=== PATIENT | female | born 1985 | race Caucasian/White ===

== ENCOUNTER → 2021-03-15 10:51 | Outpatient (BNVA) | payer OTHER, SELFPAY | PROVIDERS: Family Provider Nurse Practitioner Family; PCP Nurse Practitioner Family; Visit Provider Nurse Practitioner Family | DX: Z20.822 Contact with and (suspected) exposure to COVID-19 (principal); J98.8 Other specified respiratory disorders; B37.0 Candidal stomatitis; R00.0 Tachycardia, unspecified | CPT/HCPCS: 87635 ==

== ENCOUNTER 2021-03-30 02:56 | Inpatient (IN) | payer MEDICAID, SELFPAY ==
[2021-03-30] VITALS (15 sets, daily range): BP systolic 93–111; BP diastolic 50–71; PULSE 64–93; RESP 12–20; TEMP 36.7–37.6; O2SAT 95–100; BMI 16.1
--- NOTE | 2021-03-30 03:46 | XRR_ITS ---
PROCEDURE INFORMATION: Exam: XR Chest Exam date and time: 03/30/2021 3:46 AM Age: 36 years old Clinical indication: Shortness of breath; Chest pressure; Patient HX: Chest pain with SOB. ; Additional info: Cp TECHNIQUE: Imaging protocol: XR of the chest. Views: 1 view. COMPARISON: CR Chest 1 [place] [id number] 12/08/2017 7:30 PM FINDINGS: Lungs: Interval decrease in the lung volumes and appearance of stranding densities in each lung base. Interval vague density over the right lower hilum, but no definite consolidation. No suggestion of pulmonary edema. Pleural spaces: Interval appearance of small pleural effusions. Still no pneumothorax. Heart/Mediastinum: Probable interval increase in the heart size to mild cardiomegaly despite the lower lung volumes. Bones/joints: No apparent acute bony disease. XR/XR chest 1V portable [id number] IMPRESSION: 1. Interval decrease in the lung volumes and appearance of areas of atelectasis in the lung bases. Interval vague density over the right lower hilum questionably due to atelectasis or airspace disease, also. 2. Probable interval increase in the heart size to mild cardiomegaly. Interval appearance of small pleural effusions.
--- NOTE | 2021-03-30 05:46 | ECG_ITS ---
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
--- NOTE | 2021-03-30 06:41 | W.ED.GENADLT ---
HPI - General Adult General: Chief complaint: ER Hold Stated complaint: Chest pain\SOB Time Seen by Provider: 03/30/21 06:00 History of Present Illness: HPI narrative: CC: Chest Pain HPI: This is a [36] yo patient hx of untreated hepatitis C, prior meth use presenting to the ED complaining of acute sudden onset intermittent sharp chest pain x 3 weeks that started while weed wacking. +mild dyspnea. Patent also noticed her L leg was mildly swollen over the same time. Pain is not tearing in nature and does not radiate to the back. Pain not associated with vomiting or PO intake. Denies any recent sympathomimetic drug use. Patient denies any cough. Denies palpitations, dysphagia, diaphoresis, radiation of pain to bilateral arms, jaw. Denies F/N/V/D. Patient denies any recent immobility, surgery, OCP, or prior PE. Patient denies any orthopnea. Onset: 21 days ago Duration: ongoing for the last 21 days Location: home Severity: moderate Review of Systems Narrative: Constitutional: No fever, no chills. HEENT: No vision changes, no sore throat. CV: +chest pain, no palpitations. PULM: No cough, +dyspnea. GI: No abdominal pain, no N/V/D. : No dysuria, no frequency, no hematuria. MSKEL: No arthralgias, no edema. SKIN: No new rashes, no lesions. NEURO: No headache, no focal weakness. HEME: No easy bleeding or bruising. PSYCH: No change in mood or affect. [facility] ED PFSH: Medical History (Updated 03/30/21 @ 13:32 by Eben Arnold MD) Drug use Hepatitis C Reports she is untreated Social History (Updated 03/30/21 @ 13:28 by Eben Arnold MD) Smoking and tobacco status: current every day smoker Second hand smoke exposure: No Smoking risk assessment/counseling performed?: Yes Alcohol intake: never Desire information about alcohol rehabilitation?: No Counseling given: No Desire information about substance/drug rehabilitation?: No Counseling given: No Adopted: No Caregiver/support person: No Lives independently: Yes Household members: family Housing: House Marital status: Single service: No Current occupational status: unemployed History of recent travel: No Female Reproductive History: Date of last menstrual period: 03/30/21 Physical Exam Narrative: EXAM NARRATIVE: Head: Atraumatic, normocephalic Eyes: PERRL, EOMI, conjunctiva without injection ENT: Throat without erythema, lesions or exudate, MMM NECK: Supple, trachea midline, no JVD LUNGS: LCTA CV: RRR, S1,S2, no murmurs, rubs, gallops. 2+ peripheral pulses in UEs ABDOMEN: Soft, nontender, nondistended, BS x4, no rigidity, no guarding, no rebound EXTREMITY: Normal ROM, no pitting edema, no calf tenderness to palpation, mild 1+ nonpitting edema in the L leg SKIN: No rash or erythema NEURO: Awake and alert. No focal motor deficits. PSYCH: Normal mood and affect. Course Vital Signs: Vital signs: Vital Signs Temperature 98.1 F 03/31/21 03:52 Pulse Rate 70 03/31/21 05:01 Respiratory Rate 20 H 03/31/21 03:52 Blood Pressure 110/67 03/31/21 03:52 Pulse Oximetry 96 03/31/21 03:52 MDM - General Adult MDM Narrative: Medical decision making narrative: [36]yo patient w/ hx of untreated hepatitis C, prior meth use presenting to the ED with evaluation of new onset sharp chest pain x 21 days days. HDS, pulse 2+ radially bilaterally, no signs of fluid overload, AAOx3, neuro exam intact. Workup: ECG, CXR, CBC, BMP, Troponin, Dimer Interventions: morphine for pain Findings: ECG: No overt evidence of STEMI, hyperacute T waves, localizable STD or T wave inversions. No evidence of Brugada?s sign, delta wave, epsilon wave, significantly prolonged QTc, or malignant arrhythmia. No Q waves. Other Labs unremarkable for emergent problems. CXR: Without PTX, PNA, or widened mediastinum Last Stress Test: never Last Heart Catheterization: never Dimer: significantly elevated [10:01] On reassessment, the patient is HDS, no complaints of persistent chest pain in the ED after evaluation. Hemoglobin of 6.2, K of 2.9, calcium of 6.9. QTC of 368. ECG is non-ischemic. Hemoocult negative. Patient received 1u of pRBC, 40mEq of potassium PO x 2 and 10meQ of potassium IV, and 2g of calcium gluconate. Serial tropoonin wnl. Unclear source of anemia. D-dimer is noted to be 4.5 today, CTA for multiple PE with right heart strain. S/p heparin bolus and drip. Performed shared decision making with patient to start on therapeutic anticoagulation. Patient is does have a history of anemia, and it is unclear whether this is where this anemia is coming from. CT abdomen showed splenomegaly and hepatomegaly on CT. US left leg negative for PE. NO suspicion for acute GI bleeding. Patient was started on anticoagulation. Decision: Admission for serial observation and anticoagulation Lab Data: Labs: Lab Results 03/30/21 03/30/21 03/30/21 Range/Units 06:45 06:45 06:45 WBC 7.3 (4.0-10.0) 10^3/ uL RBC 3.09 L (4.1-5.3) 10^6/u L Hgb 6.4 L* (11.5-15.3) g/dL Hct 23.2 L (37.0-47.0) % MCV 75.1 L (81-99) fl MCH 20.7 L (28.0-34.0) pg MCHC 27.6 L (30.0-36.0) g/dL RDW 17.4 H (12.1-15.1) % Plt Count 231 (130-400) 10^3/c mm MPV 11.3 H (7.4-10.4) fL Neut % (Auto) 67.0 % Lymph % (Auto) 22.5 % Assumption % (Auto) 5.2 % Eos % (Auto) 3.7 % Baso % (Auto) 0.4 % Neut # (Auto) 4.86 (1.8-7.7) 10^3/u L Lymph # (Auto) 1.6 (0.8-4.8) 10^3/u L Assumption # (Auto) 0.4 (0.2-0.9) 10^3/u L Eos # (Auto) 0.3 (0.0-0.8) 10^3/u L Baso # (Auto) 0.0 (0.0-0.1) 10^3/u L Nucleated RBC % (a uto) 0 % Nucleated RBCs # 0.0 /100WBC D-Dimer (0-0.59) ug/mIFE U Sodium 140 (136-145) mmol/L Potassium 2.9 L (3.5-5.1) mmol/L Chloride 111 H (98-107) mmol/L Carbon Dioxide 20 L (22-29) mmol/L Anion Gap 11.9 (5-19) BUN 6 (6-20) mg/dL Creatinine 0.3 L (0.5-0.9) mg/dL GFR Calculation 253.2 H (90-130) mL/min Glucose 69 (65-115) mg/dL Calculated Osmolal ity 286 (285-295) mOsm/k g Calcium 6.6 L (8.5-10.5) mg/dL Magnesium (1.7-2.3) mg/dL Iron (37-145) ug/dL TIBC mcg/dl % Saturation (20-50) % Unsat Iron Binding (112-347) ug/dL Ferritin (15-150) ng/mL Total Bilirubin 0.2 (0.15-1.2) mg/dL AST 17 (0-32) U/L ALT 10 (0-33) U/L Alkaline Phosphata se 65 (35-105) IU/L Troponin T Baselin e 6 (0-10) ng/L Troponin T 120 Min [place] (0-10) ng/L Delta Troponin T (0-10) ABS# Troponin T Hi Sens 6Hr (0-10) ng/L Troponin T Hi Sens 6Hr Delta (0-12) ng/L C-Reactive Protein (0.0-4.9) mg/L Total Protein 5.4 L (6.6-8.7) g/dL Albumin 2.2 L (3.5-5.2) g/dL Globulin 3.2 (1.3-4.6) g/dL Ser , Rukhsana i-Qnt mIU/mL Blood Type Rho(D) Type Antibody Screen Crossmatch 03/30/21 03/30/21 03/30/21 Range/Units 06:45 07:30 07:50 WBC (4.0-10.0) 10^3/ uL RBC (4.1-5.3) 10^6/u L Hgb (11.5-15.3) g/dL Hct (37.0-47.0) % MCV (81-99) fl MCH (28.0-34.0) pg MCHC (30.0-36.0) g/dL RDW (12.1-15.1) % Plt Count (130-400) 10^3/c mm MPV (7.4-10.4) fL Neut % (Auto) % Lymph % (Auto) % Assumption % (Auto) % Eos % (Auto) % Baso % (Auto) % Neut # (Auto) (1.8-7.7) 10^3/u L Lymph # (Auto) (0.8-4.8) 10^3/u L Assumption # (Auto) (0.2-0.9) 10^3/u L Eos # (Auto) (0.0-0.8) 10^3/u L Baso # (Auto) (0.0-0.1) 10^3/u L Nucleated RBC % (a uto) % Nucleated RBCs # /100WBC D-Dimer 4.19 H (0-0.59) ug/mIFE U Sodium (136-145) mmol/L Potassium (3.5-5.1) mmol/L Chloride (98-107) mmol/L Carbon Dioxide (22-29) mmol/L Anion Gap (5-19) BUN (6-20) mg/dL Creatinine (0.5-0.9) mg/dL GFR Calculation (90-130) mL/min Glucose (65-115) mg/dL Calculated Osmolal ity (285-295) mOsm/k g Calcium (8.5-10.5) mg/dL Magnesium (1.7-2.3) mg/dL Iron (37-145) ug/dL TIBC mcg/dl % Saturation (20-50) % Unsat Iron Binding (112-347) ug/dL Ferritin (15-150) ng/mL Total Bilirubin (0.15-1.2) mg/dL AST (0-32) U/L ALT (0-33) U/L Alkaline Phosphata se (35-105) IU/L Troponin T Baselin e (0-10) ng/L Troponin T 120 Min [place] 6.33 (0-10) ng/L Delta Troponin T 0.33 (0-10) ABS# Troponin T Hi Sens 6Hr (0-10) ng/L Troponin T Hi Sens 6Hr Delta (0-12) ng/L C-Reactive Protein 25.6 H (0.0-4.9) mg/L Total Protein (6.6-8.7) g/dL Albumin (3.5-5.2) g/dL Globulin (1.3-4.6) g/dL Ser , Rukhsana i-Qnt mIU/mL Blood Type Rho(D) Type Antibody Screen Crossmatch 03/30/21 03/30/21 03/30/21 Range/Units 07:50 07:50 07:50 WBC (4.0-10.0) 10^3/ uL RBC (4.1-5.3) 10^6/u L Hgb (11.5-15.3) g/dL Hct (37.0-47.0) % MCV (81-99) fl MCH (28.0-34.0) pg MCHC (30.0-36.0) g/dL RDW (12.1-15.1) % Plt Count (130-400) 10^3/c mm MPV (7.4-10.4) fL Neut % (Auto) % Lymph % (Auto) % Assumption % (Auto) % Eos % (Auto) % Baso % (Auto) % Neut # (Auto) (1.8-7.7) 10^3/u L Lymph # (Auto) (0.8-4.8) 10^3/u L Assumption # (Auto) (0.2-0.9) 10^3/u L Eos # (Auto) (0.0-0.8) 10^3/u L Baso # (Auto) (0.0-0.1) 10^3/u L Nucleated RBC % (a uto) % Nucleated RBCs # /100WBC D-Dimer (0-0.59) ug/mIFE U Sodium (136-145) mmol/L Potassium (3.5-5.1) mmol/L Chloride (98-107) mmol/L Carbon Dioxide (22-29) mmol/L Anion Gap (5-19) BUN (6-20) mg/dL Creatinine (0.5-0.9) mg/dL GFR Calculation (90-130) mL/min Glucose (65-115) mg/dL Calculated Osmolal ity (285-295) mOsm/k g Calcium (8.5-10.5) mg/dL Magnesium 1.7 (1.7-2.3) mg/dL Iron 16 L (37-145) ug/dL TIBC 245 mcg/dl % Saturation 6.5 L (20-50) % Unsat Iron Binding 229 (112-347) ug/dL Ferritin 112 (15-150) ng/mL Total Bilirubin (0.15-1.2) mg/dL AST (0-32) U/L ALT (0-33) U/L Alkaline Phosphata se (35-105) IU/L Troponin T Baselin e (0-10) ng/L Troponin T 120 Min [place] (0-10) ng/L Delta Troponin T (0-10) ABS# Troponin T Hi Sens 6Hr (0-10) ng/L Troponin T Hi Sens 6Hr Delta (0-12) ng/L C-Reactive Protein (0.0-4.9) mg/L Total Protein (6.6-8.7) g/dL Albumin (3.5-5.2) g/dL Globulin (1.3-4.6) g/dL Ser , Rukhsana i-Qnt 0.50 mIU/mL Blood Type B Positive Rho(D) Type Positive Antibody Screen Negative Crossmatch See Detail 03/30/21 Range/Units 10:17 WBC (4.0-10.0) 10^3/ uL RBC (4.1-5.3) 10^6/u L Hgb (11.5-15.3) g/dL Hct (37.0-47.0) % MCV (81-99) fl MCH (28.0-34.0) pg MCHC (30.0-36.0) g/dL RDW (12.1-15.1) % Plt Count (130-400) 10^3/c mm MPV (7.4-10.4) fL Neut % (Auto) % Lymph % (Auto) % [place] % (Auto) % Eos % (Auto) % Baso % (Auto) % Neut # (Auto) (1.8-7.7) 10^3/u L Lymph # (Auto) (0.8-4.8) 10^3/u L [place] # (Auto) (0.2-0.9) 10^3/u L Eos # (Auto) (0.0-0.8) 10^3/u L Baso # (Auto) (0.0-0.1) 10^3/u L Nucleated RBC % (a uto) % Nucleated RBCs # /100WBC D-Dimer (0-0.59) ug/mIFE U Sodium (136-145) mmol/L Potassium (3.5-5.1) mmol/L Chloride (98-107) mmol/L Carbon Dioxide (22-29) mmol/L Anion Gap (5-19) BUN (6-20) mg/dL Creatinine (0.5-0.9) mg/dL GFR Calculation (90-130) mL/min Glucose (65-115) mg/dL Calculated Osmolal ity (285-295) mOsm/k g Calcium (8.5-10.5) mg/dL Magnesium (1.7-2.3) mg/dL Iron (37-145) ug/dL TIBC mcg/dl % Saturation (20-50) % Unsat Iron Binding (112-347) ug/dL Ferritin (15-150) ng/mL Total Bilirubin (0.15-1.2) mg/dL AST (0-32) U/L ALT (0-33) U/L Alkaline Phosphata se (35-105) IU/L Troponin T Baselin e (0-10) ng/L Troponin T 120 Min [place] (0-10) ng/L Delta Troponin T (0-10) ABS# Troponin T Hi Sens 6Hr 6.00 (0-10) ng/L Troponin T Hi Sens 6Hr Delta 0 (0-12) ng/L C-Reactive Protein (0.0-4.9) mg/L Total Protein (6.6-8.7) g/dL Albumin (3.5-5.2) g/dL Globulin (1.3-4.6) g/dL Ser , Rukhsana i-Qnt mIU/mL Blood Type Rho(D) Type Antibody Screen Crossmatch Imaging Data^: Other Imaging: Radiologist's impression: [employer] [address]ROsb ReportSigned Patient: Linh Ambrose #: [id number]: 1985Acct#:[id number]/Sex: 36 / FADM Date: 03/30/21Loc: ERRoom/Bed:Attending Dr: Ordering Provider/Ordering MD: Karol Reynoso MD Date of Service: 03/30/21 Procedure(s): XR chest 1V portable [id number] Accession Number(s): [id number] Report Number: [id number] PROCEDURE INFORMATION: Exam: XR Chest Exam date and time: 03/30/2021 3:46 AM Age: 36 years old Clinical indication: Shortness of breath; Chest pressure; Patient HX: Chest pain with SOB. ; Additional info: Cp TECHNIQUE: Imaging protocol: XR of the chest. Views: 1 view. COMPARISON: CR Chest 1 [place] [id number] 12/08/2017 7:30 PM FINDINGS: Lungs: Interval decrease in the lung volumes and appearance of stranding densities in each lung base. Interval vague density over the right lower hilum, but no definite consolidation. No suggestion of pulmonary edema. Pleural spaces: Interval appearance of small pleural effusions. Still no pneumothorax. Heart/Mediastinum: Probable interval increase in the heart size to mild cardiomegaly despite the lower lung volumes. Bones/joints: No apparent acute bony disease. XR/XR chest 1V portable [id number] IMPRESSION: 1. Interval decrease in the lung volumes and appearance of areas of atelectasis in the lung bases. Interval vague density over the right lower hilum questionably due to atelectasis or airspace disease, also. 2. Probable interval increase in the heart size to mild cardiomegaly. Interval appearance of small pleural effusions. Dictated By:Kristine Orellana MDSigned By:Kristine Orellana MDSigned Date/Time:03/30/21 0637DD/ [address] [id number] ReportSigned Patient: Linh Ambrose #: [id number]: 1985Acct#:[id number]/Sex: 36 / FADM Date: 03/30/21Loc: ERRoom/Bed:Attending Dr: Ordering Provider/Ordering MD: Melba Pearl MD Date of Service: 03/30/21 Procedure(s): [place] [address] Accession Number(s): [id number] Report Number: [id number] Linh Ambrose Age: 36 Gender: F : 1985 Exam Date: 03/30/2021 08:56 Ordering Phys: Melba Pearl MD Technologist: Kajal Marcus Exam Location: [facility] [place] Indication: SWELLING LT LEG HISTORY: Swelling of lt leg PROCEDURES: Venous duplex imaging was performed in only the left lower extremity. The following venous structures were evaluated: common femoral vein, profunda vein, proximal portion of the greater saphenous vein, superficial femoral vein, and the popliteal vein. In addition, the posterior tibial and peroneal trunk were evaluated. Serial compression, augmentation maneuvers, and spectral Doppler flow evaluation were performed. FINDINGS: Normal 2-D Doppler and augmentation and compressibility throughout the lower extremity venous structures. Additional imaging through the proximal calf veins also reveals no thrombus. Limited evaluation of the greater saphenous vein is patent with no thrombus. CONCLUSIONS No DVT left lower extremity. Dr. Tracie Saleh DO (Electronically Signed) Final Date: 30 March 2021 09:[address] [id number] Scan ReportSigned Patient: Linh Ambrose RUnit #: [id number]: 1985Acct#:[id number]/Sex: 36 / FADM Date: 03/30/21Loc: ERRoom/Bed:Attending Dr: Ordering Provider/Ordering MD: Melba Pearl MD Date of Service: 03/30/21 Procedure(s): CT angio chest PE protcl [id number] Accession Number(s): [id number] Report Number: [id number] WS: [id number] CT CHEST ANGIOGRAPHY WITH REFORMATS HISTORY: rule out pe TECHNIQUE: Contiguous axial images are obtained through the chest during arterial injection of intravenous contrast. Images are reconstructed to evaluate the pulmonary arteries. MIP imaging also reviewed. All CT scans at [facility] use at least one of these dose optimization techniques: automated exposure control; mA and/or kV adjustment per patient size (includes targeted exams where dose is matched to clinical indication); or iterative reconstruction. CONTRAST: Omnipaque 350; 65 mL IV. DLP: 352.94 mGy.cm COMPARISON: Chest radiograph 03/30/2021. Very good opacification of the pulmonary arteries. Pulmonary artery size is slightly enlarged. Abrupt termination of the bilateral lower lobe segmental and subsegmental pulmonary arteries. There is significant airspace disease and emboli in the lower lobe pulmonary arteries. No pulmonary embolism or obstruction of the upper lobe pulmonary arteries. There is also mild RIGHT heart strain. RIGHT heart chambers are enlarged and there is slight clockwise rotation of the heart and flattening of the septum. Multilobar areas of dense consolidation. Most significant consolidations in the lower lobes surrounding the bronchovascular structures. No pneumothorax or pneumopericardium. Subcarinal and bilateral hilar lymphadenopathy. There are small layering LEFT pleural effusion. There is also pleural thickening and nodularity at the LEFT lung base. Diffuse hepatic enlargement and steatosis as visualized. Upper abdominal structures are poorly visualized due to the extensive hepatic enlargement. Suspect the spleen is also enlarged. Variable enhancement within the spleen from early phase enhancement. CT/CT angio chest PE protcl [id number] IMPRESSION: 1. Bilateral occlusive lower lobe pulmonary emboli. 2. Multi lobar consolidation and opacifications. Most significant in the lower lobes where there is encasement of the bronchovascular structures and dense consolidation. 3. Small LEFT pleural effusion. 4. Mediastinal and hilar adenopathy. 5. Hepatosplenomegaly. 6. RIGHT heart strain. RIGHT heart enlargement. Notified Melba Pearl MD at 03/30/2021 9:49 AM. Dictated By:Tracie Saleh DOSigned By:Tracie Saleh DOSigned Date/Time:03/30/[address] [address]NZ Scan ReportSigned Patient: Linh Ambrose #: [id number]: 1985Acct#:[id number]/Sex: 36 / FADM Date: 03/30/21Loc: ERRoom/Bed:Attending Dr: Ordering Provider/Ordering MD: Melba Pearl MD Date of Service: 03/30/21 Procedure(s): CT abdomen pelvis w con* [id number] Accession Number(s): [id number] Report Number: [id number] WS: [id number] CT ABDOMEN AND PELVIS WITH CONTRAST HISTORY: splenomegaly and hepatosplenomegaly. TECHNIQUE: Imaging performed of the abdomen and pelvis with IV contrast. Single phase imaging of the abdomen. Coronal and sagittal reformats are submitted. All CT scans at [facility] use at least one of these dose optimization techniques: automated exposure control; mA and/or kV adjustment per patient size (includes targeted exams where dose is matched to clinical indication); or iterative reconstruction. IV CONTRAST: Omnipaque 300; 5 mL IV. Oral contrast: No DLP: 747.12 mGy.cm COMPARISON: CT chest 03/30/2021. Lower thorax: Dense areas of consolidation at the lung bases. Patient has known bilateral lower lobe pulmonary emboli and opacifications. The emboli and filling defects within the lower lobe pulmonary arteries appears necrotic. Pleural thickening at the LEFT lung base and small effusion. This is not a simple effusion. Enlarged heart with mild RIGHT heart strain. No hiatal hernia. Liver/biliary system: Liver is mildly enlarged extending over length of 17 cm and extends across the midline. No ischemic changes. Portal vein is normal. Spleen is mildly enlarged at 13.1 cm in length. Gallbladder is contracted. Pancreas is poorly visualized. No renal mass or obstruction. Normal aorta. Very difficult evaluation of the GI tract and the retroperitoneum and mesenteric lymph nodes with a oral contrast and very limited fat. There is extensive fecal retention. Cannot confirm ascites. Abdominal wall: Unremarkable abdominal wall. No hernia. Pelvis: Well-distended urinary bladder from contrast injection from the prior CT angiogram. The uterus is to the RIGHT of midline. Bones: Mild LEFT curvature lumbar spine. CT/CT abdomen pelvis w con* [id number] IMPRESSION: 1. Mild hepatosplenomegaly. 2. Very limited evaluation of the GI tract, mesentery and retroperitoneum due to lack of oral contrast and limited visceral fat. 3. No ascites identified. Dictated By:Tracie Saleh DOSigned By:Tracie Saleh DOSigned Date/Time:03/30/21 1020DD/ 1015 Discharge Plan Discharge Patient Disposition: Admitted As Inpatient Admit Provider: Eben Arnold Clinical Impression: Anemia, Pulmonary embolism, Right heart enlargement, Acute hypokalemia, Hypocalcemia, Hepatosplenomegaly Condition: Stable Coding Level of Care Code ED Cold Reduction Roller for Roman Roach
[2021-03-30 07:00] LABS: Basophils % 0.4 %; Eosinophils # 0.3 10^3/uL (0.0-0.8); Eosinophils % 3.7 %; Hematocrit 23.2 % (37.0-47.0); Lymphocytes # 1.6 10^3/uL (0.8-4.8); Lymphocytes % 22.5 %; Mean Corpuscular HGB Conc 27.6 g/dL (30.0-36.0); Mean Corpuscular Hemoglobin 20.7 pg (28.0-34.0); Mean Corpuscular Volume 75.1 fl (81-99); Mean Platelet Volume 11.3 fL (7.4-10.4); Monocytes # 0.4 10^3/uL (0.2-0.9); Monocytes % 5.2 %; Neutrophils # 4.86 10^3/uL (1.8-7.7); Nucleated Red Blood Cells % 0 %; Platelet Count 231 10^3/cmm (130-400); Red Blood Count 3.09 10^6/uL (4.1-5.3); Red Cell Distribution Width 17.4 % (12.1-15.1); White Blood Count 7.3 10^3/uL (4.0-10.0)
[2021-03-30 07:12] LABS: Hemoglobin 6.4 g/dL (11.5-15.3)
[2021-03-30 07:25] LABS: Troponin(5th) Baseline 6 ng/L (0-10)
[2021-03-30 07:27] LABS: Alanine Aminotransferase 10 U/L (0-33); Albumin Level 2.2 g/dL (3.5-5.2); Alkaline Phosphatase 65 IU/L (35-105); Blood Urea Nitrogen 6 mg/dL (6-20); Calcium 6.6 mg/dL (8.5-10.5); Carbon Dioxide 20 mmol/L (22-29); Chloride 111 mmol/L (98-107); Globulin 3.2 g/dL (1.3-4.6); Glomerular Filtration Rate 253.2 mL/min (90-130); Glucose 69 mg/dL (65-115); Osmolality Calculated 286 mOsm/kg (285-295); Sodium 140 mmol/L (136-145); Total Bilirubin 0.2 mg/dL (0.15-1.2); Total Protein 5.4 g/dL (6.6-8.7)
[2021-03-30 07:38] LABS: Anion Gap 11.9 (5-19); Potassium 2.9 mmol/L (3.5-5.1)
[2021-03-30 07:39] LABS: Aspartate Amino Transferase 17 U/L (0-32)
[2021-03-30 07:58] LABS: D Dimer 4.19 ug/mIFEU (0-0.59)
[2021-03-30 08:17] LABS: Troponin 5 2HR 6.33 ng/L (0-10); Troponin 5 2HR Delta 0.33 ABS# (0-10)
--- NOTE | 2021-03-30 08:40 | CT_ITS ---
WS: [id number] CT CHEST ANGIOGRAPHY WITH REFORMATS HISTORY: rule out pe TECHNIQUE: Contiguous axial images are obtained through the chest during arterial injection of intrav enous contrast. Images are reconstructed to evaluate the pulmonary arteries. MIP imaging also reviewe d. All CT scans at [facility] use at least one of these dose optimization techniques: aut omated exposure control; mA and/or kV adjustment per patient size (includes targeted exams where dose is matched to clinical indication); or iterative reconstruction. CONTRAST: Omnipaque 350; 65 mL IV. DLP: 352.94 mGy.cm COMPARISON: Chest radiograph 03/30/2021. Very good opacification of the pulmonary arteries. Pulmonary artery size is slightly enlarged. Abrupt termination of the bilateral lower lobe segmental and subsegmental pulmonary arteries. There is sign ificant airspace disease and emboli in the lower lobe pulmonary arteries. No pulmonary embolism or ob struction of the upper lobe pulmonary arteries. There is also mild RIGHT heart strain. RIGHT heart ch ambers are enlarged and there is slight clockwise rotation of the heart and flattening of the septum. Multilobar areas of dense consolidation. Most significant consolidations in the lower lobes surroundi ng the bronchovascular structures. No pneumothorax or pneumopericardium. Subcarinal and bilateral hilar lymphadenopathy. There are small layering LEFT pleural effusion. There is also pleural thickening and nodularity at the LEFT lung base. Diffuse hepatic enlargement and steatosis as visualized. Upper abdominal structures are poorly visual ized due to the extensive hepatic enlargement. Suspect the spleen is also enlarged. Variable enhancem ent within the spleen from early phase enhancement. CT/CT angio chest PE protcl [id number] IMPRESSION: 1. Bilateral occlusive lower lobe pulmonary emboli. 2. Multi lobar consolidation and opacifications. Most significant in the lower lobes where there is encasement of the bronchovascular structures and dense co nsolidation. 3. Small LEFT pleural effusion. 4. Mediastinal and hilar adenopathy. 5. Hepatosplenomegaly. 6. RIGHT heart strain. RIGHT heart enlargement. Notified Melba Pearl MD at 03/30/2021 9:49 AM.
--- NOTE | 2021-03-30 08:40 | USCV_ITS ---
JulietaLinh Age: 36 Gender: F : 1985 Exam Date: 03/30/2021 08:56 Ordering Phys: Melba Pearl MD Technologist: Kajal Marcus [place] [facility] [place]ication: SWELLING LT LEG HISTORY: Swelling of lt leg PROCEDURES: Venous duplex imaging was performed in only the left lower extremity. The following venous structures were evaluated: common femoral vein, profunda vein, proximal portion of the greater saphenous vein, superficial femoral vein, and the popliteal vein. In addition, the posterior tibial and peroneal trunk were evaluated. Serial compression, augmentation maneuvers, and spectral Doppler flow evaluation were performed. FINDINGS: Normal 2-D Doppler and augmentation and compressibility throughout the lower extremity venous structures. Additional imaging through the proximal calf veins also reveals no thrombus. Limited evaluation of the greater saphenous vein is patent with no thrombus. CONCLUSIONS No DVT left lower extremity. Dr. Tracie Saleh DO (Electronically Signed) Final Date: 30 March 2021 09:55 S
[2021-03-30] MEDS: potassium chloride ER 20 mEq Tablet 40 MEQ PO ×3 (08:42→19:14)
[2021-03-30] MEDS: iohexol 350 mg/mL 100 mL Btl IV (09:25)
--- NOTE | 2021-03-30 09:50 | CT_ITS ---
WS: [id number] CT ABDOMEN AND PELVIS WITH CONTRAST HISTORY: splenomegaly and hepatosplenomegaly. TECHNIQUE: Imaging performed of the abdomen and pelvis with IV contrast. Single phase imaging of the abdomen. Coronal and sagittal reformats are submitted. All CT scans at [facility] use at least one of these dose optimization techniques: automated exposure control; mA and/or kV adjustment per patient size (includes targeted exams where dose is matched to clinical indication); or iterativ e reconstruction. IV CONTRAST: Omnipaque 300; 5 mL IV. Oral contrast: No DLP: 747.12 mGy.cm COMPARISON: CT chest 03/30/2021. Lower thorax: Dense areas of consolidation at the lung bases. Patient has known bilateral lower lobe pulmonary emboli and opacifications. The emboli and filling defects within the lower lobe pulmonary a rteries appears necrotic. Pleural thickening at the LEFT lung base and small effusion. This is not a simple effusion. Enlarged heart with mild RIGHT heart strain. No hiatal hernia. Liver/biliary system: Liver is mildly enlarged extending over length of 17 cm and extends across the midline. No ischemic changes. Portal vein is normal. Spleen is mildly enlarged at 13.1 cm in length. Gallbladder is contracted. Pancreas is poorly visuali zed. No renal mass or obstruction. Normal aorta. Very difficult evaluation of the GI tract and the retroperitoneum and mesenteric lymph nodes with a o ral contrast and very limited fat. There is extensive fecal retention. Cannot confirm ascites. Abdominal wall: Unremarkable abdominal wall. No hernia. Pelvis: Well-distended urinary bladder from contrast injection from the prior CT angiogram. The uteru s is to the RIGHT of midline. Bones: Mild LEFT curvature lumbar spine. CT/CT abdomen pelvis w con* [id number] IMPRESSION: 1. Mild hepatosplenomegaly. 2. Very limited evaluation of the GI tract, mesentery and retroperitoneum due to lack of oral contrast and limited visceral fat. 3. No ascites identified.
[2021-03-30 10:46] LABS: Troponin 5 6HR Delta 0 ng/L (0-12)
[2021-03-30 12:29] LABS: SARS Covid-2 Antigen Negative (Negative)
[2021-03-30] MEDS: heparin 5,000 unit/mL INJ 1 mL IV (12:42)
[2021-03-30] MEDS: heparin drip 25,000 UNIT/500 ML PREMIX 12.7 UNIT IV (12:45)
[2021-03-30 13:01] LABS: Ferritin 112 ng/mL (15-150); Iron 16 ug/dL (37-145); Magnesium 1.7 mg/dL (1.7-2.3); Percent Saturation 6.5 % (20-50); Total Iron Binding Capacity 245 mcg/dl; Unsaturated Iron Binding 229 ug/dL (112-347)
--- NOTE | 2021-03-30 13:08 | USCV_ITS ---
Linh Ambrose Age: 36 Gender: F : 1985 Exam Date: 03/30/2021 13:29 Ordering Phys: Eben Arnold MD Technologist: Bronson Robertson [place] [facility] [place]ication: HIGH LIKELY RT SIDE HEART VEG BP: 102 / 55 HR: 73 Rhythm: Sinus Technical Quality: Excellent MEASUREMENTS (Male / Female) Normal Values 2D ECHO LV Diastolic Diameter PLAX 4.4 cm 4.2 - 5.9 / 3.9 - 5.3 cm LV Systolic Diameter PLAX 2.9 cm IVS Diastolic Thickness 0.5 cm 0.6 - 1.0 / 0.6 - 0.9 cm IVS Systolic Thickness 0.8 cm LVPW Diastolic Thickness 1.1 cm 0.6 - 1.0 / 0.6 - 0.9 cm LVPW Systolic Thickness 1.7 cm LVOT Diameter 2.2 cm LV Ejection Fraction 2D Teich 63.0 % LV Ejection Fraction MOD 2C 68.6 % LV Ejection Fraction 2C AL 70.1 % LA Diameter 3.5 cm LA Width 4.0 cm LA Height 5.1 cm RA Width 3.3 cm RA Height 4.8 cm Aorta at Sinotubular Diameter 2.5 cm DOPPLER AV Peak Velocity 110.0 cm/s LVOT Peak Velocity 96.0 cm/s AV Area Cont Eq vti 2.7 cm squared AV Area Cont Eq pk 3.2 cm squared MV Area PHT 5.0 cm squared Mitral E to A Ratio 1.5 MV E' Velocity 43.5 cm/s Mitral E to MV E' Ratio 4.2 Mitral E to LV E' Lateral Ratio 3.8 Mitral E to LV E' Septal Ratio 4.8 TR Peak Velocity 273.7 cm/s TR Peak Gradient 30.0 mmHg TR Mean Velocity 197.9 cm/s TR Mean Gradient 17.8 mmHg TR Velocity Time Integral 94.0 cm PV Peak Velocity 65.0 cm/s RV Acceleration Time 0.1 s RV Ejection Time 0.3 s RV AcT/ET 0.5 FINDINGS Left Ventricle Normal left ventricular cavity size. Normal left ventricular systolic function. No regional wall motion abnormalities. Left ventricular ejection fraction is estimated at 55 %. Right Ventricle The right ventricle is normal in size and function. Right Atrium The right atrium is normal in size. Left Atrium The left atrium is normal in size. Mitral Valve Mitral valve is appear to be thickened there is also echogenic mass attached to the subvalvular apparatus of the mitral valve cannot rule out vegetation. There is no significant mitral valve regurgitation or stenosis. Aortic Valve Aortic valve sclerosis without stenosis or regurgitation. Tricuspid Valve There appeared to be thickened tricuspid valve and echogenic floppy 1.9 x 1.4 cm mass attached to tricuspid valve on the ventricle side near subvalvular apparatus highly suspicious for vegetation. Moderate tricuspid valve regurgitation. Pulmonic Valve Structurally normal pulmonic valve. Mild pulmonary valve regurgitation. Pericardium Normal pericardium without effusion. Aorta Normal ascending aorta dimension. CONCLUSIONS 1-Normal left ventricular cavity size. Normal left ventricular systolic function. No regional wall motion abnormalities. Left ventricular ejection fraction is estimated at 55 %. 2-There appeared to be thickened tricuspid valve and echogenic floppy 1.9 x 1.4 cm mass attached to tricuspid valve on the ventricle side near subvalvular apparatus highly suspicious for vegetation. Moderate tricuspid valve regurgitation. 3-Mitral valve is appear to be thickened there is also echogenic mass attached to the subvalvular apparatus of the mitral valve cannot rule out vegetation. There is no significant mitral valve regurgitation or stenosis. 4-Aortic valve sclerosis without stenosis or regurgitation. 5-There is no pericardial effusion. 6-There is no pericardial effusion. 7-Right atrial pressure is around 5 mm of mercury. 8-There are no prior echocardiogram studies to compare. Kelvin Hernandez MD (Electronically Signed) Final Date: 30 March 2021 15:06 S
--- NOTE | 2021-03-30 13:09 | USCV_ITS ---
Linh Ambrose Age: 36 Gender: F : 1985 Exam Date: 03/30/2021 13:59 Ordering Phys: Eben Arnold MD Technologist: ANDRE Exam Location: [facility] [place] Indication: PE PROCEDURES: Venous duplex imaging was performed in only the right lower extremity. The following venous structures were evaluated: common femoral vein, profunda vein, proximal portion of the greater saphenous vein, superficial femoral vein, and the popliteal vein. In addition, the posterior tibial and peroneal trunk were evaluated. Serial compression, augmentation maneuvers, and spectral Doppler flow evaluation were performed. FINDINGS: Normal 2-D Doppler and augmentation and compressibility throughout the lower extremity venous structures. Additional imaging through the proximal calf veins also reveals no thrombus. Limited evaluation of the greater saphenous vein is patent with no thrombus. CONCLUSIONS No DVT right lower extremity. Dr. Tracie Saleh DO (Electronically Signed) Final Date: 30 March 2021 15:15 S
--- NOTE | 2021-03-30 13:12 | PM.HP ---
Providers/Chief Complaint Chief Complaint: Chest pain\SOB History of Present Illness Linh Ambrose is a 36 year old female who was called by the emergency department for admission secondary to shortness of breath and abnormal labs as well as pulmonary emboli. Patient reports she has been ill for at least 1 month. She has had fatigue, increasing shortness of breath. She has no documented fevers but has been having some chills at night. She has had hemoptysis. No vomiting or diarrhea. She reports she was tested for Covid a week or so ago and this was negative. After discussing her current situation with her she reports she is an IV drug user, usually pain medication and last injected 5 to 7 days ago in her right hand. She reports she is likely to withdraw while in the hospital. In the emergency department she got a venous duplex of her left lower extremity, transfused 1 unit of blood, placed on a heparin drip I believe after Lovenox was ordered. Given the history obtained above I have stopped her anticoagulants, ordered blood cultures to be done. Secondary to her evidence of right heart strain will initiate vancomycin empirically. Echocardiogram has been ordered as well as duplex of the right lower extremity. Review of Systems General: Reports: 10 or more systems reviewed and unremarkable except in HPI and below Const: Reports: chills, fatigue and malaise; Denies: fever(s) Eyes: Denies: change in vision ENMT: Denies: throat pain Card: Denies: chest pain Resp: Reports: dyspnea, productive cough and hemoptysis GI: Denies: abdominal pain : Denies: flank pain Musc: Denies: neck pain Skin/Breast: Denies: rash Neuro: Denies: headache(s) Psych: Denies: anxiety Endo: Denies: polyuria George/Lymph: Denies: easy bruising All/Imm: Denies: urticaria Medications/Allergies Home Medications Medication Instructions Recorded Confirmed Last Taken Type albuterol sulfate 90 mcg/actuation 1 puff INHALATION QID PRN #6.7 g 03/15/21 03/30/21 03/29/21 Rx aerosol inhaler lidocaine HCl 2 % mucosal solution 1 applic MUCOUS MEMBRANE BID PRN 03/15/21 03/30/21 03/29/21 Rx 14 Days #100 ml nystatin 100,000 unit/mL oral 4 - 6 ml PO DAILY 14 Days #250 ml 0803/30/21 03/29/21 Rx suspension Allergies Allergy/AdvReac Type Severity Reaction Status Date / Time No Known Allergies Allergy Unverified 03/15/21 10:58 PFSH Acute PFSH: Medical History (Updated 03/30/21 @ 13:27 by Eben Arnold MD) Drug use Hepatitis C Reports she is untreated Social History (Updated 03/30/21 @ 13:28 by Eben Arnold MD) Smoking and tobacco status: current every day smoker Second hand smoke exposure: No Smoking risk assessment/counseling performed?: Yes Alcohol intake: never Desire information about alcohol rehabilitation?: No Counseling given: No Substance/Drug Use: current Substance/Drug use frequency: few times a week Substance/Drug use type: IV Drugs Desire information about substance/drug rehabilitation?: No Counseling given: No Adopted: No Caregiver/support person: No Lives independently: Yes Household members: family Housing: House Marital status: Single service: No Current occupational status: unemployed History of recent travel: No Female Reproductive History: Date of last menstrual period: 03/30/21 Supplemental PFSH Information: Denies any significant family history. Denies any significant surgeries. Vitals/I&O/Wt Last Vital Signs Temp 98.0 F 03/30/21 10:41 Pulse 77 03/30/21 12:40 Resp 16 03/30/21 12:40 BP 106/67 03/30/21 12:40 Pulse Ox 99 03/30/21 12:40 03/29/21 03/30/21 03/30/21 22:59 06:59 14:59 Intake Total 424.657 / 424.657 Balance 424.657 / 424.657 Weight last 48 hrs Weight 45.359 kg Physical Exam Narrative: EXAM NARRATIVE: General exam is a thin appearing female, coughing frequently HEENT atraumatic and normocephalic. Pupils equally round. Neck is supple no lymphadenopathy Cardiovascular heart sounds distant. No obvious murmur. Lungs coarse breath sounds at the bases bilaterally Abdomen is soft with positive bowel sounds. Liver edge is palpable. exam is deferred Extremities no cyanosis clubbing or edema, cap refill brisk Skin no rash Neuro no obvious focal deficits. Data : 03/30/21 06:45 03/30/21 06:45 Other data: Dimer is elevated at 4.19 Calcium low at 6.6 with albumin 2.2 test negative Rapid Covid negative, PCR pending LFTs normal Magnesium level normal Abdominal pelvis CT demonstrates mild hepatosplenomegaly Venous duplex left lower extremity negative CT chest demonstrates bilateral lower lobe occlusive pulmonary emboli, and consolidation and small left pleural effusion. Mediastinal and hilar lymphadenopathy are noted and right heart strain is noted EKG demonstrates a sinus rhythm normal axis and nonspecific ST-T wave changes A&P Assessment and plan (1) Pulmonary embolism: High suspicion for septic emboli Anticoagulation contraindicated if this is the cause Echocardiogram urgently Venous duplex right lower extremity Blood cultures Secondary to right heart strain and symptomatology will initiate vancomycin Repeat blood cultures tomorrow Check a sedimentation rate and CRP If remains stable overnight can transfer out of the ICU No evidence of heart block on EKG Status: Acute (2) Anemia: Evaluation for iron deficiency anemia Monitor for blood loss. From my understanding the emergency department as dentist stool Hemoccult that was negative She has been transfused 1 unit packed red blood cells. Will repeat hemoglobin and hematocrit Status: Acute (3) Right heart enlargement: Secondary to pulmonary emboli Status: Acute (4) Acute hypokalemia: Aggressive supplementation initiated by the emergency department Magnesium level checked and normal Status: Acute (5) Drug use: Monitor for withdrawal Ativan as needed Check HIV status Status: Acute Additional A&P Information History of hepatitis C Full code Lovenox for DVT prophylaxis. This will start tomorrow as she has received multiple anticoagulants in the emergency department including Lovenox and further monitoring of anemia needs to occur prior to instituting this. Attestations Medical Necessity Statement*: Will need greater than 2 midnight stay secondary to severe anemia, pulmonary emboli suspected to be septic pulmonary emboli and right heart strain. Critical Care Time: Critical Care Time (min): 53 Other Attestations: The high probability of a clinically significant, sudden or life threatening deterioration of the patient's [pulmonary, infectious disease, hematologic] system(s) required my full and direct attention, intervention and personal management. The critical care time is as shown. This time is in addition to time spent performing any reported procedures but includes the following: [x] Data and vital sign review and interpretation [x] Patient assessment, examination and intervention [x] Documentation [x] Medication orders and management Coding Level of Care Code Acute Hypnotherapist for [facility] Doc Diagnoses Pulmonary embolism I26.99 Anemia D64.9 Right heart enlargement I51.7 Acute hypokalemia E87.6 Drug use F19.90
[2021-03-30 13:53] LABS: Amphetamines Screen Urine Positive (Negative); Barbiturates Screen Urine Negative (Negative); Benzodiazepines Screen Urine Negative (Negative); Bilirubin Urine Neg (Negative); Blood Urine Trace (Negative); Cocaine Screen Urine Negative (Negative); Glucose Urine UA Norm (Normal); Ketones Urine Negative (Negative); Leukocyte Esterase Urine Negative (Negative); Nitrate Urine Negative (Negative); Opiate Screen Urine Positive (Negative); PCP Screen Urine Negative (Negative); Protein Urine Neg (Negative); RBC Urine 0-4 /hpf (0-2); Specific Gravity, Urine 1.005 (1.005-1.030); Squamous Epithelial Cell Urine 0-4 /hpf (0-5); THC Screen Urine Negative (Negative); Urine Appearance Clear (CLEAR); Urine Color Yellow (Yellow); Urobilinogen Urine 1 mg/dL (Negative); pH Urine 6.5 (5-7)
[2021-03-30 13:59] LABS: C Reactive Protein 25.6 mg/L (0.0-4.9)
[2021-03-30] MEDS: vancomycin 750 MG in sodium chloride 0.9% 250 ML 250 MG IV ×2 (14:49→22:33)
[2021-03-30 18:54] LABS: Hematocrit 30.2 % (37.0-47.0); Hemoglobin 9.1 g/dL (11.5-15.3)
[2021-03-30] MEDS: HYDROcodone-acetaminophen 5-325 mg Tablet 1 TAB PO (19:14)
[2021-03-30 20:02] LABS: Erythrocyte Sedimentation Rate 53 mm/hr (0-15)
[2021-03-30 20:19] LABS: HIV 1 & 2 Antibody Non-Reactive (Non-Reactiv); HIV 1 & 2 Antigen Non-Reactive (Non-Reactiv)
[2021-03-30 21:43] LABS: Hematocrit 33.3 % (37.0-47.0); Hemoglobin 9.8 g/dL (11.5-15.3)
[2021-03-31] VITALS (7 sets, daily range): BP systolic 100–110; BP diastolic 58–67; PULSE 70–86; RESP 16–20; TEMP 36.6–37.1; O2SAT 96–97
[2021-03-31 05:28] LABS: Basophils # 0.1 10^3/uL (0.0-0.1); Basophils % 0.6 %; Eosinophils # 0.5 10^3/uL (0.0-0.8); Eosinophils % 6.1 %; Hematocrit 37.8 % (37.0-47.0); Lymphocytes # 1.7 10^3/uL (0.8-4.8); Lymphocytes % 19.9 %; Mean Corpuscular HGB Conc 29.1 g/dL (30.0-36.0); Mean Platelet Volume 11.1 fL (7.4-10.4); Monocytes # 0.4 10^3/uL (0.2-0.9); Monocytes % 5.1 %; Neutrophils # 5.85 10^3/uL (1.8-7.7); Nucleated Red Blood Cells % 0 %; Platelet Count 241 10^3/cmm (130-400); Red Blood Count 5.25 10^6/uL (4.1-5.3); Red Cell Distribution Width 18.2 % (12.1-15.1); White Blood Count 8.7 10^3/uL (4.0-10.0)
[2021-03-31 05:49] LABS: Alanine Aminotransferase 16 U/L (0-33); Albumin Level 2.8 g/dL (3.5-5.2); Alkaline Phosphatase 82 IU/L (35-105); Anion Gap 11.5 (5-19); Aspartate Amino Transferase 30 U/L (0-32); Blood Urea Nitrogen 10 mg/dL (6-20); Calcium 8.6 mg/dL (8.5-10.5); Carbon Dioxide 27 mmol/L (22-29); Chloride 105 mmol/L (98-107); Glomerular Filtration Rate 113.8 mL/min (90-130); Glucose 91 mg/dL (65-115); Magnesium 1.9 mg/dL (1.7-2.3); Osmolality Calculated 287 mOsm/kg (285-295); Potassium 4.5 mmol/L (3.5-5.1); Sodium 139 mmol/L (136-145); Total Bilirubin 0.3 mg/dL (0.15-1.2); Total Protein 6.8 g/dL (6.6-8.7)
[2021-03-31 05:50] LABS: Vancomycin Trough 15.3 ug/mL (10-15)
--- NOTE | 2021-03-31 05:59 | PC.NURSE ---
Patient AAOx4, BP soft and BSS, minimal c/o pain. Repositions self in bed. OOBT restroom with standby assist. Tolerating diet and resting comfortably. Room clutter free with call light i reach. No new events and no needs at this time. Will handoff and report to oncoming nurse at shift change.
--- NOTE | 2021-03-31 07:03 | PC.NURSE ---
Patient had vanc due at 0600. Called pharmacy. Has not arrived yet.
[2021-03-31] MEDS: vancomycin 750 MG in sodium chloride 0.9% 250 ML 250 MG IV (08:46)
[2021-03-31] MEDS: LORazepam 2 mg/mL INJ 1 mL 0.5 MG IVP (11:06)
--- NOTE | 2021-03-31 14:30 | PM.PN ---
Subjective Subjective: Interval history: Linh reports she is doing okay. Still coughing. No hemoptysis today. Medications: Reviewed: Yes Vitals/I&O/Wt Last Vital Signs Temp 98.7 F 03/31/21 11:15 Pulse 84 03/31/21 11:15 Resp 16 03/31/21 11:15 BP 100/58 03/31/21 11:15 Pulse Ox 96 03/31/21 11:15 03/30/21 03/31/21 03/31/21 22:59 06:59 14:59 Intake Total 610 / 1034.657 310 / 2896.436 1408 / 1090 Balance 610 / 1034.657 310 / 2254.758 1462 / 1090 Weight last 48 hrs Weight 47.627 kg Weight 45.359 kg Weight 45.359 kg Physical Exam Narrative: EXAM NARRATIVE: General able to take a deep breath without coughing Neck is supple no lymphadenopathy Cardiovascular heart sounds distant. No obvious murmur. Lungs coarse breath sounds at the bases bilaterally Abdomen is soft with positive bowel sounds. Liver edge is palpable. Extremities no cyanosis clubbing or edema, cap refill brisk Data : 03/31/21 05:05 03/31/21 05:05 Micro: Microbiology 03/31/21 05:15 Blood Culture - Preliminary Blood SPECIMEN COLLECTED 03/31/21 05:08 Blood Culture - Preliminary Blood SPECIMEN COLLECTED 03/30/21 14:35 Blood Culture - Preliminary Blood SPECIMEN COLLECTED 03/30/21 14:30 Blood Culture - Preliminary Blood SPECIMEN COLLECTED A&P Assessment and plan (1) Pulmonary embolism: History physical exam and laboratory testings consistent with septic emboli Anticoagulation contraindicated if this is the cause Echocardiogram demonstrated tricuspid valve vegetation, 1.9 x 1.4 cm. Cannot rule out mitral vegetation as well. No DVT noted Blood culture results pending Had evidence of right heart strain on CT scan Vancomycin and cefazolin initiated Sedimentation rate and CRP elevated as expected No evidence of heart block on EKG Status: Acute (2) Anemia: Much improved following transfusion of 1 unit packed red blood cells. This occurred on March 30 Iron deficiency anemia noted. Monitor for blood loss. From my understanding the emergency department as dentist stool Hemoccult that was negative Status: Acute (3) Right heart enlargement: Secondary to pulmonary emboli Status: Acute (4) Acute hypokalemia: Aggressive supplementation initiated by the emergency department and this is normal today Magnesium level checked and normal Status: Acute (5) Drug use: Monitor for withdrawal Ativan as needed Check HIV status Status: Acute Additional A&P Information History of hepatitis C Full code Lovenox for DVT prophylaxis to be initiated. Attestations Medical Necessity Statement*: Needs continued hospitalization for IV antibiotics secondary to septic pulmonary emboli/endocarditis Coding Level of Care Code Acute Wire Loop Machine Operator for [facility] Diagnoses Pulmonary embolism I26.99 Anemia D64.9 Right heart enlargement I51.7 Acute hypokalemia E87.6 Drug use F19.90
[2021-03-31 14:54] LABS: Coronavirus Test Green County Not Detected
[2021-03-31 15:01] LABS: Vancomycin Trough 5.2 ug/mL (10-15)
--- NOTE | 2021-03-31 15:31 | PC.CHAP ---
Pastoral Care Encounter/Spiritual Assessment Type of Contact [XX] Declined psychologists visit [] Patient/Family/Request visit [] Outpatient visit [] Follow-up visit [] Physician referral [] Code/Alert [] Routine visit [] Staff referral [] Actively dying [] Patient sleeping [] Family support [] [] Out of room [] Palliative care [] [] Receiving care in room [] Pre-surgical visit [] Trauma [] Long length of stay [] ICU visit [] Other: Relational/Emotional Strength [] Patient feels connected with others/family/visitors/staff [] Distress [] Loneliness/isolation [] Abandonment Spirituality of Patient [] Person of Areli [] Attends Orthodoxy of their Areli [] Believes in Prayer [] Reads Bible or Jain materials [] There are Spiritual issues to be addressed Rental Sales Representative Interventions [] Prayer [] Active listening [] Non-anxious presence [] Spiritual/emotional support [] Crisis/trauma care [] Spiritual counseling [] Bereavement support [] Provided bereavement packet [] Provided Bible/devotional materials [] Provided toy/stuffed animal, coloring book to patient or family member [] Provided Communion [] Anointing/[place] [] Salvation [] Completed spiritual assessment [] Other: Impact on Illness or Injury [] Angry [] Fearful [] Anxious [] Often cries [] Exhaustion [] Unable to work [] Unable to attend hindu [] Unable to walk/stand [] Unable to read [] Unable to drive [] Unable to eat/drink [] Unable to sleep [] Unable to be with family [] Patient intubated [] Other: Summary Patient declined psychologists visit. Time spent with patient 1 minute
[2021-03-31] MEDS: enoxaparin 40 mg/0.4 mL Syringe SUBCUT (15:54)
[2021-03-31] MEDS: vancomycin 750 MG in sodium chloride 0.9% 250 ML 166 MG IV (15:55)
--- NOTE | 2021-03-31 18:30 | PC.RESP ---
Smoking Cessation information sent to patient.
[2021-03-31 23:34] LABS: Vancomycin Trough 10.1 ug/mL (10-15)
[2021-04-01] VITALS (10 sets, daily range): BP systolic 96–110; BP diastolic 49–67; PULSE 65–88; RESP 14–22; TEMP 36.6–37.1; O2SAT 95–98
[2021-04-01] MEDS: vancomycin 1,000 MG in sodium chloride 0.9% 250 ML 250 MG IV ×4 (00:06→23:51)
--- NOTE | 2021-04-01 07:48 | PM.PN ---
Subjective Subjective: Interval history: Linh reports she is doing okay. Less short of breath. Still having some chills at night. Medications: Reviewed: Yes Vitals/I&O/Wt Last Vital Signs Temp 98.1 F 04/01/21 04:00 Pulse 73 04/01/21 04:00 Resp 16 04/01/21 04:00 BP 103/64 04/01/21 04:00 Pulse Ox 97 04/01/21 04:00 03/31/21 04/01/21 04/01/21 22:59 06:59 14:59 Intake Total 870 / 1960 1390 / 3350 Balance 870 / 1959 1390 / 3350 Weight last 48 hrs Weight 49.804 kg Weight 47.627 kg Weight 45.359 kg Physical Exam Narrative: EXAM NARRATIVE: General able to take a deep breath without coughing Neck is supple no lymphadenopathy Cardiovascular heart sounds distant. No obvious murmur. Lungs coarse breath sounds at the bases bilaterally Abdomen is soft with positive bowel sounds. Liver edge is palpable. Extremities no cyanosis clubbing or edema, cap refill brisk Data : 03/31/21 05:05 03/31/21 05:05 Micro: Microbiology 03/31/21 05:15 Blood Culture - Preliminary Blood NEGATIVE TO DATE 03/31/21 05:08 Blood Culture - Preliminary Blood NEGATIVE TO DATE 03/31/21 22:02 Occult Blood (FIT) - Final Stool Routine Collection 03/30/21 14:30 Blood Culture - Preliminary Blood NEGATIVE TO DATE 03/30/21 14:35 Blood Culture - Preliminary Blood NEGATIVE TO DATE Other data: Laboratory from today pending A&P Assessment and plan (1) Pulmonary embolism: History physical exam and laboratory testings consistent with septic emboli Echocardiogram demonstrated tricuspid valve vegetation, 1.9 x 1.4 cm. Cannot rule out mitral vegetation as well. No DVT noted Blood culture results negative to date Had evidence of right heart strain on CT scan Vancomycin and cefazolin initiated Sedimentation rate and CRP elevated as expected No evidence of heart block on EKG Currently on room air Status: Acute (2) Anemia: Much improved following transfusion of 1 unit packed red blood cells. This occurred on March 30 Iron deficiency anemia noted. Monitor for blood loss. From my understanding the emergency department as dentist stool Hemoccult that was negative Status: Acute (3) Right heart enlargement: Secondary to pulmonary emboli Status: Acute (4) Acute hypokalemia: Supplemented. Awaiting repeat level today. Magnesium level was previously checked and normal Status: Acute (5) Drug use: Monitor for withdrawal Ativan as needed HIV negative Status: Acute Additional A&P Information History of hepatitis C. Patient reports she has not undergone any kind of treatment. Full code Lovenox for DVT prophylaxis to be initiated. Attestations Medical Necessity Statement*: Needs continued hospitalization secondary to tricuspid vegetation, septic emboli, need for IV antibiotics Coding Level of Care Code Acute Gerentological Physiotherapist for [facility] Diagnoses Pulmonary embolism I26.99 Anemia D64.9 Right heart enlargement I51.7 Acute hypokalemia E87.6 Drug use F19.90
[2021-04-01] MEDS: multivitamin therapeutic Tablet 1 TAB PO (09:49)
--- NOTE | 2021-04-01 10:05 | PM.CONSULT ---
Providers/Reason For Consult Consulting Physician/Specialty*: Dayami Alexander MD/ Infectious Disease Reason for Consult*: TV valve Endocarditis Attending Physician: Eben Arnold MD History of Present Illness History of Present Illness Linh Ambrose is a 36 year old female who presented to the hospital on March 30, 2021 with chief complaints of shortness of breath and was found to have bilateral pulmonary emboli. She endorsed a history of at least 1 month of fatigue fever and shortness of breath. She had been treated with 10 days of levofloxacin prior to admission without any significant change in symptoms. Covid PCR was negative. CT of the chest showed bilateral lower lobe occlusive pulmonary emboli and consolidation and a small left pleural effusion with mediastinal and hilar lymphadenopathy. Overall it appeared that these are septic emboli. Blood cx thus far negative to date. Echocardiogram showed thickened tricuspid valve and echogenic floppy 1.9 x 1.4 cm mass attached to the tricuspid valve on the ventricle side near the subvalvular apparatus highly suspicious for vegetation. Moderate tricuspid valve vegetation was noted. Mitral valve was also noted to be thickened with an echogenic mass attached to the subvalvular apparatus, vegetation could not be ruled out. Patient is currently on treatment with ceftriaxone and vancomycin. She has a history of IV drug use. Currently remains hemodynamically stable and afebrile. Review of Systems General: Reports: 10 or more systems reviewed and unremarkable except in HPI and below Const: Denies: fever(s), chills or body aches Eyes: Denies: change in vision, blurry vision or photophobia ENMT: Reports: hoarseness; Denies: throat pain, enlarged tonsils, odynophagia or nasal congestion Card: Denies: chest pain, palpitations, irregular heart rhythm, edema, swelling of feet/ankles, lightheadedness, pre-syncope, dyspnea on exertion or orthopnea Resp: Denies: dyspnea, productive cough, non-productive cough, wheezing, stridor, pain on inspiration, change in phlegm color, hemoptysis or chest congestion GI: Denies: abdominal pain, nausea, vomiting, hematemesis, coffee ground emesis, dysphagia, heartburn, diarrhea, constipation, GI cramping, change in stool character, hematochezia or melena : Denies: flank pain, difficulty voiding, dysuria, urinary frequency, urinary urgency, urinary hesitancy or hematuria Musc: Denies: neck pain, back pain, extremity pain, joint swelling, joint warmth or deformity Neuro: Denies: headache(s), numbness in extremities, weakness in extremities, sensory changes, difficulty walking, frequent falls, dizziness, vertigo, behavioral changes, Slurred speech present or seizure-like activity Psych: Denies: anxiety, depression, suicidal ideation or homicidal ideation Endo: Denies: polyuria, polydipsia, tired all the time, cold intolerance or hot flashes George/Lymph: Denies: easy bruising or easy bleeding Meds/Allergies Home Medications and Allergies Home Medications Medication Instructions Recorded Confirmed Last Taken Type albuterol sulfate 90 mcg/actuation 1 puff INHALATION QID PRN #6.7 g 03/15/21 03/30/21 03/29/21 Rx aerosol inhaler lidocaine HCl 2 % mucosal solution 1 applic MUCOUS MEMBRANE BID PRN 03/15/21 03/30/21 03/29/21 Rx 14 Days #100 ml nystatin 100,000 unit/mL oral 4 - 6 ml PO DAILY 14 Days #250 ml 03/15/21 03/30/21 03/29/21 Rx suspension Allergies Allergy/AdvReac Type Severity Reaction Status Date / Time No Known Allergies Allergy Unverified 03/15/21 10:58 Current Medications Current Medications Generic Name Dose Route Start Last Admin Trade Name Freq PRN Reason Stop Dose Admin Hydrocodone Bitart/Acetaminophen 1 tab 03/30/21 18:23 03/30/21 19:14 Hydrocodone-Acetaminophen 5-325 Mg Tablet PO 1 tab Q4H PRN Administration MODERATE PAIN Enoxaparin Sodium 40 mg 03/31/21 14:45 03/31/21 15:54 Enoxaparin 40 Mg/0.4 Ml Syringe SUBCUT 40 mg Q24H ABIOLA Administration Cefazolin Sodium 2,000 mg/ 60 mls @ 100 mls/hr 03/30/21 21:00 04/01/21 06:01 Sodium Chloride IV 100 mls/hr Q8H ABIOLA Administration Vancomycin HCl 1,000 mg/ 250 mls @ 250 mls/hr 03/31/21 22:00 04/01/21 06:45 Sodium Chloride IV 250 mls/hr Q8H ABIOLA Administration Lorazepam 0.5 mg 03/30/21 13:35 03/31/21 11:06 Lorazepam 2 Mg/Ml Inj 1 Ml IVP 0.5 mg Q6H PRN Administration ANXIETY Multivitamins Therapeutic 1 tab 04/01/21 09:00 04/01/21 09:49 Multivitamin Therapeutic Tablet PO 1 tab DAILY ABIOLA Administration PFSH Acute PFSH: Medical History (Updated 04/16/21 @ 04:25 by Dayami Alexander MD) Drug use Hepatitis C Reports she is untreated No pertinent past medical history Surgical History (Updated 04/16/21 @ 04:24 by Dayami Alexander MD) No significant past surgical history Social History Smoking and tobacco status: current every day smoker Second hand smoke exposure: No Smoking risk assessment/counseling performed?: Yes Alcohol intake: never Desire information about alcohol rehabilitation?: No Counseling given: No Desire information about substance/drug rehabilitation?: No Counseling given: No Adopted: No Caregiver/support person: No Lives independently: Yes Household members: family Housing: House Marital status: Single service: No Current occupational status: unemployed History of recent travel: No Female Reproductive History: Date of last menstrual period: 03/30/21 Vitals/I&O/Wt Last Vital Signs Temp 98.0 F 04/01/21 07:55 Pulse 65 04/01/21 09:26 Resp 18 04/01/21 09:26 BP 103/67 04/01/21 07:55 Pulse Ox 97 04/01/21 09:26 03/31/21 04/01/21 04/01/21 22:59 06:59 14:59 Intake Total 870 / 1960 1390 / 3350 360 / 360 Balance 870 / 1960 1390 / 3350 360 / 360 Weight last 48 hrs Weight 49.804 kg Weight 47.627 kg Weight 45.359 kg Physical Exam Narrative: EXAM NARRATIVE: GEN: Awake, alert and oriented, no acute distress CVS: S1S2 N RS: CTA B/L Abd: Soft, nt/nd , bs+ 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: no focal neuro deficits Data Micro: Micro: Microbiology 03/31/21 05:15 Blood Culture - Pr eliminary Blood NEGATIVE TO MARIAN E 03/31/21 05:08 Blood Culture - Pr eliminary Blood NEGATIVE TO MARIAN E 03/31/21 22:02 Occult Blood (FIT) - Final Stool Routine Col lection 03/30/21 14:30 Blood Culture - Pr eliminary Blood NEGATIVE TO MARIAN E 03/30/21 14:35 Blood Culture - Pr eliminary Blood NEGATIVE TO MARIAN E A&P Assessment and plan (1) Infective endocarditis: Status: Acute Qualifiers: Infective endocarditis organism: bacterial Chronicity: subacute Qualified Code(s): I33.0 - Acute and subacute infective endocarditis (2) Tricuspid valve vegetation: Status: Acute (3) Drug use: Status: Acute (4) Septic embolism: Status: Acute Additional A&P Information Overall clinical picture highly suspicious for infective endocarditis. Patient reports a history of IV drug use, vegetation on the tricuspid valve with signs of septic embolization in bilateral lungs. Blood culture remains negative thus far, however this may be related to being treated with levofloxacin as outpatient for 10 days prior to current presentation. Possible endocarditis per [place] criteria. Would recommend to treat for total 6 weeks of IV antibiotics. If cultures continue to remain negative, recommend course of empiric ceftriaxone 2 g IV daily and vancomycin dosed by levels to maintain trough of 15-20 over the next 6 weeks. Will likely need PICC line for this treatment. If blood culture eventually returned with growth of an organism, will change treatment accordingly. Patient will likely need a PICC line for the above defined treatment course with IV antibiotics. Will discuss with social sciences department chair and recommend placement to [facility] facility as patient is a high risk for IV drug use via PICC line if discharged to home to complete antibiotic course. Will follow Coding Level of Care Code Acute Senior Procurement Specialist for [facility] Diagnoses Infective endocarditis I33.0 Infective endocarditis organism: bacterial Chronicity: subacute Tricuspid valve vegetation I33.0 Drug use F19.90 Septic embolism I76
[2021-04-01 10:39] LABS: Basophils % 0.3 %; Eosinophils # 0.5 10^3/uL (0.0-0.8); Eosinophils % 5.5 %; Hematocrit 32.5 % (37.0-47.0); Hemoglobin 9.8 g/dL (11.5-15.3); Lymphocytes # 1.9 10^3/uL (0.8-4.8); Lymphocytes % 21.5 %; Mean Corpuscular HGB Conc 30.2 g/dL (30.0-36.0); Mean Corpuscular Hemoglobin 21.4 pg (28.0-34.0); Mean Platelet Volume 10.3 fL (7.4-10.4); Monocytes # 0.7 10^3/uL (0.2-0.9); Monocytes % 7.2 %; Neutrophils % 64.5 %; Nucleated Red Blood Cells % 0 %; Platelet Count 276 10^3/cmm (130-400); Red Blood Count 4.58 10^6/uL (4.1-5.3); Red Cell Distribution Width 18.6 % (12.1-15.1)
[2021-04-01 11:05] LABS: Alanine Aminotransferase 13 U/L (0-33); Albumin Level 2.6 g/dL (3.5-5.2); Alkaline Phosphatase 72 IU/L (35-105); Aspartate Amino Transferase 28 U/L (0-32); Blood Urea Nitrogen 11 mg/dL (6-20); Calcium 8.2 mg/dL (8.5-10.5); Carbon Dioxide 25 mmol/L (22-29); Chloride 104 mmol/L (98-107); Glomerular Filtration Rate 140.4 mL/min (90-130); Glucose 108 mg/dL (65-115); Osmolality Calculated 288 mOsm/kg (285-295); Sodium 139 mmol/L (136-145); Total Bilirubin 0.2 mg/dL (0.15-1.2); Total Protein 5.6 g/dL (6.6-8.7)
[2021-04-01 11:12] LABS: Anion Gap 14.7 (5-19); Potassium 4.7 mmol/L (3.5-5.1)
[2021-04-01] MEDS: LORazepam 2 mg/mL INJ 1 mL 0.5 MG IVP ×2 (11:50→22:55)
[2021-04-01] MEDS: enoxaparin 40 mg/0.4 mL Syringe SUBCUT (15:42)
[2021-04-01 21:55] LABS: Vancomycin Trough 18.2 ug/mL (10-15)
[2021-04-01] MEDS: trazodone 100 mg Tablet PO (22:49)
--- NOTE | 2021-04-01 23:02 | PC.NURSE ---
Patient stated she was anxious and having a hard time falling asleep. She requested lorazepam and her nightly trazodone. Both were given at this time. Patient is pleasant and reports more anxious feelings than pain.
[2021-04-02] VITALS (7 sets, daily range): BP systolic 101–126; BP diastolic 56–72; PULSE 58–82; RESP 14–18; TEMP 36.4–36.9; O2SAT 95–99
[2021-04-02] MEDS: vancomycin 1,000 MG in sodium chloride 0.9% 250 ML 250 MG IV ×3 (05:43→21:37)
[2021-04-02] MEDS: ondansetron 2 mg/ML SDV 2 mL 4 MG IVP ×3 (05:48→22:31)
--- NOTE | 2021-04-02 07:00 | XRR_ITS ---
PROCEDURE INFORMATION: Exam: XR Chest Exam date and time: 04/02/2021 7:00 AM Age: 36 years old Clinical indication: Shortness of breath; Additional info: Follow up effusion TECHNIQUE: Imaging protocol: XR of the chest. Views: 1 view. COMPARISON: CR (CHEST, ) 03/30/2021 5:49 AM FINDINGS: Lungs: Similar appearance of linear streaky opacities at the lung bases and suspected trace left pleural effusion. Pleural spaces: Unremarkable. No pleural effusion. No pneumothorax. Heart/Mediastinum: Unremarkable. No cardiomegaly. Bones/joints: The visualized osseous structures are intact. XR/XR chest 1V portable [id number] IMPRESSION: Similar appearance of linear streaky opacities at the lung bases and suspected trace left pleural effusion.
[2021-04-02] MEDS: multivitamin therapeutic Tablet 1 TAB PO (08:32)
--- NOTE | 2021-04-02 14:15 | P.PN_ITS ---
Subjective Subjective: Interval history: She has been having nausea, vomiting episodes, this morning appears to be better with only one episode, no nausea, vomiting at the moment. She is being visited by her mother. She has received sales agent financial report service application for swing bed placement. Is being encouraged by her mother to work on the application. Vitals/I&O/Wt Last Vital Signs Temp 98.2 F 04/02/21 12:00 Pulse 70 04/02/21 12:00 Resp 18 04/02/21 12:00 BP 103/56 04/02/21 08:00 Pulse Ox 96 04/02/21 12:00 04/01/21 04/02/21 04/02/21 22:59 06:59 14:59 Intake Total 870 / 1780 610 / 2390 250 / 250 Output Total 500 / 500 Balance 870 / 1780 110 / 1890 250 / 250 Weight last 48 hrs Weight 50.938 kg Weight 49.804 kg Physical Exam Const: COMMON NORMALS: no acute distress and patient oriented x3 HENMT: COMMON NORMALS: oropharynx normal Neck/C-Spine: COMMON NORMALS: no JVD Resp: COMMON NORMALS: normal respiratory effort and clear to auscultation bilaterally AUSCULTATION: clear to auscultation bilaterally Cardio: COMMON NORMALS: no JVD, regular rhythm, S1 normal heart sound present, S2 normal heart sound present and No murmurs present (Cardio) RHYTHM: regular rhythm HEART SOUNDS: S1 normal heart sound present and S2 normal heart sound present GI: COMMON NORMALS: Normal to inspection, nondistended, normoactive bowel sounds present, Soft to palpation and non-tender PALPATION: Yes Soft to palpation Extremity: COMMON NORMALS: no joint enlargement and no pedal edema Neuro: COMMON NORMALS: patient oriented x3 and moves all extremities Skin: COMMON NORMALS: no rashes or lesions noted GENERAL SKIN EXAM: no rashes or lesions noted Data : 04/01/21 10:15 04/01/21 10:15 Micro: Microbiology 04/01/21 23:02 MRSA Culture - Final Nose 03/30/21 14:30 Blood Culture - Preliminary Blood A&P Assessment and plan (1) Tricuspid valve vegetation: Continuing with antibiotic therapy, pending blood culture results. There are gram-positive cocci noted on Gram stain from culture 03/30. Follow-up culture results. Appreciate infectious disease consultation. Continue vancomycin, cefazolin. Continue arrangements for her to be brought to complete IV antibiotic course after discharge with case management. Discussed again with her and her mother regarding importance of completing the antibiotic course, risk of metastatic infection, severe disability, . She verbalized understanding and agreement with continued treatment, understanding of need for adherence and completion of treatment regimen. Status: Acute (2) Pulmonary embolism: So far stable on Lovenox. Oxygenation is good on room air. Discussed again with her and her mother regarding septic emboli Echocardiogram demonstrated tricuspid valve vegetation, 1.9 x 1.4 cm. Cannot rule out mitral vegetation as well. No DVT noted Gram-positive cocci blood culture 03/30. Follow-up. Had evidence of right heart strain on CT scan Vancomycin and cefazolin Sedimentation rate and CRP elevated as expected No evidence of heart block on EKG Status: Acute (3) Anemia: No lab available today. Will recheck. Much improved following transfusion of 1 unit packed red blood cells on March 30 Iron deficiency anemia noted. Monitor for blood loss. Per report in emergency department stool Hemoccult was negative Status: Acute (4) Right heart enlargement: Secondary to pulmonary emboli Status: Acute (5) Acute hypokalemia: Supplemented. Recheck metabolic panel Status: Acute (6) Drug use: Monitor for withdrawal Ativan as needed HIV negative Status: Acute Additional A&P Information History of hepatitis C. Patient reports she has not undergone any kind of treatment. Smoking addiction: Nicotine replacement Full code Lovenox for DVT prophylaxis to be initiated. Attestations Medical Necessity Statement*: Continue admission for management of infective endocarditis, with tricuspid valve vegetation, septic embolization, PE. Coding Level of Care Code Acute Special Agent Secret Service for [facility] F[facility] Diagnoses Tricuspid valve vegetation I33.0 Pulmonary embolism I26.99 Anemia D64.9 Right heart enlargement I51.7 Acute hypokalemia E87.6 Drug use F19.90
[2021-04-02] MEDS: enoxaparin 40 mg/0.4 mL Syringe SUBCUT (15:40)
[2021-04-02] MEDS: trazodone 100 mg Tablet PO (20:22)
[2021-04-03] VITALS: BP 130/80; PULSE 76; RESP 18; TEMP 36.6
[2021-04-03 04:00] VITALS: BP 115/67; PULSE 57; RESP 18; TEMP 37.2; O2SAT 98
[2021-04-03] MEDS: vancomycin 1,000 MG in sodium chloride 0.9% 250 ML 250 MG IV ×2 (05:30→16:02)
--- NOTE | 2021-04-03 05:31 | PC.NURSE ---
Patient AAOx4, resting on/off throughout night. C/o that, the sound of the dripping from the antibiotics makes me nausous. Patient did have an emesis episode after receiving zosyn. No safety concerns at this time or new safety events. Patient OOBT bathroom as needs. VSS, no needs at this time. Repositions self in bed, will report to oncoming nurse and handoff at shift change.
[2021-04-03 06:00] VITALS: BMI 18.1
[2021-04-03 06:21] LABS: Basophils % 0.3 %; Eosinophils # 0.2 10^3/uL (0.0-0.8); Eosinophils % 1.4 %; Hematocrit 34.8 % (37.0-47.0); Lymphocytes # 1.6 10^3/uL (0.8-4.8); Lymphocytes % 14.9 %; Mean Corpuscular HGB Conc 28.7 g/dL (30.0-36.0); Mean Corpuscular Hemoglobin 21.1 pg (28.0-34.0); Mean Corpuscular Volume 73.4 fl (81-99); Mean Platelet Volume 10.4 fL (7.4-10.4); Monocytes # 0.7 10^3/uL (0.2-0.9); Monocytes % 6.1 %; Neutrophils # 8.31 10^3/uL (1.8-7.7); Neutrophils % 76.8 %; Nucleated Red Blood Cells % 0 %; Platelet Count 288 10^3/cmm (130-400); Red Blood Count 4.74 10^6/uL (4.1-5.3); White Blood Count 10.8 10^3/uL (4.0-10.0)
[2021-04-03 06:41] LABS: Alanine Aminotransferase 8 U/L (0-33); Albumin Level 2.7 g/dL (3.5-5.2); Alkaline Phosphatase 71 IU/L (35-105); Anion Gap 12.9 (5-19); Aspartate Amino Transferase 19 U/L (0-32); Blood Urea Nitrogen 8 mg/dL (6-20); Calcium 8.2 mg/dL (8.5-10.5); Carbon Dioxide 23 mmol/L (22-29); Chloride 101 mmol/L (98-107); Globulin 3.8 g/dL (1.3-4.6); Glomerular Filtration Rate 140.4 mL/min (90-130); Glucose 105 mg/dL (65-115); Osmolality Calculated 275 mOsm/kg (285-295); Potassium 3.9 mmol/L (3.5-5.1); Sodium 133 mmol/L (136-145); Total Bilirubin 0.3 mg/dL (0.15-1.2); Total Protein 6.5 g/dL (6.6-8.7)
[2021-04-03 08:00] VITALS: BP 125/70; PULSE 61; RESP 16; TEMP 36.9; O2SAT 96
[2021-04-03] MEDS: nicotine 21 mg Patch 1 PATCH TRANSDERMA (09:21)
[2021-04-03] MEDS: multivitamin therapeutic Tablet 1 TAB PO (09:21)
--- NOTE | 2021-04-03 10:02 | PM.PN ---
Subjective Subjective: Interval history: Linh reports she is doing okay. She still has some nausea. Medications: Reviewed: Yes Vitals/I&O/Wt Last Vital Signs Temp 98.5 F 04/03/21 08:00 Pulse 61 04/03/21 08:00 Resp 16 04/03/21 08:00 BP 125/70 04/03/21 08:00 Pulse Ox 96 04/03/21 08:00 04/02/21 04/03/21 04/03/21 22:59 06:59 14:59 Intake Total 620 / 870 180 / 1050 610 / 610 Balance 620 / 870 180 / 1050 610 / 610 Weight last 48 hrs Weight 51.029 kg Weight 50.938 kg Physical Exam Narrative: EXAM NARRATIVE: General able no distress Neck is supple no lymphadenopathy Cardiovascular heart sounds distant. No obvious murmur. Lungs coarse breath sounds at the bases bilaterally Abdomen is soft with positive bowel sounds. Liver edge is palpable. Extremities no cyanosis clubbing or edema, cap refill brisk Data : 04/03/21 05:59 04/03/21 05:59 Micro: Microbiology 04/01/21 23:02 MRSA Culture - Final Nose A&P Assessment and plan (1) Tricuspid valve vegetation: Continuing with antibiotic therapy, pending blood culture results. There are gram-positive cocci noted on Gram stain from culture 03/30. Only 1 out of 2 bottles positive for gram positive cocci. Follow-up culture results. MRSA PCR is positive. Appreciate infectious disease consultation. Continue vancomycin, cefazolin. Continue arrangements for her to be brought to complete IV antibiotic course after discharge with case management. Discussed again with her and her mother regarding importance of completing the antibiotic course, risk of metastatic infection, severe disability, . She verbalized understanding and agreement with continued treatment, understanding of need for adherence and completion of treatment regimen. Considering placement to swing bed. Status: Acute (2) Pulmonary embolism: Consistent with septic pulmonary emboli Right heart strain demonstrated on CT Sedimentation rate and CRP elevated as expected No evidence of heart block on EKG Status: Acute (3) Anemia: Hemoglobin stable. Transfused 1 unit on March 30. Iron deficiency anemia noted. Heme-negative Status: Acute (4) Right heart enlargement: Secondary to pulmonary emboli Status: Acute (5) Acute hypokalemia: Supplemented. Status: Acute (6) Drug use: Monitor for withdrawal Ativan as needed HIV negative Status: Acute Additional A&P Information History of hepatitis C. Patient reports she has not undergone any kind of treatment. Smoking addiction: Nicotine replacement Full code Lovenox for DVT prophylaxis Attestations Medical Necessity Statement*: Needs continued hospitalization secondary to endocarditis requiring IV antibiotics. Coding Level of Care Code Acute National Sales Trainer for [facility] Fwd Diagnoses Tricuspid valve vegetation I33.0 Pulmonary embolism I26.99 Anemia D64.9 Right heart enlargement I51.7 Acute hypokalemia E87.6 Drug use F19.90
[2021-04-03 11:37] VITALS: BP 107/62; PULSE 74; RESP 17; TEMP 36.9; O2SAT 96
--- NOTE | 2021-04-03 11:50 | PC.NUTR ---
Nutrition note: Added Ensure Plus with meals per nurse request. Will follow up 04/04/21.
[2021-04-03 16:00] VITALS: BP 112/64; PULSE 69; RESP 16; TEMP 36.7; O2SAT 94
[2021-04-03] MEDS: enoxaparin 40 mg/0.4 mL Syringe SUBCUT (16:02)
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
--- NOTE | 2021-04-03 19:06 | PC.NURSE ---
patient upset and wanting to leave AMA, this nurse notified Dr. Arnold. She wanted to get fresh air this nurse offered for her to go outside accompanied by a staff member, she refused and stated she still wanted to leave AMA. She stated she was happy with her nursing care here. This nurse went in and spoke with patient about the risks of her leaving AMA and that without medical care she could be at risk of serious injury and/or . patient understood risks. AMA paper signed and placed in chart, IV discontinued and Dr. Arnold notified. Patient was told that it was very important to follow up with a physician, preferably tomorrow. She stated she had a PCP and would call them in the morning.
[2021-04-03 19:18] VITALS: BP 112/64; PULSE 69; RESP 16; TEMP 36.7; O2SAT 94
--- NOTE | 2021-04-04 07:12 | PM.EVENT ---
Event Note Event Note: Patient went against medical advice last night. Unfortunately was not able to go to the room as it occurred in the evening. I was able to discuss with the nurse, who went over the risks of going AGAINST MEDICAL ADVICE with the patient which included and/or permanent disability. I suggested she see her or any primary care provider immediately the next day regarding her condition.
== END 2021-04-03 19:18 | disposition left against medical advice (07) | DRG 175 ==
LOC: ER 10:03 → ER IP 14:53 → MEDSURG 15:23
PROVIDERS: Emergency Medicine; Internal Medicine; Admitting Provider Internal Medicine; Emergency Provider Emergency Medicine; Visit Provider Internal Medicine
DX: I26.99 Other pulmonary embolism without acute cor pulmonale (principal); I33.0 Acute and subacute infective endocarditis; F17.200 Nicotine dependence, unspecified, uncomplicated; I51.7 Cardiomegaly; E87.6 Hypokalemia; E83.51 Hypocalcemia; R16.2 Hepatomegaly with splenomegaly, not elsewhere classified; D50.9 Iron deficiency anemia, unspecified; F19.90 Other psychoactive substance use, unspecified, uncomplicated; Z86.19 Personal history of other infectious and parasitic diseases; Z20.822 Contact with and (suspected) exposure to COVID-19
CPT/HCPCS: 36415; 36430; 71045; 71275; 74177; 80053; 80202; 80306; 81001; 82274; 82728; 83540; 83550; 83735; 84484; 84702; 85014; 85018; 85025; 85378; 85651; 86140; 86850; 86900; 86920; 87040; 87426; 87635; 87641; 87806; 93005; 93306; 93971; 96365; 96366; 96367; 96372; 99285; J0610; J0690; J1644; J1650; J2060; J2405; J3370; J7050; P9016; Q9967

== ENCOUNTER 2021-12-13 19:17 | Inpatient (IN) | payer BC, SELFPAY ==
[2021-12-13] VITALS (7 sets, daily range): BP systolic 81–100; BP diastolic 44–55; PULSE 93–135; RESP 17–28; TEMP 38.6; O2SAT 91–100; BMI 16.6
--- NOTE | 2021-12-13 19:22 | CTR_ITS ---
PROCEDURE INFORMATION: Exam: CT Head Without Contrast Exam date and time: 12/13/2021 9:21 PM Age: 36 years old Clinical indication: Altered mental status/memory loss and fever; Patient HX: AMS. Lethargic with fever. Hypotensive with lactic of 4.7. TECHNIQUE: Imaging protocol: Computed tomography of the head without contrast. Radiation optimization: All CT scans at this facility use at least one of these dose optimization techniques: automated exposure control; mA and/or kV adjustment per patient size (includes targeted exams where dose is matched to clinical indication); or iterative reconstruction. COMPARISON: No relevant prior studies available. RADIATION DOSE METRICS: Total DLP (mGy-cm): 729.35 FINDINGS: Brain: No CT evidence for acute ischemia, mass or hemorrhage. Cerebral ventricles: No ventriculomegaly. Paranasal sinuses: Mild mucosal thickening in the frontal and ethmoid sinuses. Mastoid air cells: Visualized mastoid air cells are well aerated. Bones/joints: Unremarkable. No acute fracture. Soft tissues: Unremarkable. CT/CT head wo con* [id number] IMPRESSION: 1. Normal brain 2. Paranasal sinus mucosal thickening
--- NOTE | 2021-12-13 19:22 | XRR_ITS ---
PROCEDURE INFORMATION: Exam: XR Chest Exam date and time: 12/13/2021 8:20 PM Age: 36 years old Clinical indication: Fever TECHNIQUE: Imaging protocol: XR of the chest. Views: 1 view. COMPARISON: CR XR chest 1V portable [id number] 04/02/2021 10:59 AM FINDINGS: Lungs: There is bilateral lower lobe linear scarring. No acute infiltrate. Pleural spaces: Unremarkable. No pleural effusion. No pneumothorax. Heart/Mediastinum: Since last year new mediastinal postop changes including a prosthetic cardiac valve. Bones/joints: Unremarkable. XR/XR chest 1V portable [id number] IMPRESSION: No acute findings
--- NOTE | 2021-12-13 19:24 | ECG_ITS ---
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 Measurements Intervals [place] Rate: 131 P: 87 AR: 114 QRS: 84 QRSD: 86 T: -10 QT: 302 QTc: 446 Interpretive Statements SINUS TACHYCARDIA WITH SHORT AR INTERVAL ST DEVIATION AND MODERATE T-WAVE ABNORMALITY, CONSIDER LATERAL ISCHEMIA [-0.1+ mV T-WAVE IN I/aVL/V5/V6] Compared to ECG 03/30/2021 07:19:38 Possible ischemia now present Sinus rhythm no longer present T-wave abnormality still present Electronically Signed On 12-13-2021 22:32:08 CDT by Laura Barrientos M.D. [email or web address]
--- NOTE | 2021-12-13 19:30 | W.ED.WEAKNES ---
HPI - Weakness General: Chief complaint: Weakness Stated complaint: pysch Time Seen by Provider: 12/13/21 19:20 Source: patient and EMS Mode of arrival: EMS Limitations: no limitations History of Present Illness: 36-year-old female has a history of IV drug use along with history of endocarditis since had a valve replacement patient power of senior trial attorney is her father he states that she has been having increasing depression failure to thrive she states that she is has not felt like eating or drinking is lost a lot of weight. She also states she is felt ill the last 2 days has a fever today of 103 she denies any chest pain denies any cough denies any vomiting or diarrhea states she has body aches all over. Associated symptoms: Reports chills and fever(s); Denies chest pain, dysuria, easy bruising, headache(s), nausea or vomiting Review of Systems Const: Reports: fever(s), chills, body aches, change in weight, fatigue and malaise Eyes: Denies: blurry vision or eye discomfort ENMT: Denies: throat pain or dental pain Card: Denies: chest pain Resp: Denies: dyspnea GI: Denies: abdominal pain, nausea, vomiting or diarrhea : Denies: dysuria Musc: Denies: neck pain or back pain Skin/Breast: Denies: rash Neuro: Denies: headache(s) Psych: Denies: depression George/Lymph: Denies: easy bruising All/Imm: Denies: urticaria PFSH ED PFSH: Medical History Drug use Hepatitis C Reports she is untreated No pertinent past medical history Surgical History No significant past surgical history Social History Smoking and tobacco status: current every day smoker Second hand smoke exposure: No Smoking risk assessment/counseling performed?: Yes Alcohol intake: never Desire information about alcohol rehabilitation?: No Counseling given: No Desire information about substance/drug rehabilitation?: No Counseling given: No Adopted: No Caregiver/support person: No Lives independently: Yes Household members: family Housing: House Marital status: Single service: No Current occupational status: unemployed History of recent travel: No Current gender identity: Female Female Reproductive History: Date of last menstrual period: 03/30/21 Physical Exam Const: COMMON NORMALS: patient oriented x3 and healthy appearing GENERAL APPEARANCE: in distress and ill appearing HENMT: COMMON NORMALS: normocephalic and atraumatic HEAD & SCALP: normocephalic and atraumatic Eye: COMMON NORMALS: Equal, round and reactive pupils present and EOMs intact bilaterally PUPIL: Yes Equal, round and reactive pupils present Neck/C-Spine: COMMON NORMALS: full ROM and supple Chest: COMMONS NORMALS: normal inspection of the chest and normal palpation of entire chest wall Resp: COMMON NORMALS: normal respiratory effort, No retractions, No use of accessory muscles and clear to auscultation bilaterally AUSCULTATION: clear to auscultation bilaterally Cardio: COMMON NORMALS: regular rhythm and No murmurs present (Cardio) RATE: tachycardic RHYTHM: regular rhythm GI: COMMON NORMALS: Normal to inspection, nondistended, normoactive bowel sounds present, Soft to palpation, non-tender and no masses PALPATION: Yes Soft to palpation Extremity: COMMON NORMALS: normal to inspection and full ROM Neuro: COMMON NORMALS: patient oriented x3, moves all extremities and no focal motor deficits Psych: COMMON NORMALS: mental status grossly normal, Normal thought process present and cooperative THOUGHT PROCESS: Normal thought process present Skin: COMMON NORMALS: no rashes or lesions noted and no wounds GENERAL SKIN EXAM: no rashes or lesions noted Procedures Lumbar Puncture Time Out Performed: Yes Patient Position: left lateral decubitus Skin Prep: Povidone-Iodine 1% Local Anesthetic: lidocaine 1% Amount of anesthesia used (mL): 4 Spinal Needle Gauge: 22G Interspace Used: L4-L5 Fluid Initially Obtained: clear Complications: none Course Vital Signs: Vital signs: Vital Signs Temperature 101.5 F H 12/13/21 21:15 Pulse Rate 100 12/13/21 21:15 Respiratory Rate 20 H 12/13/21 21:15 Blood Pressure 84/44 12/13/21 21:15 Pulse Oximetry 95 12/13/21 21:15 MDM - Weakness Medical Decision Making Patient presents here with septic shock with fever and hypotension lactate did improve after IV fluids still has some hypotension will start on Levophed. Lumbar puncture was performed the fluid was clear will follow results also has not been eating has had a large weight loss with failure to thrive started on IV antibiotics will admit to the ICU did speak to her at length about a central line but she adamantly refused states she had 1 before and does not want another and will just run Levophed through peripheral IV she understands the risks of this. Lab Data : 12/13/21 19:57 12/13/21 19:57 Radiology Impressions Chest X-Ray 12/13/21 19:22 IMPRESSION: No acute findings Head CT 12/13/21 19:22 IMPRESSION: 1. Normal brain 2. Paranasal sinus mucosal thickening Laboratory Results WBC 9.6 10^3/uL (4.0-10.0) 12/13/21 19:57 RBC 5.25 10^6/uL (4.1-5.3) 12/13/21 19:57 Hgb 10.9 g/dL (11.5-15.3) L 12/13/21 19:57 Hct 36.6 % (37.0-47.0) L 12/13/21 19:57 MCV 69.7 fl (81-99) L 12/13/21 19:57 MCH 20.8 pg (28.0-34.0) L 12/13/21 19:57 MCHC 29.8 g/dL (30.0-36.0) L 12/13/21 19:57 RDW 22.1 % (12.1-15.1) H 12/13/21 19:57 Plt Count 66 10^3/cmm (130-400) L 12/13/21 19:57 MPV Not Reportable 12/13/21 19:57 Neut % (Auto) 91.0 % 12/13/21 19:57 Lymph % (Auto) 3.5 % 12/13/21 19:57 [place] % (Auto) 3.8 % 12/13/21 19:57 Eos % (Auto) 0.3 % 12/13/21 19:57 Baso % (Auto) 0.4 % 12/13/21 19:57 Neut # (Auto) 8.73 10^3/uL (1.8-7.7) H 12/13/21 19:57 Lymph # (Auto) 0.3 10^3/uL (0.8-4.8) L 12/13/21 19:57 [place] # (Auto) 0.4 10^3/uL (0.2-0.9) 12/13/21 19:57 Eos # (Auto) 0.0 10^3/uL (0.0-0.8) 12/13/21 19:57 Baso # (Auto) 0.0 10^3/uL (0.0-0.1) 12/13/21 19:57 Nucleated RBC % (auto) 0 % 12/13/21 19:57 Nucleated RBCs # 0.0 /100WBC 12/13/21 19:57 Specimen Type Arterial 12/13/21 19:39 Sample Site Radial, left 12/13/21 19:39 ABG pH 7.50 (7.35-7.45) H 12/13/21 19:39 ABG pCO2 33.0 mmHg (35-45) L 12/13/21 19:39 ABG pO2 50.0 mmHg (80.0-100.0) L 12/13/21 19:39 ABG HCO3 25.6 mmol/L (22-26) 12/13/21 19:39 ABG Base Excess 2.6 mmol/L (-2.0-2.0) H 12/13/21 19:39 Jimmy Test Pos 12/13/21 19:39 Hematocrit 32.1 % (37-47) L 12/13/21 19:39 O2 Delivery Device Room air 12/13/21 19:39 Complaint Analyst ID Buttr 12/13/21 19:39 Sodium 128 mmol/L (136-145) L 12/13/21 19:57 Potassium 3.8 mmol/L (3.5-5.1) 12/13/21 19:57 Chloride 89 mmol/L (98-107) L 12/13/21 19:57 Carbon Dioxide 25 mmol/L (22-29) 12/13/21 19:57 Anion Gap 17.8 (5-19) 12/13/21 19:57 BUN 37 mg/dL (6-20) H 12/13/21 19:57 Creatinine 0.9 mg/dL (0.5-0.9) 12/13/21 19:57 GFR Calculation 71.3 mL/min (90-130) L 12/13/21 19:57 Glucose 136 mg/dL (65-115) H 12/13/21 19:57 Calculated Osmolality 277 mOsm/kg (285-295) L 12/13/21 19:57 Lactic Acid 4.6 mmol/L (0.5-2.2) H* 12/13/21 19:57 Lactic Acid (Sepsis) 2.7 mmol/L (0.5-2.2) H 12/13/21 21:34 Calcium 9.4 mg/dL (8.5-10.5) 12/13/21 19:57 Phosphorus 1.5 mg/dL (2.5-4.5) L 12/13/21 19:57 Magnesium 2.1 mg/dL (1.7-2.3) 12/13/21 19:57 Total Bilirubin 0.9 mg/dL (0.15-1.2) 12/13/21 19:57 AST 19 U/L (0-32) 12/13/21 19:57 ALT 11 U/L (0-33) 12/13/21 19:57 Alkaline Phosphatase 158 IU/L (35-105) H 12/13/21 19:57 Total Protein 8.1 g/dL (6.6-8.7) 12/13/21 19:57 Albumin 3.6 g/dL (3.5-5.2) 12/13/21 19:57 Globulin 4.5 g/dL (1.3-4.6) 12/13/21 19:57 HCG, Qual Negative (Negative) 12/13/21 19:57 Urine Color Chloe (Yellow) 12/13/21 20:05 Urine Appearance Hazy (CLEAR) A 12/13/21 20:05 Urine pH 5 (5-7) 12/13/21 20:05 Ur Specific [place] 1.020 (1.005-1.030) 12/13/21 20:05 Urine Protein Trace (Negative) 12/13/21 20:05 Urine Glucose (UA) Norm (Normal) 12/13/21 20:05 Urine Ketones Negative (Negative) 12/13/21 20:05 Urine Blood 2+ (Negative) H 12/13/21 20:05 Urine Nitrate Negative (Negative) 12/13/21 20:05 Urine Bilirubin 1+ (Negative) H 12/13/21 20:05 Urine Urobilinogen 4 mg/dL (Negative) H 12/13/21 20:05 Ur Leukocyte Esterase Negative (Negative) 12/13/21 20:05 Urine RBC 0-4 /hpf (0-2) H 12/13/21 20:05 Urine WBC 0-4 /hpf (0-5) H 12/13/21 20:05 Ur Squamous Epith Cells 0-4 /hpf (0-5) H 12/13/21 20:05 Amorphous Sediment Not Reportable 12/13/21 20:05 Urine Bacteria 2+ /hpf (NONE) H 12/13/21 20:05 Fine Granular Casts 3 /lpf 12/13/21 20:05 Urine Mucus 1+ /hpf 12/13/21 20:05 Ethyl Alcohol < 10 mg/dL (0-10) 12/13/21 19:57 Influenza Type A Ag Negative (Negative) 12/13/21 19:38 Influenza Type B Ag Negative (Negative) 12/13/21 19:38 EKG Data EKG 1: I personally reviewed and interpreted this EKG as follows: EKG interpretation date: 12/13/21 EKG interpretation time: 19:41 Interpretation: sinus tach hr [address] or t wave abnormalities qrs 86 qtc 379 Discharge Plan Discharge Condition: Stable Prescriptions: No Action albuterol sulfate [ProAir HFA] 90 mcg/actuation HFA aerosol inhaler 1 puff inhalation QID PRN (Reason: shortness of breath or wheezing) Qty: 6.7 0RF Lasix 40 mg Tablet 40 mg PO DAILY 0RF fluconazole 200 mg tablet 600 mg PO DAILY 0RF docusate sodium 100 mg capsule 100 mg PO BID PRN (Reason: Constipation) 0RF aspirin 81 mg tablet,chewable 81 mg PO DAILY 0RF duloxetine 60 mg capsule,delayed release(DR/EC) 60 mg PO DAILY 0RF Suboxone 8-2 mg film 1 film sublingual TID 0RF Coding Level of Care Code ED Wealth Management Manager for Chg Fwd Exam Comprehensive
[2021-12-13] MEDS: acetaminophen 500 mg Tablet 1000 MG PO (19:37)
[2021-12-13 19:50] LABS: Arterial Blood Gas Hematocrit 32.1 % (37-47); Base Excess ABG 2.6 mmol/L (-2.0-2.0); Blood Gas Allen Test Pos; Blood Gas Sample Site Radial, left; Blood Gas Sample Type Arterial; HCO3 ABG 25.6 mmol/L (22-26); Oxygen Device ROOM AIR
[2021-12-13 20:10] LABS: Basophils % 0.4 %; Eosinophils % 0.3 %; Hematocrit 36.6 % (37.0-47.0); Hemoglobin 10.9 g/dL (11.5-15.3); Lymphocytes # 0.3 10^3/uL (0.8-4.8); Lymphocytes % 3.5 %; Mean Corpuscular HGB Conc 29.8 g/dL (30.0-36.0); Mean Corpuscular Hemoglobin 20.8 pg (28.0-34.0); Mean Corpuscular Volume 69.7 fl (81-99); Monocytes # 0.4 10^3/uL (0.2-0.9); Monocytes % 3.8 %; Neutrophils # 8.73 10^3/uL (1.8-7.7); Nucleated Red Blood Cells % 0 %; Platelet Count 66 10^3/cmm (130-400); Red Blood Count 5.25 10^6/uL (4.1-5.3); Red Cell Distribution Width 22.1 % (12.1-15.1); White Blood Count 9.6 10^3/uL (4.0-10.0)
[2021-12-13 20:18] LABS: Influenza A by IFA Negative (Negative); Influenza B by IFA Negative (Negative)
[2021-12-13] MEDS: sodium chloride 0.9% 1,000 ML 999 ML IV ×2 (20:19→21:30)
[2021-12-13 20:22] LABS: Glucose Urine UA Norm (Normal); Ketones Urine Negative (Negative); Protein Urine Trace (Negative); Urine Appearance Hazy (CLEAR); Urine Color Amber (Yellow); pH Urine 5 (5-7)
[2021-12-13 20:23] LABS: Add Urine Microscopic? YES; Bilirubin Urine 1+ (Negative); Blood Urine 2+ (Negative); Leukocyte Esterase Urine Negative (Negative); Nitrate Urine Negative (Negative); Urobilinogen Urine 4 mg/dL (Negative)
[2021-12-13 20:27] LABS: Bacteria Urine 2+ /hpf; Mucus Urine 1+ /hpf; RBC Urine 0-4 /hpf (0-2); Squamous Epithelial Cell Urine 0-4 /hpf (0-5); WBC Urine 0-4 /hpf (0-5)
[2021-12-13 20:28] LABS: Add Urine Culture? Yes; Fine Granular Casts Urine 3 /lpf
[2021-12-13 20:28] LABS: Alanine Aminotransferase 11 U/L (0-33); Albumin Level 3.6 g/dL (3.5-5.2); Alkaline Phosphatase 158 IU/L (35-105); Anion Gap 17.8 (5-19); Aspartate Amino Transferase 19 U/L (0-32); Blood Urea Nitrogen 37 mg/dL (6-20); Calcium 9.4 mg/dL (8.5-10.5); Carbon Dioxide 25 mmol/L (22-29); Chloride 89 mmol/L (98-107); Globulin 4.5 g/dL (1.3-4.6); Glomerular Filtration Rate 71.3 mL/min (90-130); Glucose 136 mg/dL (65-115); Magnesium 2.1 mg/dL (1.7-2.3); Osmolality Calculated 277 mOsm/kg (285-295); Phosphorus 1.5 mg/dL (2.5-4.5); Potassium 3.8 mmol/L (3.5-5.1); Sodium 128 mmol/L (136-145); Total Bilirubin 0.9 mg/dL (0.15-1.2); Total Protein 8.1 g/dL (6.6-8.7)
[2021-12-13 20:29] LABS: HCG, Serum Qual Negative (Negative)
[2021-12-13 20:30] LABS: Alcohol Level < 10 mg/dL (0-10)
[2021-12-13 20:32] LABS: Lactic Sepsis W/Reflex 4.6 mmol/L (0.5-2.2)
[2021-12-13 20:40] LABS: Slide Review Slide Review Perform
[2021-12-13] MEDS: piperacillin-tazobactam 3.375 GM in sodium chloride 0.9% (plus) 50 ML IV (20:57)
[2021-12-13] MEDS: vancomycin 1,000 MG in sodium chloride 0.9% 250 ML 250 MG IV (21:02)
[2021-12-13] MEDS: sodium chloride 0.9% 500 ML 999 ML IV (21:03)
[2021-12-13 21:44] LABS: Reflex Lactate Order REFLEX LACTIC ORDERD
[2021-12-13 22:05] LABS: Lactic Acid level (Lactate) 2.7 mmol/L (0.5-2.2)
[2021-12-13 22:44] LABS: CSF Mononuclear # 0.015 10^3/uL (50-90); Mononuclear WBC CSF % 8 % (50-90); Polynuclear Cells ,CSF # 0.177 10^3/uL (0-10); Polynuclear WBC CSF % 92 % (0-10); Red Blood Cell CSF 0 10^3/uL (0-0); White Blood Cell CSF 192 /uL (0-5)
[2021-12-13] MEDS: buprenorphine-naloxone 4-1 mg Film 1 EACH SUBLINGUAL (22:46)
[2021-12-13] MEDS: ondansetron 2 mg/ML SDV 2 mL 4 MG IVP (22:47)
[2021-12-13 22:56] LABS: Appearance CSF CLEAR (CLEAR); Color CSF COLORLESS (COLORLESS)
[2021-12-13 22:57] LABS: Pathology Referral Yes
--- NOTE | 2021-12-13 23:25 | PC.NURSE ---
Pt. arrived to room from ER. Pt is comfortable and pleasant. No needs identified at this time.
[2021-12-14] VITALS (37 sets, daily range): BP systolic 74–123; BP diastolic 34–85; PULSE 63–140; RESP 12–36; TEMP 36.1–39.9; O2SAT 90–100
--- NOTE | 2021-12-14 00:12 | P.HP_ITS ---
Providers/Chief Complaint Admitting Physician: Ashlee Patten DO Chief Complaint: pysch History of Present Illness patient is a 36-year-old female who present to [facility] 5 day history of weakness. She has known history of IV drug abuse, specifically methamphetamine. She denies fever, rigors, nausea, vomiting, cough, wheeze, abdominal pain, diarrhea, chest pain, dizziness, lightheadedness. She missed of photophobia and headache. Please note that I had an initial with encounter with the patient approximate 10:25 PM and she became emotionally labile when I inquired about her past drug and alcohol use. At that time she indicated that she wanted to sign out AGAINST MEDICAL ADVICE. I made the emergency department physician aware of this and I instructed him to make me aware if the patient changes her mind. At approximately 12:01 AM on December 14, 2021 while periodically check in the patient's chart to determine her disposition, I found that she was in the ICU. I called the emergency department physician regarding this and he indicated that he forgot to notify me. The emergency department physician also noted that I was now aware of the fact that the patient did not leave A by virtue of the fact that I had found that she was now in the ICU. I notified the nursing materials supervisor and called her at 11:50 PM regarding this event. The patient presents for further evaluation Review of Systems General: Reports: 10 or more systems reviewed and unremarkable except in HPI and below Medications/Allergies Home Medications Medication Instructions Recorded Confirmed Last Taken Type albuterol sulfate 90 mcg/actuation 1 puff INHALATION QID PRN #6.7 g 03/15/21 12/13/21 03/29/21 Rx aerosol inhaler (ProAir HFA) aspirin 81 mg chewable tablet 81 mg PO DAILY 12/13/21 12/13/21 12/12/21 History buprenorphine 8 mg-naloxone 2 mg 1 film SUBLINGUAL TID 12/13/21 12/13/21 12/12/21 History sublingual film (Suboxone) docusate sodium 100 mg capsule 100 mg PO BID PRN 12/13/21 12/13/21 Unknown History duloxetine 60 mg capsule,delayed 60 mg PO DAILY 12/13/21 12/13/21 12/12/21 History release fluconazole 200 mg tablet 600 mg PO DAILY 12/13/21 12/13/21 12/12/21 History furosemide 40 mg tablet (Lasix) 40 mg PO DAILY 12/13/21 12/13/21 12/12/21 History Allergies Allergy/AdvReac Type Severity Reaction Status Date / Time No Known Allergies Allergy Unverified 03/15/21 10:58 PFSH Acute PFSH: Medical History Drug use Hepatitis C Reports she is untreated No pertinent past medical history Surgical History No significant past surgical history Social History Smoking and tobacco status: current every day smoker Second hand smoke exposure: No Smoking risk assessment/counseling performed?: Yes Alcohol intake: never Desire information about alcohol rehabilitation?: No Counseling given: No Desire information about substance/drug rehabilitation?: No Counseling given: No Adopted: No Caregiver/support person: No Lives independently: Yes Household members: family Housing: House Marital status: Single service: No Current occupational status: unemployed History of recent travel: No Current gender identity: Female Female Reproductive History: Date of last menstrual period: 03/30/21 Vitals/I&O/Wt Last Vital Signs Temp 101.5 F H 12/13/21 21:15 Pulse 108 H 12/13/21 22:53 Resp 17 12/13/21 22:53 BP 87/48 12/13/21 22:53 Pulse Ox 100 12/13/21 22:53 12/13/21 12/13/21 12/14/21 14:59 22:59 06:59 Intake Total 2800 / 2800 Balance 2800 / 2800 Weight last 48 hrs Weight 45.359 kg Physical Exam Narrative: General: -Alert -No acute distress -No dyspnea -No tachypnea Head: -Atraumatic -Normocephalic Eyes: -Pupils equally round and reactive to light and accommodation -Extraocular muscles intact Neurological: -Cranial nerves II-XII intact Neck: -No jugular venous distention -No thyromegaly -No cervical lymphadenopathy Heart: -Regular rate -Regular rhythm -No murmurs -No gallops -No rubs Lungs: -No wheeze -No rhonchi -No rales ? Abdomen: -Normal bowel sounds in all four quadrants -No rebound -No guarding -No tenderness Extremities: -2/4 pulse in all four extremities -No clubbing -No cyanosis -No edema -No calf tenderness present bilaterally -Negative Reema?s sign bilaterally Musculoskeletal: -5/5 bilateral upper extremity strength -5/5 bilateral lower extremity strength -Sensorium of bilateral upper extremities are equal and intact -Sensorium of bilateral lower extremities are equal and intact ? Additional Details / Additional Findings / Exceptions / Miscellaneous: Data : 12/13/21 19:57 12/13/21 19:57 Micro: Microbiology 12/13/21 20:45 Blood Culture - Preliminary Blood SPECIMEN COLLECTED 12/13/21 20:15 Blood Culture - Preliminary Blood SPECIMEN COLLECTED 12/13/21 19:57 Blood Culture - Preliminary Blood SPECIMEN COLLECTED 12/13/21 19:40 Blood Culture - Preliminary Blood SPECIMEN COLLECTED A&P Assessment and plan (1) Septic embolism: Status: Acute Plan sepsis, likely secondary to meningitis however infectious endocarditis will need to be excluded. IV vancomycin to be dosed by pharmacy plus Rocephin 2 g IV every 12 hours plus IV Levophed as needed when necessary hypotension. Echo Karg grams pending. Blood culture ?2 drawn the emergency department pending. Neuro checks every 4 hours Depression with failure to thrive. I requested case management evaluate the patient with possible outpatient referral for behavioral health/psychiatry History of septic pulmonary ML's and Hyponatremia. We will monitor sodium level every 4 hours. 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 Patient status post bioprosthetic valve replacement?patient uncertain of as to which valve was replaced Depression Hepatitis C. I patient follow up with gastroenterology or infectious disease upon discharge if the patient is never previously been treated Number cytopenia. We will monitor platelet count intermittently with CBC Microcytic anemia, chronic with history of iron deficiency. Will monitor hemoglobin level intermittently. Check serum ferritin, iron panel, fecal occult blood Smoker. The patient becomes regarding smoking cessation Hypophosphatemia. We will monitor phosphorus level intermittently. Neutra-Phos 2 150 Mill cans by mouth twice a day Methamphetamine abuse. Urine drug screen pending History of leaving AGAINST MEDICAL ADVICE Medical noncompliance as witnessed by patient previous leaving AGAINST MEDICAL ADVICE. The patient becomes regarding medical compliance Moderate tricuspid regurgitation. Echo cardiac pending Query history of asthma DVT Proflex is. Bilateral SCD Attestations Medical Necessity Statement*: the patient's anticipate length of stay is greater than 2 midnights for treatment of meningitis Coding Level of Care Code Acute Director Occupational for g Fwd Diagnoses Septic embolism I76
[2021-12-14 01:10] LABS: Amphetamines Screen Urine Negative (Negative); Barbiturates Screen Urine Negative (Negative); Benzodiazepines Screen Urine Negative (Negative); Cocaine Screen Urine Negative (Negative); Opiate Screen Urine Positive (Negative); PCP Screen Urine Negative (Negative); THC Screen Urine Negative (Negative)
--- NOTE | 2021-12-14 01:19 | PC.PHAR ---
Vancomycinn is dosed at 1gm IVPB every 24 hours to produce a predicted trough level of 11.53 (population based pharmacokinetic analysis). A trough level has been ordered from the lab to be obtained before the fourth dose to confirm and adjust if needed.
[2021-12-14] MEDS: cefTRIAXone 2,000 MG in sodium chloride 0.9% (plus) 50 ML 100 MG IV (01:36)
[2021-12-14] MEDS: sodium chloride 0.9% 1,000 ML 125 ML IV (01:38)
--- NOTE | 2021-12-14 04:00 | PC.NURSE ---
Pt. starting to have sever shortness of breath along with rapid respirations. Pt. has visible severe tremors. Pt. is very anxious and is becoming tachycardic with HR up to 150. Called Dr. Patten with update and recieved orders for Subaxin. Will continue to monitor.
[2021-12-14] MEDS: buprenorphine-naloxone 4-1 mg Film 2 EACH SUBLINGUAL ×2 (04:33→10:46)
--- NOTE | 2021-12-14 04:45 | PC.NURSE ---
Pt. clinically looks much better and patient states she feels better however still feels very bad . Pt. heart rate is in 160's. Called Dr. Patten to give further update and suggest he come to see the patient. Will come to bedside.
--- NOTE | 2021-12-14 04:55 | PC.NURSE ---
Dr. Patten at bedside. Recieved orders.
--- NOTE | 2021-12-14 04:57 | XRR_ITS ---
PROCEDURE INFORMATION: Exam: XR Chest Exam date and time: 12/14/2021 5:06 AM Age: 36 years old Clinical indication: Fever and shortness of breath TECHNIQUE: Imaging protocol: XR of the chest. Views: 1 view. COMPARISON: CR XR chest 1V portable [id number] 12/13/2021 8:20 PM FINDINGS: Lungs: Some faint opacities are noted in the right upper and lower lung. Pleural spaces: Unremarkable. No pleural effusion. No pneumothorax. Heart/Mediastinum: Prior tricuspid valve replacement. Bones/joints: Unremarkable. XR/XR chest 1V portable [id number] IMPRESSION: Some faint opacities are noted in the right upper and lower lung, which may reflect atelectasis, scarring or infection.
--- NOTE | 2021-12-14 04:57 | XRR_ITS ---
PROCEDURE INFORMATION: Exam: XR Abdomen Exam date and time: 12/14/2021 5:03 AM Age: 36 years old Clinical indication: Fever and other: Shortness of breath TECHNIQUE: Imaging protocol: XR of the abdomen. Views: Frontal supine view of the abdomen. 1 View. COMPARISON: CT abdomen pelvis w con* [id number] 03/30/2021 9:58 AM FINDINGS: Gastrointestinal tract: Nonobstructive bowel gas pattern. Organs: Epicardial pacing wires are seen. Bones/joints: Unremarkable. XR/XR KUB [id number] IMPRESSION: Nonobstructive bowel gas pattern.
[2021-12-14] MEDS: acetaminophen 325 mg Tablet 650 MG PO (06:02)
[2021-12-14] MEDS: phosphorus 250 mg Tablet PO ×2 (08:00→17:11)
[2021-12-14 08:33] LABS: Bacillus cereus group Not Detected (NOT DETECT); Bacillus subtillis group Not Detected (NOT DETECT); Corynebacterium Not Detected (NOT DETECT); Cutibacterium acnes (P.acnes) Not Detected (NOT DETECT); Enterococcus Not Detected (NOT DETECT); Enterococcus faecalis Not Detected (NOT DETECT); Enterococcus faecium Not Detected (NOT DETECT); Lactobacillus species Not Detected (NOT DETECT); Listeria Not Detected (NOT DETECT); Listeria monocytogenes Not Detected (NOT DETECT); Micrococcus Not Detected (NOT DETECT); Pan Candida Not Detected (NOT DETECT); Pan Gram-Negative Not Detected (NOT DETECT); Staphylococcus epidermidis Not Detected (NOT DETECT); Staphylococcus lugdunensis Not Detected (NOT DETECT); Staphylococcus species Detected (NOT DETECT); Streptococcus agalactiae Not Detected (NOT DETECT); Streptococcus anginosus group Not Detected (NOT DETECT); Streptococcus pneumoniae Not Detected (NOT DETECT); Streptococcus pyogenes Not Detected (NOT DETECT); Streptococcus species Not Detected (NOT DETECT); mecA Not Detected (NOT DETECT); mecC Not Detected (NOT DETECT)
[2021-12-14 09:34] LABS: Hematocrit 28.7 % (37.0-47.0); Hemoglobin 8.6 g/dL (11.5-15.3); Mean Corpuscular Hemoglobin 20.6 pg (28.0-34.0); Mean Corpuscular Volume 68.8 fl (81-99); Red Blood Count 4.17 10^6/uL (4.1-5.3); Red Cell Distribution Width 21.6 % (12.1-15.1); White Blood Count 11.7 10^3/uL (4.0-10.0)
[2021-12-14 10:19] LABS: Absolute Neutrophil 10.5 10^3/cmm (1.4-6.5); Absolute Segmented Neutrophil 8.1 10/cmm (1.6-7.1); Band Neutrophils Absolute 2.5 10^3/cmm (0.0-1.2); Eosinophils 0 %; Lymphocytes 4 %; Lymphocytes Absolute 0.5 10^3/cmm (1.2-3.4); Platelet Count 28 10^3/cmm (130-400); Platelet Estimate Decreased (Normal); Segmented Neutrophils 69 %; Total Cells Counted 100 (0-100)
--- NOTE | 2021-12-14 10:40 | P.PN_ITS ---
Subjective Subjective: States she is feeling about the same. States she has been feeling lightheaded for a while. Discussed with her she is found to have meningitis, likely bacterial, with suspicion of possible recurrence of endocarditis given pulmonary opacities with possible septic emboli. Discussed with her she is in sepsis, septic shock. Discussed the dangers and life-threatening nature of her condition if not continue treatment as there was reports she was having some thoughts earlier about leaving AMA. She is otherwise having some pain in the right proximal forearm with infiltration of IV with Levophed. She was bending her arm earlier, but not anymore, but the IV stopped working. Related to the RN she reports some vaginal bleeding which she has not had in a while. Vitals/I&O/Wt Last Vital Signs Temp 103.8 F H 12/14/21 06:00 Pulse 140 H 12/14/21 06:00 Resp 22 H 12/14/21 06:00 BP 89/45 12/14/21 06:00 Pulse Ox 99 12/14/21 06:00 12/13/21 12/14/21 12/14/21 22:59 06:59 14:59 Intake Total 2800 / 2800 697.782 / 3497.782 244.968 / 244.968 Output Total 1300 / 1300 Balance 2800 / 2800 -602.218 / 2197.782 244.968 / 244.968 Weight last 48 hrs Weight 50.349 kg Weight 45.359 kg Physical Exam Const: COMMON NORMALS: alert GENERAL APPEARANCE: cooperative ORIENTATION/CONSCIOUSNESS: Yes awake HENMT: COMMON NORMALS: normocephalic, EAC's normal, Normal external nose present and moist oral mucous membranes HEAD & SCALP: normocephalic NOSE: Normal external nose present EXTERNAL AUDITORY CANAL: EAC's normal Neck/C-Spine: COMMON NORMALS: no meningeal signs Chest: CHEST: Yes Symmetrical chest wall rise Resp: COMMON NORMALS: clear to auscultation bilaterally AUSCULTATION: clear to auscultation bilaterally Cardio: COMMON NORMALS: regular rate, regular rhythm and No murmurs present (Cardio) RATE: regular rate RHYTHM: regular rhythm GI: COMMON NORMALS: Normal to inspection, nondistended, normoactive bowel sounds present, Soft to palpation and non-tender PALPATION: Yes Soft to palpation Extremity: COMMON NORMALS: no pedal edema OTHER: Min local swelling R forearm at IV Neuro: COMMON NORMALS: moves all extremities SENSORIUM/ORIENTATION: Yes alert MENINGEAL SIGNS: Yes no meningeal signs Psych: COMMON NORMALS: mental status grossly normal Skin: COMMON NORMALS: no wounds RASHES: no rashes Data : 12/14/21 09:07 12/14/21 09:07 Micro: Microbiology 12/13/21 19:40 Blood Culture - Preliminary Blood Staphylococcus aureus 12/13/21 20:45 Blood Culture - Preliminary Blood Staphylococcus aureus 12/13/21 20:15 Blood Culture - Preliminary Blood Staphylococcus aureus 12/13/21 19:57 Blood Culture - Preliminary Blood Staphylococcus aureus A&P Assessment and plan (1) Septic shock: Has been on pressors, up to 14 mcg/min Levophed. Assessed by NICOM, not fluid responsive. DC IV fluids. IV is infiltrated in the right antecubital fossa with possible Levophed extravasation. Removed. Hypotensive, so for now infusion switched to another functioning IV. Blood pressure to be obtained in the leg. Warm compress. Discussed with her central line placement, although pressor requirement is decreasing, currently down to 8 mcg/min. Also noted worsening thrombocytopenia platelets decreasing now down to 28,000. Discussed with her meningitis, sepsis, septic shock. High concern for bacteremia, and later cultures are coming back positive for staph aureus 4/8 bottles. Discussed with her concern for possible endocarditis, echocardiogram has been pending. Continue vancomycin as she has history of MRSA PCR positive. Requested pharmacy to dose. For now empirically continue ceftriaxone, Amphotericin. Status: Acute (2) Sepsis: As above Status: Acute (3) Septic embolism: Discussed with her concern for endocarditis, septic embolism given opacities noted on chest x-ray Continue antibiotics as above. Oxygen support as needed, currently 2 L nasal cannula. She denies IVDU Status: Acute (4) Meningitis: She is awake, alert, provides history, ROS, cooperative. Continue vancomycin. Empiric ceftriaxone. Status: Acute (5) Thrombocytopenia: Worsening thrombocytopenia, he does have history of hepatitis C, possible liver disease, however, rapid decrease likely secondary to sepsis. Will obtain DIC panel. Requested peripheral smear. Requesting platelet transfusion given she is reporting some new vaginal bleeding which she has not had for a while. Status: Acute (6) Intravenous infiltration: Right antecubital fossa IV is infiltrated with Levophed infusion, removed. Hav ing some tenderness there, but so far no other symptoms. Apply warm compress, elevate RUE on pillow. Removed blood pressure cuff to leg. Status: Acute (7) Opacity of lung on imaging study: Concern for septic embolization, recurrence of endocarditis. Status: Acute (8) History of tricuspid valve replacement with bioprosthetic valve: At [facility], reports was done on July 31. Requesting records. TTE pending, per preliminary report no obvious vegetation. Follow-up final interpretation. 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 Vancomycin as above. Will need protracted antibiotic course, which may be difficult given recurrence of endocarditis, history of IVDU. Status: Acute Plan Depression with failure to thrive. I requested case management evaluate the patient with possible outpatient referral for behavioral health/psychiatry History of septic pulmonary emboli Hyponatremia. Regular diet. Treat sepsis as above. Repeat level. 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 Patient status post bioprosthetic valve replacement?patient uncertain of as to which valve was replaced Depression Hepatitis C. follow up with gastroenterology or infectious disease upon discharge if the patient is never previously been treated Microcytic anemia, chronic with history of iron deficiency. Will monitor hemoglobin level intermittently. Check serum ferritin, iron panel, fecal occult blood Smoker. The patient becomes regarding smoking cessation Hypophosphatemia. We will monitor phosphorus level intermittently. Neutra-Phos 2 150 Mill cans by mouth twice a day Hx methamphetamine abuse History of leaving AGAINST MEDICAL ADVICE Medical noncompliance as witnessed by patient previous leaving AGAINST MEDICAL ADVICE. The patient becomes regarding medical compliance Moderate tricuspid regurgitation. Echo cardiac pending Query history of asthma Attestations Medical Necessity Statement*: Continue admission for assessment management of septic shock, sepsis, meningitis, staph aureus bacteremia, suspected septic embolic disease, possible recurrence of endocarditis with bioprosthetic tricuspid valve. Critical Care Time: The high probability of a clinically significant, sudden or life threatening deterioration of the patient's hemodynamic, infectious disease, system(s) required my full and direct attention, intervention and personal management. The critical care time is as shown. This time is in addition to time spent performing any reported procedures but includes the following: x Data and vital sign review and interpretation x Patient assessment, examination and intervention x Documentation x Medication orders and management Critical Care Time (min): 50 Coding Level of Care Code Acute Financial Sales Professional for Chg Fwd Exam Comprehensive Diagnoses Septic embolism I76 Meningitis G03.9 Sepsis A41.9 Septic shock A41.9; R65.21 Thrombocytopenia D69.6 Opacity of lung on imaging study R91.8 History of tricuspid valve replacement with bioprosthetic valve Z95.3 Bacteremia due to Staphylococcus aureus R78.81; B95.61 Intravenous infiltration T80.1XXA
[2021-12-14 10:57] LABS: Ferritin 195 ng/mL (15-150); Iron 5 ug/dL (37-145); Percent Saturation 2.7 % (20-50); Phosphorus 1.9 mg/dL (2.5-4.5); Sodium 128 mmol/L (136-145); Total Iron Binding Capacity 183 mcg/dl; Unsaturated Iron Binding 178 ug/dL (112-347)
[2021-12-14 11:04] LABS: LAB Peripheral Smear Sent for Review
[2021-12-14 11:56] LABS: Fibrinogen 322 mg/dL (174-498); Partial Thromboplastin Time 30.2 SECONDS (23.9-36.7)
[2021-12-14 12:13] LABS: D Dimer >= 20.00 ug/mIFEU (0-0.59)
[2021-12-14] MEDS: duloxetine 60 mg Capsule PO (12:58)
[2021-12-14] MEDS: pantoprazole 40 mg SDV IVP (12:58)
--- NOTE | 2021-12-14 13:22 | USCV_ITS ---
JulietaLinh Age: 36 Gender: F : 1985 Exam Date: 12/14/2021 13:56 Ordering Phys: Juan M Zhao MD Technologist: Bronsno Robertson Exam Location: [facility] [place] Indication: elevated ddimer, sepsis PROCEDURES: Venous duplex imaging was performed in bilateral upper extremities. The following venous structures were evaluated: internal jugular vein, subclavian vein, axillary vein, and brachial veins. In addition, the basilic vein, cephalic vein, radial vein, and ulnar vein. Serial compression, augmentation maneuvers, and spectral Doppler flow evaluation were performed. FINDINGS: No evidence of deep vein thrombosis or superficial thrombophlebitis in the right or left upper extremity. CONCLUSIONS No evidence for upper extremity deep venous thrombosis. Dr. Tracie Saleh DO (Electronically Signed) Final Date: 14 Dec 2021 14:58 S
--- NOTE | 2021-12-14 13:22 | USCV_ITS ---
Arnol Linh Age: 36 Gender: F : 1985 Exam Date: 12/14/2021 13:41 Ordering Phys: Juan M Zhao MD Technologist: Bronson Robertson Exam Location: [facility] [place] Indication: elevated ddimer, sepsis PROCEDURES: Venous duplex imaging was performed in bilateral lower extremities. The following venous structures were evaluated: common femoral vein, profunda vein, proximal portion of the greater saphenous vein, superficial femoral vein, and the popliteal vein. In addition, the posterior tibial and peroneal trunk were evaluated. Serial compression, augmentation maneuvers, and spectral Doppler flow evaluation were performed. FINDINGS: Normal 2-D Doppler and augmentation and compressibility throughout the lower extremity venous structures. Additional imaging through the proximal calf veins also reveals no thrombus. Limited evaluation of the greater saphenous vein is patent with no thrombus. CONCLUSIONS No DVT bilateral lower extremities. Dr. Tracie Saleh DO (Electronically Signed) Final Date: 14 Dec 2021 15:03 S
[2021-12-14 16:06] LABS: Sodium 135 mmol/L (136-145)
--- NOTE | 2021-12-14 19:26 | USCV_ITS ---
Linh Ambrose Age: 36 Gender: F : 1985 Exam Date: 12/14/2021 00:07 Ordering Phys: Karol Reynoso MD Technologist: JT Exam Location: [facility] – [place] Indication: Hx Endocarditis BP: 112 / 59 HR: 102 Rhythm: Sinus Technical Quality: Adequate MEASUREMENTS (Male / Female) Normal Values 2D ECHO LV Diastolic Diameter PLAX 4.6 cm 4.2 - 5.9 / 3.9 - 5.3 cm LV Systolic Diameter PLAX 3.0 cm IVS Diastolic Thickness 1.0 cm 0.6 - 1.0 / 0.6 - 0.9 cm IVS Systolic Thickness 1.6 cm LVPW Diastolic Thickness 1.0 cm 0.6 - 1.0 / 0.6 - 0.9 cm LVPW Systolic Thickness 1.4 cm LVOT Diameter 2.1 cm LV Ejection Fraction 2D Teich 63.7 % LV Ejection Fraction MOD 2C 65.3 % LV Ejection Fraction 2C AL 68.1 % LA Diameter 2.8 cm LA Width 4.0 cm LA Height 4.5 cm RA Width 4.8 cm RA Height 3.8 cm Aorta at Sinotubular Diameter 2.0 cm IVC Diameter 2.0 cm M-MODE Aortic Annulus Diameter 2.7 cm LA Ao Ratio MM 1.1 MV E Point Septal Separation 0.0 cm DOPPLER AV Peak Velocity 126.8 cm/s LVOT Peak Velocity 73.0 cm/s AV Area Cont Eq vti 2.9 cm squared AV Area Cont Eq pk 2.0 cm squared MV Peak Velocity 66.0 cm/s MV Area PHT 3.1 cm squared Mitral E to A Ratio 1.5 MV E' Velocity 39.0 cm/s Mitral E to MV E' Ratio 4.2 Mitral E to LV E' Lateral Ratio 3.3 Mitral E to LV E' Septal Ratio 5.8 TR Peak Velocity 115.1 cm/s TR Peak Gradient 5.3 mmHg TR Mean Velocity 77.1 cm/s TR Mean Gradient 2.7 mmHg TR Velocity Time Integral 28.3 cm Right Atrial Pressure 10.0 mmHg Pulmonary Artery Systolic Pressu 15.3 mmHg PV Peak Velocity 87.3 cm/s RV Acceleration Time 0.0 s RV Ejection Time 0.2 s RV AcT/ET 0.2 FINDINGS Left Ventricle Normal left ventricular size and systolic function, EF 75 %. No regional wall motion abnormalities. Right Ventricle The right ventricle is normal in size and function. Right Atrium The right atrium is normal in size. Left Atrium The left atrium is normal in size. Mitral Valve No gross abnormalities noted Aortic Valve Appears to be tricuspid with a normal process of vegetations Tricuspid Valve Bioprosthetic valve at the tricuspid position appears to be well-seated. Leaflets appear to be slightly thickened. The valve area is not calculated. Pulmonic Valve No gross abnormalities noted Pericardium Normal pericardium without effusion. Aorta Normal ascending aorta dimension. CONCLUSIONS Normal left ventricular size and systolic function, EF 75 %. No regional wall motion abnormalities. Bioprosthetic valve at the tricuspid position appears to be well-seated. Leaflets appear to be slightly thickened. The valve area is not calculated. No intracardiac masses or any obvious vegetations are noted. There is no pericardial effusion. Need to repeat the tricuspid Doppler study to evaluate the valve area Compared to the study from 03/30/2021, apparently the patient had tricuspid valve surgery Addendum The peak gradient across the tricuspid valve was 11 mmHg with a mean gradient of 6 mmHg. The peak velocity was 1.67 m/s. No significant stenosis in this valve, based on this finding. Consider ANGUS, if clinically indicated. Discussed with the Dr. Hillman. Dr Amanda Jean Baptiste MD [facility] (Electronically Signed) Final Date: 14 Dec 2021 17:15 S
[2021-12-14] MEDS: vancomycin 1,000 MG in sodium chloride 0.9% 250 ML 250 MG IV (21:05)
[2021-12-15] VITALS (71 sets, daily range): BP systolic 79–121; BP diastolic 37–83; PULSE 83–136; RESP 14–33; TEMP 36.3–39.3; O2SAT 85–100
[2021-12-15] MEDS: buprenorphine-naloxone 4-1 mg Film 2 EACH SUBLINGUAL (00:44)
[2021-12-15] MEDS: acetaminophen 325 mg Tablet 650 MG PO (02:17)
[2021-12-15] MEDS: pantoprazole 40 mg SDV IVP (08:09)
[2021-12-15] MEDS: phosphorus 250 mg Tablet PO ×2 (08:09→18:34)
[2021-12-15] MEDS: duloxetine 60 mg Capsule PO (08:09)
[2021-12-15 08:26] LABS: Hematocrit 31.4 % (37.0-47.0); Hemoglobin 9.3 g/dL (11.5-15.3); Mean Corpuscular HGB Conc 29.6 g/dL (30.0-36.0); Mean Corpuscular Volume 70.9 fl (81-99); Platelet Count 36 10^3/cmm (130-400); Red Blood Count 4.43 10^6/uL (4.1-5.3); White Blood Count 16.6 10^3/uL (4.0-10.0)
[2021-12-15 08:42] LABS: Alanine Aminotransferase 10 U/L (0-33); Albumin Level 2.7 g/dL (3.5-5.2); Alkaline Phosphatase 116 IU/L (35-105); Blood Urea Nitrogen 15 mg/dL (6-20); Calcium 8.5 mg/dL (8.5-10.5); Carbon Dioxide 26 mmol/L (22-29); Chloride 98 mmol/L (98-107); Globulin 3.3 g/dL (1.3-4.6); Glomerular Filtration Rate 181.6 mL/min (90-130); Glucose 124 mg/dL (65-115); Osmolality Calculated 280 mOsm/kg (285-295); Phosphorus 2.3 mg/dL (2.5-4.5); Sodium 134 mmol/L (136-145); Total Bilirubin 0.7 mg/dL (0.15-1.2)
[2021-12-15 08:51] LABS: Anion Gap 13.5 (5-19); Aspartate Amino Transferase 20 U/L (0-32); Potassium 3.5 mmol/L (3.5-5.1)
[2021-12-15 09:01] LABS: Slide Review Slide Review Perform; Total Cells Counted 100 (0-100)
[2021-12-15 09:02] LABS: Absolute Neutrophil 15.6 10^3/cmm (1.4-6.5); Absolute Segmented Neutrophil 15.3 10/cmm (1.6-7.1); Band Neutrophils Absolute 0.3 10^3/cmm (0.0-1.2); Eosinophils 0 %; Lymphocytes 3 %; Lymphocytes Absolute 0.5 10^3/cmm (1.2-3.4); Monocytes Absolute 0.2 10^3/cmm (0.1-0.6); Platelet Estimate Decreased (Normal); Segmented Neutrophils 92 %
--- NOTE | 2021-12-15 10:06 | PC.CHAP ---
Pastoral Care Encounter/Spiritual Assessment Type of Contact [] Declined commissary helper visit [] Patient/Family/Request visit [] Outpatient visit [] Follow-up visit [] Physician referral [] Code/Alert [x] Routine visit [] Staff referral [] Actively dying [x] Patient sleeping [] Family support [] [] Out of room [] Palliative care [] [] Receiving care in room [] Pre-surgical visit [] Trauma [] Long length of stay [x] ICU visit [] Other: Relational/Emotional Strength [] Patient feels connected with others/family/visitors/staff [] Distress [] Loneliness/isolation [] Abandonment Spirituality of Patient [] Person of Areli [] Attends Hoahaoism of their Areli [] Believes in Prayer [] Reads Bible or Gnosticist materials [] There are Spiritual issues to be addressed Sales Technician Home Theater Interventions [x] Prayer [] Active listening [] Non-anxious presence [] Spiritual/emotional support [] Crisis/trauma care [] Spiritual counseling [] Bereavement support [] Provided bereavement packet [] Provided Bible/devotional materials [] Provided toy/stuffed animal, coloring book to patient or family member [] Provided Communion [] Anointing/[place] [] Salvation [x] Completed spiritual assessment [] Other: Impact on Illness or Injury [] Angry [] Fearful [] Anxious [] Often cries [] Exhaustion [] Unable to work [] Unable to attend hinduism [] Unable to walk/stand [] Unable to read [] Unable to drive [] Unable to eat/drink [] Unable to sleep [] Unable to be with family [] Patient intubated [] Other: Summary Time spent with patient
[2021-12-15] MEDS: vancomycin 1,500 MG/300 ML PIGGYBACK 200 MG IV ×2 (12:34→23:55)
[2021-12-15] MEDS: buprenorphine-naloxone 4-1 mg Film 1 EACH SUBLINGUAL ×2 (14:46→20:32)
--- NOTE | 2021-12-15 16:29 | PM.PN ---
Subjective Subjective: She states she is doing all right. About the same. Requested her turned off. In terms of pain and having some pain to the right of the center of her upper back, is not sure if from staying in bed, denies numbness or weakness of her arms or elsewhere. Vitals/I&O/Wt Last Vital Signs Temp 97.4 F L 12/15/21 07:15 Pulse 88 12/15/21 14:15 Resp 20 H 12/15/21 14:15 BP 95/50 12/15/21 14:15 Pulse Ox 95 12/15/21 14:15 12/15/21 12/15/21 12/15/21 06:59 14:59 22:59 Intake Total 152.87 / 4405.113 0403.27 / 1456.27 50 / 1506.27 Output Total 350 / 350 Balance -197.13 / 1084.002 0784.27 / 1456.27 50 / 1506.27 Weight last 48 hrs Weight 50.349 kg Weight 50.349 kg Weight 45.359 kg Physical Exam Const: COMMON NORMALS: alert GENERAL APPEARANCE: cooperative ORIENTATION/CONSCIOUSNESS: Yes awake HENMT: COMMON NORMALS: normocephalic, EAC's normal, Normal external nose present and moist oral mucous membranes HEAD & SCALP: normocephalic NOSE: Normal external nose present EXTERNAL AUDITORY CANAL: EAC's normal Neck/C-Spine: COMMON NORMALS: no meningeal signs Chest: CHEST: Yes Symmetrical chest wall rise Resp: COMMON NORMALS: clear to auscultation bilaterally AUSCULTATION: clear to auscultation bilaterally Cardio: COMMON NORMALS: regular rate, regular rhythm and No murmurs present (Cardio) RATE: regular rate RHYTHM: regular rhythm GI: COMMON NORMALS: Normal to inspection, nondistended, normoactive bowel sounds present, Soft to palpation and non-tender PALPATION: Yes Soft to palpation Extremity: COMMON NORMALS: no pedal edema OTHER: No erythema of R forearm, minimal if any swelling. Neuro: COMMON NORMALS: moves all extremities SENSORIUM/ORIENTATION: Yes alert MENINGEAL SIGNS: Yes no meningeal signs Psych: COMMON NORMALS: mental status grossly normal Skin: COMMON NORMALS: no wounds RASHES: no rashes Data : 12/15/21 08:16 12/15/21 08:16 Micro: Microbiology 12/13/21 20:45 Blood Culture - Preliminary Blood Staphylococcus aureus 12/13/21 20:15 Blood Culture - Preliminary Blood Staphylococcus aureus 12/13/21 19:40 Blood Culture - Preliminary Blood Staphylococcus aureus 12/13/21 19:57 Blood Culture - Preliminary Blood Staphylococcus aureus 12/13/21 22:00 Gram Stain - Final Cerebrospinal Fluid CSF Culture - Preliminary 12/13/21 20:05 Urine Culture - Final Urine,Clean Catch A&P Assessment and plan (1) Septic shock: Weaning down on pressors, weaned off pressors yesterday, but had to be started on low rate, today down to 2 mcg/min, weaning off again. With staff aureus infection. Suspected possible endocarditis. 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 No obvious abscess. Discussed with her results of TTE. Will need ANGUS once more hemodynamically stable. For now continue vancomycin. Amphotericin B empirically. Discussed also with her ID specialist in [place] Dr. Emilie Dangelo, if no additional fungal growth after 48 hours, reasonable to de-escalate from ceftriaxone down to caspofungin IV, continue fluconazole subsequently, but continue antifungal as she did have fungal growth as well during her hospitalization in August. If mental status is improving, reasonable to hold off on MRI brain for now, consider if not improving or worsening. Thrombocytopenia with partial improvement. Not in DIC. D-dimer elevated, suspect secondary to infection, both upper and lower duplex venous studies negative for DVT. Right ventricle with normal size and function. Bicytopenia likely secondary to infection/sepsis. No mention of schistocytes. No blasts. With some back pain to the right of the center of her upper back will benefit from MRI assessment once stable to obtain study. Continue vancomycin as she has history of MRSA PCR positive. Prescription with her ID doc, continue vancomycin even if blood culture with MSSA. Partial susceptibilities done, so far no resistance detected, for now continue ceftriaxone empirically as well. Full sensitivities pending. Status: Acute (2) Sepsis: As above Status: Acute (3) Septic embolism: Discussed with her concern for endocarditis, septic embolism given opacities noted on chest x-ray Continue antibiotics as above. Oxygen support as needed, currently 2 L nasal cannula. She denies IVDU As per discussion with her ID specialist, sometimes even in absence of IVDU can see relapse of staphylococcal infection after valve replacement. Status: Acute (4) Meningitis: Continue vancomycin. Empiric ceftriaxone. Continue monitoring. Status: Acute (5) Thrombocytopenia: hrombocytopenia with partial improvement. Not in DIC. D-dimer elevated, suspect secondary to infection, both upper and lower duplex venous studies negative for DVT. Right ventricle with normal size and function. Bicytopenia likely secondary to infection/sepsis. No mention of schistocytes. No blasts. Requesting platelet transfusion given she is reporting some new vaginal bleeding which she has not had for a while. Repeat CBC Status: Acute (6) Intravenous infiltration: Does not appear to have residual abnormality. Right antecubital fossa IV is infiltrated with Levophed infusion 12/14 removed. Having some tenderness there, but so far no other symptoms. Warm compress, elevated RUE on pillow. Blood pressure cuff on leg. Status: Acute (7) Opacity of lung on imaging study: Concern for septic embolization, recurrence of endocarditis. Status: Acute (8) History of tricuspid valve replacement with bioprosthetic valve: At [facility], reports was done on July 31. Records in paper chart. Had tricuspid valve replaced with bioprosthetic valve, and PFO closure at the same time. TTE no obvious vegetation. 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 Vancomycin as above. Will need protracted antibiotic course, which may be difficult given recurrence of endocarditis, history of IVDU. Was hospitalized for the entire 6 weeks at [facility] to receive IV antibiotics via PICC line. 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 Vaginal bleeding: Episode on 12/14, with noted thrombocytopenia, but benefit from follow-up assessment with gynecology. Depression with failure to thrive. I requested case management evaluate the patient with possible outpatient referral for behavioral health/psychiatry History of septic pulmonary emboli Hyponatremia. Resolving. Regular diet. Treat sepsis as above. Repeat level. 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 Patient status post bioprosthetic valve replacement?patient uncertain of as to which valve was replaced Depression Hepatitis C. hepatitis C RNA requested by infectious disease specialist, ordered. Receiving treatment in [place]. Will need follow-up with Dr Dangelo. Please forward HCV RNA results to ID provider. Microcytic anemia, chronic with history of iron deficiency. Iron deficiency anemia. Will monitor hemoglobin level intermittently. Check fecal occult blood. Previously negative. Smoker. The patient becomes regarding smoking cessation Hypophosphatemia. We will monitor phosphorus level intermittently. Neutra-Phos 2 150 Mill cans by mouth twice a day Hx methamphetamine abuse History of leaving AGAINST MEDICAL ADVICE Medical noncompliance as witnessed by patient previous leaving AGAINST MEDICAL ADVICE. The patient becomes regarding medical compliance Query history of asthma Attestations Medical Necessity Statement*: Continue admission for management of sepsis, septic shock with disseminated staph aureus infection, meningitis in a lady with previous bioprosthetic tricuspid valve replacement, PFO closure septic embolization, history of IVDU. Critical Care Time: The high probability of a clinically significant, sudden or life threatening deterioration of the patient's hemodynamic, hematologic, infectious disease system(s) required my full and direct attention, intervention and personal management. The critical care time is as shown. This time is in addition to time spent performing any reported procedures but includes the following: x Data and vital sign review and interpretation x Patient assessment, examination and intervention x Documentation x Medication orders and management Critical Care Time (min): 60 Coding Level of Care Code Acute Data Communications Technician for g Fwd Diagnoses Septic shock A41.9; R65.21 Sepsis A41.9 Septic embolism I76 Meningitis G03.9 Thrombocytopenia D69.6 Intravenous infiltration T80.1XXA Opacity of lung on imaging study R91.8 History of tricuspid valve replacement with bioprosthetic valve Z95.3 Bacteremia due to Staphylococcus aureus R78.81; B95.61
[2021-12-15 17:01] LABS: Basophils # 0.1 10^3/uL (0.0-0.1); Basophils % 0.5 %; Eosinophils # 0.1 10^3/uL (0.0-0.8); Hematocrit 31.7 % (37.0-47.0); Hemoglobin 9.6 g/dL (11.5-15.3); Lymphocytes # 1.3 10^3/uL (0.8-4.8); Lymphocytes % 12.4 %; Mean Corpuscular HGB Conc 30.3 g/dL (30.0-36.0); Mean Corpuscular Hemoglobin 21.1 pg (28.0-34.0); Mean Corpuscular Volume 69.8 fl (81-99); Monocytes # 0.4 10^3/uL (0.2-0.9); Monocytes % 3.7 %; Neutrophils # 8.72 10^3/uL (1.8-7.7); Neutrophils % 80.7 %; Nucleated Red Blood Cells % 0 %; Positive C 1; Positive M 1; Red Blood Count 4.54 10^6/uL (4.1-5.3); Red Cell Distribution Width 22.3 % (12.1-15.1); White Blood Count 10.8 10^3/uL (4.0-10.0)
--- NOTE | 2021-12-15 17:15 | PC.NURSE ---
This nurse rounded on patient at 1715 and pt noted to be very confused, sweaty, and noted to have chest pain. This nurse called and he reported to bedside, physician placed new orders- see orders placed. Patient taken to CT with assistance of the household appliances service technician, patient tolerated well. Father noted to be at bedside when patient placed back in room, Dr. Zhao notified.
--- NOTE | 2021-12-15 17:18 | XRR_ITS ---
PROCEDURE INFORMATION: Exam: XR Chest Exam date and time: 12/15/2021 5:32 PM Age: 36 years old Clinical indication: Pain; Patient HX: AMS, chest discomfort, tachycardia; Additional info: Chest pain TECHNIQUE: Imaging protocol: XR of the chest. Views: 1 view. COMPARISON: CR XR chest 1V portable [id number] 12/14/2021 5:06 AM FINDINGS: Lungs: Minimal linear atelectasis. No significant dense confluent lobar opacities identified. Pleural spaces: No pneumothorax. No significant pleural effusion. Heart/Mediastinum: Prosthetic heart valve noted. The heart is mildly enlarged for size. Bones/joints: Median sternotomy wires noted. XR/XR chest 1V portable [id number] IMPRESSION: No acute cardiopulmonary abnormality identified.
--- NOTE | 2021-12-15 17:18 | ECG_ITS ---
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 Measurements Intervals [place] Rate: 125 P: 98 DE: 121 QRS: 92 QRSD: 93 T: 49 QT: 336 QTc: 486 Interpretive Statements SINUS TACHYCARDIA BORDERLINE RIGHT AXIS DEVIATION [QRS AXIS > 90] INCOMPLETE RIGHT BUNDLE BRANCH BLOCK [90+ ms QRS DURATION, TERMINAL R IN V1/V2, 40+ ms S IN I/aVL/V4/V5/V6] NONSPECIFIC T-WAVE ABNORMALITY Compared to ECG 12/13/2021 19:41:10 Incomplete right bundle-branch block now present Short DE interval no longer present Possible ischemia no longer present T-wave abnormality still present Electronically Signed On 12-15-2021 20:40:40 CDT by Marvin Álvarez M.D. [id number]
--- NOTE | 2021-12-15 17:33 | CTR_ITS ---
PROCEDURE INFORMATION: Exam: CT Angiography Head With Contrast, Arteriography Exam date and time: 12/15/2021 6:06 PM Age: 36 years old Clinical indication: Headache; Patient HX: AMS, DURHAM, photophobia; Additional info: AMS, anisocoria, sa bacteremia TECHNIQUE: Imaging protocol: Computed tomography angiography of the head with contrast. Exam focused on the arteries. 3D rendering (Not supervised by radiologist): MIP and/or 3D reconstructed images were created by the technologist. Radiation optimization: All CT scans at this facility use at least one of these dose optimization techniques: automated exposure control; mA and/or kV adjustment per patient size (includes targeted exams where dose is matched to clinical indication); or iterative reconstruction. Contrast material: OMNI 350; Contrast volume: 75 ml; Contrast route: INTRAVENOUS (IV); COMPARISON: 1. CT head wo con* [id number] 12/13/2021 9:[address] angio chest PE protcl [id number] 03/30/2021 9:18 AM RADIATION DOSE METRICS: Total DLP (mGy-cm): 1217.42 FINDINGS: ANTERIOR CIRCULATION: Right internal carotid artery: Unremarkable. Intracranial segment is patent with no significant stenosis. No aneurysm. Right middle cerebral artery: Unremarkable. No occlusion or significant stenosis. No aneurysm. Right anterior cerebral artery: Unremarkable. No occlusion or significant stenosis. No aneurysm. Left internal carotid artery: Unremarkable. Intracranial segment is patent with no significant stenosis. No aneurysm. Left middle cerebral artery: Unremarkable. No occlusion or significant stenosis. No aneurysm. Left anterior cerebral artery: Unremarkable. No occlusion or significant stenosis. No aneurysm. POSTERIOR CIRCULATION: Right vertebral artery: Unremarkable. No occlusion or significant stenosis. No aneurysm. Left vertebral artery: Unremarkable. No occlusion or significant stenosis. No aneurysm. Basilar artery: Unremarkable. No occlusion or significant stenosis. No aneurysm. Right posterior cerebral artery: Unremarkable. No occlusion or significant stenosis. No aneurysm. Left posterior cerebral artery: Unremarkable. No occlusion or significant stenosis. No aneurysm. Brain: No definite mass, mass effect, or midline shift. Cerebral ventricles: No ventriculomegaly. Bones/joints: Unremarkable. No acute fracture. Soft tissues: Unremarkable. PROCEDURE INFORMATION: Exam: CT Angiography Neck With Contrast Exam date and time: 12/15/2021 6:06 PM Age: 36 years old Clinical indication: Headache; Patient HX: AMS, DURHAM, photophobia; Additional info: AMS, anisocoria, sa bacteremia TECHNIQUE: Imaging protocol: Computed tomography angiography of the neck with contrast. 3D rendering (Not supervised by radiologist): MIP and/or 3D reconstructed images were created by the technologist. Radiation optimization: All CT scans at this facility use at least one of these dose optimization techniques: automated exposure control; mA and/or kV adjustment per patient size (includes targeted exams where dose is matched to clinical indication); or iterative reconstruction. Contrast material: OMNI 350; Contrast volume: 75 ml; Contrast route: INTRAVENOUS (IV); COMPARISON: 1. CT head wo con* [id number] 12/13/2021 9:[address] angio chest PE protcl [id number] 03/30/2021 9:18 AM RADIATION DOSE METRICS: Total DLP (mGy-cm): 1217.42 FINDINGS: Right common carotid artery: No stenosis. No dissection or occlusion. Right internal carotid artery: No stenosis of the extracranial segment. No dissection or occlusion. Right external carotid artery: No occlusion or stenosis of the origin. Left common carotid artery: No stenosis. No dissection or occlusion. Left internal carotid artery: No stenosis of the extracranial segment. No dissection or occlusion. Left external carotid artery: No occlusion or stenosis of the origin. Right vertebral artery: No stenosis. No dissection or occlusion. Left vertebral artery: No stenosis. No dissection or occlusion. Soft tissues: Normal. No significant soft tissue swelling. Bones/joints: No acute fracture. CT/CT angio headneck* [id number] IMPRESSION: 1. No large vessel stenosis or occlusion. 2. Unremarkable CTA head. IMPRESSION: No carotid artery stenosis or occlusion. REFERENCES: NASCET CRITERIA. The degree of internal carotid artery stenosis is based on NASCET criteria. Normal is no stenosis. Mild is less than 50% stenosis. Moderate is 50-69% stenosis. Severe is 70% to 99% stenosis. Total occlusion is no detectable patent lumen.
[2021-12-15] MEDS: iohexol 350 mg/mL 100 mL Btl IV (18:09)
[2021-12-15 18:34] LABS: Platelet Count 13 10^3/cmm (130-400)
[2021-12-15 18:47] LABS: Troponin(5th) Baseline 12 ng/L (0-10)
--- NOTE | 2021-12-15 19:18 | ECG_ITS ---
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 Measurements Intervals [place] Rate: 92 P: 99 NM: 132 QRS: 88 QRSD: 105 T: 0 QT: 362 QTc: 449 Interpretive Statements SINUS RHYTHM POSSIBLE LEFT ATRIAL ENLARGEMENT [-0.1mV P-WAVE IN V1/V2] INCOMPLETE RIGHT BUNDLE BRANCH BLOCK [90+ ms QRS DURATION, TERMINAL R IN V1/V2, 40+ ms S IN I/aVL/V4/V5/V6] NONSPECIFIC T-WAVE ABNORMALITY Compared to ECG 12/15/2021 17:47:46 Sinus tachycardia no longer present T-wave abnormality still present Electronically Signed On 12-15-2021 21:16:54 CDT by Marvin Álvarez M.D. [id number]
[2021-12-15 20:03] LABS: Lactate Dehydrogenase 280 U/L (135-214)
[2021-12-15] MEDS: lidocaine 5% Patch 1 PATCH TOPICAL (20:33)
--- NOTE | 2021-12-15 23:18 | ECG_ITS ---
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 Measurements Intervals [place] Rate: 94 P: 74 LA: 129 QRS: 84 QRSD: 95 T: 22 QT: 305 QTc: 383 Interpretive Statements SINUS RHYTHM POSSIBLE LEFT ATRIAL ENLARGEMENT [-0.1mV P-WAVE IN V1/V2] INCOMPLETE RIGHT BUNDLE BRANCH BLOCK [90+ ms QRS DURATION, TERMINAL R IN V1/V2, 40+ ms S IN I/aVL/V4/V5/V6] NONSPECIFIC T-WAVE ABNORMALITY Compared to ECG 12/15/2021 21:14:19 No significant changes Electronically Signed On 12-16-2021 12:49:47 CDT by Laura Barrientos M.D. [id number]
[2021-12-16] VITALS (85 sets, daily range): BP systolic 79–122; BP diastolic 46–74; PULSE 72–108; RESP 14–31; TEMP 36.3–36.7; O2SAT 67–100
[2021-12-16 00:33] LABS: Basophils % 0.2 %; Eosinophils % 0.3 %; Hematocrit 26.8 % (37.0-47.0); Hemoglobin 7.9 g/dL (11.5-15.3); Lymphocytes % 15.6 %; Mean Corpuscular HGB Conc 29.5 g/dL (30.0-36.0); Mean Corpuscular Hemoglobin 20.5 pg (28.0-34.0); Mean Corpuscular Volume 69.6 fl (81-99); Neutrophils # 9.45 10^3/uL (1.8-7.7); Nucleated Red Blood Cells % 0 %; Platelet Count 31 10^3/cmm (130-400); Red Blood Count 3.85 10^6/uL (4.1-5.3); White Blood Count 12.8 10^3/uL (4.0-10.0)
[2021-12-16 00:46] LABS: Troponin 5 6HR 9.43 ng/L (0-10)
[2021-12-16 00:55] LABS: Slide Review Slide Review Perform
[2021-12-16 01:20] LABS: Rapid Plasma Reagin Syphilis Nonreactive (Nonreactive)
[2021-12-16 05:35] LABS: Basophils # 0.1 10^3/uL (0.0-0.1); Basophils % 0.4 %; Eosinophils # 0.1 10^3/uL (0.0-0.8); Hematocrit 26.8 % (37.0-47.0); Hemoglobin 7.9 g/dL (11.5-15.3); Lymphocytes # 2.6 10^3/uL (0.8-4.8); Lymphocytes % 19.4 %; Mean Corpuscular HGB Conc 29.5 g/dL (30.0-36.0); Mean Corpuscular Hemoglobin 20.6 pg (28.0-34.0); Monocytes # 0.9 10^3/uL (0.2-0.9); Monocytes % 6.9 %; Neutrophils # 9.36 10^3/uL (1.8-7.7); Neutrophils % 70.9 %; Nucleated Red Blood Cells % 0 %; Platelet Count 30 10^3/cmm (130-400); Red Blood Count 3.83 10^6/uL (4.1-5.3); Red Cell Distribution Width 21.9 % (12.1-15.1); White Blood Count 13.2 10^3/uL (4.0-10.0)
[2021-12-16 05:55] LABS: Alanine Aminotransferase 9 U/L (0-33); Albumin Level 2.6 g/dL (3.5-5.2); Alkaline Phosphatase 153 IU/L (35-105); Aspartate Amino Transferase 15 U/L (0-32); Blood Urea Nitrogen 14 mg/dL (6-20); Calcium 8.4 mg/dL (8.5-10.5); Carbon Dioxide 30 mmol/L (22-29); Chloride 95 mmol/L (98-107); Globulin 3.3 g/dL (1.3-4.6); Glomerular Filtration Rate 113.8 mL/min (90-130); Glucose 88 mg/dL (65-115); Osmolality Calculated 276 mOsm/kg (285-295); Phosphorus 2.3 mg/dL (2.5-4.5); Sodium 133 mmol/L (136-145); Total Bilirubin 0.5 mg/dL (0.15-1.2); Total Protein 5.9 g/dL (6.6-8.7)
--- NOTE | 2021-12-16 06:10 | PC.NURSE ---
Pt. is currently curled up in ball in bed, crying stating her head is killing her . She is refusing any treatment from lab or myself at this time. After further questioning she is yelling and stating that she is done and wants us to leave her alone. She then states she has to have her Suboxone which is not done until 0900. CAlled Dr. Patten and recieved orders.
[2021-12-16] MEDS: buprenorphine-naloxone 4-1 mg Film 0.5 EACH SUBLINGUAL (06:25)
[2021-12-16 06:31] LABS: Slide Review Slide Review Perform
[2021-12-16] MEDS: pantoprazole 40 mg SDV IVP (08:34)
[2021-12-16] MEDS: phosphorus 250 mg Tablet PO ×2 (08:34→19:59)
[2021-12-16] MEDS: lidocaine 5% Patch 1 PATCH TOPICAL ×2 (08:34→22:57)
[2021-12-16] MEDS: duloxetine 60 mg Capsule PO (08:34)
[2021-12-16] MEDS: buprenorphine-naloxone 4-1 mg Film 1 EACH SUBLINGUAL ×3 (08:34→21:12)
[2021-12-16] MEDS: potassium chloride ER 20 mEq Tablet PO (09:16)
--- NOTE | 2021-12-16 10:09 | MRR_ITS ---
PROCEDURE INFORMATION: Exam: MR Thoracic Spine Without Contrast Exam date and time: 12/16/2021 5:46 PM Age: 36 years old Clinical indication: Weakness; Additional info: Staph bacteremia, back pain, PT not able to tollerate scanning any longer. Ok'd to chg to non-contrast TECHNIQUE: Imaging protocol: Multiplanar magnetic resonance images of the thoracic spine without contrast. COMPARISON: CT abdomen pelvis w con* [id number] 03/30/2021 9:58 AM FINDINGS: Vertebrae: Unremarkable. Normal marrow signal. Spinal cord: Apparent filling defects in the CSF posterior to the thoracic cord is artifactual. Discs/Spinal canal/Neural foramina: No significant disc disease. No significant spinal canal or neural foramina stenosis. Soft tissues: Unremarkable. Pleural spaces: Small bilateral pleural effusions, left larger than right. MR/MR thoracic spin wo con* [id number] IMPRESSION: Normal thoracic spine. There are small bilateral pleural effusions.
--- NOTE | 2021-12-16 10:09 | MRR_ITS ---
PROCEDURE INFORMATION: Exam: MR Lumbar Spine Without Contrast Exam date and time: 12/16/2021 6:10 PM Age: 36 years old Clinical indication: Weakness; Additional info: Staph bacteremia, back pain, non-contrast study as the PT not able to tollerate scanning any longer. TECHNIQUE: Imaging protocol: Multiplanar magnetic resonance images of the lumbar spine without intravenous contrast. COMPARISON: MR thoracic spine wo/w [id number] 12/16/2021 5:46 PM FINDINGS: Vertebrae: There are several benign hemangiomas in the visualized osseous structures the larger of which measures 9 mm in the L3 vertebral body. Spinal cord: Normal signal. No cord compression. L1-L2: No significant disc disease. No significant spinal canal stenosis. No neural foraminal stenosis. L2-L3: No significant disc disease. No significant spinal canal stenosis. No neural foraminal stenosis. L3-L4: No significant disc disease. No significant spinal canal stenosis. No neural foraminal stenosis. L4-L5: No significant disc disease. No significant spinal canal stenosis. No neural foraminal stenosis. L5-S1: No significant disc disease. No significant spinal canal stenosis. No neural foraminal stenosis. Soft tissues: Unremarkable. MR/MR lumbar spine wo con* [id number] IMPRESSION: Unremarkable lumbar spine. There are several benign hemangiomas in the visualized osseous structures the larger of which measures 9 mm in the L3 vertebral body.
--- NOTE | 2021-12-16 10:10 | PM.PN ---
Subjective Subjective: This morning very upset, complaining of headache, short tempered with staff. Demanded Suboxone which was administered earlier. During my visit she reports she is feeling better. Headache is letting up, she is calm, cooperative. Knows she is in the hospital, tells me the year. Light is bothering her some. Denies other complaints, although appears as if may be trying to turn her back away from the bed. Vitals/I&O/Wt Last Vital Signs Temp 97.8 F 12/16/21 06:00 Pulse 97 12/16/21 08:45 Resp 21 H 12/16/21 07:00 BP 93/55 12/16/21 08:45 Pulse Ox 96 12/16/21 08:45 12/15/21 12/16/21 12/16/21 22:59 06:59 14:59 Intake Total 170 / 1626.27 350 / 1976.27 480 / 480 Output Total 900 / 900 Balance 170 / 1626.27 -550 / 1076.27 480 / 480 Weight last 48 hrs Weight 50.349 kg Physical Exam Const: COMMON NORMALS: alert GENERAL APPEARANCE: cooperative ORIENTATION/CONSCIOUSNESS: Yes awake HENMT: COMMON NORMALS: normocephalic, EAC's normal, Normal external nose present and moist oral mucous membranes HEAD & SCALP: normocephalic NOSE: Normal external nose present EXTERNAL AUDITORY CANAL: EAC's normal Eye: OTHER: Min anisocoria, R>L Neck/C-Spine: COMMON NORMALS: no meningeal signs Chest: CHEST: Yes Symmetrical chest wall rise Resp: COMMON NORMALS: clear to auscultation bilaterally AUSCULTATION: clear to auscultation bilaterally Cardio: COMMON NORMALS: regular rate, regular rhythm and No murmurs present (Cardio) RATE: regular rate RHYTHM: regular rhythm GI: COMMON NORMALS: Normal to inspection, nondistended, normoactive bowel sounds present, Soft to palpation and non-tender PALPATION: Yes Soft to palpation Extremity: COMMON NORMALS: no pedal edema OTHER: No erythema or swelling of R forearm Neuro: COMMON NORMALS: moves all extremities SENSORIUM/ORIENTATION: Yes alert MENINGEAL SIGNS: Yes no meningeal signs Psych: COMMON NORMALS: mental status grossly normal Skin: COMMON NORMALS: no wounds RASHES: no rashes Data : 12/16/21 05:24 12/16/21 05:24 Micro: Microbiology 12/13/21 22:00 Gram Stain - Final Cerebrospinal Fluid CSF Culture - Preliminary 12/13/21 20:45 Blood Culture - Preliminary Blood Staphylococcus aureus 12/13/21 20:15 Blood Culture - Preliminary Blood Staphylococcus aureus 12/13/21 19:40 Blood Culture - Preliminary Blood Staphylococcus aureus 12/13/21 19:57 Blood Culture - Preliminary Blood Staphylococcus aureus 12/13/21 20:05 Urine Culture - Final Urine,Clean Catch A&P Assessment and plan (1) Septic shock: Blood pressure on the soft side, but has weaned off pressor. Yesterday concern for DIC, but today PLT are better. Had also an episode yesterday evening around 5 PM with confusion, decreased responsiveness, tachycardia, noted to have some mottling, difficult to obtain oxygen saturation, but once obtained 97%. With anisocoria not seen in examination on presentation or at [facility]. Assessed by CT angiogram head and neck, unremarkable. Per discussion with her father anisocoria is since with one of the pupils less reactive. Confusional episode resolved. Tachycardia improved. Saturation remained steady on 2 L nasal cannula. Chest x-ray without acute abnormality. Troponin EKG series without suggestion of ID. Not entirely clear because of the episode. Similar episode documented on 2 occasions at [facility] in August. Continue IV vancomycin, continue Rocephin for now, so far no resistant genes on preliminary sensitivities, follow-up final studies. Continue vancomycin even if MSSA bacteremia per discussion with her ID specialist. If no fungal growth, switch from Amphotericin to caspofungin. Subsequently continue fluconazole. Continue antifungal as she did have fungal growth as well during her hospitalization in August. Needs MRI thoracic and lumbar spine, was complaining of pain yesterday. Requested. Needs ANGUS once hemodynamically more stable. Discussed also with her ID specialist in [place] Dr. Emilie Dangelo If mental status is improving, reasonable to hold off on MRI brain for now, consider if not improving or worsening. Thrombocytopenia with improvement. Possible DIC. Fibrinogen degradation products,D-dimer elevated Continue treatment of infection. Both upper and lower duplex venous studies negative for DVT. Right ventricle with normal size and function. Bicytopenia likely secondary to infection/sepsis. No mention of schistocytes. No blasts. Status: Acute (2) Sepsis: As above Status: Acute (3) Septic embolism: Discussed with her concern for endocarditis, septic embolism given opacities noted on chest x-ray Continue antibiotics as above. Oxygen support as needed, currently 2 L nasal cannula. She denies IVDU As per discussion with her ID specialist, sometimes even in absence of IVDU can see relapse of staphylococcal infection after valve replacement. Status: Acute (4) Meningitis: Continue vancomycin. Empiric ceftriaxone. Continue monitoring. Status: Acute (5) Thrombocytopenia: Thrombocytopenia with partial improvement. Not in DIC. D-dimer elevated, suspect secondary to infection, both upper and lower duplex venous studies negative for DVT. Right ventricle with normal size and function. Bicytopenia likely secondary to infection/sepsis. No mention of schistocytes. No blasts. Requesting platelet transfusion given she is reporting some new vaginal bleeding which she has not had for a while. Repeat CBC Status: Acute (6) Intravenous infiltration: Does not appear to have residual abnormality. Right antecubital fossa IV is infiltrated with Levophed infusion 12/14 removed. Having some tenderness there, but so far no other symptoms. Warm compress, elevated RUE on pillow. Blood pressure cuff on leg. Status: Acute (7) Opacity of lung on imaging study: Concern for septic embolization, recurrence of endocarditis. Status: Acute (8) History of tricuspid valve replacement with bioprosthetic valve: At [facility], reports was done on July 31. Records in paper chart. Had tricuspid valve replaced with bioprosthetic valve, and PFO closure at the same time. TTE no obvious vegetation. 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 Vancomycin as above. Will need protracted antibiotic course, which may be difficult given recurrence of endocarditis, history of IVDU. Was hospitalized for the entire 6 weeks at [facility] to receive IV antibiotics via PICC line. Status: Acute (10) Episodic confusion: 12/15 had an episode in the evening around 5 PM with confusion, decreased responsiveness, sinus tachycardia, noted to have some mottling, difficult to obtain oxygen saturation, but once obtained 97%. With anisocoria not seen in examination on presentation or at [facility]. Assessed by CT angiogram head and neck, unremarkable. RPR negative. Per discussion with her father anisocoria is since with one of the pupils less reactive. Not always apparent depending on ambient light. Confusional episode resolved. Tachycardia improved. Saturation remained steady on 2 L nasal cannula. Chest x-ray without acute abnormality. Troponin EKG series without suggestion of ID. Not entirely clear because of the episode. Similar episode documented on 2 occasions at [facility] in August without identified cause. If recurrence or persistence, consider MRI brain. Status: Acute (11) Anisocoria: Assessed by CT angiogram head and neck, unremarkable. RPR negative. Per discussion with her father anisocoria is since with one of the pupils less reactive. Not always apparent depending on ambient light. Status: Acute Plan PA aneurysm: noted during hospitalization in Aug at [facility], had hemoptysis requiring temporary intubation. Vaginal bleeding: Spotting only. Also reports irregular menses. Discussed with her she to follow-up with gynecology after discharge. Smoking: Nicotine replacement Depression with failure to thrive. I requested case management evaluate the patient with possible outpatient referral for behavioral health/psychiatry History of septic pulmonary emboli Hyponatremia. Resolving. Regular diet. Treat sepsis as above. Repeat level. 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 Patient status post bioprosthetic valve replacement?patient uncertain of as to which valve was replaced Depression Hepatitis C. hepatitis C RNA requested by infectious disease specialist, ordered. Receiving treatment in [place]. Will need follow-up with Dr Dangelo. Please forward HCV RNA results to ID provider. Microcytic anemia, chronic with history of iron deficiency. Iron deficiency anemia. Will monitor hemoglobin level intermittently. Check fecal occult blood. Previously negative. Hypophosphatemia. We will monitor phosphorus level intermittently. Neutra-Phos 2 150 Mill cans by mouth twice a day Hx methamphetamine abuse History of leaving AGAINST MEDICAL ADVICE Medical noncompliance as witnessed by patient previous leaving AGAINST MEDICAL ADVICE. The patient becomes regarding medical compliance Query history of asthma Attestations Medical Necessity Statement*: Continue admission for assessment management of sepsis, meningitis, possible DIC, staph for his bacteremia, and lady with history of bioprosthetic tricuspid valve. Coding Level of Care Code Acute Qi Specialist for Chg Fwd Diagnoses Septic shock A41.9; R65.21 Sepsis A41.9 Septic embolism I76 Meningitis G03.9 Thrombocytopenia D69.6 Intravenous infiltration T80.1XXA Opacity of lung on imaging study R91.8 History of tricuspid valve replacement with bioprosthetic valve Z95.3 Bacteremia due to Staphylococcus aureus R78.81; B95.61 Episodic confusion R41.0 Anisocoria H57.02
[2021-12-16] MEDS: vancomycin 1,500 MG/300 ML PIGGYBACK 200 MG IV ×2 (11:58→22:58)
[2021-12-16] MEDS: nicotine 21 mg Patch 1 PATCH TRANSDERMA (11:58)
[2021-12-16] MEDS: cefTRIAXone 2,000 MG in sodium chloride 0.9% (plus) 50 ML 100 MG IV (14:43)
[2021-12-16 15:40] LABS: Basophils # 0.1 10^3/uL (0.0-0.1); Basophils % 0.4 %; Eosinophils # 0.2 10^3/uL (0.0-0.8); Eosinophils % 1.2 %; Hematocrit 26.2 % (37.0-47.0); Hemoglobin 7.9 g/dL (11.5-15.3); Lymphocytes # 2.5 10^3/uL (0.8-4.8); Lymphocytes % 19.8 %; Mean Corpuscular HGB Conc 30.2 g/dL (30.0-36.0); Mean Corpuscular Hemoglobin 21.1 pg (28.0-34.0); Mean Corpuscular Volume 69.9 fl (81-99); Monocytes # 0.8 10^3/uL (0.2-0.9); Monocytes % 6.2 %; Neutrophils # 8.85 10^3/uL (1.8-7.7); Neutrophils % 70.6 %; Nucleated Red Blood Cells % 0.2 %; Platelet Count 31 10^3/cmm (130-400); Red Blood Count 3.75 10^6/uL (4.1-5.3); Red Cell Distribution Width 22.1 % (12.1-15.1); White Blood Count 12.5 10^3/uL (4.0-10.0)
[2021-12-16 16:28] LABS: INR 1.11 (0.8-1.2)
[2021-12-16 16:29] LABS: Partial Thromboplastin Time 20.2 SECONDS (23.9-36.7)
[2021-12-16 16:30] LABS: Fibrinogen 180 mg/dL (174-498)
[2021-12-16 16:40] LABS: D Dimer 10.91 ug/mIFEU (0-0.59)
--- NOTE | 2021-12-16 17:39 | PC.NURSE ---
Patient taken to MRI at this time.
--- NOTE | 2021-12-16 18:55 | PC.NURSE ---
Patient unable to complete MRI with contrast due to chest hurting and noise, physician notified. Patient back to ICU 3 from MRI and connected back to telemetry, see vitals.
[2021-12-16] MEDS: sodium chloride 0.9% (100 ml) 100 ML 50 ML (21:12)
[2021-12-16 22:42] LABS: HEP C RNA Viral Load Quant 1.48 Log IU/mL (NOT DETECTED); HEP C RNA Viral Load Quant 30 IU/mL (NOT DETECTED)
[2021-12-16 23:13] LABS: Vancomycin Trough 23.2 ug/mL (10-15)
--- NOTE | 2021-12-16 23:37 | PC.PHAR ---
Vancomycin trough is 23.2. Dosage is reduced from 1500mg IVPB every 12 hours to 1000mg IVPB every 12 hours with another trough to be obtained before the fourth 1000mg dose.
[2021-12-17] VITALS (39 sets, daily range): BP systolic 80–108; BP diastolic 46–89; PULSE 76–97; RESP 17–48; TEMP 36.7–38.1; O2SAT 88–100
--- NOTE | 2021-12-17 01:07 | PC.NURSE ---
Patient hollered out to nurse (did not use call light despite it being next to her). Upon entering room found patient to be balled up in bed. Patient stated she was freezing cold and to turn off the fan in room, which was done. 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 Explained that her temperature needed to be taken to make sure she did not have a fever. Her temperature was 98.1. Turned up the heat in the room. Explained that I needed to take down her blankets to look at her skin due to her having just received platelets tonight as well as getting an antibiotic currently. She absolutely refused to let me touch her and when I attempted to adjust her blankets to assess skin on arm she started screaming at the top of her lungs stating not to touch her. Attempted to explain why her skin and assessment needed to be done, but she stated she did not care. Ordered nurse not to touch her. From what was visible of her face she did not seem to have any rash or pallor. Her BP was within her baseline. Heart rate was in the 90's, Respirations 18-22. Other than being cold she stated she felt okay.
[2021-12-17] MEDS: cefTRIAXone 2,000 MG in sodium chloride 0.9% (plus) 50 ML 100 MG IV ×2 (02:17→14:00)
[2021-12-17 06:11] LABS: Basophils % 0.3 %; Eosinophils # 0.1 10^3/uL (0.0-0.8); Eosinophils % 0.7 %; Hematocrit 24.6 % (37.0-47.0); Hemoglobin 7.3 g/dL (11.5-15.3); Lymphocytes # 1.5 10^3/uL (0.8-4.8); Lymphocytes % 10.4 %; Mean Corpuscular HGB Conc 29.7 g/dL (30.0-36.0); Mean Corpuscular Hemoglobin 20.4 pg (28.0-34.0); Mean Corpuscular Volume 68.9 fl (81-99); Monocytes # 0.9 10^3/uL (0.2-0.9); Neutrophils # 11.49 10^3/uL (1.8-7.7); Neutrophils % 81.4 %; Nucleated Red Blood Cells % 0.1 %; Platelet Count 77 10^3/cmm (130-400); Red Blood Count 3.57 10^6/uL (4.1-5.3); White Blood Count 14.1 10^3/uL (4.0-10.0)
[2021-12-17 06:25] LABS: INR 1.09 (0.8-1.2)
[2021-12-17 06:26] LABS: Fibrinogen 274 mg/dL (174-498); Partial Thromboplastin Time 27.7 SECONDS (23.9-36.7)
[2021-12-17 06:33] LABS: Alanine Aminotransferase 9 U/L (0-33); Albumin Level 2.7 g/dL (3.5-5.2); Alkaline Phosphatase 201 IU/L (35-105); Aspartate Amino Transferase 12 U/L (0-32); Blood Urea Nitrogen 14 mg/dL (6-20); Calcium 8.2 mg/dL (8.5-10.5); Carbon Dioxide 27 mmol/L (22-29); Chloride 96 mmol/L (98-107); Globulin 2.8 g/dL (1.3-4.6); Glomerular Filtration Rate 113.8 mL/min (90-130); Glucose 139 mg/dL (65-115); Osmolality Calculated 281 mOsm/kg (285-295); Phosphorus 3.6 mg/dL (2.5-4.5); Sodium 134 mmol/L (136-145); Total Bilirubin 0.7 mg/dL (0.15-1.2); Total Protein 5.5 g/dL (6.6-8.7)
[2021-12-17 06:36] LABS: D Dimer 6.54 ug/mIFEU (0-0.59)
[2021-12-17 07:43] LABS: Slide Review Slide Review Perform
[2021-12-17] MEDS: lidocaine 5% Patch 1 PATCH TOPICAL (08:04)
[2021-12-17] MEDS: pantoprazole 40 mg SDV IVP (08:04)
[2021-12-17] MEDS: nicotine 21 mg Patch 1 PATCH TRANSDERMA (08:04)
[2021-12-17] MEDS: buprenorphine-naloxone 4-1 mg Film 1 EACH SUBLINGUAL ×3 (08:04→21:37)
[2021-12-17] MEDS: duloxetine 60 mg Capsule PO (08:04)
[2021-12-17] MEDS: phosphorus 250 mg Tablet PO ×2 (08:04→17:44)
[2021-12-17] MEDS: potassium chloride ER 20 mEq Tablet 40 MEQ PO (08:27)
--- NOTE | 2021-12-17 15:59 | PM.PN ---
Subjective Subjective: Today she is feeling slightly better. White is still bothering her. Denies nausea or vomiting. Did eat some breakfast. Vitals/I&O/Wt Last Vital Signs Temp 98.6 F 12/17/21 14:00 Pulse 90 12/17/21 15:30 Resp 25 H 12/17/21 15:30 BP 98/61 12/17/21 15:30 Pulse Ox 95 12/17/21 15:30 12/17/21 12/17/21 12/17/21 06:59 14:59 22:59 Intake Total 1690 / 3166.25 890 / 890 Output Total 500 / 1000 Balance 1190 / 2166.25 890 / 890 Weight last 48 hrs Weight 54.93 kg Physical Exam Const: COMMON NORMALS: alert GENERAL APPEARANCE: cooperative ORIENTATION/CONSCIOUSNESS: Yes awake HENMT: COMMON NORMALS: normocephalic, EAC's normal, Normal external nose present and moist oral mucous membranes HEAD & SCALP: normocephalic NOSE: Normal external nose present EXTERNAL AUDITORY CANAL: EAC's normal Eye: OTHER: Min anisocoria, R>L Neck/C-Spine: COMMON NORMALS: no meningeal signs Chest: CHEST: Yes Symmetrical chest wall rise Resp: COMMON NORMALS: clear to auscultation bilaterally AUSCULTATION: clear to auscultation bilaterally Cardio: COMMON NORMALS: regular rate, regular rhythm and No murmurs present (Cardio) RATE: regular rate RHYTHM: regular rhythm GI: COMMON NORMALS: Normal to inspection, nondistended, normoactive bowel sounds present, Soft to palpation and non-tender PALPATION: Yes Soft to palpation Extremity: COMMON NORMALS: no pedal edema OTHER: No erythema or swelling of R forearm Neuro: COMMON NORMALS: moves all extremities SENSORIUM/ORIENTATION: Yes alert MENINGEAL SIGNS: Yes no meningeal signs Psych: COMMON NORMALS: mental status grossly normal Skin: COMMON NORMALS: no wounds RASHES: no rashes Data : 12/17/21 05:45 12/17/21 05:45 Micro: Microbiology 12/16/21 15:24 Blood Culture - Preliminary Blood NEGATIVE TO DATE 12/16/21 15:15 Blood Culture - Preliminary Blood NEGATIVE TO DATE 12/13/21 20:45 Blood Culture - Final Blood Staphylococcus aureus 12/13/21 20:15 Blood Culture - Final Blood Staphylococcus aureus 12/13/21 19:40 Blood Culture - Final Blood Staphylococcus aureus 12/13/21 19:57 Blood Culture - Final Blood Staphylococcus aureus 12/13/21 22:00 Gram Stain - Final Cerebrospinal Fluid CSF Culture - Final A&P Assessment and plan (1) Septic shock: Resolved. Weaned off pressor. Blood pressure soft, but maintaining in good range. DIC improving. Fibrillation products, D-dimer decreasing. Received platelets, with very good response to transfusion and likely also additional spontaneous increase since platelet level up to 77,000. Discussed with her and her father, discussed risk of VTE, discussed consideration of pharmacologic DVT prophylaxis in addition to SCDs given her platelets have rebounded. However, discussed also possibility of elevated risk of bleeding with septic embolic disease. She and father are agreeable with travel prophylactic heparin. Reassess platelets in condition with low threshold to discontinue in case of concerning trends. Symptomatically feels minutely better. Intermittently lethargic. Overnight with some tremors reported she felt like she may have been withdrawing. He is on home dose Suboxone, not escalating further due to somnolence. In case somnolence does not improve, consider MRI brain. MRI thoracic and lumbar spine obtained only noncontrast since declined to complete the entire study. Noncontrast studies with normal thoracic spine, unremarkable lumbar spine. Several benign hemangiomas in the visualized osseous structures. If blood pressures and mental status improved further, please commence arrangements for ANGUS. Continue IV vancomycin, continue Rocephin for now, so far no resistant genes on preliminary sensitivities, follow-up final studies. Continue vancomycin even if MSSA bacteremia per discussion with her ID specialist. Since no fungal growth, switched from Amphotericin to caspofungin. Subsequently continue fluconazole. Continue antifungal as she did have fungal growth as well during her hospitalization in August. Discussed also with her ID specialist in [place] Dr. Emilie Dangelo Bicytopenia likely secondary to infection/sepsis. No mention of schistocytes. No blasts. Had also an episode on 12/15 evening around 5 PM with confusion, decreased responsiveness, tachycardia, noted to have some mottling, difficult to obtain oxygen saturation, but once obtained 97%. With anisocoria not seen in examination on presentation or at [facility]. Assessed by CT angiogram head and neck, unremarkable. Per discussion with her father anisocoria is since with one of the pupils less reactive. Confusional episode resolved. Tachycardia improved. Saturation remained steady on 2 L nasal cannula. Chest x-ray without acute abnormality. Troponin EKG series without suggestion of [place]. Not entirely clear because of the episode. Similar episode documented on 2 occasions at [facility] in August. Status: Acute (2) Sepsis: As above Status: Acute (3) Septic embolism: Discussed with her concern for endocarditis, septic embolism given opacities noted on chest x-ray Continue antibiotics as above. Oxygen support as needed, currently 2 L nasal cannula. She denies IVDU As per discussion with her ID specialist, sometimes even in absence of IVDU can see relapse of staphylococcal infection after valve replacement. Aspirin has been on hold due to low platelets, concern for septic embolic disease. Status: Acute (4) Meningitis: Continue vancomycin. Empiric ceftriaxone. Continue monitoring. Status: Acute (5) Thrombocytopenia: Thrombocytopenia with partial improvement. Not in DIC. D-dimer elevated, suspect secondary to infection, both upper and lower duplex venous studies negative for DVT. Right ventricle with normal size and function. Bicytopenia likely secondary to infection/sepsis. No mention of schistocytes. No blasts. Requesting platelet transfusion given she is reporting some new vaginal bleeding which she has not had for a while. Repeat CBC Status: Acute (6) Intravenous infiltration: Does not appear to have residual abnormality. Right antecubital fossa IV is infiltrated with Levophed infusion 12/14 removed. Having some tenderness there, but so far no other symptoms. Warm compress, elevated RUE on pillow. Blood pressure cuff on leg. Status: Acute (7) Opacity of lung on imaging study: Concern for septic embolization, recurrence of endocarditis. Status: Acute (8) History of tricuspid valve replacement with bioprosthetic valve: At [facility], reports was done on July 31. Records in paper chart. Had tricuspid valve replaced with bioprosthetic valve, and PFO closure at the same time. TTE no obvious vegetation. Will need ANGUS Aspirin was held, continue to hold for now given possible septic embolization, LICENSED MORTICIAN infection Status: Acute (9) Bacteremia due to Staphylococcus aureus: Concern for recurrence of endocarditis. Vancomycin as above. Will need protracted antibiotic course, which may be difficult given recurrence of endocarditis, history of IVDU. Was hospitalized for the entire 6 weeks at [facility] to receive IV antibiotics via PICC line. Status: Acute (10) Episodic confusion: 12/15 had an episode in the evening around 5 PM with confusion, decreased responsiveness, sinus tachycardia, noted to have some mottling, difficult to obtain oxygen saturation, but once obtained 97%. With anisocoria not seen in examination on presentation or at [facility]. Assessed by CT angiogram head and neck, unremarkable. RPR negative. Per discussion with her father anisocoria is since with one of the pupils less reactive. Not always apparent depending on ambient light. Confusional episode resolved. Tachycardia improved. Saturation remained steady on 2 L nasal cannula. Chest x-ray without acute abnormality. Troponin EKG series without suggestion of [place]. Not entirely clear because of the episode. Similar episode documented on 2 occasions at [facility] in August without identified cause. If recurrence or persistence, consider MRI brain. She is also on Suboxone. Continued dose 1 from 3 times daily. She has been having intermittent lethargy, so we have not increase the dose seen. It does appear that on outpatient side she has been receiving 8 mg doses. Consider increasing if lethargy improves. For now continue 4 mg, adding, however, 4 mg films 3 times daily as needed for pain or showing symptoms of withdrawal. Discussed with father. Status: Acute (11) Anisocoria: Assessed by CT angiogram head and neck, unremarkable. RPR negative. Per discussion with her father anisocoria is since with one of the pupils less reactive. Not always apparent depending on ambient light. Status: Acute (12) Acute hypokalemia: Replaced. Follow-up and check magnesium level. Status: Acute Plan PA aneurysm: noted during hospitalization in Aug at [facility], had hemoptysis requiring temporary intubation. Vaginal bleeding: Spotting only. Also reports irregular menses. Discussed with her she to follow-up with gynecology after discharge. Smoking: Nicotine replacement Depression with failure to thrive. I requested case management evaluate the patient with possible outpatient referral for behavioral health/psychiatry History of septic pulmonary emboli Hyponatremia. Resolving. Regular diet. Treat sepsis as above. Repeat level. 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 Patient status post bioprosthetic valve replacement?patient uncertain of as to which valve was replaced Depression Hepatitis C. hepatitis C RNA requested by infectious disease specialist, ordered. Receiving treatment in [place]. Will need follow-up with Dr Dangelo. Please forward HCV RNA results to ID provider. Microcytic anemia, chronic with history of iron deficiency. Iron deficiency anemia. Will monitor hemoglobin level intermittently. Check fecal occult blood. Previously negative. Hypophosphatemia. We will monitor phosphorus level intermittently. Neutra-Phos 2 150 Mill cans by mouth twice a day Hx methamphetamine abuse History of leaving AGAINST MEDICAL ADVICE Medical noncompliance as witnessed by patient previous leaving AGAINST MEDICAL ADVICE. The patient becomes regarding medical compliance Query history of asthma She is also on Suboxone. Continued dose 1 from 3 times daily. She has been having intermittent lethargy, so we have not increase the dose seen. It does appear that on outpatient side she has been receiving 8 mg doses. Consider increasing if lethargy improves. For now continue 4 mg, adding, however, 4 mg films 3 times daily as needed for pain or showing symptoms of withdrawal. Discussed with father. Attestations Medical Necessity Statement*: Continue admission for assessment and management of sepsis with staphylococcal bacteremia, meningitis, DIC. Critical Care Time: The high probability of a clinically significant, sudden or life threatening deterioration of the patient's hematologic, infectious disease system(s) required my full and direct attention, intervention and personal management. The critical care time is as shown. This time is in addition to time spent performing any reported procedures but includes the following: x Data and vital sign review and interpretation x Patient assessment, examination and intervention x Documentation x Medication orders and management Critical Care Time (min): 45 Coding Level of Care Code Acute Vulnerability Researcher for g Fwd Diagnoses Septic shock A41.9; R65.21 Sepsis A41.9 Septic embolism I76 Meningitis G03.9 Thrombocytopenia D69.6 Intravenous infiltration T80.1XXA Opacity of lung on imaging study R91.8 History of tricuspid valve replacement with bioprosthetic valve Z95.3 Bacteremia due to Staphylococcus aureus R78.81; B95.61 Episodic confusion R41.0 Anisocoria H57.02 Acute hypokalemia E87.6
[2021-12-17] MEDS: heparin 5,000 unit/mL INJ 1 mL 5000 UNIT SUBCUT (17:44)
[2021-12-18] VITALS (8 sets, daily range): BP systolic 91–112; BP diastolic 52–73; PULSE 73–99; RESP 12–18; TEMP 36.7–37.5; O2SAT 90–95
[2021-12-18] MEDS: cefTRIAXone 2,000 MG in sodium chloride 0.9% (plus) 50 ML 100 MG IV ×2 (03:39→15:59)
[2021-12-18] MEDS: lanolin oint 7 gm 1 APPLIC TOPICAL (03:40)
[2021-12-18] MEDS: buprenorphine-naloxone 4-1 mg Film 1 EACH SUBLINGUAL ×4 (03:40→20:57)
[2021-12-18 08:33] LABS: Basophils % 0.2 %; Eosinophils # 0.1 10^3/uL (0.0-0.8); Eosinophils % 1.2 %; Hematocrit 26.8 % (37.0-47.0); Lymphocytes # 1.6 10^3/uL (0.8-4.8); Lymphocytes % 15.2 %; Mean Corpuscular HGB Conc 29.9 g/dL (30.0-36.0); Mean Corpuscular Hemoglobin 20.7 pg (28.0-34.0); Mean Corpuscular Volume 69.4 fl (81-99); Monocytes # 0.7 10^3/uL (0.2-0.9); Monocytes % 6.7 %; Nucleated Red Blood Cells % 0.2 %; Platelet Count 82 10^3/cmm (130-400); Red Blood Count 3.86 10^6/uL (4.1-5.3); Red Cell Distribution Width 22.5 % (12.1-15.1); White Blood Count 10.4 10^3/uL (4.0-10.0)
[2021-12-18 08:51] LABS: INR 1.19 (0.8-1.2)
[2021-12-18 08:53] LABS: Alanine Aminotransferase 9 U/L (0-33); Albumin Level 2.6 g/dL (3.5-5.2); Alkaline Phosphatase 254 IU/L (35-105); Anion Gap 12.7 (5-19); Aspartate Amino Transferase 11 U/L (0-32); Blood Urea Nitrogen 13 mg/dL (6-20); Calcium 8.1 mg/dL (8.5-10.5); Carbon Dioxide 29 mmol/L (22-29); Chloride 96 mmol/L (98-107); Globulin 4.1 g/dL (1.3-4.6); Glomerular Filtration Rate 113.8 mL/min (90-130); Glucose 114 mg/dL (65-115); Osmolality Calculated 279 mOsm/kg (285-295); Partial Thromboplastin Time 31.7 SECONDS (23.9-36.7); Potassium 3.7 mmol/L (3.5-5.1); Sodium 134 mmol/L (136-145); Total Bilirubin 0.5 mg/dL (0.15-1.2); Total Protein 6.7 g/dL (6.6-8.7)
[2021-12-18 08:54] LABS: Fibrinogen 291 mg/dL (174-498)
[2021-12-18 09:03] LABS: Magnesium 2.2 mg/dL (1.7-2.3)
[2021-12-18 09:06] LABS: D Dimer 3.69 ug/mIFEU (0-0.59)
[2021-12-18] MEDS: duloxetine 60 mg Capsule PO (09:07)
[2021-12-18] MEDS: phosphorus 250 mg Tablet PO ×2 (09:07→17:33)
[2021-12-18] MEDS: pantoprazole 40 mg SDV IVP (09:07)
[2021-12-18] MEDS: lidocaine 5% Patch 1 PATCH TOPICAL ×2 (09:07→20:58)
[2021-12-18] MEDS: nicotine 21 mg Patch 1 PATCH TRANSDERMA (09:07)
[2021-12-18] MEDS: vancomycin 1,000 MG in sodium chloride 0.9% 250 ML 250 MG IV ×2 (11:18→23:24)
--- NOTE | 2021-12-18 11:40 | MR_ITS ---
WS: [id number] MRI BRAIN WITHOUT CONTRAST HISTORY: ams COMPARISON: CT head 12/13/2021 TECHNIQUE: Diffusion imaging, multiplanar T1, T2 and FLAIR imaging obtained. No evidence for acute infarct or hemorrhage. Odell-white matter differentiation is normal. No remote or acute infarcts are volume loss. Ventricles and extra-axial spaces are normal. No inferior displacement of cerebellar tonsils. The sella turcica and pituitary gland are unremarkabl e. Dural venous sinuses and venetie of Rahman demonstrate no abnormality on this unenhanced studies. Paranasal sinuses: Clear. Mastoid air cells: Normal. Calvarium and scalp: Intact. MR/MR head wo con* [id number] IMPRESSION: 1. Unremarkable noncontrast MRI brain. 2. No acute infarct or hemorrhage.
--- NOTE | 2021-12-18 14:02 | PM.PN ---
Subjective Subjective: Patient was seen this morning, she complains of severe chills, she has not eaten breakfast this morning, reports poor appetite, no nausea, no vomiting, no headache, blurry vision, does follow commands, but is quite drowsy this morning, on 2 L, blood pressures are soft, T-max 100.5 Vitals/I&O/Wt Last Vital Signs Temp 99.5 F 12/18/21 11:38 Pulse 99 12/18/21 11:38 Resp 12 12/18/21 11:38 BP 95/56 12/18/21 11:38 Pulse Ox 93 12/18/21 11:38 12/17/21 12/18/21 12/18/21 22:59 06:59 14:59 Intake Total 250 / 1140 50 / 1190 1083.98 / 1083.98 Output Total 500 / 500 400 / 900 Balance -250 / 640 -350 / 290 1083.98 / 1083.98 Weight last 48 hrs Weight 53.099 kg Weight 54.93 kg Physical Exam Const: COMMON NORMALS: no acute distress and patient oriented x3 Resp: COMMON NORMALS: normal respiratory effort, No retractions, No use of accessory muscles and clear to auscultation bilaterally AUSCULTATION: clear to auscultation bilaterally Cardio: COMMON NORMALS: regular rate, regular rhythm, S1 normal heart sound present and S2 normal heart sound present RATE: regular rate RHYTHM: regular rhythm HEART SOUNDS: S1 normal heart sound present and S2 normal heart sound present GI: COMMON NORMALS: Normal to inspection, nondistended, normoactive bowel sounds present, Soft to palpation, non-tender and No hepatosplenomegaly present PALPATION: Yes Soft to palpation and Yes No hepatosplenomegaly present Extremity: COMMON NORMALS: no pedal edema Neuro: COMMON NORMALS: patient oriented x3 Psych: COMMON NORMALS: mental status grossly normal Data : 12/18/21 08:14 12/18/21 08:14 Micro: Microbiology 12/16/21 15:24 Blood Culture - Preliminary Blood NEGATIVE TO DATE 12/16/21 15:15 Blood Culture - Preliminary Blood NEGATIVE TO DATE 12/13/21 20:45 Blood Culture - Final Blood Staphylococcus aureus 12/13/21 20:15 Blood Culture - Final Blood Staphylococcus aureus 12/13/21 19:40 Blood Culture - Final Blood Staphylococcus aureus 12/13/21 19:57 Blood Culture - Final Blood Staphylococcus aureus 12/13/21 22:00 Gram Stain - Final Cerebrospinal Fluid CSF Culture - Final A&P Assessment and plan (1) Septic shock: Resolved. Weaned off pressor. Blood pressure soft, but maintaining in good range. DIC improving. Fibrillation products, D-dimer decreasing. Received platelets, with very good response to transfusion and likely also additional spontaneous increase since platelet level up to 77,000. Discussed with her and her father, discussed risk of VTE, discussed consideration of pharmacologic DVT prophylaxis in addition to SCDs given her platelets have rebounded. However, discussed also possibility of elevated risk of bleeding with septic embolic disease. She and father are agreeable with travel prophylactic heparin. Reassess platelets in condition with low threshold to discontinue in case of concerning trends. Symptomatically feels minutely better. Intermittently lethargic. Overnight with some tremors reported she felt like she may have been withdrawing. He is on home dose Suboxone, not escalating further due to somnolence. In case somnolence does not improve, consider MRI brain. MRI thoracic and lumbar spine obtained only noncontrast since declined to complete the entire study. Noncontrast studies with normal thoracic spine, unremarkable lumbar spine. Several benign hemangiomas in the visualized osseous structures. If blood pressures and mental status improved further, please commence arrangements for ANGUS. Continue IV vancomycin, continue Rocephin for now, so far no resistant genes on preliminary sensitivities, follow-up final studies. Continue vancomycin even if MSSA bacteremia per discussion with her ID specialist. Since no fungal growth, switched from Amphotericin to caspofungin. Subsequently continue fluconazole. Continue antifungal as she did have fungal growth as well during her hospitalization in August. Discussed also with her ID specialist in [place] Dr. Emilie Dangelo Bicytopenia likely secondary to infection/sepsis. No mention of schistocytes. No blasts. Had also an episode on 12/15 evening around 5 PM with confusion, decreased responsiveness, tachycardia, noted to have some mottling, difficult to obtain oxygen saturation, but once obtained 97%. With anisocoria not seen in examination on presentation or at [facility]. Assessed by CT angiogram head and neck, unremarkable. Per discussion with her father anisocoria is since with one of the pupils less reactive. Confusional episode resolved. Tachycardia improved. Saturation remained steady on 2 L nasal cannula. Chest x-ray without acute abnormality. Troponin EKG series without suggestion of TX. Not entirely clear because of the episode. Similar episode documented on 2 occasions at [facility] in August. Status: Acute (2) Sepsis: As above Status: Acute (3) Septic embolism: Discussed with her concern for endocarditis, septic embolism given opacities noted on chest x-ray Continue antibiotics as above. Oxygen support as needed, currently 2 L nasal cannula. She denies IVDU As per discussion with her ID specialist, sometimes even in absence of IVDU can see relapse of staphylococcal infection after valve replacement. Aspirin has been on hold due to low platelets, concern for septic embolic disease. Status: Acute (4) Meningitis: Continue vancomycin. Empiric ceftriaxone. Continue monitoring. Status: Acute (5) Thrombocytopenia: Thrombocytopenia with partial improvement. Not in DIC. D-dimer elevated, suspect secondary to infection, both upper and lower duplex venous studies negative for DVT. Right ventricle with normal size and function. Bicytopenia likely secondary to infection/sepsis. No mention of schistocytes. No blasts. Requesting platelet transfusion given she is reporting some new vaginal bleeding which she has not had for a while. Repeat CBC Status: Acute (6) Intravenous infiltration: Does not appear to have residual abnormality. Right antecubital fossa IV is infiltrated with Levophed infusion 12/14 removed. Having some tenderness there, but so far no other symptoms. Warm compress, elevated RUE on pillow. Blood pressure cuff on leg. Status: Acute (7) Opacity of lung on imaging study: Concern for septic embolization, recurrence of endocarditis. Status: Acute (8) History of tricuspid valve replacement with bioprosthetic valve: At [facility], reports was done on July 31. Records in paper chart. Had tricuspid valve replaced with bioprosthetic valve, and PFO closure at the same time. TTE no obvious vegetation. 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 Vancomycin as above. Will need protracted antibiotic course, which may be difficult given recurrence of endocarditis, history of IVDU. Was hospitalized for the entire 6 weeks at [facility] to receive IV antibiotics via PICC line. Status: Acute (10) Episodic confusion: 12/15 had an episode in the evening around 5 PM with confusion, decreased responsiveness, sinus tachycardia, noted to have some mottling, difficult to obtain oxygen saturation, but once obtained 97%. With anisocoria not seen in examination on presentation or at [facility]. Assessed by CT angiogram head and neck, unremarkable. RPR negative. Per discussion with her father anisocoria is since with one of the pupils less reactive. Not always apparent depending on ambient light. Confusional episode resolved. Tachycardia improved. Saturation remained steady on 2 L nasal cannula. Chest x-ray without acute abnormality. Troponin EKG series without suggestion of TX. Not entirely clear because of the episode. Similar episode documented on 2 occasions at [facility] in August without identified cause. If recurrence or persistence, consider MRI brain. She is also on Suboxone. Continued dose 1 from 3 times daily. She has been having intermittent lethargy, so we have not increase the dose seen. It does appear that on outpatient side she has been receiving 8 mg doses. Consider increasing if lethargy improves. For now continue 4 mg, adding, however, 4 mg films 3 times daily as needed for pain or showing symptoms of withdrawal. Discussed with father. Status: Acute (11) Anisocoria: Assessed by CT angiogram head and neck, unremarkable. RPR negative. Per discussion with her father anisocoria is since with one of the pupils less reactive. Not always apparent depending on ambient light. Status: Acute (12) Acute hypokalemia: Replaced. Follow-up and check magnesium level. 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 Vaginal bleeding: Spotting only. Also reports irregular menses. Discussed with her she to follow-up with gynecology after discharge. Smoking: Nicotine replacement Depression with failure to thrive. I requested case management evaluate the patient with possible outpatient referral for behavioral health/psychiatry History of septic pulmonary emboli Hyponatremia. Resolving. Regular diet. Treat sepsis as above. Repeat level. 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 Patient status post bioprosthetic valve replacement?patient uncertain of as to which valve was replaced Depression Hepatitis C. hepatitis C RNA requested by infectious disease specialist, ordered. Receiving treatment in [place]. Will need follow-up with Dr Dangelo. Please forward HCV RNA results to ID provider. Microcytic anemia, chronic with history of iron deficiency. Iron deficiency anemia. Will monitor hemoglobin level intermittently. Check fecal occult blood. Previously negative. Hypophosphatemia. We will monitor phosphorus level intermittently. Neutra-Phos 2 150 Mill cans by mouth twice a day Hx methamphetamine abuse History of leaving AGAINST MEDICAL ADVICE Medical noncompliance as witnessed by patient previous leaving AGAINST MEDICAL ADVICE. The patient becomes regarding medical compliance Query history of asthma She is also on Suboxone. Continued dose 1 from 3 times daily. She has been having intermittent lethargy, so we have not increase the dose seen. It does appear that on outpatient side she has been receiving 8 mg doses. Consider increasing if lethargy improves. For now continue 4 mg, adding, however, 4 mg films 3 times daily as needed for pain or showing symptoms of withdrawal. Discussed with father. -Plan for today -Consult cardiology for consideration of transesophageal echocardiogram in the next 24 to 48 hours -We will order MRI of the brain to evaluate for septic emboli -Consult PT OT, nutrition, speech therapy -Continue broad-spectrum antibiotic therapy, antifungal therapy -Monitor platelet count, hemoglobin -Start gentle IV hydration -She will likely require inpatient IV antibiotic treatment given history of drug abuse Attestations Medical Necessity Statement*: Patient requires hospitalization for staph auris bacteremia, IV drug abuse, concerns for endocarditis, meningitis, septic emboli, episodic confusion Coding Level of Care Code Acute Parcel Post Officer for [facility] Diagnoses Septic shock A41.9; R65.21 Sepsis A41.9 Septic embolism I76 Meningitis G03.9 Thrombocytopenia D69.6 Intravenous infiltration T80.1XXA Opacity of lung on imaging study R91.8 History of tricuspid valve replacement with bioprosthetic valve Z95.3 Bacteremia due to Staphylococcus aureus R78.81; B95.61 Episodic confusion R41.0 Anisocoria H57.02 Acute hypokalemia E87.6
[2021-12-18 14:33] LABS: Erythrocyte Sedimentation Rate 4 mm/hr (0-15)
[2021-12-18 14:52] LABS: Procalcitonin 6.19 ng/mL (0-0.5)
[2021-12-18 15:07] LABS: C Reactive Protein 118.9 mg/L (0.0-4.9)
[2021-12-18] MEDS: sodium chloride 0.9% 1,000 ML 50 ML IV (15:54)
--- NOTE | 2021-12-18 15:58 | PM.CONSULT ---
Providers/Reason For Consult Consulting Physician/Specialty*: Dr. Barrientos, Cardiology Reason for Consult*: Staph aureus bacteremia, r/o endocarditis Attending Physician: Thee Taylor MD History of Present Illness History of Present Illness Linh Ambrose is a 36 year old female with history, tobacco abuse, untreated hepatitis C was hospitalized at [facility] on 16 July 2021 to 06 September 2021 and was treated for tricuspid valve endocarditis. She has history of noncompliance and leaving AMA. 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 Echocardiogram showed LVEF 45% global hypokinesis large mobile echodensity attached to the tricuspid valve consistent with vegetation associated with moderately severe TR, moderate pulmonary hypertension small pericardial effusion. Blood cultures grew MRSA, nona albicans strep viridans and Ewingella americana. CT chest on 01/14/2021 showed bilateral pulmonary opacities mycotic pulmonary artery aneurysm (no sx option per CTS and high risk for IR embolization). She was taken to the OR on 26 July 2021 for tricuspid valve replacement with #31 Magna valve and PFO closure by Dr. Min. She received 6 wks of IV abx. CT scan 09/04/21 showed decreased size of aneurysm and no osteomyelitis of sternum. She was d/c on ASA, fluconazole for 1 year and suboxone. She was admitted with 5 days of weakness, fever and poor appetite. Spinal tap was done and and she is being treated with vancomycin, ceftriaxone and capsofungin. Bld cx 11/06 grew stap aureus. She denies any IVDU. She feels better today and appetite has returned. ASA was held d/t thrombocytopenia. I have been asked to evaluate her for ANGUS. Review of Systems General: Reports: 10 or more systems reviewed and unremarkable except in HPI and below Medications/Allergies Home Medications Medication Instructions Recorded Confirmed Last Taken Type albuterol sulfate 90 mcg/actuation 1 puff INHALATION QID PRN #6.7 g 03/15/21 12/13/21 03/29/21 Rx aerosol inhaler (ProAir HFA) aspirin 81 mg chewable tablet 81 mg PO DAILY 12/13/21 12/13/21 12/12/21 History buprenorphine 8 mg-naloxone 2 mg 1 film SUBLINGUAL TID 12/13/21 12/13/21 12/12/21 History sublingual film (Suboxone) docusate sodium 100 mg capsule 100 mg PO BID PRN 12/13/21 12/13/21 Unknown History duloxetine 60 mg capsule,delayed 60 mg PO DAILY 12/13/21 12/13/21 12/12/21 History release fluconazole 200 mg tablet 600 mg PO DAILY 12/13/21 12/13/21 12/12/21 History furosemide 40 mg tablet (Lasix) 40 mg PO DAILY 12/13/21 12/13/21 12/12/21 History Allergies Allergy/AdvReac Type Severity Reaction Status Date / Time No Known Allergies Allergy Unverified 03/15/21 10:58 Current Medications Generic Name Dose Route Start Last Admin Trade Name Freq PRN Reason Stop Dose Admin Acetaminophen 650 mg 12/14/21 00:34 12/15/21 02:17 Acetaminophen 325 Mg Tablet PO 650 mg Q6H PRN Administration MILD PAIN Buprenorphine/Naloxone 1 each 12/15/21 15:00 12/18/21 09:07 Buprenorphine-Naloxone 4-1 Mg Film SUBLINGUAL 1 each TID ABIOLA Administration Buprenorphine/Naloxone 1 each 12/17/21 16:33 12/18/21 03:40 Buprenorphine-Naloxone 4-1 Mg Film SUBLINGUAL 1 each TID PRN Administration Breakthrough Pain or withdrawa Duloxetine HCl 60 mg 12/14/21 11:20 12/18/21 09:07 Duloxetine 60 Mg Capsule PO 60 mg DAILY ABIOLA Administration Heparin Sodium (Porcine) 5,000 unit 12/17/21 16:45 12/18/21 09:20 Heparin 5,000 Unit/Ml Inj 1 Ml SUBCUT Not Given Q8H ABIOLA Caspofungin 50 mg/ Sodium 250 mls @ 250 mls/hr 12/17/21 16:00 12/17/21 17:18 Chloride IV Infused Q24H ABIOLA Infusion Ceftriaxone Sodium 2,000 mg/ 50 mls @ 100 mls/hr 12/16/21 15:00 12/18/21 04:31 Sodium Chloride IV Infused Q12H ABIOLA Infusion Protocol Vancomycin HCl 1,000 mg/ 250 mls @ 250 mls/hr 12/18/21 11:00 12/18/21 13:16 Sodium Chloride IV Infused Q12H ABIOLA Infusion Lanolin 1 applic 12/18/21 03:23 12/18/21 03:40 Lanolin Oint 7 Gm TOPICAL 1 applic PRN PRN Administration DRYNESS Lidocaine 1 patch 12/15/21 21:00 12/18/21 09:07 Lidocaine 5% Patch TOPICAL 1 patch ABIOLA Administration Nicotine 1 patch 12/16/21 10:00 12/18/21 09:07 Nicotine 21 Mg Patch TRANSDERMA 1 patch DAILY ABIOLA Administration Pantoprazole Sodium 40 mg 12/14/21 11:25 12/18/21 09:07 Pantoprazole 40 Mg Sdv IVP 40 mg DAILY ABIOLA Administration Potassium Phosphate 250 mg 12/14/21 09:00 12/18/21 09:07 Phosphorus 250 Mg Tablet PO 250 mg BID ABIOLA Administration PFSH Acute PFSH: Medical History (Updated 12/19/21 @ 08:17 by Laura Barrientos MD) Anisocoria Drug use Hepatitis C Reports she is untreated Surgical History (Updated 12/19/21 @ 08:17 by Laura Barrientos MD) History of tricuspid valve replacement with bioprosthetic valve Social History Smoking and tobacco status: current every day smoker Second hand smoke exposure: No Smoking risk assessment/counseling performed?: Yes Alcohol intake: never Desire information about alcohol rehabilitation?: No Counseling given: No Desire information about substance/drug rehabilitation?: No Counseling given: No Adopted: No Caregiver/support person: No Lives independently: Yes Household members: family Housing: House Marital status: Single service: No Current occupational status: unemployed History of recent travel: No Current gender identity: Female Female Reproductive History: Date of last menstrual period: 03/30/21 Vitals/I&O/Wt Last Vital Signs Temp 99.5 F 12/18/21 11:38 Pulse 99 12/18/21 11:38 Resp 12 12/18/21 11:38 BP 95/56 12/18/21 11:38 Pulse Ox 93 12/18/21 11:38 12/18/21 12/18/21 12/18/21 06:59 14:59 22:59 Intake Total 50 / 1190 1083.98 / 1083.98 Output Total 400 / 900 Balance -350 / 290 1083.98 / 1083.98 Weight last 48 hrs Weight 117 lb 1 oz Weight 121 lb 1.6 oz Physical Exam Narrative: GENERAL:Frail woman sitting in bed in no acute distress HEENT: Extraocular movement intact. No pallor or icterus. NECK: central trachea, No JVD, No carotid bruit. CARDIOVASCULAR SYSTEM: S1-S2 regular. Grade 3/6 LLSB systolic murmur no rubs or gallops. Midline well healed sternotomy scar+ RESPIRATORY SYSTEM: Chest clear to auscultation. No wheezes rhonchi or rubs heard. No use of accessory muscles. ABDOMEN: Soft, nontender and nondistended. Normal bowel sounds present. EXTREMITIES: No cyanosis or clubbing. No edema. No signs of chronic venous insufficiency. SITE SUPERVISING TECHNICAL OPERATOR: Patient is alert oriented ?3. No focal neurological deficits. SKIN: Normal turgor and temperature. PSYCH: Normal insight and judgment. Data : 12/19/21 05:00 12/19/21 05:00 Micro: Microbiology 12/16/21 15:24 Blood Culture - Preliminary Blood NEGATIVE TO DATE 12/16/21 15:15 Blood Culture - Preliminary Blood NEGATIVE TO DATE 12/13/21 20:45 Blood Culture - Final Blood Staphylococcus aureus 12/13/21 20:15 Blood Culture - Final Blood Staphylococcus aureus 12/13/21 19:40 Blood Culture - Final Blood Staphylococcus aureus 12/13/21 19:57 Blood Culture - Final Blood Staphylococcus aureus Other data: Echo (12/14/21) CONCLUSIONS ?Normal left ventricular size and systolic function, EF 75 %. No ?regional wall motion abnormalities. ?Bioprosthetic valve at the tricuspid position appears to be ?well-seated.? Leaflets appear to be slightly thickened.? The ?valve area is not calculated. ?No intracardiac masses or any obvious vegetations are noted. ?There is no pericardial effusion. ?Need to repeat the tricuspid Doppler study to evaluate the valve ?area ?Compared to the study from 03/30/2021, apparently the patient had ?tricuspid valve surgery ?Addendum ?The peak gradient across the tricuspid valve was 11 mmHg with a ?mean gradient of 6 mmHg.? The peak velocity was 1.67 m/s.? No ?significant stenosis in this valve, based on this finding. ?Consider ANGUS, if clinically indicated.? Discussed with the Dr. Santos. A&P Assessment and plan (1) Bacteremia due to Staphylococcus aureus: Patient reluctant for ANGUS but agreeable Risks and benefits were discussed with the patients. Plan is to proceed for the procedure at the earliest. -I will get her scheduled for ANGUS Status: Acute (2) History of tricuspid valve replacement with bioprosthetic valve: Status: Acute (3) Infective endocarditis: Status: Acute Qualifiers: Infective endocarditis organism: bacterial Chronicity: subacute Qualified Code(s): I33.0 - Acute and subacute infective endocarditis (4) Drug use: Status: Acute Plan Anemia Thrombocytopenia Septic shock: resolved Meningitis H/o mycotic PA aneurysm Thank you for allowing me to participate in patient's care. Please feel free to call with questions or concerns. Coding Level of Care Code Acute Health Insurance Specialist for [facility] Diagnoses Bacteremia due to Staphylococcus aureus R78.81; B95.61 History of tricuspid valve replacement with bioprosthetic valve Z95.3 Infective endocarditis I33.0 Infective endocarditis organism: bacterial Chronicity: subacute Drug use F19.90
[2021-12-18 17:31] LABS: HIV 1 & 2 Antibody Non-Reactive (Non-Reactiv); HIV 1 & 2 Antigen Non-Reactive (Non-Reactiv)
[2021-12-19] VITALS (8 sets, daily range): BP systolic 92–115; BP diastolic 61–73; PULSE 72–91; RESP 16–18; TEMP 36.6–36.7; O2SAT 90–98
[2021-12-19] MEDS: cefTRIAXone 2,000 MG in sodium chloride 0.9% (plus) 50 ML 100 MG IV ×2 (03:43→14:57)
[2021-12-19 05:26] LABS: Basophils % 0.3 %; Eosinophils # 0.1 10^3/uL (0.0-0.8); Eosinophils % 0.8 %; Hematocrit 24.1 % (37.0-47.0); Hemoglobin 7.2 g/dL (11.5-15.3); Lymphocytes # 1.4 10^3/uL (0.8-4.8); Lymphocytes % 12.1 %; Mean Corpuscular HGB Conc 29.9 g/dL (30.0-36.0); Mean Corpuscular Hemoglobin 20.7 pg (28.0-34.0); Mean Corpuscular Volume 69.3 fl (81-99); Monocytes # 0.7 10^3/uL (0.2-0.9); Monocytes % 6.3 %; Neutrophils # 8.88 10^3/uL (1.8-7.7); Neutrophils % 79.2 %; Nucleated Red Blood Cells % 0 %; Platelet Count 84 10^3/cmm (130-400); Red Blood Count 3.48 10^6/uL (4.1-5.3); Red Cell Distribution Width 22.3 % (12.1-15.1); White Blood Count 11.2 10^3/uL (4.0-10.0)
[2021-12-19 05:48] LABS: Lactate (Lactic Acid level) 1.1 mmol/L (0.5-2.2)
[2021-12-19 05:51] LABS: Alanine Aminotransferase 6 U/L (0-33); Albumin Level 2.4 g/dL (3.5-5.2); Alkaline Phosphatase 247 IU/L (35-105); Anion Gap 11.3 (5-19); Aspartate Amino Transferase 11 U/L (0-32); Blood Urea Nitrogen 12 mg/dL (6-20); C Reactive Protein 90.3 mg/L (0.0-4.9); Calcium 8.1 mg/dL (8.5-10.5); Carbon Dioxide 28 mmol/L (22-29); Chloride 97 mmol/L (98-107); Creatine Phosphokinase 8 U/L (26-192); Globulin 4.1 g/dL (1.3-4.6); Glomerular Filtration Rate 113.8 mL/min (90-130); Glucose 109 mg/dL (65-115); Magnesium 2.1 mg/dL (1.7-2.3); Osmolality Calculated 276 mOsm/kg (285-295); Phosphorus 4.6 mg/dL (2.5-4.5); Potassium 3.3 mmol/L (3.5-5.1); Sodium 133 mmol/L (136-145); Total Bilirubin 0.5 mg/dL (0.15-1.2); Total Protein 6.5 g/dL (6.6-8.7)
[2021-12-19 05:56] LABS: Procalcitonin 3.49 ng/mL (0-0.5)
[2021-12-19 05:58] LABS: INR 1.25 (0.8-1.2)
[2021-12-19 05:59] LABS: Fibrinogen 257 mg/dL (174-498); Partial Thromboplastin Time 32.9 SECONDS (23.9-36.7)
[2021-12-19 06:09] LABS: D Dimer 5.49 ug/mIFEU (0-0.59)
[2021-12-19] MEDS: pantoprazole 40 mg SDV IVP (08:46)
[2021-12-19] MEDS: duloxetine 60 mg Capsule PO (08:46)
[2021-12-19] MEDS: buprenorphine-naloxone 4-1 mg Film 1 EACH SUBLINGUAL ×3 (08:47→22:29)
[2021-12-19] MEDS: lidocaine 5% Patch 1 PATCH TOPICAL ×2 (08:47→22:29)
[2021-12-19] MEDS: phosphorus 250 mg Tablet PO ×2 (08:47→17:52)
[2021-12-19] MEDS: nicotine 21 mg Patch 1 PATCH TRANSDERMA (08:47)
[2021-12-19] MEDS: vancomycin 1,000 MG in sodium chloride 0.9% 250 ML 250 MG IV ×2 (11:09→23:17)
[2021-12-19] MEDS: sodium chloride 0.9% 1,000 ML 50 ML IV (11:12)
--- NOTE | 2021-12-19 13:43 | PM.PN ---
Subjective Subjective: Patient was seen this morning, she is much more alert and awake, she sitting up in the bed, speech therapy is at bedside, denies any choking episodes, no coughing episodes, denies any pain, she tells that she feels a lot better today, no significant pain complaints, no fevers, no cough, no shortness of breath, no chest pain, no nausea, no vomiting, no diarrhea, she follows all commands I discussed patient's meningitis, concerns for endocarditis and bacteremia with staph aureus. She will need 6 weeks of IV antibiotics, which will be done here in the hospital, due to concerns for her drug use. I was upfront and honest with patient, that she will likely have to stay here for 6 weeks for IV antibiotics. She declines placement at a long-term care facility for IV antibiotics. Given her history of recurrent bacteremia, history of MRSA, the preferred agent would be vancomycin which would require twice daily dosing, which be difficult to do in the outpatient environment. I also discussed our plans for transesophageal echocardiogram given her staff aureus bacteremia, history of drug abuse, it would be prudent for us to evaluate for valvular vegetations, as she has a history of tricuspid valve endocarditis requiring surgical intervention. After discussing the transesophageal echocardiogram, patient declines for now, she tells me that she is feeling better and she does not want to have any further testing. Discussed my concerns for further vegetations, risk of bacteremia, risk of embolization, risk of missed diagnosis vegetations, risk of missing early intervention, risk of not considering surgical intervention, morbidity and mortality associated with valvular vegetations. She voiced any, all questions answered however declined for now Vitals/I&O/Wt Last Vital Signs Temp 98.0 F 12/19/21 11:21 Pulse 81 12/19/21 11:21 Resp 18 12/19/21 11:21 BP 92/63 12/19/21 11:21 Pulse Ox 98 12/19/21 11:21 12/18/21 12/19/21 12/19/21 22:59 06:59 14:59 Intake Total 540 / 1623.98 780 / 2403.98 1215 / 1215 Balance 540 / 1623.98 780 / 2403.98 1215 / 1215 Weight last 48 hrs Weight 53.099 kg Physical Exam Const: COMMON NORMALS: no acute distress and patient oriented x3 Resp: COMMON NORMALS: normal respiratory effort, No retractions, No use of accessory muscles and clear to auscultation bilaterally AUSCULTATION: clear to auscultation bilaterally Cardio: COMMON NORMALS: regular rate, regular rhythm, S1 normal heart sound present and S2 normal heart sound present RATE: regular rate RHYTHM: regular rhythm HEART SOUNDS: S1 normal heart sound present and S2 normal heart sound present GI: COMMON NORMALS: Normal to inspection, nondistended, normoactive bowel sounds present, Soft to palpation and non-tender PALPATION: Yes Soft to palpation Extremity: COMMON NORMALS: no pedal edema Neuro: COMMON NORMALS: patient oriented x3 Psych: COMMON NORMALS: mental status grossly normal Data : 12/19/21 05:00 12/19/21 05:00 A&P Assessment and plan (1) Septic shock: Secondary to meningitis infective endocarditis, staph auris bacteremia Resolved. Weaned off pressor. Blood pressure soft, but maintaining in good range. DIC improving. Fibrillation products, D-dimer decreasing. Received platelets, with very good response to transfusion and likely also additional spontaneous increase since platelet level up to 77,000. Discussed with her and her father, discussed risk of VTE, discussed consideration of pharmacologic DVT prophylaxis in addition to SCDs given her platelets have rebounded. However, discussed also possibility of elevated risk of bleeding with septic embolic disease. She and father are agreeable with travel prophylactic heparin. Reassess platelets in condition with low threshold to discontinue in case of concerning trends. Symptomatically feels minutely better. Intermittently lethargic. Overnight with some tremors reported she felt like she may have been withdrawing. He is on home dose Suboxone, not escalating further due to somnolence. In case somnolence does not improve, consider MRI brain. MRI thoracic and lumbar spine obtained only noncontrast since declined to complete the entire study. Noncontrast studies with normal thoracic spine, unremarkable lumbar spine. Several benign hemangiomas in the visualized osseous structures. If blood pressures and mental status improved further, please commence arrangements for ANGUS. Continue IV vancomycin, continue Rocephin for now, so far no resistant genes on preliminary sensitivities, follow-up final studies. Continue vancomycin even if MSSA bacteremia per discussion with her ID specialist. Since no fungal growth, switched from Amphotericin to caspofungin. Subsequently continue fluconazole. Continue antifungal as she did have fungal growth as well during her hospitalization in August. Discussed also with her ID specialist in [place] Dr. Emilie Dangelo Bicytopenia likely secondary to infection/sepsis. No mention of schistocytes. No blasts. Had also an episode on 12/15 evening around 5 PM with confusion, decreased responsiveness, tachycardia, noted to have some mottling, difficult to obtain oxygen saturation, but once obtained 97%. With anisocoria not seen in examination on presentation or at [facility]. Assessed by CT angiogram head and neck, unremarkable. Per discussion with her father anisocoria is since with one of the pupils less reactive. Confusional episode resolved. Tachycardia improved. Saturation remained steady on 2 L nasal cannula. Chest x-ray without acute abnormality. Troponin EKG series without suggestion of KS. Not entirely clear because of the episode. Similar episode documented on 2 occasions at [facility] in August. Status: Acute (2) Sepsis: As above Status: Acute (3) Septic embolism: Discussed with her concern for endocarditis, septic embolism given opacities noted on chest x-ray Continue antibiotics as above. Oxygen support as needed, currently 2 L nasal cannula. She denies IVDU As per discussion with her ID specialist, sometimes even in absence of IVDU can see relapse of staphylococcal infection after valve replacement. Aspirin has been on hold due to low platelets, concern for septic embolic disease. Status: Acute (4) Meningitis: Continue vancomycin. Empiric ceftriaxone. Continue monitoring. Status: Acute (5) Thrombocytopenia: Thrombocytopenia with partial improvement. Not in DIC. D-dimer elevated, suspect secondary to infection, both upper and lower duplex venous studies negative for DVT. Right ventricle with normal size and function. Bicytopenia likely secondary to infection/sepsis. No mention of schistocytes. No blasts. Requesting platelet transfusion given she is reporting some new vaginal bleeding which she has not had for a while. Repeat CBC Status: Acute (6) Intravenous infiltration: Does not appear to have residual abnormality. Right antecubital fossa IV is infiltrated with Levophed infusion 12/14 removed. Having some tenderness there, but so far no other symptoms. Warm compress, elevated RUE on pillow. Blood pressure cuff on leg. Status: Acute (7) Opacity of lung on imaging study: Concern for septic embolization, recurrence of endocarditis. Status: Acute (8) History of tricuspid valve replacement with bioprosthetic valve: At [facility], reports was done on July 31. Records in paper chart. Had tricuspid valve replaced with bioprosthetic valve, and PFO closure at the same time. TTE no obvious vegetation. Will need ANGUS Aspirin was held, continue to hold for now given possible septic embolization, [employer] infection Status: Acute (9) Bacteremia due to Staphylococcus aureus: Concern for recurrence of endocarditis. Vancomycin as above. Will need protracted antibiotic course, which may be difficult given recurrence of endocarditis, history of IVDU. Was hospitalized for the entire 6 weeks at [facility] to receive IV antibiotics via PICC line. Status: Acute (10) Episodic confusion: 12/15 had an episode in the evening around 5 PM with confusion, decreased responsiveness, sinus tachycardia, noted to have some mottling, difficult to obtain oxygen saturation, but once obtained 97%. With anisocoria not seen in examination on presentation or at [facility]. Assessed by CT angiogram head and neck, unremarkable. RPR negative. Per discussion with her father anisocoria is since with one of the pupils less reactive. Not always apparent depending on ambient light. Confusional episode resolved. Tachycardia improved. Saturation remained steady on 2 L nasal cannula. Chest x-ray without acute abnormality. Troponin EKG series without suggestion of KS. Not entirely clear because of the episode. Similar episode documented on 2 occasions at [facility] in August without identified cause. If recurrence or persistence, consider MRI brain. She is also on Suboxone. Continued dose 1 from 3 times daily. She has been having intermittent lethargy, so we have not increase the dose seen. It does appear that on outpatient side she has been receiving 8 mg doses. Consider increasing if lethargy improves. For now continue 4 mg, adding, however, 4 mg films 3 times daily as needed for pain or showing symptoms of withdrawal. Discussed with father. Status: Acute (11) Anisocoria: Assessed by CT angiogram head and neck, unremarkable. RPR negative. Per discussion with her father anisocoria is since with one of the pupils less reactive. Not always apparent depending on ambient light. Status: Acute (12) Acute hypokalemia: Replaced. Follow-up and check magnesium level. Status: Acute Plan PA aneurysm: noted during hospitalization in Aug at [facility], had hemoptysis requiring temporary intubation. Vaginal bleeding: Spotting only. Also reports irregular menses. Discussed with her she to follow-up with gynecology after discharge. Smoking: Nicotine replacement Depression with failure to thrive. I requested case management evaluate the patient with possible outpatient referral for behavioral health/psychiatry History of septic pulmonary emboli Hyponatremia. Resolving. Regular diet. Treat sepsis as above. Repeat level. 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 Patient status post bioprosthetic valve replacement?patient uncertain of as to which valve was replaced Depression Hepatitis C. hepatitis C RNA requested by infectious disease specialist, ordered. Receiving treatment in [place]. Will need follow-up with Dr Dangelo. Please forward HCV RNA results to ID provider. Microcytic anemia, chronic with history of iron deficiency. Iron deficiency anemia. Will monitor hemoglobin level intermittently. Check fecal occult blood. Previously negative. Hypophosphatemia. We will monitor phosphorus level intermittently. Neutra-Phos 2 150 Mill cans by mouth twice a day Hx methamphetamine abuse History of leaving AGAINST MEDICAL ADVICE Medical noncompliance as witnessed by patient previous leaving AGAINST MEDICAL ADVICE. The patient becomes regarding medical compliance Query history of asthma She is also on Suboxone. Continued dose 1 from 3 times daily. She has been having intermittent lethargy, so we have not increase the dose seen. It does appear that on outpatient side she has been receiving 8 mg doses. Consider increasing if lethargy improves. For now continue 4 mg, adding, however, 4 mg films 3 times daily as needed for pain or showing symptoms of withdrawal. Discussed with father. -Plan for today -Consult cardiology for consideration of transesophageal echocardiogram in the next 24 to 48 hours -We will order MRI of the brain to evaluate for septic emboli -Consult PT OT, nutrition, speech therapy -Continue broad-spectrum antibiotic therapy, antifungal therapy -Monitor platelet count, hemoglobin -Start gentle IV hydration -She will likely require inpatient IV antibiotic treatment given history of drug abuse Attestations Medical Necessity Statement*: Patient requires hospitalization for meningitis, bacteremia, endocarditis, recurrent IV antibiotics Coding Level of Care Code 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
[2021-12-20] MEDS: cefTRIAXone 2,000 MG in sodium chloride 0.9% (plus) 50 ML 100 MG IV ×2 (02:16→15:03)
[2021-12-20 04:00] VITALS: BP 92/51; PULSE 87; RESP 16; TEMP 36.4; O2SAT 91
[2021-12-20 06:00] VITALS: PULSE 71
[2021-12-20 06:15] LABS: Basophils % 0.2 %; Eosinophils # 0.1 10^3/uL (0.0-0.8); Eosinophils % 0.8 %; Hemoglobin 7.4 g/dL (11.5-15.3); Lymphocytes # 1.5 10^3/uL (0.8-4.8); Lymphocytes % 11.3 %; Mean Corpuscular HGB Conc 29.6 g/dL (30.0-36.0); Mean Corpuscular Hemoglobin 20.9 pg (28.0-34.0); Mean Corpuscular Volume 70.6 fl (81-99); Monocytes # 0.8 10^3/uL (0.2-0.9); Monocytes % 6.3 %; Neutrophils # 10.71 10^3/uL (1.8-7.7); Neutrophils % 80.4 %; Nucleated Red Blood Cells % 0 %; Platelet Count 109 10^3/cmm (130-400); Red Blood Count 3.54 10^6/uL (4.1-5.3); Red Cell Distribution Width 22.5 % (12.1-15.1); White Blood Count 13.3 10^3/uL (4.0-10.0)
[2021-12-20 06:44] LABS: Alanine Aminotransferase < 5 U/L (0-33); Albumin Level 2.5 g/dL (3.5-5.2); Alkaline Phosphatase 233 IU/L (35-105); Anion Gap 11.9 (5-19); Aspartate Amino Transferase 8 U/L (0-32); Blood Urea Nitrogen 9 mg/dL (6-20); C Reactive Protein 98.6 mg/L (0.0-4.9); Calcium 8.2 mg/dL (8.5-10.5); Carbon Dioxide 28 mmol/L (22-29); Chloride 97 mmol/L (98-107); Globulin 4.3 g/dL (1.3-4.6); Glomerular Filtration Rate 113.8 mL/min (90-130); Glucose 132 mg/dL (65-115); Osmolality Calculated 277 mOsm/kg (285-295); Phosphorus 4.4 mg/dL (2.5-4.5); Potassium 3.9 mmol/L (3.5-5.1); Sodium 133 mmol/L (136-145); Total Bilirubin 0.6 mg/dL (0.15-1.2); Total Protein 6.8 g/dL (6.6-8.7)
[2021-12-20 06:46] LABS: Lactate (Lactic Acid level) 1.3 mmol/L (0.5-2.2)
[2021-12-20 06:47] LABS: Creatine Phosphokinase 11 U/L (26-192)
[2021-12-20 06:48] LABS: Slide Review Slide Review Perform
[2021-12-20 06:49] LABS: Procalcitonin 1.84 ng/mL (0-0.5)
[2021-12-20 06:50] LABS: INR 1.31 (0.8-1.2); Partial Thromboplastin Time 33.4 SECONDS (23.9-36.7)
[2021-12-20 06:51] LABS: Fibrinogen 250 mg/dL (174-498)
[2021-12-20] MEDS: buprenorphine-naloxone 4-1 mg Film 1 EACH SUBLINGUAL (08:48)
[2021-12-20] MEDS: phosphorus 250 mg Tablet PO (08:48)
[2021-12-20] MEDS: pantoprazole 40 mg SDV IVP (08:48)
[2021-12-20] MEDS: duloxetine 60 mg Capsule PO (08:49)
[2021-12-20] MEDS: heparin 5,000 unit/mL INJ 1 mL 5000 UNIT SUBCUT ×2 (08:49→16:33)
--- NOTE | 2021-12-20 11:23 | P.PN_ITS ---
Subjective Subjective: Patient was seen this morning, she is doing well she tells me, no fevers, chills, nausea, vomiting, her appetite is also improving, denies any lightheadedness, dizziness I discussed her long-term plan, she is going to need at least 6 weeks of IV antibiotics, this can be done at a long-term care facility however she declined going to a long-term care facility she rather stay here in the hospital, I was also upfront and honest with her I would not discharge her with a PICC line given her history of IV drug use she tells me that she is okay with staying here in the hospital for 6 weeks of IV antibiotics Vitals/I&O/Wt Last Vital Signs Temp 97.6 F 12/20/21 04:00 Pulse 71 12/20/21 06:00 Resp 16 12/20/21 04:00 BP 92/51 12/20/21 04:00 Pulse Ox 91 12/20/21 04:00 12/19/21 12/20/21 12/20/21 22:59 06:59 14:59 Intake Total 50 / 2515 660 / 3175 Balance 50 / 2115 660 / 2775 Physical Exam Const: COMMON NORMALS: no acute distress and patient oriented x3 Resp: COMMON NORMALS: normal respiratory effort, No retractions, No use of accessory muscles and clear to auscultation bilaterally AUSCULTATION: clear to auscultation bilaterally Cardio: COMMON NORMALS: regular rate, regular rhythm, S1 normal heart sound present and S2 normal heart sound present RATE: regular rate RHYTHM: regular rhythm HEART SOUNDS: S1 normal heart sound present and S2 normal heart sound present GI: COMMON NORMALS: Normal to inspection, nondistended, normoactive bowel sounds present, Soft to palpation and non-tender PALPATION: Yes Soft to palpation Extremity: COMMON NORMALS: no pedal edema Neuro: COMMON NORMALS: patient oriented x3 Psych: COMMON NORMALS: mental status grossly normal Data : 12/20/21 06:00 12/20/21 06:00 A&P Assessment and plan (1) Septic shock: Secondary to meningitis infective endocarditis, staph auris bacteremia Resolved. Weaned off pressor. Blood pressure soft, but maintaining in good range. DIC improving. Fibrillation products, D-dimer decreasing. Received platelets, with very good response to transfusion and likely also additional spontaneous increase since platelet level up to 77,000. Discussed with her and her father, discussed risk of VTE, discussed consideration of pharmacologic DVT prophylaxis in addition to SCDs given her platelets have rebounded. However, discussed also possibility of elevated risk of bleeding with septic embolic disease. She and father are agreeable with travel prophylactic heparin. Reassess platelets in condition with low threshold to discontinue in case of concerning trends. Symptomatically feels minutely better. Intermittently lethargic. Overnight with some tremors reported she felt like she may have been withdrawing. He is on home dose Suboxone, not escalating further due to somnolence. In case somnolence does not improve, consider MRI brain. MRI thoracic and lumbar spine obtained only noncontrast since declined to complete the entire study. Noncontrast studies with normal thoracic spine, unremarkable lumbar spine. Several benign hemangiomas in the visualized osseous structures. If blood pressures and mental status improved further, please commence arrangements for ANGUS. Continue IV vancomycin, continue Rocephin for now, so far no resistant genes on preliminary sensitivities, follow-up final studies. Continue vancomycin even if MSSA bacteremia per discussion with her ID specialist. Since no fungal growth, switched from Amphotericin to caspofungin. Subsequently continue fluconazole. Continue antifungal as she did have fungal growth as well during her hospitalization in August. Discussed also with her ID specialist in [place] Dr. Emilie Dangelo Bicytopenia likely secondary to infection/sepsis. No mention of schistocytes. No blasts. Had also an episode on 12/15 evening around 5 PM with confusion, decreased responsiveness, tachycardia, noted to have some mottling, difficult to obtain oxygen saturation, but once obtained 97%. With anisocoria not seen in examination on presentation or at [facility]. Assessed by CT angiogram head and neck, unremarkable. Per discussion with her father anisocoria is since with one of the pupils less reactive. Confusional episode resolved. Tachycardia improved. Saturation remained steady on 2 L nasal cannula. Chest x-ray without acute abnormality. Troponin EKG series without suggestion of ID. Not entirely clear because of the episode. Similar episode documented on 2 occasions at [facility] in August. Status: Acute (2) Sepsis: As above Status: Acute (3) Septic embolism: Discussed with her concern for endocarditis, septic embolism given opacities not ed on chest x-ray Continue antibiotics as above. Oxygen support as needed, currently 2 L nasal cannula. She denies IVDU As per discussion with her ID specialist, sometimes even in absence of IVDU can see relapse of staphylococcal infection after valve replacement. Aspirin has been on hold due to low platelets, concern for septic embolic disease. Status: Acute (4) Meningitis: Continue vancomycin. Empiric ceftriaxone. Continue monitoring. Status: Acute (5) Thrombocytopenia: Thrombocytopenia with partial improvement. Not in DIC. D-dimer elevated, suspect secondary to infection, both upper and lower duplex venous studies negative for DVT. Right ventricle with normal size and function. Bicytopenia likely secondary to infection/sepsis. No mention of schistocytes. No blasts. Requesting platelet transfusion given she is reporting some new vaginal bleeding which she has not had for a while. Repeat CBC Status: Acute (6) Intravenous infiltration: Does not appear to have residual abnormality. Right antecubital fossa IV is infiltrated with Levophed infusion 12/14 removed. Having some tenderness there, but so far no other symptoms. Warm compress, elevated RUE on pillow. Status: Acute (7) Opacity of lung on imaging study: Concern for septic embolization, recurrence of endocarditis. Status: Acute (8) History of tricuspid valve replacement with bioprosthetic valve: At [facility], reports was done on July 31. Records in paper chart. Had tricuspid valve replaced with bioprosthetic valve, and PFO closure at the same time. TTE no obvious vegetation. Will need ANGUS, declines Aspirin was held, continue to hold for now given possible septic embolization, [employer] RECEIVED infection Status: Acute (9) Bacteremia due to Staphylococcus aureus: Concern for recurrence of endocarditis. Vancomycin as above. Will need protracted antibiotic course, which may be difficult given recurrence of endocarditis, history of IVDU. Was hospitalized for the entire 6 weeks at [facility] to receive IV antibiotics via PICC line. Status: Acute (10) Episodic confusion: 12/15 had an episode in the evening around 5 PM with confusion, decreased responsiveness, sinus tachycardia, noted to have some mottling, difficult to obtain oxygen saturation, but once obtained 97%. With anisocoria not seen in examination on presentation or at [facility]. Assessed by CT angiogram head and neck, unremarkable. RPR negative. Per discussion with her father anisocoria is since with one of the pupils less reactive. Not always apparent depending on ambient light. Confusional episode resolved. Tachycardia improved. Saturation remained steady on 2 L nasal cannula. Chest x-ray without acute abnormality. Troponin EKG series without suggestion of ID. Not entirely clear because of the episode. Similar episode documented on 2 occasions at [facility] in August without identified cause. If recurrence or persistence, consider MRI brain. She is also on Suboxone. Continued dose 1 from 3 times daily. She has been having intermittent lethargy, so we have not increase the dose seen. It does appear that on outpatient side she has been receiving 8 mg doses. Consider increasing if lethargy improves. For now continue 4 mg, adding, however, 4 mg films 3 times daily as needed for pain or showing symptoms of withdrawal. Discussed with father. Status: Acute (11) Anisocoria: Assessed by CT angiogram head and neck, unremarkable. RPR negative. Per discussion with her father anisocoria is since with one of the pupils less reactive. Not always apparent depending on ambient light. Status: Acute (12) Acute hypokalemia: Replaced. Follow-up and check magnesium level. Status: Acute Plan Septic shock secondary to secondary to meningitis, infective endocarditis, staph aureus bacteremia - Had tricuspid valve replaced with bioprosthetic valve, and PFO closure at the same -Received 6 weeks of IV antibiotics at [facility] -Concerns for recurrence of bacteremia especially given her valve replacement, c oncerns for recurrent IV drug use although patient declines -That she will require at least a 6-week course of IV vancomycin -Patient declined transesophageal echocardiogram, discussed risks and benefits, she voices any, all questions answered declined -Concern for meningitis, due to altered mental status, CSF clear, colorless, 192 WBCs,, 92% PMN -CSF shows no growth after 3 days, no organisms,, no white blood cells -Thoracic and lumbar MRI within normal limits -MRI of the brain no acute findings -Thus the question is is that does she truly have meningitis does not seem like bacterial meningitis, more viral, no viral studies was ordered, HIV was negative, RPR was negative -Concern for septic emboli on chest x-ray, off oxygen therapy, no significant respiratory complaints -Repeat blood cultures negative -MRSA nares positive -CRP 90.6, Pro-Danis 1.84, WBC 13.3 -Remains afebrile -Continue vancomycin and Rocephin for at least 7 days -As per discussion with infectious disease at [facility], continue vancomycin for at least 6 weeks even if MSSA positive -Needs vancomycin for a total of 6 weeks Anemia, hemoglobin 7.4 monitor Platelet count 109 improving, monitor HCV positive, HCVRNA 30 will need to follow-up with infectious disease as outpatient PA aneurysm: noted during hospitalization in Aug at [facility], had hemoptysis requiring temporary intubation. Vaginal bleeding: Spotting only. Also reports irregular menses. Discussed with her she to follow-up with gynecology after discharge. Smoking: Nicotine replacement Depression with failure to thrive. I requested case management evaluate the patient with possible outpatient referral for behavioral health/psychiatry History of septic pulmonary emboli Hyponatremia. Resolving. Regular diet. Treat sepsis as above. Repeat level. 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 Patient status post bioprosthetic valve replacement?patient uncertain of as to which valve was replaced Depression Hepatitis C. hepatitis C RNA requested by infectious disease specialist, ordered. Receiving treatment in [place]. Will need follow-up with Dr Dangelo. Please forward HCV RNA results to ID provider. Microcytic anemia, chronic with history of iron deficiency. Iron deficiency anemia. Will monitor hemoglobin level intermittently. Check fecal occult blood. Previously negative. Hypophosphatemia. We will monitor phosphorus level intermittently. Neutra-Phos 2 150 Mill cans by mouth twice a day Hx methamphetamine abuse History of leaving AGAINST MEDICAL ADVICE Medical noncompliance as witnessed by patient previous leaving AGAINST MEDICAL ADVICE. The patient becomes regarding medical compliance Query history of asthma She is also on Suboxone. Continued dose 1 from 3 times daily. She has been having intermittent lethargy, so we have not increase the dose seen. It does appear that on outpatient side she has been receiving 8 mg doses. Consider increasing if lethargy improves. For now continue 4 mg, adding, however, 4 mg films 3 times daily as needed for pain or showing symptoms of withdrawal. Discussed with father. -Plan for today -Consult cardiology for consideration of transesophageal echocardiogram in the next 24 to 48 hours -We will order MRI of the brain to evaluate for septic emboli -Consult PT OT, nutrition, speech therapy -Continue broad-spectrum antibiotic therapy, antifungal therapy -Monitor platelet count, hemoglobin -Start gentle IV hydration -She will likely require inpatient IV antibiotic treatment given history of drug abuse Attestations Medical Necessity Statement*: Patient requires hospitalization for staph auris bacteremia, concerning for endocarditis, with meningitis, septic emboli requiring 6 weeks of IV antibiotics Coding Level of Care Code Acute [employer] for g Fwd Diagnoses Septic shock A41.9; R65.21 Sepsis A41.9 Septic embolism I76 Meningitis G03.9 Thrombocytopenia D69.6 Intravenous infiltration T80.1XXA Opacity of lung on imaging study R91.8 History of tricuspid valve replacement with bioprosthetic valve Z95.3 Bacteremia due to Staphylococcus aureus R78.81; B95.61 Episodic confusion R41.0 Anisocoria H57.02 Acute hypokalemia E87.6
[2021-12-20] MEDS: vancomycin 1,000 MG in sodium chloride 0.9% 250 ML 250 MG IV ×2 (13:03→23:34)
[2021-12-20 20:00] VITALS: BP 90/42; PULSE 72; RESP 18; TEMP 37.3; O2SAT 91
[2021-12-21] VITALS (11 sets, daily range): BP systolic 93–110; BP diastolic 46–66; PULSE 70–91; RESP 14–21; TEMP 36.5–37.4; O2SAT 88–95; BMI 20.7
[2021-12-21] MEDS: heparin 5,000 unit/mL INJ 1 mL 5000 UNIT SUBCUT (01:55)
[2021-12-21] MEDS: cefTRIAXone 2,000 MG in sodium chloride 0.9% (plus) 50 ML 100 MG IV (02:00)
[2021-12-21 05:16] LABS: Basophils % 0.1 %; Eosinophils # 0.1 10^3/uL (0.0-0.8); Eosinophils % 0.6 %; Hematocrit 22.6 % (37.0-47.0); Hemoglobin 6.8 g/dL (11.5-15.3); Lymphocytes # 1.2 10^3/uL (0.8-4.8); Lymphocytes % 8.4 %; Mean Corpuscular HGB Conc 30.1 g/dL (30.0-36.0); Mean Corpuscular Hemoglobin 21.1 pg (28.0-34.0); Mean Platelet Volume 11.4 fL (7.4-10.4); Monocytes # 0.8 10^3/uL (0.2-0.9); Monocytes % 5.5 %; Neutrophils # 12.04 10^3/uL (1.8-7.7); Neutrophils % 84.6 %; Nucleated Red Blood Cells % 0 %; Platelet Count 101 10^3/cmm (130-400); Red Blood Count 3.23 10^6/uL (4.1-5.3); Red Cell Distribution Width 22.1 % (12.1-15.1); White Blood Count 14.3 10^3/uL (4.0-10.0)
[2021-12-21 05:37] LABS: INR 1.28 (0.8-1.2)
[2021-12-21 05:38] LABS: Partial Thromboplastin Time 35.5 SECONDS (23.9-36.7)
[2021-12-21 05:42] LABS: C Reactive Protein 90.4 mg/L (0.0-4.9); Creatine Phosphokinase 11 U/L (26-192); Magnesium 1.9 mg/dL (1.7-2.3); Phosphorus 3.6 mg/dL (2.5-4.5)
[2021-12-21 05:43] LABS: Alanine Aminotransferase < 5 U/L (0-33); Albumin Level 2.5 g/dL (3.5-5.2); Alkaline Phosphatase 222 IU/L (35-105); Anion Gap 13.4 (5-19); Aspartate Amino Transferase 9 U/L (0-32); Blood Urea Nitrogen 7 mg/dL (6-20); Calcium 7.9 mg/dL (8.5-10.5); Carbon Dioxide 27 mmol/L (22-29); Chloride 96 mmol/L (98-107); Fibrinogen 279 mg/dL (174-498); Globulin 3.7 g/dL (1.3-4.6); Glomerular Filtration Rate 140.4 mL/min (90-130); Glucose 92 mg/dL (65-115); Osmolality Calculated 274 mOsm/kg (285-295); Potassium 3.4 mmol/L (3.5-5.1); Sodium 133 mmol/L (136-145); Total Bilirubin 0.5 mg/dL (0.15-1.2); Total Protein 6.2 g/dL (6.6-8.7)
[2021-12-21 05:47] LABS: D Dimer 7.52 ug/mIFEU (0-0.59)
[2021-12-21 05:49] LABS: Procalcitonin 1.27 ng/mL (0-0.5)
--- NOTE | 2021-12-21 07:39 | PC.NURSE ---
I reported the low 02 to the nurse. 84% deep breathing and cough 88%
[2021-12-21 08:23] LABS: Ferritin 115 ng/mL (15-150); Iron 17 ug/dL (37-145); Percent Saturation 9.2 % (20-50); Total Iron Binding Capacity 184 mcg/dl; Unsaturated Iron Binding 167 ug/dL (112-347)
[2021-12-21 08:38] LABS: Vitamin B12 1037 pg/mL (232-1245)
[2021-12-21 08:42] LABS: Folate Level 12.7 ng/mL (4.8-37.3)
[2021-12-21] MEDS: duloxetine 60 mg Capsule PO (08:57)
[2021-12-21] MEDS: fluconazole 100 mg Tablet 200 MG PO (08:57)
[2021-12-21] MEDS: lidocaine 5% Patch 1 PATCH TOPICAL (08:57)
[2021-12-21] MEDS: nicotine 21 mg Patch 1 PATCH TRANSDERMA (08:57)
[2021-12-21] MEDS: vancomycin 1,000 MG in sodium chloride 0.9% 250 ML 250 MG IV (10:09)
--- NOTE | 2021-12-21 11:02 | PM.PN ---
Subjective Subjective: Patient was seen this morning, denies any bloody or black stools, no lightheadedness, no dizziness, her appetite is improving Vitals/I&O/Wt Last Vital Signs Temp 98.3 F 12/21/21 07:39 Pulse 80 12/21/21 07:39 Resp 18 12/21/21 07:39 BP 93/51 12/21/21 07:39 Pulse Ox 88 L 12/21/21 07:39 12/20/21 12/21/21 12/21/21 22:59 06:59 14:59 Intake Total 540 / 1500 620 / 2120 Output Total 300 / 300 Balance 540 / 1500 320 / 1820 Weight last 48 hrs Weight 56.699 kg Weight 56.699 kg Physical Exam Const: COMMON NORMALS: no acute distress and patient oriented x3 Resp: COMMON NORMALS: normal respiratory effort, No retractions, No use of accessory muscles and clear to auscultation bilaterally AUSCULTATION: clear to auscultation bilaterally Cardio: COMMON NORMALS: regular rate, regular rhythm, S1 normal heart sound present and S2 normal heart sound present RATE: regular rate RHYTHM: regular rhythm HEART SOUNDS: S1 normal heart sound present and S2 normal heart sound present GI: COMMON NORMALS: Normal to inspection, nondistended, normoactive bowel sounds present, Soft to palpation and non-tender PALPATION: Yes Soft to palpation Extremity: COMMON NORMALS: no pedal edema Neuro: COMMON NORMALS: patient oriented x3 Psych: COMMON NORMALS: mental status grossly normal Data : 12/21/21 04:49 12/21/21 04:49 A&P Assessment and plan (1) Septic shock: Secondary to meningitis infective endocarditis, staph auris bacteremia Resolved. Weaned off pressor. Blood pressure soft, but maintaining in good range. DIC improving. Fibrillation products, D-dimer decreasing. Received platelets, with very good response to transfusion and likely also additional spontaneous increase since platelet level up to 77,000. Discussed with her and her father, discussed risk of VTE, discussed consideration of pharmacologic DVT prophylaxis in addition to SCDs given her platelets have rebounded. However, discussed also possibility of elevated risk of bleeding with septic embolic disease. She and father are agreeable with travel prophylactic heparin. Reassess platelets in condition with low threshold to discontinue in case of concerning trends. Symptomatically feels minutely better. Intermittently lethargic. Overnight with some tremors reported she felt like she may have been withdrawing. He is on home dose Suboxone, not escalating further due to somnolence. In case somnolence does not improve, consider MRI brain. MRI thoracic and lumbar spine obtained only noncontrast since declined to complete the entire study. Noncontrast studies with normal thoracic spine, unremarkable lumbar spine. Several benign hemangiomas in the visualized osseous structures. If blood pressures and mental status improved further, please commence arrangements for ANGUS. Continue IV vancomycin, continue Rocephin for now, so far no resistant genes on preliminary sensitivities, follow-up final studies. Continue vancomycin even if MSSA bacteremia per discussion with her ID specialist. Since no fungal growth, switched from Amphotericin to caspofungin. Subsequently continue fluconazole. Continue antifungal as she did have fungal growth as well during her hospitalization in August. Discussed also with her ID specialist in [place] Dr. Emilie Dangelo Bicytopenia likely secondary to infection/sepsis. No mention of schistocytes. No blasts. Had also an episode on 12/15 evening around 5 PM with confusion, decreased responsiveness, tachycardia, noted to have some mottling, difficult to obtain oxygen saturation, but once obtained 97%. With anisocoria not seen in examination on presentation or at [facility]. Assessed by CT angiogram head and neck, unremarkable. Per discussion with her father anisocoria is since with one of the pupils less reactive. Confusional episode resolved. Tachycardia improved. Saturation remained steady on 2 L nasal cannula. Chest x-ray without acute abnormality. Troponin EKG series without suggestion of VT. Not entirely clear because of the episode. Similar episode documented on 2 occasions at [facility] in August. Status: Acute (2) Sepsis: As above Status: Acute (3) Septic embolism: Discussed with her concern for endocarditis, septic embolism given opacities noted on chest x-ray Continue antibiotics as above. Oxygen support as needed, currently 2 L nasal cannula. She denies IVDU As per discussion with her ID specialist, sometimes even in absence of IVDU can see relapse of staphylococcal infection after valve replacement. Aspirin has been on hold due to low platelets, concern for septic embolic disease. Status: Acute (4) Meningitis: Continue vancomycin. Empiric ceftriaxone. Continue monitoring. Status: Acute (5) Thrombocytopenia: Thrombocytopenia with partial improvement. Not in DIC. D-dimer elevated, suspect secondary to infection, both upper and lower duplex venous studies negative for DVT. Right ventricle with normal size and function. Bicytopenia likely secondary to infection/sepsis. No mention of schistocytes. No blasts. Requesting platelet transfusion given she is reporting some new vaginal bleeding which she has not had for a while. Repeat CBC Status: Acute (6) Intravenous infiltration: Does not appear to have residual abnormality. Right antecubital fossa IV is infiltrated with Levophed infusion 12/14 removed. Having some tenderness there, but so far no other symptoms. Warm compress, elevated RUE on pillow. Status: Acute (7) Opacity of lung on imaging study: Concern for septic embolization, recurrence of endocarditis. Status: Acute (8) History of tricuspid valve replacement with bioprosthetic valve: At [facility], reports was done on July 31. Records in paper chart. Had tricuspid valve replaced with bioprosthetic valve, and PFO closure at the same time. TTE no obvious vegetation. Will need ANGUS, declines Aspirin was held, continue to hold for now given possible septic embolization, [employer] infection Status: Acute (9) Bacteremia due to Staphylococcus aureus: Concern for recurrence of endocarditis. Vancomycin as above. Will need protracted antibiotic course, which may be difficult given recurrence of endocarditis, history of IVDU. Was hospitalized for the entire 6 weeks at [facility] to receive IV antibiotics via PICC line. Status: Acute (10) Episodic confusion: 12/15 had an episode in the evening around 5 PM with confusion, decreased responsiveness, sinus tachycardia, noted to have some mottling, difficult to obtain oxygen saturation, but once obtained 97%. With anisocoria not seen in examination on presentation or at [facility]. Assessed by CT angiogram head and neck, unremarkable. RPR negative. Per discussion with her father anisocoria is since with one of the pupils less reactive. Not always apparent depending on ambient light. Confusional episode resolved. Tachycardia improved. Saturation remained steady on 2 L nasal cannula. Chest x-ray without acute abnormality. Troponin EKG series without suggestion of VT. Not entirely clear because of the episode. Similar episode documented on 2 occasions at [facility] in August without identified cause. If recurrence or persistence, consider MRI brain. She is also on Suboxone. Continued dose 1 from 3 times daily. She has been having intermittent lethargy, so we have not increase the dose seen. It does appear that on outpatient side she has been receiving 8 mg doses. Consider increasing if lethargy improves. For now continue 4 mg, adding, however, 4 mg films 3 times daily as needed for pain or showing symptoms of withdrawal. Discussed with father. Status: Acute (11) Anisocoria: Assessed by CT angiogram head and neck, unremarkable. RPR negative. Per discussion with her father anisocoria is since with one of the pupils less reactive. Not always apparent depending on ambient light. Status: Acute (12) Acute hypokalemia: Replaced. Follow-up and check magnesium level. Status: Acute Plan Septic shock secondary to secondary to meningitis, infective endocarditis, staph aureus bacteremia - Had tricuspid valve replaced with bioprosthetic valve, and PFO closure at the same -Received 6 weeks of IV antibiotics at [facility] -Concerns for recurrence of bacteremia especially given her valve replacement, concerns for recurrent IV drug use although patient declines -That she will require at least a 6-week course of IV vancomycin -Patient declined transesophageal echocardiogram, discussed risks and benefits, she voices any, all questions answered declined -Concern for meningitis, due to altered mental status, CSF clear, colorless, 192 WBCs,, 92% PMN -CSF shows no growth after 3 days, no organisms,, no white blood cells, seems more viral in nature however no viral studies were ordered -Thoracic and lumbar MRI within normal limits -MRI of the brain no acute findings -Thus the question is is that does she truly have meningitis does not seem like bacterial meningitis, more viral, no viral studies was ordered, HIV was negative, RPR was negative -Concern for septic emboli on chest x-ray, off oxygen therapy, no significant respiratory complaints -Repeat blood cultures negative -MRSA nares positive -CRP 90.4, Pro-Danis 1.27, white blood cell count 14.3, D-dimer 7.52 -Remains afebrile -Continue vancomycin, stop Rocephin -As per discussion with infectious disease at [facility], continue vancomycin for at least 6 weeks even if MSSA positive -Needs vancomycin for a total of 6 weeks Anemia, hemoglobin 6.8, transfuse 1 unit PRBC, iron levels are on the lower end, Hemoccult stool Thrombocytopenia improving, monitor HCV positive, HCVRNA 30 will need to follow-up with infectious disease as outpatient PA aneurysm: noted during hospitalization in Aug at [facility], had hemoptysis requiring temporary intubation. Vaginal bleeding: Spotting only. Also reports irregular menses. Discussed with her she to follow-up with gynecology after discharge. Smoking: Nicotine replacement Depression with failure to thrive. I requested case management evaluate the patient with possible outpatient referral for behavioral health/psychiatry History of septic pulmonary emboli Hyponatremia. Resolving. Regular diet. Treat sepsis as above. Repeat level. 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 Patient status post bioprosthetic valve replacement?patient uncertain of as to which valve was replaced Depression Hepatitis C. hepatitis C RNA requested by infectious disease specialist, ordered. Receiving treatment in [place]. Will need follow-up with Dr Dangelo. Please forward HCV RNA results to ID provider. Microcytic anemia, chronic with history of iron deficiency. Iron deficiency anemia. Will monitor hemoglobin level intermittently. Check fecal occult blood. Previously negative. Hypophosphatemia. We will monitor phosphorus level intermittently. Neutra-Phos 2 150 Mill cans by mouth twice a day Hx methamphetamine abuse History of leaving AGAINST MEDICAL ADVICE Medical noncompliance as witnessed by patient previous leaving AGAINST MEDICAL ADVICE. The patient becomes regarding medical compliance Query history of asthma She is also on Suboxone. Continued dose 1 from 3 times daily. She has been having intermittent lethargy, so we have not increase the dose seen. It does appear that on outpatient side she has been receiving 8 mg doses. Consider increasing if lethargy improves. For now continue 4 mg, adding, however, 4 mg films 3 times daily as needed for pain or showing symptoms of withdrawal. Discussed with father. -Plan for today -Stop Rocephin, continue vancomycin -We will take off isolation precautions -Transfuse 1 unit PRBC -Monitor for bloody black stools Attestations Medical Necessity Statement*: Patient requires hospitalization for staph auris bacteremia, infective endocarditis Coding Level of Care Code Acute Rcp for [facility] Diagnoses Septic shock A41.9; R65.21 Sepsis A41.9 Septic embolism I76 Meningitis G03.9 Thrombocytopenia D69.6 Intravenous infiltration T80.1XXA Opacity of lung on imaging study R91.8 History of tricuspid valve replacement with bioprosthetic valve Z95.3 Bacteremia due to Staphylococcus aureus R78.81; B95.61 Episodic confusion R41.0 Anisocoria H57.02 Acute hypokalemia E87.6
[2021-12-21] MEDS: sodium chloride 0.9% (100 ml) 100 ML 50 ML (14:51)
[2021-12-22] VITALS (8 sets, daily range): BP systolic 80–104; BP diastolic 50–67; PULSE 73–84; RESP 16–20; TEMP 36.4–36.9; O2SAT 92–98
[2021-12-22] MEDS: heparin 5,000 unit/mL INJ 1 mL 5000 UNIT SUBCUT ×4 (00:48→23:55)
[2021-12-22 02:38] LABS: Vancomycin Trough 13.1 ug/mL (10-15)
[2021-12-22] MEDS: vancomycin 1,000 MG in sodium chloride 0.9% 250 ML 250 MG IV ×3 (02:46→22:47)
[2021-12-22 02:49] LABS: Basophils % 0.1 %; Eosinophils # 0.1 10^3/uL (0.0-0.8); Eosinophils % 0.7 %; Hematocrit 27.2 % (37.0-47.0); Hemoglobin 8.4 g/dL (11.5-15.3); Lymphocytes # 1.4 10^3/uL (0.8-4.8); Lymphocytes % 9.5 %; Mean Corpuscular HGB Conc 30.9 g/dL (30.0-36.0); Mean Corpuscular Hemoglobin 22.3 pg (28.0-34.0); Mean Corpuscular Volume 72.1 fl (81-99); Monocytes # 0.7 10^3/uL (0.2-0.9); Monocytes % 4.9 %; Neutrophils # 12.27 10^3/uL (1.8-7.7); Neutrophils % 84.2 %; Nucleated Red Blood Cells % 0 %; Platelet Count 113 10^3/cmm (130-400); Red Blood Count 3.77 10^6/uL (4.1-5.3); Red Cell Distribution Width 22.7 % (12.1-15.1); White Blood Count 14.6 10^3/uL (4.0-10.0)
[2021-12-22 02:58] LABS: Mean Platelet Volume 10.8 fL (7.4-10.4)
[2021-12-22 03:01] LABS: Alanine Aminotransferase < 5 U/L (0-33); Albumin Level 2.5 g/dL (3.5-5.2); Alkaline Phosphatase 202 IU/L (35-105); Anion Gap 13.2 (5-19); Aspartate Amino Transferase 8 U/L (0-32); Blood Urea Nitrogen 7 mg/dL (6-20); Calcium 7.4 mg/dL (8.5-10.5); Carbon Dioxide 27 mmol/L (22-29); Chloride 96 mmol/L (98-107); Globulin 3.5 g/dL (1.3-4.6); Glomerular Filtration Rate 140.4 mL/min (90-130); Glucose 108 mg/dL (65-115); Osmolality Calculated 275 mOsm/kg (285-295); Potassium 3.2 mmol/L (3.5-5.1); Sodium 133 mmol/L (136-145); Total Bilirubin 0.6 mg/dL (0.15-1.2)
[2021-12-22] MEDS: lidocaine 5% Patch 1 PATCH TOPICAL ×2 (08:22→20:15)
[2021-12-22] MEDS: nicotine 21 mg Patch 1 PATCH TRANSDERMA (08:24)
[2021-12-22] MEDS: fluconazole 100 mg Tablet 200 MG PO (08:25)
[2021-12-22] MEDS: duloxetine 60 mg Capsule PO (08:25)
[2021-12-22] MEDS: potassium chloride ER 20 mEq Tablet 40 MEQ PO (08:25)
--- NOTE | 2021-12-22 09:18 | CTR_ITS ---
PROCEDURE INFORMATION: Exam: CTA Chest With Contrast Exam date and time: 12/22/2021 10:57 AM Age: 36 years old Clinical indication: Other: Hypoxia; Prior surgery; Surgery type: Heart valve; Additional info: Hypoxia, spetic emboli? TECHNIQUE: Imaging protocol: Computed tomographic angiography of the chest with contrast. 3D rendering (Not supervised by radiologist): MIP and/or 3D reconstructed images were created by the technologist. Total images: 2112 Radiation optimization: All CT scans at this facility use at least one of these dose optimization techniques: automated exposure control; mA and/or kV adjustment per patient size (includes targeted exams where dose is matched to clinical indication); or iterative reconstruction. Contrast material: VISIPAQUE 320; Contrast volume: 64 ml; Contrast route: INTRAVENOUS (IV); COMPARISON: CT angio chest PE protcl [id number] 03/30/2021 9:18 AM RADIATION DOSE METRICS: Total DLP (mGy-cm): 544.94 FINDINGS: Tubes, catheters and devices: Prosthetic tricuspid heart valve noted. Pulmonary arteries: Pulmonary vascular congestion. Bilateral occlusive lower lobe pulmonary emboli similar in appearance to the prior exam from 03/30/2021. Additional pulmonary emboli felt to be present in left upper lobe segmental arteries. Aorta: Unremarkable. No aortic aneurysm. No aortic dissection. Lungs: Nonspecific bilateral opacities, atelectasis, edema and/or pneumonia. Pulmonary interstitial edema. Pleural spaces: Small bilateral pleural effusions are present. 13 mm spiculated pleural based mass lateral right upper lobeImpression. PET CT or tissue sampling could be considered to further define. (Rell et al., Fleischner Society, 2017) Heart: Cardiomegaly. The RV/LV ratio is abnormally elevated suggestive of right heart strain, measuring 1.2. Reflux of injected contrast material into hepatic veins suggests decreased cardiac output. Lymph nodes: Enlarged mediastinal nodes with the largest at the AP window having a short axis diameter of 2.1 cm. Liver: Hepatomegaly partially visualized. Intraperitoneal space: Intra-abdominal ascites is present. Bones/joints: Unremarkable. No acute fracture. Soft tissues: See Pleural spaces finding. Other findings: Examination is motion limited. CT/CT angio chest PE protcl [id number] IMPRESSION: 1. Cardiomegaly with pulmonary vascular congestion. 2. Small bilateral pleural effusions are present. 3. Nonspecific bilateral opacities, atelectasis, edema and/or pneumonia. 4. Pulmonary interstitial edema. 5. Bilateral occlusive lower lobe pulmonary emboli similar in appearance to the prior exam from 03/30/2021. Additional pulmonary emboli felt to be present in left upper lobe segmental arteries. 6. The RV/LV ratio is abnormally elevated suggestive of right heart strain, measuring 1.2. Reflux of injected contrast material into hepatic veins suggests decreased cardiac output. 7. Enlarged mediastinal nodes with the largest at the AP window having a short axis diameter of 2.1 cm. 8. Intra-abdominal ascites is present. 9. Hepatomegaly partially visualized.
--- NOTE | 2021-12-22 09:20 | USCV_ITS ---
Linh Ambrose Age: 36 Gender: F : 1985 Exam Date: 12/22/2021 10:27 Ordering Phys: Thee Taylor MD Technologist: Chica Gatica Exam Location: [facility] Indication: DVT? HISTORY: Lower extremity swelling. PROCEDURES: Venous duplex imaging was performed in bilateral lower extremities. The following venous structures were evaluated: common femoral vein, profunda vein, proximal portion of the greater saphenous vein, superficial femoral vein, and the popliteal vein. In addition, the posterior tibial and peroneal trunk were evaluated. FINDINGS: Normal 2-D Doppler and augmentation and compressibility throughout the lower extremity venous structures. Additional imaging through the proximal calf veins also reveals no thrombus. Limited evaluation of the greater saphenous vein is patent with no thrombus. CONCLUSIONS No DVT bilateral lower extremities. Dr. Tracie Saleh DO (Electronically Signed) Final Date: 22 Dec 2021 14:36 S
[2021-12-22] MEDS: iodixanol 320 mg/mL 100mL Btl IV (11:02)
--- NOTE | 2021-12-22 12:20 | PM.PN ---
Subjective Subjective: Patient tells me that she is not feeling well this morning, she is not sure why, she tells that typically after blood draw she does not feel well, she did get blood yesterday and felt better afterwards, no guarding back chills, no shortness of breath, no fevers, she is on 2 L, no calf pain, no calf swelling, no hemoptysis Vitals/I&O/Wt Last Vital Signs Temp 98 F 12/22/21 12:00 Pulse 84 12/22/21 12:00 Resp 18 12/22/21 12:00 BP 104/67 12/22/21 12:00 Pulse Ox 95 12/22/21 12:00 12/21/21 12/22/21 12/22/21 22:59 06:59 14:59 Intake Total 1370 / 1860 1500 / 3360 240 / 240 Output Total 600 / 600 1200 / 1800 Balance 770 / 1260 300 / 1560 240 / 240 Weight last 48 hrs Weight 58.332 kg Weight 56.699 kg Weight 56.699 kg Physical Exam Const: COMMON NORMALS: no acute distress and patient oriented x3 Resp: COMMON NORMALS: normal respiratory effort, No retractions, No use of accessory muscles and clear to auscultation bilaterally AUSCULTATION: clear to auscultation bilaterally Cardio: COMMON NORMALS: regular rate, regular rhythm, S1 normal heart sound present and S2 normal heart sound present RATE: regular rate RHYTHM: regular rhythm HEART SOUNDS: S1 normal heart sound present and S2 normal heart sound present GI: COMMON NORMALS: Normal to inspection, nondistended, normoactive bowel sounds present, Soft to palpation, non-tender and No hepatosplenomegaly present PALPATION: Yes Soft to palpation and Yes No hepatosplenomegaly present Extremity: COMMON NORMALS: no pedal edema Neuro: COMMON NORMALS: patient oriented x3 Psych: COMMON NORMALS: mental status grossly normal Data : 12/22/21 02:03 12/22/21 02:03 Micro: Microbiology 12/16/21 15:24 Blood Culture - Final Blood NO GROWTH AFTER 5 DAYS 12/16/21 15:15 Blood Culture - Final Blood NO GROWTH AFTER 5 DAYS A&P Assessment and plan (1) Septic shock: Secondary to meningitis infective endocarditis, staph auris bacteremia Resolved. Weaned off pressor. Blood pressure soft, but maintaining in good range. DIC improving. Fibrillation products, D-dimer decreasing. Received platelets, with very good response to transfusion and likely also additional spontaneous increase since platelet level up to 77,000. Discussed with her and her father, discussed risk of VTE, discussed consideration of pharmacologic DVT prophylaxis in addition to SCDs given her platelets have rebounded. However, discussed also possibility of elevated risk of bleeding with septic embolic disease. She and father are agreeable with travel prophylactic heparin. Reassess platelets in condition with low threshold to discontinue in case of concerning trends. Symptomatically feels minutely better. Intermittently lethargic. Overnight with some tremors reported she felt like she may have been withdrawing. He is on home dose Suboxone, not escalating further due to somnolence. In case somnolence does not improve, consider MRI brain. MRI thoracic and lumbar spine obtained only noncontrast since declined to complete the entire study. Noncontrast studies with normal thoracic spine, unremarkable lumbar spine. Several benign hemangiomas in the visualized osseous structures. If blood pressures and mental status improved further, please commence arrangements for ANGUS. Continue IV vancomycin, continue Rocephin for now, so far no resistant genes on preliminary sensitivities, follow-up final studies. Continue vancomycin even if MSSA bacteremia per discussion with her ID specialist. Since no fungal growth, switched from Amphotericin to caspofungin. Subsequently continue fluconazole. Continue antifungal as she did have fungal growth as well during her hospitalization in August. Discussed also with her ID specialist in [place] Dr. Emilie Dangelo Bicytopenia likely secondary to infection/sepsis. No mention of schistocytes. No blasts. Had also an episode on 12/15 evening around 5 PM with confusion, decreased responsiveness, tachycardia, noted to have some mottling, difficult to obtain oxygen saturation, but once obtained 97%. With anisocoria not seen in examination on presentation or at [facility]. Assessed by CT angiogram head and neck, unremarkable. Per discussion with her father anisocoria is since with one of the pupils less reactive. Confusional episode resolved. Tachycardia improved. Saturation remained steady on 2 L nasal cannula. Chest x-ray without acute abnormality. Troponin EKG series without suggestion of VT. Not entirely clear because of the episode. Similar episode documented on [address] [facility] in August. Status: Acute (2) Sepsis: As above Status: Acute (3) Septic embolism: Discussed with her concern for endocarditis, septic embolism given opacities noted on chest x-ray Continue antibiotics as above. Oxygen support as needed, currently 2 L nasal cannula. She denies IVDU As per discussion with her ID specialist, sometimes even in absence of IVDU can see relapse of staphylococcal infection after valve replacement. Aspirin has been on hold due to low platelets, concern for septic embolic disease. Status: Acute (4) Meningitis: Continue vancomycin. Empiric ceftriaxone. Continue monitoring. Status: Acute (5) Thrombocytopenia: Thrombocytopenia with partial improvement. Not in DIC. D-dimer elevated, suspect secondary to infection, both upper and lower duplex venous studies negative for DVT. Right ventricle with normal size and function. Bicytopenia likely secondary to infection/sepsis. No mention of schistocytes. No blasts. Requesting platelet transfusion given she is reporting some new vaginal bleeding which she has not had for a while. Repeat CBC Status: Acute (6) Intravenous infiltration: Does not appear to have residual abnormality. Right antecubital fossa IV is infiltrated with Levophed infusion 12/14 removed. Having some tenderness there, but so far no other symptoms. Warm compress, elevated RUE on pillow. Status: Acute (7) Opacity of lung on imaging study: Concern for septic embolization, recurrence of endocarditis. Status: Acute (8) History of tricuspid valve replacement with bioprosthetic valve: At [facility], reports was done on July 31. Records in paper chart. Had tricuspid valve replaced with bioprosthetic valve, and PFO closure at the same time. TTE no obvious vegetation. Will need ANGUS, declines Aspirin was held, continue to hold for now given possible septic embolization, CLOTHES PRESSER infection Status: Acute (9) Bacteremia due to Staphylococcus aureus: Concern for recurrence of endocarditis. Vancomycin as above. Will need protracted antibiotic course, which may be difficult given recurrence of endocarditis, history of IVDU. Was hospitalized for the entire [address] [facility] to receive IV antibiotics via PICC line. Status: Acute (10) Episodic confusion: 12/15 had an episode in the evening around 5 PM with confusion, decreased responsiveness, sinus tachycardia, noted to have some mottling, difficult to obtain oxygen saturation, but once obtained 97%. With anisocoria not seen in examination on presentation or at [facility]. Assessed by CT angiogram head and neck, unremarkable. RPR negative. Per discussion with her father anisocoria is since with one of the pupils less reactive. Not always apparent depending on ambient light. Confusional episode resolved. Tachycardia improved. Saturation remained steady on 2 L nasal cannula. Chest x-ray without acute abnormality. Troponin EKG series without suggestion of VT. Not entirely clear because of the episode. Similar episode documented on [address] [facility] in August without identified cause. If recurrence or persistence, consider MRI brain. She is also on Suboxone. Continued dose 1 from 3 times daily. She has been having intermittent lethargy, so we have not increase the dose seen. It does appear that on outpatient side she has been receiving 8 mg doses. Consider increasing if lethargy improves. For now continue 4 mg, adding, however, 4 mg films 3 times daily as needed for pain or showing symptoms of withdrawal. Discussed with father. Status: Acute (11) Anisocoria: Assessed by CT angiogram head and neck, unremarkable. RPR negative. Per discussion with her father anisocoria is since with one of the pupils less reactive. Not always apparent depending on ambient light. Status: Acute (12) Acute hypokalemia: Replaced. Follow-up and check magnesium level. Status: Acute Plan Septic shock secondary to secondary to meningitis, infective endocarditis, staph aureus bacteremia - Had tricuspid valve replaced with bioprosthetic valve, and PFO closure at the same -Received 6 weeks of IV antibiotics at [facility] -Concerns for recurrence of bacteremia especially given her valve replacement, concerns for recurrent IV drug use although patient declines -That she will require at least a 6-week course of IV vancomycin -Patient declined transesophageal echocardiogram, discussed risks and benefits, she voices any, all questions answered declined -Concern for meningitis, due to altered mental status, CSF clear, colorless, 192 WBCs,, 92% PMN -CSF shows no growth after 3 days, no organisms,, no white blood cells, seems more viral in nature however no viral studies were ordered -Thoracic and lumbar MRI within normal limits -MRI of the brain no acute findings -Thus the question is is that does she truly have meningitis does not seem like bacterial meningitis, more viral, no viral studies was ordered, HIV was negative, RPR was negative -Concern for septic emboli on chest x-ray, off oxygen therapy, no significant respiratory complaints -Repeat blood cultures negative -MRSA nares positive -Remains afebrile -Continue vancomycin -As per discussion with infectious disease at [facility], continue vancomycin for at least 6 weeks even if MSSA positive -Needs vancomycin for a total of 6 weeks Feeling unwell, monitor vitals closely, does require 2 L, no chest pain, no shortness of breath, will do CT angiogram as she has a history of pulm emboli, not sure why she is not on any anticoagulation, presumably because of thrombocytopenia and anemia, venous ultrasound recently here negative for DVT, nonetheless we will repeat venous ultrasound History of bilateral occlusive pulmonary emboli, with right heart strain Anemia, hemoglobin 8.4, status post 1 unit PRBC, iron levels are on the lower end, Hemoccult stool Thrombocytopenia improving, monitor HCV positive, HCVRNA 30 will need to follow-up with infectious disease as outpatient PA aneurysm: noted during hospitalization in Aug at [facility], had hemoptysis requiring temporary intubation. Vaginal bleeding: Spotting only. Also reports irregular menses. Discussed with her she to follow-up with gynecology after discharge. Smoking: Nicotine replacement Depression with failure to thrive. I requested case management evaluate the patient with possible outpatient referral for behavioral health/psychiatry History of septic pulmonary emboli Hyponatremia. Resolving. Regular diet. Treat sepsis as above. Repeat level. 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 Patient status post bioprosthetic valve replacement?patient uncertain of as to which valve was replaced Depression Hepatitis C. hepatitis C RNA requested by infectious disease specialist, ordered. Receiving treatment in [place]. Will need follow-up with Dr Dangelo. Please forward HCV RNA results to ID provider. Microcytic anemia, chronic with history of iron deficiency. Iron deficiency anemia. Will monitor hemoglobin level intermittently. Check fecal occult blood. Previously negative. Hypophosphatemia. We will monitor phosphorus level intermittently. Neutra-Phos 2 150 Mill cans by mouth twice a day Hx methamphetamine abuse History of leaving AGAINST MEDICAL ADVICE Medical noncompliance as witnessed by patient previous leaving AGAINST MEDICAL ADVICE. The patient becomes regarding medical compliance Query history of asthma She is also on Suboxone. Continued dose 1 from 3 times daily. She has been having intermittent lethargy, so we have not increase the dose seen. It does appear that on outpatient side she has been receiving 8 mg doses. Consider increasing if lethargy improves. For now continue 4 mg, adding, however, 4 mg films 3 times daily as needed for pain or showing symptoms of withdrawal. Discussed with father. -Plan for today -Continue vancomycin -CT angio venous ultrasound -Monitor for fevers -Monitor for bloody black stools Attestations Medical Necessity Statement*: Patient requires hospitalization for staph auris bacteremia, concerns for endocarditis Coding Level of Care Code Acute Flame [facility]er for [facility] Fwd Diagnoses Septic shock A41.9; R65.21 Sepsis A41.9 Septic embolism I76 Meningitis G03.9 Thrombocytopenia D69.6 Intravenous infiltration T80.1XXA Opacity of lung on imaging study R91.8 History of tricuspid valve replacement with bioprosthetic valve Z95.3 Bacteremia due to Staphylococcus aureus R78.81; B95.61 Episodic confusion R41.0 Anisocoria H57.02 Acute hypokalemia E87.6
[2021-12-22] MEDS: FUROsemide 10 mg/mL SDV 2mL 20 MG IVP (17:04)
--- NOTE | 2021-12-22 18:51 | PC.NURSE ---
Report to Michelle SEQUEIRA
[2021-12-22] MEDS: sodium chloride 0.9% 500 ML 999 ML IV (20:02)
[2021-12-23] VITALS (9 sets, daily range): BP systolic 95–106; BP diastolic 44–62; PULSE 68–89; RESP 17–20; TEMP 36.5–36.9; O2SAT 92–98
[2021-12-23 04:12] LABS: Basophils % 0.2 %; Eosinophils # 0.1 10^3/uL (0.0-0.8); Eosinophils % 0.7 %; Hematocrit 30.7 % (37.0-47.0); Hemoglobin 8.8 g/dL (11.5-15.3); Lymphocytes # 1.6 10^3/uL (0.8-4.8); Lymphocytes % 11.7 %; Mean Corpuscular HGB Conc 28.7 g/dL (30.0-36.0); Mean Corpuscular Hemoglobin 22.1 pg (28.0-34.0); Mean Corpuscular Volume 77.1 fl (81-99); Monocytes # 0.5 10^3/uL (0.2-0.9); Neutrophils # 11.16 10^3/uL (1.8-7.7); Nucleated Red Blood Cells % 0 %; Platelet Count 109 10^3/cmm (130-400); Red Blood Count 3.98 10^6/uL (4.1-5.3); Red Cell Distribution Width 23.5 % (12.1-15.1); White Blood Count 13.5 10^3/uL (4.0-10.0)
--- NOTE | 2021-12-23 04:57 | PC.NURSE ---
Patient refuses to have morning labs drawn at this time, states she wants to wait until after breakfast. Dr. Patten notified.
--- NOTE | 2021-12-23 05:11 | NUR.SHIFT ---
Patient rested in bed throughout shift. Up to bedside commode without distress. Did refuse morning labs this morning, stating she will allow them to be drawn after breakfast. Did not have any complaint of pain this shift. Iv in right upper arm used to infuse iv antibiotics. BP hypotensive at beginning of shift, 500ml ns bolus given per orders from Dr. Patten with improvement in BP post infusion. Patient did refuse telemetry this shift also. She is deflective to speaking about her condition, or tests that may benefit her.
[2021-12-23] MEDS: fluconazole 100 mg Tablet 600 MG PO (08:55)
[2021-12-23] MEDS: duloxetine 60 mg Capsule PO (08:56)
[2021-12-23] MEDS: lidocaine 5% Patch 1 PATCH TOPICAL ×2 (08:56→20:56)
[2021-12-23] MEDS: heparin 5,000 unit/mL INJ 1 mL 5000 UNIT SUBCUT ×2 (08:56→15:13)
[2021-12-23] MEDS: nicotine 21 mg Patch 1 PATCH TRANSDERMA (08:56)
[2021-12-23] MEDS: aspirin 81 mg EC Tablet PO (08:56)
[2021-12-23] MEDS: potassium chloride ER 20 mEq Tablet 40 MEQ PO (11:40)
[2021-12-23] MEDS: FUROsemide 10 mg/mL SDV 2mL 20 MG IVP (11:40)
[2021-12-23] MEDS: vancomycin 1,000 MG in sodium chloride 0.9% 250 ML 250 MG IV ×2 (11:40→23:20)
--- NOTE | 2021-12-23 11:51 | P.PN_ITS ---
Subjective Subjective: Patient was seen this morning, she is getting her second blood draw of the day, she gets very nauseous during blood draws, and she does not feel well, will hold off on the CMP for today I discussed patient's CT angiogram findings, it is difficult for us to discern if the CT findings or evidence of septic emboli versus actually emboli related to hypercoagulability, her venous ultrasound was negative for DVT and I discussed the radiographic findings with the radiologist and the overall clot burden has decreased, I also spoke to infectious disease at [place], in their regards if it is indeed septic emboli, anticoagulation is not indicated, however if there are hypercoagulability associated pulmonary emboli then that would be a different story and anticoagulation could be considered but it is a difficult study situation. I discussed as she remains anemic and thrombocytopenic, and she clinically continues to improve I would elect that these are likely septic emboli from her recurrent drug use. And her bacteremia. However I cannot tell her 100% that these are not hypercoagulability and induced blood clots. Her venous ultrasound was negative DVT. And as she remains anemic and throm bocytopenic and evidence of iron deficiency anemia anticoagulating her would carry risks. I do think that her persistent oxygen requirements of 2 L is likely fluid overload seen on the CT angiogram. Nonetheless after discussing the risks and benefits of anticoagulation, she voiced understanding, all questions answered, came to a shared decision making for now we will not anticoagulate her. Continue to monitor her D-dimer monitor oxygen requirements, and reevaluate at as time goes on. Continue to be ambulatory has been encouraged., Heparin for DVT prophylaxis Vitals/I&O/Wt Last Vital Signs Temp 98.0 F 12/23/21 08:00 Pulse 76 12/23/21 08:00 Resp 20 H 12/23/21 08:00 BP 99/44 12/23/21 08:00 Pulse Ox 96 12/23/21 07:18 12/22/21 12/23/21 12/23/21 22:59 06:59 14:59 Intake Total 1340 / 2070 1470 / 3540 240 / 240 Output Total 800 / 800 850 / 1650 Balance 540 / 1270 620 / 1890 240 / 240 Weight last 48 hrs Weight 57.062 kg Weight 58.332 kg Physical Exam Const: COMMON NORMALS: no acute distress and patient oriented x3 Resp: COMMON NORMALS: normal respiratory effort, No retractions, No use of accessory muscles and clear to auscultation bilaterally AUSCULTATION: clear to auscultation bilaterally Cardio: COMMON NORMALS: regular rate, regular rhythm, S1 normal heart sound present and S2 normal heart sound present RATE: regular rate RHYTHM: regular rhythm HEART SOUNDS: S1 normal heart sound present and S2 normal heart sound present GI: COMMON NORMALS: Normal to inspection, nondistended, normoactive bowel sounds present, Soft to palpation and No hepatosplenomegaly present PALPATIO N: Yes Soft to palpation and Yes No hepatosplenomegaly present Extremity: COMMON NORMALS: no pedal edema Neuro: COMMON NORMALS: patient oriented x3 Psych: COMMON NORMALS: mental status grossly normal Data : 12/23/21 03:55 12/22/21 02:03 A&P Assessment and plan (1) Septic shock: Secondary to meningitis infective endocarditis, staph auris bacteremia Resolved. Weaned off pressor. Blood pressure soft, but maintaining in good range. DIC improving. Fibrillation products, D-dimer decreasing. Received platelets, with very good response to transfusion and likely also additional spontaneous increase since platelet level up to 77,000. Discussed with her and her father, discussed risk of VTE, discussed consideration of pharmacologic DVT prophylaxis in addition to SCDs given her platelets have rebounded. However, discussed also possibility of elevated risk of bleeding with septic embolic disease. She and father are agreeable with travel prophylactic heparin. Reassess platelets in condition with low threshold to discontinue in case of concerning trends. Symptomatically feels minutely better. Intermittently lethargic. Overnight with some tremors reported she felt like she may have been withdrawing. He is on home dose Suboxone, not escalating further due to somnolence. In case somnolence does not improve, consider MRI brain. MRI thoracic and lumbar spine obtained only noncontrast since declined to complete the entire study. Noncontrast studies with normal thoracic spine, unremarkable lumbar spine. Several benign hemangiomas in the visualized osseous structures. If blood pressures and mental status improved further, please commence a rrangements for ANGUS. Continue IV vancomycin, continue Rocephin for now, so far no resistant genes on preliminary sensitivities, follow-up final studies. Continue vancomycin even if MSSA bacteremia per discussion with her ID specialist. Since no fungal growth, switched from Amphotericin to caspofungin. Subsequently continue fluconazole. Continue antifungal as she did have fungal growth as well during her hospitalization in August. Discussed also with her ID specialist in [place] Dr. Emilie Dangelo Bicytopenia likely secondary to infection/sepsis. No mention of schistocytes. No blasts. Had also an episode on 12/15 evening around 5 PM with confusion, decreased responsiveness, tachycardia, noted to have some mottling, difficult to obtain oxygen saturation, but once obtained 97%. With anisocoria not seen in examination on presentation or at [facility]. Assessed by CT angiogram head and neck, unremarkable. Per discussion with her father anisocoria is since with one of the pupils less reactive. Confusional episode resolved. Tachycardia improved. Saturation remained steady on 2 L nasal cannula. Chest x-ray without acute abnormality. Troponin EKG series without suggestion of IN. Not entirely clear because of the episode. Similar episode documented on 2 occasions at [facility] in August. Status: Acute (2) Sepsis: As above Status: Acute (3) Septic embolism: Discussed with her concern for endocarditis, septic embolism given opacities noted on chest x-ray Continue antibiotics as above. Oxygen support as needed, currently 2 L nasal cannula. She denies IVDU As per discussion with her ID specialist, sometimes even in absence of IVDU can see relapse of staphylococcal infection after valve replacement. Aspirin has been on hold due to low platelets, concern for septic embolic disease. Status: Acute (4) Meningitis: Continue vancomycin. Empiric ceftriaxone. Continue monitoring. Status: Acute (5) Thrombocytopenia: Thrombocytopenia with partial improvement. Not in DIC. D-dimer elevated, suspect secondary to infection, both upper and lower duplex venous studies negative for DVT. Right ventricle with normal size and function. Bicytopenia likely secondary to infection/sepsis. No mention of schistocytes. No blasts. Requesting platelet transfusion given she is reporting some new vaginal bleeding which she has not had for a while. Repeat CBC Status: Acute (6) Intravenous infiltration: Does not appear to have residual abnormality. Right antecubital fossa IV is infiltrated with Levophed infusion 12/14 removed. Having some tenderness there, but so far no other symptoms. Warm compress, elevated RUE on pillow. Status: Acute (7) Opacity of lung on imaging study: Concern for septic embolization, recurrence of endocarditis. Status: Acute (8) History of tricuspid valve replacement with bioprosthetic valve: At [facility], reports was done on July 31. Records in paper chart. Had tricuspid valve replaced with bioprosthetic valve, and PFO closure at the same time. TTE no obvious vegetation. Will need ANGUS, declines Aspirin was held, continue to hold for now given possible septic embolization, DIGITAL [employer] EXECUTIVE infection Status: Acute (9) Bacteremia due to Staphylococcus aureus: Concern for recurrence of endocarditis. Vancomycin as above. Will need protracted antibiotic course, which may be difficult given recurrence of endocarditis, history of IVDU. Was hospitalized for the entire 6 weeks at [facility] to receive IV antibiotics via PICC line. Status: Acute (10) Episodic confusion: 12/15 had an episode in the evening around 5 PM with confusion, decreased responsiveness, sinus tachycardia, noted to have some mottling, difficult to obtain oxygen saturation, but once obtained 97%. With anisocoria not seen in examination on presentation or at [facility]. Assessed by CT angiogram head and neck, unremarkable. RPR negative. Per discussion with her father anisocoria is since with one of the pupils less reactive. Not always apparent depending on ambient light. Confusional episode resolved. Tachycardia improved. Saturation remained steady on 2 L nasal cannula. Chest x-ray without acute abnormality. Troponin EKG series without suggestion of IN. Not entirely clear because of the episode. Similar episode documented on 2 occasions at [facility] in August without identified cause. If recurrence or persistence, consider MRI brain. She is also on Suboxone. Continued dose 1 from 3 times daily. She has been having intermittent lethargy, so we have not increase the dose seen. It does appear that on outpatient side she has been receiving 8 mg doses. Consider increasing if lethargy improves. For now continue 4 mg, adding, however, 4 mg f ilms 3 times daily as needed for pain or showing symptoms of withdrawal. Discussed with father. Status: Acute (11) Anisocoria: Assessed by CT angiogram head and neck, unremarkable. RPR negative. Per discussion with her father anisocoria is since with one of the pupils less reactive. Not always apparent depending on ambient light. Status: Acute (12) Acute hypokalemia: Replaced. Follow-up and check magnesium level. Status: Acute Plan Septic shock secondary to secondary to meningitis, infective endocarditis, staph aureus bacteremia - Had tricuspid valve replaced with bioprosthetic valve, and PFO closure at the same -Received 6 weeks of IV antibiotics at [facility] -Concerns for recurrence of bacteremia especially given her valve replacement, concerns for recurrent IV drug use although patient declines -That she will require at least a 6-week course of IV vancomycin -Patient declined transesophageal echocardiogram, discussed risks and benefits, she voices any, all questions answered declined -Concern for meningitis, due to altered mental status, CSF clear, colorless, 192 WBCs,, 92% PMN -CSF shows no growth after 3 days, no organisms,, no white blood cells, seems more viral in nature however no viral studies were ordered -Thoracic and lumbar MRI within normal limits -MRI of the brain no acute findings -Thus the question is is that does she truly have meningitis does not seem like bacterial meningitis, more viral, no viral studies was ordered, HIV was negative, RPR was negative -Concern for septic emboli on chest x-ray, off oxygen therapy, no significant respiratory complaints -Repeat blood cultures negative -MRSA nares positive -Remains afebrile -Continue vancomycin -As per discussion with infectious disease at [facility], continue vancomycin for at least 6 weeks even if MSSA positive -Needs vancomycin for a total of 6 weeks Septic pulmonary emboli I discussed patient's CT angiogram findings, it is difficult for us to discern if the CT findings or evidence of septic emboli versus actually emboli related to hypercoagulability, her venous ultrasound was negative for DVT and I discussed the radiographic findings with the radiologist and the overall clot burden has decreased, I also spoke to infectious disease at [place], in their regards if it is indeed septic emboli, anticoagulation is not indicated, however if there are hypercoagulability associated pulmonary emboli then that would be a different story and anticoagulation could be considered but it is a difficult study situation. I discussed as she remains anemic and thrombocytopenic, and she clinically continues to improve I would elect that these are likely septic emboli from her recurrent drug use. And her bacteremia. However I cannot tell her 100% that these are not hypercoagulability and induced blood clots. Her venous ultrasound was negative DVT. And as she remains anemic and thrombocytopenic and evidence of iron deficiency anemia anticoagulating her would carry risks. I do think that her persistent oxygen requirements of 2 L is likely fluid overload seen on the CT angiogram. Nonetheless after discussing the risks and benefits of anticoagulation, she voiced understanding, all questions answered, came to a shared decision making for now we will not anticoagulate her. Continue to monitor her D-dimer monitor oxygen requirements, and reevaluate at as time goes on. 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 She had 2 teeth removed on 07/24/2021.? She also had tricuspid valve replacement with PFO closure by Dr. 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 CT showed decrease as a PA aneurysms.? She also had a PET scan during that hospitalization which showed some residual uptake in the right pulmonary septic emboli suggesting ongoing infection inflammation which was expected.? She completed 6 weeks of IV antibiotics.? This morning she was not feeling well, she is requiring 2 L, she is intermittently requiring [address] scan showed 1. Cardiomegaly with pulmonary vascular congestion. 2. Small bilateral pleural effusions are present. 3. Nonspecific bilateral opacities, atelectasis, edema and/or pneumonia. 4. Pulmonary interstitial edema. 5. Bilateral occlusive lower lobe pulmonary emboli similar in appearance to the prior exam from 03/30/2021. Additional pulmonary emboli felt to be present in left upper lobe segmental arteries. 6. The RV/LV ratio is abnormally elevated suggestive of right heart strain, measuring 1.2. Reflux of injected contrast material into hepatic veins suggests decreased cardiac output. 7. Enlarged mediastinal nodes with the largest at the AP window having a short axis diameter of 2.1 cm. 8. Intra-abdominal ascites is present. 9. Hepatomegaly partially visualized. -Likely findings for septic pulmonary emboli, as she has had staph auris bacteremia -The question is is that she does have elevated D-dimer, venous ultrasound have been negative for DVT, she we treat these for pulmonary emboli from hypercoagulability with anticoagulation or septic emboli from tricuspid valve -Complicating things is that she has been anemic, evidence of microcytic anemia, no vaginal bleeding, concerning for may be slow GI bleed, Hemoccult stool pending, but also could have component of sepsis she also had severe thrombocytopenia with evidence of DIC, from sepsis -There was no good indication for IVC filter placement as venous ultrasounds were negative for DVT and above findings were concerning for more septic emboli -I spoke to [facility] about clarifying patient's CT scan findings, overall her clot burden has decreased, there is no cavitating lesions, there is evidence of emboli in the left upper lobe, bilateral lobes, however the overall clot burden has decreased, new is bilateral pleural effusions, -Patient D-dimer is greater than 7, she benjie afebrile, inflammatory markers are decreasing -The ultimate question is is that of the septic emboli or these emboli related to hypercoagulability -Given her history, her history of IV drug use, bacteremia, I am favoring that these are septic emboli, and given that the clot burden has decreased, this is likely responding to antibiotic treatment -Thus I will hold off on anticoagulation, due to risk of hemorrhagic conversion, and continue antibiotic treatment -I have ordered a venous ultrasound, cardiac echo did not show any significant right heart strain, I will continue to monitor D-dimer and inflammatory markers daily Evidence of fluid overload, 1 dose of Lasix today History of bilateral occlusive pulmonary emboli, with right heart strain Anemia, hemoglobin 8.8, status post 1 unit PRBC, iron levels are on the lower end, Hemoccult stool Thrombocytopenia improving, monitor HCV positive, HCVRNA 30 will need to follow-up with infectious disease as outpatient PA aneurysm: noted during hospitalization in Aug at [facility], had hemoptysis requiring temporary intubation. Vaginal bleeding: Spotting only. Also reports irregular menses. Discussed with her she to follow-up with gynecology after discharge. Smoking: Nicotine replacement Depression with failure to thrive. I requested case management evaluate the patient with possible outpatient referral for behavioral health/psychiatry History of septic pulmonary emboli Hyponatremia. Resolving. Regular diet. Treat sepsis as above. Repeat level. 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 Patient status post bioprosthetic valve replacement?patient uncertain of as to which valve was replaced Depression Hepatitis C. hepatitis C RNA requested by infectious disease specialist, ordered. Receiving treatment in [place]. Will need follow-up with Dr Dangelo. Please forward HCV RNA results to ID provider. Microcytic anemia, chronic with history of iron deficiency. Iron deficiency anemia. Will monitor hemoglobin level intermittently. Check fecal occult blood. Previously negative. Hypophosphatemia. We will monitor phosphorus level intermittently. Neutra-Phos 2 150 Mill cans by mouth twice a day Hx methamphetamine abuse History of leaving AGAINST MEDICAL ADVICE Medical noncompliance as witnessed by patient previous leaving AGAINST MEDICAL ADVICE. The patient becomes regarding medical compliance Query history of asthma She is also on Suboxone. Continued dose 1 from 3 times daily. She has been having intermittent lethargy, so we have not increase the dose seen. It does appear that on outpatient side she has been receiving 8 mg doses. Consider increasing if lethargy improves. For now continue 4 mg, adding, however, 4 mg films 3 times daily as needed for pain or showing symptoms of withdrawal. Discussed with father. -Plan for today -Continue vancomycin -CT angio venous ultrasound -Monitor for fevers -Monitor for bloody black stools Attestations Medical Necessity Statement*: Patient requires hospitalization for endocarditi s, staph auris bacteremia, requiring 6 weeks of IV antibiotics Coding Level of Care Code Acute Sidewalk Inspector for g Fwd Diagnoses Septic shock A41.9; R65.21 Sepsis A41.9 Septic embolism I76 Meningitis G03.9 Thrombocytopenia D69.6 Intravenous infiltration T80.1XXA Opacity of lung on imaging study R91.8 History of tricuspid valve replacement with bioprosthetic valve Z95.3 Bacteremia due to Staphylococcus aureus R78.81; B95.61 Episodic confusion R41.0 Anisocoria H57.02 Acute hypokalemia E87.6
--- NOTE | 2021-12-23 13:07 | PC.NURSE ---
Patient called [facility] [employer] into room at this time. She was found to have pulled her IV out, as well as urinated in the floor because she couldn't make it to the bedside commode .
[2021-12-24] VITALS (11 sets, daily range): BP systolic 96–123; BP diastolic 57–75; PULSE 69–97; RESP 17–117; TEMP 36.6–38.5; O2SAT 90–99
[2021-12-24] MEDS: heparin 5,000 unit/mL INJ 1 mL 5000 UNIT SUBCUT ×2 (01:24→08:58)
[2021-12-24] MEDS: acetaminophen 325 mg Tablet 650 MG PO ×2 (04:01→20:39)
[2021-12-24 05:23] LABS: Basophils % 0.2 %; Eosinophils # 0.1 10^3/uL (0.0-0.8); Eosinophils % 0.3 %; Hematocrit 25.9 % (37.0-47.0); Hemoglobin 7.8 g/dL (11.5-15.3); Lymphocytes # 0.7 10^3/uL (0.8-4.8); Lymphocytes % 3.2 %; Mean Corpuscular HGB Conc 30.1 g/dL (30.0-36.0); Mean Corpuscular Hemoglobin 22.3 pg (28.0-34.0); Monocytes # 1.2 10^3/uL (0.2-0.9); Neutrophils % 90.7 %; Nucleated Red Blood Cells % 0 %; Platelet Count 103 10^3/cmm (130-400)
[2021-12-24 05:45] LABS: Alanine Aminotransferase < 5 U/L (0-33); Albumin Level 2.6 g/dL (3.5-5.2); Alkaline Phosphatase 278 IU/L (35-105); Anion Gap 11.9 (5-19); Aspartate Amino Transferase 13 U/L (0-32); Blood Urea Nitrogen 9 mg/dL (6-20); Calcium 8.2 mg/dL (8.5-10.5); Carbon Dioxide 28 mmol/L (22-29); Chloride 98 mmol/L (98-107); Globulin 4.1 g/dL (1.3-4.6); Glomerular Filtration Rate 113.8 mL/min (90-130); Glucose 137 mg/dL (65-115); Osmolality Calculated 279 mOsm/kg (285-295); Potassium 3.9 mmol/L (3.5-5.1); Sodium 134 mmol/L (136-145); Total Bilirubin 0.8 mg/dL (0.15-1.2); Total Protein 6.7 g/dL (6.6-8.7)
[2021-12-24 05:46] LABS: C Reactive Protein 106.1 mg/L (0.0-4.9)
[2021-12-24 05:51] LABS: NT Pro B Type Natriuretic Pept 6017 pg/mL (0-125); Procalcitonin 2.52 ng/mL (0-0.5)
[2021-12-24 05:52] LABS: D Dimer >= 20.00 ug/mIFEU (0-0.59)
--- NOTE | 2021-12-24 07:57 | USCV_ITS ---
Linh Ambrose Age: 36 Gender: F : 1985 Exam Date: 12/24/2021 09:24 Ordering Phys: Thee Taylor MD Technologist: Cornelius Burroughs Exam Location: [facility] [place] Indication: tricuspid valve prostesis vegitation BP: 132 / 73 HR: 64 Rhythm: Sinus Technical Quality: Good MEASUREMENTS (Male / Female) Normal Values 2D ECHO LV Diastolic Diameter PLAX 5.0 cm 4.2 - 5.9 / 3.9 - 5.3 cm LV Systolic Diameter PLAX 3.6 cm IVS Diastolic Thickness 1.3 cm 0.6 - 1.0 / 0.6 - 0.9 cm IVS Systolic Thickness 1.6 cm LVPW Diastolic Thickness 1.1 cm 0.6 - 1.0 / 0.6 - 0.9 cm LVPW Systolic Thickness 1.6 cm LV Ejection Fraction 2D Teich 53.7 % DOPPLER MV Peak Velocity 297.0 cm/s TR Peak Velocity 407.0 cm/s TR Peak Gradient 66.3 mmHg FINDINGS Left Ventricle Right Ventricle Right Atrium Left Atrium Mitral Valve Aortic Valve Tricuspid Valve Pulmonic Valve Pericardium Aorta IVC CONCLUSIONS This is a limited echocardiogram performed to assess tricuspid valve. LV systolic function is normal. There is a bioprosthetic tricuspid valve. Leaflets are significantly thickened. Possibility of vegetation cannot be ruled out. Recommend performing transesophageal echocardiogram to better assess tricuspid valve. Mean gradient across tricuspid valve is 15 mmHg Marvin Álvarez MD (Electronically Signed) Final Date: 24 Dec 2021 19:13 S
[2021-12-24] MEDS: nicotine 21 mg Patch 1 PATCH TRANSDERMA (08:57)
[2021-12-24] MEDS: lidocaine 5% Patch 1 PATCH TOPICAL (08:57)
[2021-12-24] MEDS: fluconazole 100 mg Tablet 600 MG PO (08:58)
[2021-12-24] MEDS: duloxetine 60 mg Capsule PO (08:58)
[2021-12-24] MEDS: aspirin 81 mg EC Tablet PO (08:58)
[2021-12-24] MEDS: FUROsemide 10 mg/mL SDV 4mL 40 MG IVP (09:01)
[2021-12-24 09:38] LABS: Magnesium 1.5 mg/dL (1.7-2.3)
[2021-12-24] MEDS: vancomycin 1,000 MG in sodium chloride 0.9% 250 ML 250 MG IV ×2 (11:22→22:14)
[2021-12-24] MEDS: polyethylene glycol 3350 Pkt 17 gm PO (11:29)
--- NOTE | 2021-12-24 12:52 | PM.PN ---
Subjective Subjective: Patient was seen this morning, she had low-grade fevers overnight, is feeling unwell this morning, no nausea, no vomiting, no chest pain, no palpitations, does report shortness of breath I discussed patient's findings this morning, her inflammatory markers including her CRP and Pro-Danis are increasing, her white blood cell count is increasing, and she continues to have low-grade fevers, I discussed my concerns for persistent bacteremia, concerning for tricuspid valve vegetation and with CT scan findings, for persistent septic emboli as her D-dimer continues to elevate greater than 20, discussed proceeding with transesophageal echocardiogram, she refused in the past, discussed risk and benefits of transesophageal echocardiogram, she reports any, all questions answered agreed to proceed, will proceed with transesophageal echocardiogram tomorrow morning Vitals/I&O/Wt Last Vital Signs Temp 97.8 F 12/24/21 11:17 Pulse 72 12/24/21 11:17 Resp 17 12/24/21 11:17 BP 96/57 12/24/21 11:17 Pulse Ox 90 12/24/21 11:17 12/23/21 12/24/21 12/24/21 22:59 06:59 14:59 Intake Total 960 / 1810 490 / 2300 730 / 730 Output Total 2000 / 1999 600 / 2600 2800 / 2800 Balance -1040 / -190 -110 / -300 -2070 / -2070 Weight last 48 hrs Weight 62.46 kg Weight 57.062 kg Physical Exam Const: COMMON NORMALS: no acute distress and patient oriented x3 Resp: AUSCULTATION: wheezes Cardio: COMMON NORMALS: regular rate, regular rhythm, S1 normal heart sound present and S2 normal heart sound present RATE: regular rate RHYTHM: regular rhythm HEART SOUNDS: S1 normal heart sound present and S2 normal heart sound present GI: COMMON NORMALS: Normal to inspection, nondistended, normoactive bowel sounds present, Soft to palpation and non-tender PALPATION: Yes Soft to palpation Extremity: COMMON NORMALS: no clubbing, cyanosis or edema and no pedal edema Neuro: COMMON NORMALS: patient oriented x3 Psych: COMMON NORMALS: mental status grossly normal Data : 12/24/21 05:05 12/24/21 05:05 Micro: Microbiology 12/24/21 05:05 Blood Culture - Preliminary Blood SPECIMEN COLLECTED 12/24/21 05:05 Blood Culture - Preliminary Blood SPECIMEN COLLECTED A&P Assessment and plan (1) Septic shock: Secondary to meningitis infective endocarditis, staph auris bacteremia Resolved. Weaned off pressor. Blood pressure soft, but maintaining in good range. DIC improving. Fibrillation products, D-dimer decreasing. Received platelets, with very good response to transfusion and likely also additional spontaneous increase since platelet level up to 77,000. Discussed with her and her father, discussed risk of VTE, discussed consideration of pharmacologic DVT prophylaxis in addition to SCDs given her platelets have rebounded. However, discussed also possibility of elevated risk of bleeding with septic embolic disease. She and father are agreeable with travel prophylactic heparin. Reassess platelets in condition with low threshold to discontinue in case of concerning trends. Symptomatically feels minutely better. Intermittently lethargic. Overnight with some tremors reported she felt like she may have been withdrawing. He is on home dose Suboxone, not escalating further due to somnolence. In case somnolence does not improve, consider MRI brain. MRI thoracic and lumbar spine obtained only noncontrast since declined to complete the entire study. Noncontrast studies with normal thoracic spine, unremarkable lumbar spine. Several benign hemangiomas in the visualized osseous structures. If blood pressures and mental status improved further, please commence arrangements for ANGUS. Continue IV vancomycin, continue Rocephin for now, so far no resistant genes on preliminary sensitivities, follow-up final studies. Continue vancomycin even if MSSA bacteremia per discussion with her ID specialist. Since no fungal growth, switched from Amphotericin to caspofungin. Subsequently continue fluconazole. Continue antifungal as she did have fungal growth as well during her hospitalization in August. Discussed also with her ID specialist in [place] Dr. Emilie Dangelo Bicytopenia likely secondary to infection/sepsis. No mention of schistocytes. No blasts. Had also an episode on 12/15 evening around 5 PM with confusion, decreased responsiveness, tachycardia, noted to have some mottling, difficult to obtain oxygen saturation, but once obtained 97%. With anisocoria not seen in examination on presentation or at [facility]. Assessed by CT angiogram head and neck, unremarkable. Per discussion with her father anisocoria is since with one of the pupils less reactive. Confusional episode resolved. Tachycardia improved. Saturation remained steady on 2 L nasal cannula. Chest x-ray without acute abnormality. Troponin EKG series without suggestion of LA. Not entirely clear because of the episode. Similar episode documented on 2 occasions at [facility] in August. Status: Acute (2) Sepsis: As above Status: Acute (3) Septic embolism: Discussed with her concern for endocarditis, septic embolism given opacities noted on chest x-ray Continue antibiotics as above. Oxygen support as needed, currently 2 L nasal cannula. She denies IVDU As per discussion with her ID specialist, sometimes even in absence of IVDU can see relapse of staphylococcal infection after valve replacement. Aspirin has been on hold due to low platelets, concern for septic embolic disease. Status: Acute (4) Meningitis: Continue vancomycin. Empiric ceftriaxone. Continue monitoring. Status: Acute (5) Thrombocytopenia: Thrombocytopenia with partial improvement. Not in DIC. D-dimer elevated, suspect secondary to infection, both upper and lower duplex venous studies negative for DVT. Right ventricle with normal size and function. Bicytopenia likely secondary to infection/sepsis. No mention of schistocytes. No blasts. Requesting platelet transfusion given she is reporting some new vaginal bleeding which she has not had for a while. Repeat CBC Status: Acute (6) Intravenous infiltration: Does not appear to have residual abnormality. Right antecubital fossa IV is infiltrated with Levophed infusion 12/14 removed. Having some tenderness there, but so far no other symptoms. Warm compress, elevated RUE on pillow. Status: Acute (7) Opacity of lung on imaging study: Concern for septic embolization, recurrence of endocarditis. Status: Acute (8) History of tricuspid valve replacement with bioprosthetic valve: At [facility], reports was done on July 31. Records in paper chart. Had tricuspid valve replaced with bioprosthetic valve, and PFO closure at the same time. TTE no obvious vegetation. Will need ANGUS, declines Aspirin was held, continue to hold for now given possible septic embolization, PHYSICIAN ASSISTANT CERTIFIED infection Status: Acute (9) Bacteremia due to Staphylococcus aureus: Concern for recurrence of endocarditis. Vancomycin as above. Will need protracted antibiotic course, which may be difficult given recurrence of endocarditis, history of IVDU. Was hospitalized for the entire 6 weeks at [facility] to receive IV antibiotics via PICC line. Status: Acute (10) Episodic confusion: 12/15 had an episode in the evening around 5 PM with confusion, decreased responsiveness, sinus tachycardia, noted to have some mottling, difficult to obtain oxygen saturation, but once obtained 97%. With anisocoria not seen in examination on presentation or at [facility]. Assessed by CT angiogram head and neck, unremarkable. RPR negative. Per discussion with her father anisocoria is since with one of the pupils less reactive. Not always apparent depending on ambient light. Confusional episode resolved. Tachycardia improved. Saturation remained steady on 2 L nasal cannula. Chest x-ray without acute abnormality. Troponin EKG series without suggestion of LA. Not entirely clear because of the episode. Similar episode documented on 2 occasions at [facility] in August without identified cause. If recurrence or persistence, consider MRI brain. She is also on Suboxone. Continued dose 1 from 3 times daily. She has been having intermittent lethargy, so we have not increase the dose seen. It does appear that on outpatient side she has been receiving 8 mg doses. Consider increasing if lethargy improves. For now continue 4 mg, adding, however, 4 mg films 3 times daily as needed for pain or showing symptoms of withdrawal. Discussed with father. Status: Acute (11) Anisocoria: Assessed by CT angiogram head and neck, unremarkable. RPR negative. Per discussion with her father anisocoria is since with one of the pupils less reactive. Not always apparent depending on ambient light. Status: Acute (12) Acute hypokalemia: Replaced. Follow-up and check magnesium level. Status: Acute Plan Septic shock secondary to secondary to meningitis, infective endocarditis, staph aureus bacteremia - Had tricuspid valve replaced with bioprosthetic valve, and PFO closure at the same -Received 6 weeks of IV antibiotics at [facility] -Concerns for recurrence of bacteremia especially given her valve replacement, concerns for recurrent IV drug use although patient declines -That she will require at least a 6-week course of IV vancomycin -Patient declined transesophageal echocardiogram, discussed risks and benefits, she voices any, all questions answered declined -Concern for meningitis, due to altered mental status, CSF clear, colorless, 192 WBCs,, 92% PMN -CSF shows no growth after 3 days, no organisms,, no white blood cells, seems more viral in nature however no viral studies were ordered -Thoracic and lumbar MRI within normal limits -MRI of the brain no acute findings -Thus the question is is that does she truly have meningitis does not seem like bacterial meningitis, more viral, no viral studies was ordered, HIV was negative, RPR was negative -Concern for septic emboli on chest x-ray, off oxygen therapy, no significant respiratory complaints -Repeat blood cultures negative -MRSA nares positive -Remains afebrile -Continue vancomycin -As per discussion with infectious disease at [facility], continue vancomycin for at least 6 weeks even if MSSA positive -Needs vancomycin for a total of 6 weeks -Given her elevated white count, 23,000, elevated Pro-Danis, CRP, persistent fevers, CT angiogram findings, concerning for tricuspid valve vegetation and septic emboli, will pursue transesophageal echocardiogram tomorrow Septic pulmonary emboli I discussed patient's CT angiogram findings, it is difficult for us to discern if the CT findings or evidence of septic emboli versus actually emboli related to hypercoagulability, her venous ultrasound was negative for DVT and I discussed the radiographic findings with the radiologist and the overall clot burden has decreased, I also spoke to infectious disease at [place], in their regards if it is indeed septic emboli, anticoagulation is not indicated, however if there are hypercoagulability associated pulmonary emboli then that would be a different story and anticoagulation could be considered but it is a difficult situation. If we can proceed with transesophageal echocardiogram, that would help in her decision making however patient refuses. I discussed as she remains anemic and thrombocytopenic, and she clinically continues to improve I would elect that these are likely septic emboli from her recurrent drug use. And her bacteremia. However I cannot tell her 100% that these are not hypercoagulability and induced blood clots. Her venous ultrasound was negative DVT. And as she remains anemic and thrombocytopenic and evidence of iron deficiency anemia anticoagulating her would carry risks. I do think that her persistent oxygen requirements of 2 L is likely fluid overload seen on the CT angiogram. Nonetheless after discussing the risks and benefits of anticoagulation, she voiced understanding, all questions answered, came to a shared decision making for now we will not anticoagulate her. Continue to monitor her D-dimer monitor oxygen requirements, and reevaluate at as time goes on. 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 She had 2 teeth removed on 07/24/2021.? She also had tricuspid valve replacement with PFO closure by Dr. 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 CT showed decrease as a PA aneurysms.? She also had a PET scan during that hospitalization which showed some residual uptake in the right pulmonary septic emboli suggesting ongoing infection inflammation which was expected.? She completed 6 weeks of IV antibiotics.? This morning she was not feeling well, she is requiring 2 L, she is intermittently requiring [address] scan showed 1. Cardiomegaly with pulmonary vascular congestion. 2. Small bilateral pleural effusions are present. 3. Nonspecific bilateral opacities, atelectasis, edema and/or pneumonia. 4. Pulmonary interstitial edema. 5. Bilateral occlusive lower lobe pulmonary emboli similar in appearance to the prior exam from 03/30/2021. Additional pulmonary emboli felt to be present in left upper lobe segmental arteries. 6. The RV/LV ratio is abnormally elevated suggestive of right heart strain, measuring 1.2. Reflux of injected contrast material into hepatic veins suggests decreased cardiac output. 7. Enlarged mediastinal nodes with the largest at the AP window having a short axis diameter of 2.1 cm. 8. Intra-abdominal ascites is present. 9. Hepatomegaly partially visualized. -Likely findings for septic pulmonary emboli, as she has had staph auris bacteremia -The question is is that she does have elevated D-dimer, venous ultrasound have been negative for DVT, she we treat these for pulmonary emboli from hypercoagulability with anticoagulation or septic emboli from tricuspid valve -Complicating things is that she has been anemic, evidence of microcytic anemia, no vaginal bleeding, concerning for may be slow GI bleed, Hemoccult stool pending, but also could have component of sepsis she also had severe thrombocytopenia with evidence of DIC, from sepsis -There was no good indication for IVC filter placement as venous ultrasounds were negative for DVT and above findings were concerning for more septic emboli -I spoke to [facility] about clarifying patient's CT scan findings, overall her clot burden has decreased, there is no cavitating lesions, there is evidence of emboli in the left upper lobe, bilateral lobes, however the overall clot burden has decreased, new is bilateral pleural effusions, -Patient D-dimer is greater than 7, she benjie afebrile, inflammatory markers are decreasing -The ultimate question is is that of the septic emboli or these emboli related to hypercoagulability -Given her history, her history of IV drug use, bacteremia, I am favoring that these are septic emboli, and given that the clot burden has decreased, this is likely responding to antibiotic treatment -Thus I will hold off on anticoagulation, due to risk of hemorrhagic conversion, and continue antibiotic treatment -I have ordered a venous ultrasound, cardiac echo did not show any significant right heart strain, I will continue to monitor D-dimer and inflammatory markers daily Evidence of fluid overload, 1 dose of Lasix today History of bilateral occlusive pulmonary emboli, with right heart strain Anemia, hemoglobin 8.8, status post 1 unit PRBC, iron levels are on the lower end, Hemoccult stool Thrombocytopenia improving, monitor HCV positive, HCVRNA 30 will need to follow-up with infectious disease as outpatient PA aneurysm: noted during hospitalization in Aug at [facility], had hemoptysis requiring temporary intubation. Vaginal bleeding: Spotting only. Also reports irregular menses. Discussed with her she to follow-up with gynecology after discharge. Smoking: Nicotine replacement Depression with failure to thrive. I requested case management evaluate the patient with possible outpatient referral for behavioral health/psychiatry History of septic pulmonary emboli Hyponatremia. Resolving. Regular diet. Treat sepsis as above. Repeat level. 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 Patient status post bioprosthetic valve replacement?patient uncertain of as to which valve was replaced Depression Hepatitis C. hepatitis C RNA requested by infectious disease specialist, ordered. Receiving treatment in [place]. Will need follow-up with Dr Dangelo. Please forward HCV RNA results to ID provider. Microcytic anemia, chronic with history of iron deficiency. Iron deficiency anemia. Will monitor hemoglobin level intermittently. Check fecal occult blood. Previously negative. Hypophosphatemia. We will monitor phosphorus level intermittently. Neutra-Phos 2 150 Mill cans by mouth twice a day Hx methamphetamine abuse History of leaving AGAINST MEDICAL ADVICE Medical noncompliance as witnessed by patient previous leaving AGAINST MEDICAL ADVICE. The patient becomes regarding medical compliance Query history of asthma She is also on Suboxone. Continued dose 1 F ILM 3 times daily -Plan for today -Continue vancomycin -N.p.o. midnight, plan for transesophageal echocardiogram tomorrow -Monitor for fevers -Monitor for bloody black stools Attestations Medical Necessity Statement*: Patient requires hospitalization for staph auris bacteremia, endocarditis, now with recurrent fevers, inflammatory marker elevation, will proceed with transesophageal echocardiogram Coding Level of Care Code Acute General Hardware Salesperson for g Fwd Diagnoses Septic shock A41.9; R65.21 Sepsis A41.9 Septic embolism I76 Meningitis G03.9 Thrombocytopenia D69.6 Intravenous infiltration T80.1XXA Opacity of lung on imaging study R91.8 History of tricuspid valve replacement with bioprosthetic valve Z95.3 Bacteremia due to Staphylococcus aureus R78.81; B95.61 Episodic confusion R41.0 Anisocoria H57.02 Acute hypokalemia E87.6
[2021-12-24] MEDS: buprenorphine-naloxone 4-1 mg Film 2 EACH SUBLINGUAL ×2 (15:41→20:39)
[2021-12-24] MEDS: FUROsemide 10 mg/mL SDV 4mL 20 MG IVP (17:26)
[2021-12-24 17:47] LABS: Add Urine Microscopic? NO; Charge for UA Resulting for Rev
[2021-12-24 17:58] LABS: Bilirubin Urine Neg (Negative); Blood Urine Neg (Negative); Glucose Urine UA Norm (Normal); Ketones Urine Negative (Negative); Leukocyte Esterase Urine Negative (Negative); Nitrate Urine Negative (Negative); Protein Urine Neg (Negative); Sulfosalicylic Acid Urine Negative (Negative); Urine Appearance Clear (CLEAR); Urine Color Straw (Yellow); Urobilinogen Urine Norm (Negative); pH Urine 8 (5-7)
[2021-12-24 21:12] LABS: Influenza A by IFA Negative (Negative); Influenza B by IFA Negative (Negative)
[2021-12-24 22:06] LABS: Adenovirus Not Detected (NOT DETECT); Chlamydia Pneumoniae Not Detected (NOT DETECT); Coronavirus 229E,HKU1,NL63,OC4 Not Detected (NOT DETECT); Human Metapneumovirus Not Detected (NOT DETECT); Human Rhinovirus/Enterovirus Not Detected (NOT DETECT); Influenza A Not Detected (NOT DETECT); Influenza A H1 Not Detected (NOT DETECT); Influenza A H1-2009 Not Detected (NOT DETECT); Influenza A H3 Not Detected (NOT DETECT); Influenza B Not Detected (NOT DETECT); Mycoplasma Pneumoniae Not Detected (NOT DETECT); Parainfluenza Virus Type 1 Not Detected (NOT DETECT); Parainfluenza Virus Type 2 Not Detected (NOT DETECT); Parainfluenza Virus Type 3 Not Detected (NOT DETECT); Parainfluenza Virus Type 4 Not Detected (NOT DETECT); Respiratory Syncytial Virus A Not Detected (NOT DETECT); Respiratory Syncytial Virus B Not Detected (NOT DETECT); SARS-COV-2 Not Detected (NOT DETECT)
[2021-12-25] VITALS (9 sets, daily range): BP systolic 78–119; BP diastolic 44–72; PULSE 65–115; RESP 16–18; TEMP 36.2–39.3; O2SAT 93–99
[2021-12-25] MEDS: heparin 5,000 unit/mL INJ 1 mL 5000 UNIT SUBCUT ×3 (00:36→16:23)
[2021-12-25 06:12] LABS: Basophils % 0.3 %; Eosinophils # 0.1 10^3/uL (0.0-0.8); Eosinophils % 0.9 %; Hematocrit 24.1 % (37.0-47.0); Hemoglobin 7.2 g/dL (11.5-15.3); Lymphocytes # 1.2 10^3/uL (0.8-4.8); Mean Corpuscular HGB Conc 29.9 g/dL (30.0-36.0); Mean Corpuscular Hemoglobin 22.2 pg (28.0-34.0); Mean Corpuscular Volume 74.2 fl (81-99); Mean Platelet Volume 10.8 fL (7.4-10.4); Monocytes # 0.6 10^3/uL (0.2-0.9); Neutrophils # 10.25 10^3/uL (1.8-7.7); Neutrophils % 83.3 %; Nucleated Red Blood Cells % 0 %; Platelet Count 111 10^3/cmm (130-400); Red Blood Count 3.25 10^6/uL (4.1-5.3); Red Cell Distribution Width 22.9 % (12.1-15.1); White Blood Count 12.3 10^3/uL (4.0-10.0)
[2021-12-25 06:25] LABS: INR 1.28 (0.8-1.2)
[2021-12-25 06:26] LABS: Fibrinogen 244 mg/dL (174-498); Partial Thromboplastin Time 37.1 SECONDS (23.9-36.7)
[2021-12-25 06:33] LABS: Lactate (Lactic Acid level) 0.9 mmol/L (0.5-2.2)
[2021-12-25 06:43] LABS: D Dimer >= 20.00 ug/mIFEU (0-0.59)
[2021-12-25 06:44] LABS: NT Pro B Type Natriuretic Pept 4689 pg/mL (0-125); Procalcitonin 2.61 ng/mL (0-0.5)
[2021-12-25 06:55] LABS: Alanine Aminotransferase < 5 U/L (0-33); Anion Gap 9.8 (5-19); Aspartate Amino Transferase 10 U/L (0-32); C Reactive Protein 99.4 mg/L (0.0-4.9); Carbon Dioxide 31 mmol/L (22-29); Chloride 97 mmol/L (98-107); Creatinine Clr Calc Pharmacy 120.1355; Glomerular Filtration Rate 113.8 mL/min (90-130); Potassium 3.8 mmol/L (3.5-5.1); Sodium 134 mmol/L (136-145); Total Bilirubin 0.6 mg/dL (0.15-1.2)
--- NOTE | 2021-12-25 07:00 | XR_ITS ---
WS: [id number] Exam: XR chest 1V portable [id number] Date/Time of Exam: 12/25/2021 5:41 AM Reason For Exam: sob Comparison 12/15/2021. Bibasal plaque atelectasis is noted. Bibasal small pleural effusions have developed. The lungs are fu lly expanded. Heart size is top limits normal. Signs of cardiac valve replacement and median sternoto my. Mediastinal contour appears normal. Bony structures are intact. XR/XR chest 1V portable [id number] IMPRESSION: 1. Bibasal plaque atelectasis has developed since prior study. Small bibasal pl eural effusions are new since previous exam.
[2021-12-25 07:10] LABS: Alkaline Phosphatase 244 IU/L (35-105); Blood Urea Nitrogen 9 mg/dL (6-20); Calcium 8.2 mg/dL (8.5-10.5); Glucose 99 mg/dL (65-115); Magnesium 1.8 mg/dL (1.7-2.3); Osmolality Calculated 277 mOsm/kg (285-295); Phosphorus 4.9 mg/dL (2.5-4.5)
[2021-12-25 07:11] LABS: Globulin 4.2 g/dL (1.3-4.6); Total Protein 6.7 g/dL (6.6-8.7)
[2021-12-25 07:12] LABS: Albumin Level 2.5 g/dL (3.5-5.2)
[2021-12-25] MEDS: duloxetine 60 mg Capsule PO (08:57)
[2021-12-25] MEDS: fluconazole 100 mg Tablet 600 MG PO (08:57)
[2021-12-25] MEDS: aspirin 81 mg EC Tablet PO (08:57)
[2021-12-25] MEDS: lidocaine 5% Patch 1 PATCH TOPICAL ×2 (08:58→21:06)
[2021-12-25] MEDS: polyethylene glycol 3350 Pkt 17 gm PO (08:58)
[2021-12-25] MEDS: nicotine 21 mg Patch 1 PATCH TRANSDERMA (08:58)
[2021-12-25] MEDS: buprenorphine-naloxone 4-1 mg Film 2 EACH SUBLINGUAL ×2 (08:59→21:05)
[2021-12-25] MEDS: sodium chloride 0.9% 250 ML IV (09:23)
[2021-12-25] MEDS: vancomycin 1,000 MG in sodium chloride 0.9% 250 ML 250 MG IV (10:33)
--- NOTE | 2021-12-25 15:08 | P.PN_ITS ---
Subjective Subjective: This morning she states her numbers were off, she did not feel comfortable going forward with EEG. has not been having the best appetite but trying to eat. Tries to get out of bed, sitting in a chair. has not had a bowel movement in a while, possibly through hospitalization. Does get dyspneic with exertion. Not coughing. Blood pressure soft this morning. Required bolus. Had a fever. Present consideration of transfer to [facility], reported continue hospitalization if possible as opposed to seeking transfer. Vitals/I&O/Wt Last Vital Signs Temp 98.3 F 12/25/21 12:00 Pulse 85 12/25/21 12:41 Resp 16 12/25/21 12:00 BP 96/45 12/25/21 12:00 Pulse Ox 97 12/25/21 12:41 12/25/21 12/25/21 12/25/21 06:59 14:59 22:59 Intake Total 250 / 1460 500 / 500 Output Total 1900 / 5400 Balance -1650 / -3940 500 / 500 Weight last 48 hrs Weight 59.874 kg Weight 62.46 kg Physical Exam Const: COMMON NORMALS: alert GENERAL APPEARANCE: cooperative ORIENTATION/CONSCIOUSNESS: Yes awake HENMT: COMMON NORMALS: normocephalic, EAC's normal, Normal external nose present and moist oral mucous membranes HEAD & SCALP: normocephalic NOSE: Normal external nose present EXTERNAL AUDITORY CANAL: EAC's normal Eye: OTHER: Min anisocoria, R>L Neck/C-Spine: COMMON NORMALS: no meningeal signs Chest: CHEST: Yes Symmetrical chest wall rise Resp: COMMON NORMALS: clear to auscultation bilaterally AUSCULTATION: clear to auscultation bilaterally Cardio: COMMON NORMALS: regular rate, regular rhythm and No murmurs present (Cardio) RATE: regular rate RHYTHM: regular rhythm GI: COMMON NORMALS: Normal to inspection, nondistended, normoactive bowel sounds present, Soft to palpation and non-tender PALPATION: Yes Soft to palpation Extremity: COMMON NORMALS: no pedal edema OTHER: No erythema or swelling of R forearm Neuro: COMMON NORMALS: moves all extremities SENSORIUM/ORIENTATION: Yes alert MENINGEAL SIGNS: Yes no meningeal signs Psych: COMMON NORMALS: mental status grossly normal Skin: COMMON NORMALS: no wounds RASHES: no rashes Data : 12/25/21 05:57 12/25/21 05:57 Micro: Microbiology 12/24/21 05:05 Blood Culture - Preliminary Blood NEGATIVE TO DATE 12/24/21 05:05 Blood Culture - Preliminary Blood NEGATIVE TO DATE A&P Assessment and plan (1) Septic shock: BP low this morning, down to 78/44, yesterday received Lasix. Given small bolus 250 mL NS with rebound up to 96/45. Monitor blood pressures Discussed with her again possibility of DIC/dysregulation of coagulation with elevation of fibrinogen products, elevated D-dimer. Abnormal INR. She is again febrile. Discussed with her adding back ceftriaxone for synergistic effect, and appears to have done well with that previously, with staph sensitive, although discussed he states to continue vancomycin given history of MRSA and as per recommendation of her ID specialist. Septic shock. Previously resolved. Secondary to meningitis infective endocarditis, staph auris bacteremia Off pressor. MRI thoracic and lumbar spine obtained only noncontrast since declined to complete the entire study. Noncontrast studies with normal thoracic spine, unremarkable lumbar spine. Several benign hemangiomas in the visualized osseous structures. If blood pressures and mental status improved further, please commence arrangements for [facility]. Continue IV vancomycin, continue Rocephin for now, so far no resistant genes on preliminary sensitivities, follow-up final studies. Continue vancomycin even if MSSA bacteremia per discussion with her ID specialist. Since no fungal growth, switched from Amphotericin to caspofungin. Subsequently continue fluconazole. Continue antifungal as she did have fungal growth as well during her hospitalization in August. Discussed also with her ID specialist in [place] Dr. Emilie Dangelo Bicytopenia likely secondary to infection/sepsis. No mention of schistocytes. No blasts. Had also an episode on 12/15 evening around 5 PM with confusion, decreased responsiveness, tachycardia, noted to have some mottling, difficult to obtain oxygen saturation, but once obtained 97%. With anisocoria not seen in examination on presentation or at [facility]. Assessed by CT angiogram head and neck, unremarkable. Per discussion with her father anisocoria is since with one of the pupils less reactive. Confusional episode resolved. Tachycardia improved. Saturation remained steady on 2 L nasal cannula. Chest x-ray without acute abnormality. Troponin EKG series without suggestion of [place]. Not entirely clear cause of the episode. Similar episode documented on 2 occasions at [facility] in August. Status: Acute (2) Septic embolism: Pending assessment by [facility]. Today deferred as she did not feel comfortable. Discussed with her concern for endocarditis, septic embolism given opacities noted on chest x-ray Continue antibiotics as above. Oxygen support as needed, currently 2 L nasal cannula. She denies IVDU As per discussion with her ID specialist, sometimes even in absence of IVDU can see relapse of staphylococcal infection after valve replacement. Aspirin has been on hold due to low platelets, concern for septic embolic disease. Status: Acute (3) Sepsis: As above Status: Acute (4) Meningitis: Continue vancomycin. ceftriaxone. Continue monitoring. Status: Acute (5) Thrombocytopenia: Thrombocytopenia with improvement. Not in DIC. D-dimer elevated, suspect secondary to infection, both upper and lower duplex venous studies negative for DVT. Right ventricle with normal size and function. Bicytopenia likely secondary to infection/sepsis. No mention of schistocytes. No blasts. Requesting platelet transfusion given she is reporting some new vaginal bleeding which she has not had for a while. Repeat CBC Status: Acute (6) Opacity of lung on imaging study: Concern for septic embolization, recurrence of endocarditis. Status: Acute (7) History of tricuspid valve replacement with bioprosthetic valve: At [facility], reports was done on July 31. Records in paper chart. Had tricuspid valve replaced with bioprosthetic valve, and PFO closure at the same time. TTE no obvious vegetation. Will need ANGUS, declines Aspirin was held, continue to hold for now given possible septic embolization, [employer] infection Status: Acute (8) Bacteremia due to Staphylococcus aureus: Concern for recurrence of endocarditis. Vancomycin as above. Will need protracted antibiotic course, which may be difficult given recurrence of endocarditis, history of IVDU. Was hospitalized for the entire 6 weeks at [facility] to receive IV antibiotics via PICC line. Status: Acute (9) Episodic confusion: 12/15 had an episode in the evening around 5 PM with confusion, decreased responsiveness, sinus tachycardia, noted to have some mottling, difficult to obtain oxygen saturation, but once obtained 97%. With anisocoria not seen in examination on presentation or at [facility]. Assessed by CT angiogram head and neck, unremarkable. RPR negative. Per discussion with her father anisocoria is since with one of the pupils less reactive. Not always apparent depending on ambient light. Confusional episode resolved. Tachycardia improved. Saturation remained steady on 2 L nasal cannula. Chest x-ray without acute abnormality. Troponin EKG series without suggestion of [place]. Not entirely clear because of the episode. Similar episode documented on 2 occasions at [facility] in August without identified cause. Noncontributory MRI brain. She is also on Suboxone. Continued dose 1 from 3 times daily. She has been having intermittent lethargy, so we have not increase the dose seen. It does appear that on outpatient side she has been receiving 8 mg doses. Consider increasing if lethargy improves. For now continue 4 mg, adding, however, 4 mg films 3 times daily as needed for pain or showing symptoms of withdrawal. Discussed with father. Status: Acute (10) Anisocoria: Assessed by CT angiogram head and neck, unremarkable. RPR negative. Per di scussion with her father anisocoria is since with one of the pupils less reactive. Not always apparent depending on ambient light. Status: Acute (11) Acute hypokalemia: Replaced. Follow-up and check magnesium level. Status: Acute (12) Intravenous infiltration: Resolved. Does not appear to have residual abnormality. Right antecubital fossa IV is infiltrated with Levophed infusion / removed. Having some tenderness there, but so far no other symptoms. Warm compress, elevated RUE on pillow. Status: Acute Plan History of bilateral occlusive pulmonary emboli Anemia, follow-up hemoglobin, may need additional transfusion. No outward bleeding. Status post 1 unit PRBC, iron levels are on the lower end, Hemoccult stool Thrombocytopenia improving, monitor Obstipation: Suppository, bowel regimen. HCV positive, HCVRNA 30 will need to follow-up with infectious disease as outpatient PA aneurysm: noted during hospitalization in Aug at [facility], had hemoptysis requiring temporary intubation. Vaginal bleeding: Spotting only. Also reports irregular menses. Discussed with her she to follow-up with gynecology after discharge. Smoking: Nicotine replacement Depression with failure to thrive. I requested case management evaluate the patient with possible outpatient referral for behavioral health/psychiatry History of septic pulmonary emboli Hyponatremia. Resolving. Regular diet. Treat sepsis as above. Repeat level. 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 Patient status post bioprosthetic valve replacement?patient uncertain of as to which valve was replaced Depression Hepatitis C. hepatitis C RNA requested by infectious disease specialist, ordered. Receiving treatment in [place]. Will need follow-up with Dr Dangelo. Please forward HCV RNA results to ID provider. Microcytic anemia, chronic with history of iron deficiency. Iron deficiency anemia. Will monitor hemoglobin level intermittently. Check fecal occult blood. Previously negative. Hypophosphatemia. We will monitor phosphorus level intermittently. Neutra-Phos 2 150 Mill cans by mouth twice a day Hx methamphetamine abuse History of leaving AGAINST MEDICAL ADVICE Medical noncompliance as witnessed by patient previous leaving AGAINST MEDICAL ADVICE. The patient becomes regarding medical compliance Query history of asthma She is also on Suboxone. Continued dose 1 F ILM 3 times daily Attestations Medical Necessity Statement*: Continue assessment management of sepsis with staphylococcal bacteremia, hypotension, possible hypovolemia, pending additional assessment by [facility] with history of tricuspid valve replacement, possible endocarditis, with coagulopathy, requiring continued intravenous antibiotic therapy with history of IVDU. Coding Level of Care Code Acute Mail Handler for [facility] Fwd Diagnoses Septic shock A41.9; R65.21 Sepsis A41.9 Septic embolism I76 Meningitis G03.9 Thrombocytopenia D69.6 Intravenous infiltration T80.1XXA Opacity of lung on imaging study R91.8 History of tricuspid valve replacement with bioprosthetic valve Z95.3 Bacteremia due to Staphylococcus aureus R78.81; B95.61 Episodic confusion R41.0 Anisocoria H57.02 Acute hypokalemia E87.6
[2021-12-25] MEDS: cefTRIAXone 2,000 MG in sodium chloride 0.9% (plus) 50 ML 100 MG IV (16:23)
[2021-12-25 23:10] LABS: Vancomycin Trough 18.9 ug/mL (10-15)
--- NOTE | 2021-12-25 23:25 | PC.NURSE ---
Vancomycin trough elevated at 18.9. Dr. Patten notified and order received to hold 2300 dose on 12/25/21 and resume with 1100 dose on 12/26/21.
[2021-12-26] VITALS (10 sets, daily range): BP systolic 99–133; BP diastolic 61–87; PULSE 70–102; RESP 14–20; TEMP 36.1–38; O2SAT 83–100
[2021-12-26] MEDS: heparin 5,000 unit/mL INJ 1 mL 5000 UNIT SUBCUT (00:22)
[2021-12-26] MEDS: cefTRIAXone 2,000 MG in sodium chloride 0.9% (plus) 50 ML 100 MG IV ×2 (03:06→15:27)
[2021-12-26 06:07] LABS: Basophils % 0.3 %; Eosinophils % 0.3 %; Hematocrit 23.1 % (37.0-47.0); Hemoglobin 6.7 g/dL (11.5-15.3); Lymphocytes # 1.2 10^3/uL (0.8-4.8); Lymphocytes % 8.9 %; Mean Corpuscular Hemoglobin 21.7 pg (28.0-34.0); Mean Corpuscular Volume 74.8 fl (81-99); Mean Platelet Volume 10.7 fL (7.4-10.4); Monocytes # 0.8 10^3/uL (0.2-0.9); Monocytes % 6.1 %; Neutrophils % 83.9 %; Nucleated Red Blood Cells % 0 %; Platelet Count 82 10^3/cmm (130-400); Red Blood Count 3.09 10^6/uL (4.1-5.3); White Blood Count 12.9 10^3/uL (4.0-10.0)
[2021-12-26 06:21] LABS: INR 1.51 (0.8-1.2)
[2021-12-26 06:22] LABS: Fibrinogen 170 mg/dL (174-498); Partial Thromboplastin Time 39.7 SECONDS (23.9-36.7)
[2021-12-26 06:27] LABS: Lactate (Lactic Acid level) 1.2 mmol/L (0.5-2.2)
[2021-12-26 06:29] LABS: Alanine Aminotransferase < 5 U/L (0-33); Albumin Level 2.7 g/dL (3.5-5.2); Alkaline Phosphatase 269 IU/L (35-105); Anion Gap 14.5 (5-19); Aspartate Amino Transferase 14 U/L (0-32); Blood Urea Nitrogen 11 mg/dL (6-20); Calcium 8.5 mg/dL (8.5-10.5); Carbon Dioxide 28 mmol/L (22-29); Chloride 96 mmol/L (98-107); Globulin 3.7 g/dL (1.3-4.6); Glomerular Filtration Rate 95.2 mL/min (90-130); Glucose 109 mg/dL (65-115); Magnesium 1.6 mg/dL (1.7-2.3); Osmolality Calculated 278 mOsm/kg (285-295); Phosphorus 4.7 mg/dL (2.5-4.5); Potassium 4.5 mmol/L (3.5-5.1); Sodium 134 mmol/L (136-145); Total Bilirubin 0.6 mg/dL (0.15-1.2); Total Protein 6.4 g/dL (6.6-8.7)
[2021-12-26 06:38] LABS: D Dimer >= 20.00 ug/mIFEU (0-0.59)
[2021-12-26 07:22] LABS: Slide Review Slide Review Perform
[2021-12-26 09:13] LABS: Lactate Dehydrogenase 287 U/L (135-214)
[2021-12-26] MEDS: duloxetine 60 mg Capsule PO (09:14)
[2021-12-26] MEDS: fluconazole 100 mg Tablet 600 MG PO (09:15)
[2021-12-26] MEDS: magnesium sulfate premix 2 GM/50 ML PIGGYBACK IV (09:15)
[2021-12-26] MEDS: aspirin 81 mg EC Tablet PO (09:15)
[2021-12-26] MEDS: enoxaparin 40 mg/0.4 mL Syringe SUBCUT (09:15)
[2021-12-26] MEDS: polyethylene glycol 3350 Pkt 17 gm PO (09:15)
[2021-12-26] MEDS: buprenorphine-naloxone 4-1 mg Film 2 EACH SUBLINGUAL ×3 (09:16→20:06)
[2021-12-26] MEDS: lidocaine 5% Patch 1 PATCH TOPICAL ×2 (09:19→22:05)
[2021-12-26] MEDS: nicotine 21 mg Patch 1 PATCH TRANSDERMA (09:19)
--- NOTE | 2021-12-26 09:55 | XR_ITS ---
WS: [id number] Exam: XR chest 1V portable [id number] Date/Time of Exam: 12/26/2021 11:04 AM Reason For Exam: PICC Line PLacement- WILL CALL WHEN READY Comparison made with earlier exam performed on the same day at 6:00 AM. A right-sided PICC line has been placed and appears to end in the lower one third of the SVC in good position. Again noted are areas of plaque atelectasis in the bilateral lower lung zones and bibasal p leural effusions. No significant change. Mild cardiac enlargement and signs of cardiac valve replacem ent and median sternotomy. No pneumothorax. Bony structures are intact. XR/XR chest 1V portable [id number] IMPRESSION: 1. Right-sided PICC line in satisfactory position ending in the lower one third of the SVC. No other significant change since previous exam on the same day.
[2021-12-26] MEDS: vancomycin 1,000 MG in sodium chloride 0.9% 250 ML 250 MG IV ×2 (11:48→23:00)
--- NOTE | 2021-12-26 16:03 | P.PN_ITS ---
Subjective Subjective: Feeling tired today. Feels like she is lacking air. Discussed with her decreasing hemoglobin down to 6.7, discussed blood transfusion. She is agreeable. Discussed with her persistently abnormal coagulation studies. We are rechecking LDH, haptoglobin. Discussed change in prophylactic anticoagulation to Lovenox, consideration of stepping up Lovenox to 40 mg twice daily if tolerating 40 mg daily. Caution and concern with full dose anticoagulation given concern for possible septic embolization, high risk of bleeding. She is agreeable. Undergoing PICC line placement. Vitals/I&O/Wt Last Vital Signs Temp 98.2 F 12/26/21 15:57 Pulse 81 12/26/21 15:57 Resp 18 12/26/21 15:57 BP 118/80 12/26/21 15:57 Pulse Ox 100 12/26/21 15:57 12/26/21 12/26/21 12/26/21 06:59 14:59 22:59 Intake Total 50 / 1080 300 / 300 50 / 350 Output Total 550 / 550 Balance -500 / 530 300 / 300 50 / 350 Weight last 48 hrs Weight 56.699 kg Weight 59.874 kg Physical Exam Const: COMMON NORMALS: alert GENERAL APPEARANCE: cooperative ORIENTATION/CONSCIOUSNESS: Yes awake HENMT: COMMON NORMALS: normocephalic, EAC's normal, Normal external nose present and moist oral mucous membranes HEAD & SCALP: normocephalic NOSE: Normal external nose present EXTERNAL AUDITORY CANAL: EAC's normal Eye: OTHER: Min anisocoria, R>L Neck/C-Spine: COMMON NORMALS: no meningeal signs Chest: CHEST: Yes Symmetrical chest wall rise Resp: COMMON NORMALS: clear to auscultation bilaterally AUSCULTATION: clear to auscultation bilaterally Cardio: COMMON NORMALS: regular rate, regular rhythm and No murmurs present (Cardio) RATE: regular rate RHYTHM: regular rhythm GI: COMMON NORMALS: Normal to inspection, nondistended, normoactive bowel sounds present, Soft to palpation and non-tender PALPATION: Yes Soft to palpation Extremity: COMMON NORMALS: no pedal edema OTHER: No erythema or swelling of R forearm Neuro: COMMON NORMALS: moves all extremities SENSORIUM/ORIENTATION: Yes alert MENINGEAL SIGNS: Yes no meningeal signs Psych: COMMON NORMALS: mental status grossly normal Skin: COMMON NORMALS: no wounds RASHES: no rashes Data : 12/26/21 05:51 12/26/21 05:51 Micro: Microbiology 12/25/21 15:13 Occult Blood (FIT) - Final Stool Routine Collection A&P Assessment and plan (1) Coagulopathy: Again elevated D-dimer, fibrinogen today lower at 170. Repeat haptoglobin, LDH, but not suggestive of hemolysis, although discussed with her could be persistent low-grade DIC. Ultimately possibility of thrombosis, or possibly due to infection. Negative venous duplex upper and lower extremities. Some embolization noted on CTA and possibly septic embolization. Consideration of ANGUS to assess for intracardiac thrombus, but she had declined to proceed with study yesterday. If agreeable and study can be arranged, perhaps could have it tomorrow or day after. Briefly discussed with hematology. Discussed with her, she is agreeable to change to Lovenox for DVT prophylaxis, with consideration of stepping up dosing short of full anticoagulation with concern for increased risk of bleeding. Status: Acute (2) Septic embolism: Continue vancomycin, restarted also ceftriaxone. Continue antifungal. Continue oxygen supplementation. PICC line placed due to difficulties with access frequent loss of IV and need for blood draws. 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 Continue empiric antimicrobial coverage for possible endocarditis. Concern for endocarditis, septic embolism given opacities noted on chest x-ray She denies IVDU As per discussion with her ID specialist, sometimes even in absence of IVDU can see relapse of staphylococcal infection after valve replacement. Aspirin has been on hold due to low platelets, concern for septic embolic disease. Status: Acute (3) Septic shock: Shock resolved. BP better. Needed a small bolus on 12/25. Monitor blood pressures Discussed with her again possibility of DIC/dysregulation of coagulation with elevation of fibrinogen products, elevated D-dimer. Abnormal INR. Although LDH and haptoglobin are okay. She is again febrile. Discussed with her adding back ceftriaxone for synergistic effect, and appears to have done well with that previously, with staph sensitive, although discussed he states to continue vancomycin given history of MRSA and as per recommendation of her ID specialist. Septic shock. Previously resolved. Secondary to meningitis infective endocarditis, staph auris bacteremia Off pressor. MRI thoracic and lumbar spine obtained only noncontrast since declined to complete the entire study. Noncontrast studies with normal thoracic spine, unremarkable lumbar spine. Several benign hemangiomas in the visualized osseous structures. If blood pressures and mental status improved further, please commence arrangements for ANGUS. Continue IV vancomycin, continue Rocephin for now, so far no resistant genes on preliminary sensitivities, follow-up final studies. Continue vancomycin even if MSSA bacteremia per discussion with her ID specialist. Since no fungal growth, switched from Amphotericin to caspofungin. Subsequently continue fluconazole. Continue antifungal as she did have fungal growth as well during her hospitalization in August. Discussed also with her ID specialist in [place] Dr. Emilie Dangelo Bicytopenia likely secondary to infection/sepsis. No mention of schistocytes. No blasts. Had also an episode on 12/15 evening around 5 PM with confusion, decreased responsiveness, tachycardia, noted to have some mottling, difficult to obtain oxygen saturation, but once obtained 97%. With anisocoria not seen in examination on presentation or at [facility]. Assessed by CT angiogram head and neck, unremarkable. Per discussion with her father anisocoria is since with one of the pupils less reactive. Confusional episode resolved. Tachycardia improved. Saturation remained steady on 2 L nasal cannula. Chest x-ray without acute abnormality. Troponin EKG series without suggestion of [place]. Not entirely clear cause of the episode. Similar episode documented on 2 occasions at [facility] in August. Status: Acute (4) Sepsis: As above Status: Acute (5) Meningitis: Continue vancomycin. ceftriaxone. Continue monitoring. Status: Acute (6) Thrombocytopenia: Thrombocytopenia with improvement. Cannot exclude possible low-grade DIC. LDH and haptoglobin suggest against. Additional decrease of RBC today down to 6.7. For the first time fibrinogen today decreased down to 170. Treatment of underlying infection. Bicytopenia likely secondary to infection/sepsis. No mention of schistocytes. No blasts. Requesting platelet transfusion given she is reporting some new vaginal bleeding which she has not had for a while. Repeat CBC Status: Acute (7) Opacity of lung on imaging study: Concern for septic embolization, recurrence of endocarditis. Status: Acute (8) History of tricuspid valve replacement with bioprosthetic valve: At [facility], reports was done on July 31. Records in paper chart. Had tricuspid valve replaced with bioprosthetic valve, and PFO closure at the same time. TTE no obvious vegetation. Aspirin was held, continue to hold for now given possible septic embolization, DIETITIAN CONSULTANT infection Status: Acute (9) Bacteremia due to Staphylococcus aureus: Concern for recurrence of endocarditis. Antimicrobials as above. Will need protracted antibiotic course, which may be difficult given recurrence of endocarditis, history of IVDU. Was hospitalized for the entire 6 weeks at [facility] to receive IV antibiotics via PICC line. Status: Acute (10) Episodic confusion: 12/15 had an episode in the evening around 5 PM with confusion, decreased responsiveness, sinus tachycardia, noted to have some mottling, difficult to obtain oxygen saturation, but once obtained 97%. With anisocoria not seen in examination on presentation or at [facility]. Assessed by CT angiogram head and neck, unremarkable. RPR negative. Per discussion with her father anisocoria is since with one of the pupils less reactive. Not always apparent depending on ambient light. Confusional episode resolved. Tachycardia improved. Saturation remained steady on 2 L nasal cannula. Chest x-ray without acute abnormality. Troponin EKG series without suggestion of [place]. Not entirely clear because of the episode. Similar episode documented on 2 occasions at [facility] in August without identified cause. Noncontributory MRI brain. She is also on Suboxone. Continued dose 1 from 3 times daily. She has been having intermittent lethargy, so we have not increase the dose seen. It does appear that on outpatient side she has been receiving 8 mg doses. Consider increasing if lethargy improves. For now continue 4 mg, adding, however, 4 mg films 3 times daily as needed for pain or showing symptoms of withdrawal. Discussed with father. Status: Acute (11) Anisocoria: Assessed by CT angiogram head and neck, unremarkable. RPR negative. Per discussion with her father anisocoria is since with one of the pupils less reactive. Not always apparent depending on ambient light. Status: Acute (12) Acute hypokalemia: Replaced. Follow-up and check magnesium level. Status: Acute (13) Intravenous infiltration: Resolved. Status: Acute Plan Hypomagnesemia: Replace History of bilateral septic pulmonary emboli Anemia, follow-up hemoglobin, may need additional transfusion. No outward bleeding. Status post 1 unit PRBC, iron levels are on the lower end, Hemoccult stool Thrombocytopenia improving, monitor Obstipation: Suppository, bowel regimen. PA aneurysm: noted during hospitalization in Aug at [facility], had hemoptysis requiring temporary intubation. Vaginal bleeding: Spotting only. Also reports irregular menses. Discussed with her she to follow-up with gynecology after discharge. Smoking: Nicotine replacement Depression with failure to thrive. I requested case management evaluate the patient with possible outpatient referral for behavioral health/psychiatry History of septic pulmonary emboli Hyponatremia. Resolving. Regular diet. Treat sepsis as above. History of infected endocarditis with tricuspid valve vegetation as well as questionable mitral valve vegetation. Patient status post bioprosthetic valve replacement?patient uncertain of as to which valve was replaced Depression Hepatitis C. hepatitis C RNA requested by infectious disease specialist, ordered. Receiving treatment in [place]. Will need follow-up with Dr Dangelo. HCVRNA 30 Microcytic anemia, chronic with history of iron deficiency. Iron deficiency anemia. Will monitor hemoglobin level intermittently. Negative repeat fecal occult blood. Hypophosphatemia. We will monitor phosphorus level intermittently. Received Neutra-Phos 2 150 Mill cans by mouth twice a day Hx methamphetamine abuse History of leaving AGAINST MEDICAL ADVICE Medical noncompliance as witnessed by patient previous leaving AGAINST MEDICAL ADVICE. The patient becomes regarding medical compliance Query history of asthma She is also on Suboxone. Continued dose 1 F ILM 3 times daily Attestations Medical Necessity Statement*: Continue admission for assessment management of suspected endocarditis with bioprosthetic tricuspid valve, septic embolization, hypoxia, staphylococcal bacteremia, coagulopathy, worsened anemia. Coding Level of Care Code Acute Software Configuration Manager for [facility] Fwd Diagnoses Septic shock A41.9; R65.21 Septic embolism I76 Sepsis A41.9 Meningitis G03.9 Thrombocytopenia D69.6 Opacity of lung on imaging study R91.8 History of tricuspid valve replacement with bioprosthetic valve Z95.3 Bacteremia due to Staphylococcus aureus R78.81; B95.61 Episodic confusion R41.0 Anisocoria H57.02 Acute hypokalemia E87.6 Intravenous infiltration T80.1XXA Coagulopathy D68.9
[2021-12-26] MEDS: sodium chloride 0.9% (100 ml) 100 ML 50 ML (17:55)
[2021-12-27] VITALS (9 sets, daily range): BP systolic 101–135; BP diastolic 63–86; PULSE 65–105; RESP 14–20; TEMP 36.3–38.4; O2SAT 90–100
[2021-12-27] MEDS: cefTRIAXone 2,000 MG in sodium chloride 0.9% (plus) 50 ML 100 MG IV ×2 (04:16→16:25)
[2021-12-27 05:42] LABS: Basophils % 0.4 %; Eosinophils % 0.4 %; Hematocrit 25.2 % (37.0-47.0); Hemoglobin 7.7 g/dL (11.5-15.3); Lymphocytes # 1.2 10^3/uL (0.8-4.8); Lymphocytes % 12.1 %; Mean Corpuscular HGB Conc 30.6 g/dL (30.0-36.0); Mean Corpuscular Hemoglobin 23.2 pg (28.0-34.0); Mean Corpuscular Volume 75.9 fl (81-99); Mean Platelet Volume 11.1 fL (7.4-10.4); Monocytes # 0.7 10^3/uL (0.2-0.9); Monocytes % 7.1 %; Neutrophils # 7.66 10^3/uL (1.8-7.7); Neutrophils % 79.6 %; Nucleated Red Blood Cells % 0 %; Platelet Count 95 10^3/cmm (130-400); Red Blood Count 3.32 10^6/uL (4.1-5.3); White Blood Count 9.6 10^3/uL (4.0-10.0)
[2021-12-27 06:00] LABS: Lactate (Lactic Acid level) 0.8 mmol/L (0.5-2.2)
[2021-12-27 06:01] LABS: Alanine Aminotransferase < 5 U/L (0-33); Albumin Level 2.7 g/dL (3.5-5.2); Alkaline Phosphatase 262 IU/L (35-105); Anion Gap 12.2 (5-19); Aspartate Amino Transferase 12 U/L (0-32); Blood Urea Nitrogen 10 mg/dL (6-20); Calcium 8.3 mg/dL (8.5-10.5); Carbon Dioxide 28 mmol/L (22-29); Chloride 96 mmol/L (98-107); Globulin 4.2 g/dL (1.3-4.6); Glomerular Filtration Rate 113.8 mL/min (90-130); Glucose 105 mg/dL (65-115); Magnesium 2.1 mg/dL (1.7-2.3); Osmolality Calculated 273 mOsm/kg (285-295); Phosphorus 4.4 mg/dL (2.5-4.5); Potassium 4.2 mmol/L (3.5-5.1); Sodium 132 mmol/L (136-145); Total Bilirubin 0.6 mg/dL (0.15-1.2); Total Protein 6.9 g/dL (6.6-8.7)
[2021-12-27 06:11] LABS: Add RBC Morph Yes; RBC Morph Comp No; Slide Review Slide Review Perform
[2021-12-27 06:12] LABS: Anisocytosis 1+; Hypochromasia 2+; Polychromasia Trace
[2021-12-27 06:13] LABS: Ovalocytes Trace; Poikilocytosis 1+; Schistocytes Trace
[2021-12-27 06:22] LABS: INR 1.32 (0.8-1.2)
[2021-12-27 06:23] LABS: Fibrinogen 223 mg/dL (174-498); Partial Thromboplastin Time 36.6 SECONDS (23.9-36.7)
[2021-12-27 06:33] LABS: D Dimer 18.39 ug/mIFEU (0-0.59)
[2021-12-27] MEDS: fluconazole 100 mg Tablet 600 MG PO (08:37)
[2021-12-27] MEDS: buprenorphine-naloxone 4-1 mg Film 2 EACH SUBLINGUAL ×3 (08:38→21:45)
[2021-12-27] MEDS: nicotine 21 mg Patch 1 PATCH TRANSDERMA (08:38)
[2021-12-27] MEDS: duloxetine 60 mg Capsule PO (08:38)
[2021-12-27] MEDS: aspirin 81 mg EC Tablet PO (08:38)
[2021-12-27] MEDS: enoxaparin 40 mg/0.4 mL Syringe SUBCUT (08:39)
[2021-12-27] MEDS: polyethylene glycol 3350 Pkt 17 gm PO (08:39)
[2021-12-27] MEDS: lidocaine 5% Patch 1 PATCH TOPICAL ×2 (08:39→21:46)
[2021-12-27] MEDS: vancomycin 1,000 MG in sodium chloride 0.9% 250 ML 250 MG IV (11:40)
--- NOTE | 2021-12-27 11:54 | PM.PN ---
Subjective Subjective: She is feeling better today. Denies chest pain or pressure. She is breathing a bit easier. She had declined the suppository, reports that she had had a bowel movement yesterday, regular size, soft. Reports that she feels like getting up today. Then reports that she feels like getting out from the building . Discussed with her need for continued antimicrobial treatment for 6 weeks given staphylococcal bacteremia in the presence of bioprosthetic valve, high suspicion of endocarditis, septic embolization, she verbalized understanding and agreement. Vitals/I&O/Wt Last Vital Signs Temp 97.9 F 12/27/21 08:00 Pulse 88 12/27/21 08:59 Resp 16 12/27/21 08:00 BP 116/79 12/27/21 08:00 Pulse Ox 93 12/27/21 08:59 12/26/21 12/27/21 12/27/21 22:59 06:59 14:59 Intake Total 460 / 760 420 / 1180 Balance 460 / 760 420 / 1180 Weight last 48 hrs Weight 56.6 kg Weight 56.699 kg Physical Exam Const: COMMON NORMALS: alert GENERAL APPEARANCE: cooperative ORIENTATION/CONSCIOUSNESS: Yes awake HENMT: COMMON NORMALS: normocephalic, EAC's normal, Normal external nose present and moist oral mucous membranes HEAD & SCALP: normocephalic NOSE: Normal external nose present EXTERNAL AUDITORY CANAL: EAC's normal Eye: OTHER: Min anisocoria, R>L Neck/C-Spine: COMMON NORMALS: no meningeal signs Chest: CHEST: Yes Symmetrical chest wall rise Resp: COMMON NORMALS: clear to auscultation bilaterally AUSCULTATION: clear to auscultation bilaterally Cardio: COMMON NORMALS: regular rate, regular rhythm and No murmurs present (Cardio) RATE: regular rate RHYTHM: regular rhythm GI: COMMON NORMALS: Normal to inspection, nondistended, normoactive bowel sounds present, Soft to palpation and non-tender PALPATION: Yes Soft to palpation Extremity: COMMON NORMALS: no pedal edema Neuro: COMMON NORMALS: moves all extremities SENSORIUM/ORIENTATION: Yes alert MENINGEAL SIGNS: Yes no meningeal signs Psych: COMMON NORMALS: mental status grossly normal Skin: COMMON NORMALS: no wounds RASHES: no rashes Data : 12/27/21 05:15 12/27/21 05:15 A&P Assessment and plan (1) Coagulopathy: D-dimer today with mild improvement. Yesterday transition to prophylactic Lovenox. Discussed with her again. In case tolerating we may try to go up to 40 mg twice daily. Responded well to RBC transfusion. Repeat haptoglobin, LDH, but not suggestive of hemolysis, although discussed with her could be persistent low-grade DIC. Ultimately possibility of thrombosis, or possibly due to infection. Negative venous duplex upper and lower extremities. Some embolization noted on CTA and possibly septic embolization. Tentative plan for tomorrow for ANGUS to assess for intracardiac thrombus, but she had declined to proceed with study yesterday. If agreeable and study can be arranged, perhaps could have it tomorrow or day after. Briefly discussed with hematology. Discussed with her, she is agreeable to change to Lovenox for DVT prophylaxis, with consideration of stepping up dosing short of full anticoagulation with concern for increased risk of bleeding. Status: Acute (2) Septic embolism: Continue vancomycin, restarted also ceftriaxone. Continue antifungal. Continue oxygen supplementation. PICC line placed due to difficulties with access frequent loss of IV and need for blood draws. 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 Continue empiric antimicrobial coverage for possible endocarditis. Concern for endocarditis, septic embolism given opacities noted on chest x-ray She denies IVDU As per discussion with her ID specialist, sometimes even in absence of IVDU can see relapse of staphylococcal infection after valve replacement. Aspirin has been on hold due to low platelets, concern for septic embolic disease. Status: Acute (3) Septic shock: Shock resolved. BP better. Needed a small bolus on 12/25. Monitor blood pressures Discussed with her again possibility of DIC/dysregulation of coagulation with elevation of fibrinogen products, elevated D-dimer. Abnormal INR. Although LDH and haptoglobin are okay. She is again febrile. Discussed with her adding back ceftriaxone for synergistic effect, and appears to have done well with that previously, with staph sensitive, although discussed he states to continue vancomycin given history of MRSA and as per recommendation of her ID specialist. Septic shock. Previously resolved. Secondary to meningitis infective endocarditis, staph auris bacteremia Off pressor. MRI thoracic and lumbar spine obtained only noncontrast since declined to complete the entire study. Noncontrast studies with normal thoracic spine, unremarkable lumbar spine. Several benign hemangiomas in the visualized osseous structures. If blood pressures and mental status improved further, please commence arrangements for ANGUS. Continue IV vancomycin, continue Rocephin for now, so far no resistant genes on preliminary sensitivities, follow-up final studies. Continue vancomycin even if MSSA bacteremia per discussion with her ID specialist. Since no fungal growth, switched from Amphotericin to caspofungin. Subsequently continue fluconazole. Continue antifungal as she did have fungal growth as well during her hospitalization in August. Discussed also with her ID specialist in [place] Dr. Emilie Dangelo Bicytopenia likely secondary to infection/sepsis. No mention of schistocytes. No blasts. Had also an episode on 12/15 evening around 5 PM with confusion, decreased responsiveness, tachycardia, noted to have some mottling, difficult to obtain oxygen saturation, but once obtained 97%. With anisocoria not seen in examination on presentation or at [facility]. Assessed by CT angiogram head and neck, unremarkable. Per discussion with her father anisocoria is since with one of the pupils less reactive. Confusional episode resolved. Tachycardia improved. Saturation remained steady on 2 L nasal cannula. Chest x-ray without acute abnormality. Troponin EKG series without suggestion of [place]. Not entirely clear cause of the episode. Similar episode documented on 2 occasions at [facility] in August. Status: Acute (4) Sepsis: As above Status: Acute (5) Meningitis: Continue vancomycin. ceftriaxone. Continue monitoring. Status: Acute (6) Thrombocytopenia: Thrombocytopenia with improvement. Cannot exclude possible low-grade DIC. LDH and haptoglobin suggest against. Additional decrease of RBC today down to 6.7. For the first time fibrinogen today decreased down to 170. Treatment of underlying infection. Bicytopenia likely secondary to infection/sepsis. No mention of schistocytes. No blasts. Requesting platelet transfusion given she is reporting some new vaginal bleeding which she has not had for a while. Repeat CBC Status: Acute (7) Opacity of lung on imaging study: Concern for septic embolization, recurrence of endocarditis. Status: Acute (8) History of tricuspid valve replacement with bioprosthetic valve: At [facility], reports was done on July 31. Records in paper chart. Had tricuspid valve replaced with bioprosthetic valve, and PFO closure at the same time. TTE no obvious vegetation. 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 Antimicrobials as above. Will need protracted antibiotic course, which may be difficult given recurrence of endocarditis, history of IVDU. Was hospitalized for the entire 6 weeks at [facility] to receive IV antibiotics via PICC line. Status: Acute (10) Episodic confusion: 12/15 had an episode in the evening around 5 PM with confusion, decreased responsiveness, sinus tachycardia, noted to have some mottling, difficult to obtain oxygen saturation, but once obtained 97%. With anisocoria not seen in examination on presentation or at [facility]. Assessed by CT angiogram head and neck, unremarkable. RPR negative. Per discussion with her father anisocoria is since with one of the pupils less reactive. Not always apparent depending on ambient light. Confusional episode resolved. Tachycardia improved. Saturation remained steady on 2 L nasal cannula. Chest x-ray without acute abnormality. Troponin EKG series without suggestion of [place]. Not entirely clear because of the episode. Similar episode documented on 2 occasions at [facility] in August without identified cause. Noncontributory MRI brain. She is also on Suboxone. Continued dose 1 from 3 times daily. She has been having intermittent lethargy, so we have not increase the dose seen. It does appear that on outpatient side she has been receiving 8 mg doses. Consider increasing if lethargy improves. For now continue 4 mg, adding, however, 4 mg films 3 times daily as needed for pain or showing symptoms of withdrawal. Discussed with father. Status: Acute (11) Anisocoria: Assessed by CT angiogram head and neck, unremarkable. RPR negative. Per discussion with her father anisocoria is since with one of the pupils less reactive. Not always apparent depending on ambient light. Status: Acute (12) Acute hypokalemia: Replaced. Follow-up and check magnesium level. Status: Acute (13) Intravenous infiltration: Resolved. Status: Acute Plan Hypomagnesemia: Replace History of bilateral septic pulmonary emboli Anemia, follow-up hemoglobin, may need additional transfusion. No outward bleeding. Status post 1 unit PRBC, iron levels are on the lower end, Hemoccult stool Thrombocytopenia improving, monitor Obstipation: Declined suppository, Reports has had a bowel movement last night. PA aneurysm: noted during hospitalization in Aug at [facility], had hemoptysis requiring temporary intubation. Vaginal bleeding: Spotting only. Also reports irregular menses. Discussed with her she to follow-up with gynecology after discharge. Smoking: Nicotine replacement Depression with failure to thrive. I requested case management evaluate the patient with possible outpatient referral for behavioral health/psychiatry History of septic pulmonary emboli Hyponatremia. Resolving. Regular diet. Treat sepsis as above. History of infected endocarditis with tricuspid valve vegetation as well as questionable mitral valve vegetation. Patient status post bioprosthetic valve replacement?patient uncertain of as to which valve was replaced Depression Hepatitis C. hepatitis C RNA requested by infectious disease specialist, ordered. Receiving treatment in [place]. Will need follow-up with Dr Dangelo. HCVRNA 30 Microcytic anemia, chronic with history of iron deficiency. Iron deficiency anemia. Will monitor hemoglobin level intermittently. Negative repeat fecal occult blood. Hypophosphatemia. We will monitor phosphorus level intermittently. Received Neutra-Phos 2 150 Mill cans by mouth twice a day Hx methamphetamine abuse History of leaving AGAINST MEDICAL ADVICE Medical noncompliance as witnessed by patient previous leaving AGAINST MEDICAL ADVICE. The patient becomes regarding medical compliance Query history of asthma She is also on Suboxone. Continued dose 1 F ILM 3 times daily Attestations Medical Necessity Statement*: Continue admission for assessment management endocarditis, coagulopathy, with staphylococcal bacteremia in the presence of bioprosthetic cuspid valve. Coding Level of Care Code Acute Borematic Machine Operator for [facility] Diagnoses Coagulopathy D68.9 Septic embolism I76 Septic shock A41.9; R65.21 Sepsis A41.9 Meningitis G03.9 Thrombocytopenia D69.6 Opacity of lung on imaging study R91.8 History of tricuspid valve replacement with bioprosthetic valve Z95.3 Bacteremia due to Staphylococcus aureus R78.81; B95.61 Episodic confusion R41.0 Anisocoria H57.02 Acute hypokalemia E87.6 Intravenous infiltration T80.1XXA
[2021-12-27] MEDS: acetaminophen 325 mg Tablet 650 MG PO (13:54)
[2021-12-28] VITALS (22 sets, daily range): BP systolic 92–138; BP diastolic 46–95; PULSE 0–94; RESP 16–20; TEMP 36.3–37.1; O2SAT 90–100
[2021-12-28] MEDS: vancomycin 1,000 MG in sodium chloride 0.9% 250 ML 250 MG IV ×2 (00:06→16:33)
[2021-12-28] MEDS: cefTRIAXone 2,000 MG in sodium chloride 0.9% (plus) 50 ML 100 MG IV ×2 (04:17→16:21)
[2021-12-28 05:00] LABS: Basophils % 0.4 %; Eosinophils # 0.1 10^3/uL (0.0-0.8); Eosinophils % 0.9 %; Hematocrit 27.4 % (37.0-47.0); Hemoglobin 8.1 g/dL (11.5-15.3); Lymphocytes # 1.3 10^3/uL (0.8-4.8); Lymphocytes % 17.1 %; Mean Corpuscular HGB Conc 29.6 g/dL (30.0-36.0); Mean Corpuscular Hemoglobin 22.4 pg (28.0-34.0); Mean Corpuscular Volume 75.9 fl (81-99); Mean Platelet Volume 10.4 fL (7.4-10.4); Monocytes # 0.7 10^3/uL (0.2-0.9); Monocytes % 8.7 %; Neutrophils # 5.47 10^3/uL (1.8-7.7); Neutrophils % 72.5 %; Nucleated Red Blood Cells % 0 %; Platelet Count 86 10^3/cmm (130-400); Red Blood Count 3.61 10^6/uL (4.1-5.3); Red Cell Distribution Width 22.3 % (12.1-15.1); White Blood Count 7.6 10^3/uL (4.0-10.0)
[2021-12-28 05:09] LABS: INR 1.41 (0.8-1.2)
[2021-12-28 05:10] LABS: Partial Thromboplastin Time 34.7 SECONDS (23.9-36.7)
[2021-12-28 05:11] LABS: Fibrinogen 204 mg/dL (174-498)
[2021-12-28 05:20] LABS: Alanine Aminotransferase < 5 U/L (0-33); Albumin Level 2.7 g/dL (3.5-5.2); Alkaline Phosphatase 273 IU/L (35-105); Anion Gap 8.1 (5-19); Aspartate Amino Transferase 15 U/L (0-32); Blood Urea Nitrogen 11 mg/dL (6-20); Calcium 8.5 mg/dL (8.5-10.5); Carbon Dioxide 31 mmol/L (22-29); Chloride 100 mmol/L (98-107); D Dimer 9.57 ug/mIFEU (0-0.59); Globulin 4.1 g/dL (1.3-4.6); Glomerular Filtration Rate 113.8 mL/min (90-130); Glucose 104 mg/dL (65-115); Osmolality Calculated 280 mOsm/kg (285-295); Potassium 4.1 mmol/L (3.5-5.1); Sodium 135 mmol/L (136-145); Total Bilirubin 0.6 mg/dL (0.15-1.2); Total Protein 6.8 g/dL (6.6-8.7)
[2021-12-28] MEDS: nicotine 21 mg Patch 1 PATCH TRANSDERMA (09:34)
[2021-12-28] MEDS: buprenorphine-naloxone 4-1 mg Film 2 EACH SUBLINGUAL ×2 (09:34→16:20)
[2021-12-28] MEDS: lidocaine 5% Patch 1 PATCH TOPICAL (09:35)
[2021-12-28] MEDS: enoxaparin 40 mg/0.4 mL Syringe SUBCUT (09:35)
[2021-12-28] MEDS: sodium chloride 0.9% 1,000 ML 30 ML IV (11:29)
--- NOTE | 2021-12-28 11:43 | PM.PN ---
Subjective Subjective: She underwent ANGUS today. Medications: Reviewed: Yes Vitals/I&O/Wt Last Vital Signs Temp 97.7 F 12/28/21 11:20 Pulse 73 12/28/21 11:20 Resp 18 12/28/21 11:20 BP 128/85 12/28/21 11:20 Pulse Ox 98 12/28/21 11:20 12/27/21 12/28/21 12/28/21 22:59 06:59 14:59 Intake Total 650 / 900 480 / 1380 Output Total 1999 / 1999 800 / 2800 Balance -1350 / -1100 -320 / -1420 Weight last 48 hrs Weight 130 lb Weight 124 lb 12.506 oz Physical Exam Narrative: GENERAL:Frail sick looking woman sitting in bed in no acute distress HEENT: Extraocular movement intact. + pallor, no icterus. NECK: No JVD, No carotid bruit. CARDIOVASCULAR SYSTEM: S1-S2 regular. Grade 3/6 LLSB systolic murmur no rubs or gallops. Midline well healed sternotomy scar+ RESPIRATORY SYSTEM: Chest clear to auscultation except at bases No wheezes rhonchi or rubs heard. ABDOMEN: Soft, nontender and nondistended. Normal bowel sounds present. EXTREMITIES: No cyanosis or edema. SOUND RANGING CREWMEMBER: Patient is alert oriented ?3. SKIN: Normal turgor and temperature. Data : 12/28/21 04:24 12/28/21 04:24 A&P Assessment and plan (1) Sepsis: 8/8 bottles; 4 sets +MSSA; h/o MRSA - She underwent ANGUS today. -Markedly thickened (10 mm) anterior and posterior leaflets with vegetations attached to both leaflets. Cannot r/o abscess. -trace TR, TR MG 10 mm Hg. -These findings discussed with patient and her father as well as Dr. Peralta Status: Acute (2) Infective endocarditis: On abx per primary team Status: Acute Qualifiers: Chronicity: subacute Infective endocarditis organism: bacterial Qualified Code(s): I33.0 - Acute and subacute infective endocarditis (3) History of tricuspid valve replacement with bioprosthetic valve: Status: Acute (4) Drug use: Status: Acute Plan Anemia Thrombocytopenia Septic shock: resolved ?Meningitis H/o mycotic PA aneurysm H/o non compliance Thank you for allowing me to participate in patient's care. Please feel free to call with questions or concerns. Attestations Medical Necessity Statement*: As per primary team Coding Level of Care Code Acute Child Care Assistant for Roman Fwd Diagnoses History of tricuspid valve replacement with bioprosthetic valve Z95.3 Infective endocarditis I33.0 Chronicity: subacute Infective endocarditis organism: bacterial Drug use F19.90 Sepsis A41.9
--- NOTE | 2021-12-28 11:48 | PC.NURSE ---
Patient went off unit for a procedure at 1117
--- NOTE | 2021-12-28 12:00 | P.ANESASSM_ITS ---
Pre-Anesthetic Assessment Height/Weight: Height 1.65 m Weight 58.967 kg Temp Pulse Resp BP Pulse Ox 97.7 F 73 18 128/85 98 12/28/21 11:20 12/28/21 11:20 12/28/21 11:20 12/28/21 11:20 12/28/21 11:20 Operation Date: 12/19/21 12:00 Proposed Procedures p ANGUS(Not Applicable) - Laura Barrientos MD Operation Date: 12/28/21 12:00 Proposed Procedures p ANGUS(Not Applicable) - Laura Barrientos MD Familial anesthetic complications: denies Last intake: Meal 2300 Liquids 2300 Social Tobacco and No alcohol 1/2 pack(s) per day Airway Submandibular: within normal limits Cervical ROM: within normal limits Mallampati: Class II Dentition: full Pulmonary None reported CV/HEM Deep Vein Thrombosis (PE) Tricuspid valve replaced 07/2021 Thrombocytopenia Right heart enlargement preserved EF 2020 Echo None reported Hepatic Hepatosplenomegaly GI None reported Metabolic None reported Musc/skel None reported Neuropsych Anxiety and Depression substance abuse history reports last illicit drug use summer Anesthetic Plan ASA status: 3 Anesthesia: MAC Medications/Allergies Home Medications Medication Instructions Recorded Confirmed Last Taken Type albuterol sulfate 90 mcg/actuation 1 puff INHALATION QID PRN #6.7 g 03/15/21 12/13/21 03/29/21 Rx aerosol inhaler (ProAir HFA) aspirin 81 mg chewable tablet 81 mg PO DAILY 12/13/21 12/13/21 12/12/21 History buprenorphine 8 mg-naloxone 2 mg 1 film SUBLINGUAL TID 12/13/21 12/13/21 12/12/21 History sublingual film (Suboxone) docusate sodium 100 mg capsule 100 mg PO BID PRN 12/13/21 12/13/21 Unknown History duloxetine 60 mg capsule,delayed 60 mg PO DAILY 12/13/21 12/13/21 12/12/21 History release fluconazole 200 mg tablet 600 mg PO DAILY 12/13/21 12/13/21 12/12/21 History furosemide 40 mg tablet (Lasix) 40 mg PO DAILY 12/13/21 12/13/21 12/12/21 History Allergies Allergy/AdvReac Type Severity Reaction Status Date / Time No Known Allergies Allergy Unverified 03/15/21 10:58 Current Medications Generic Name Dose Route Start Last Admin Trade Name Afshan PRN Reason Stop Dose Admin Acetaminophen 650 mg 12/14/21 00:34 12/27/21 13:54 Acetaminophen 325 Mg Tablet PO 650 mg Q6H PRN Administration MILD PAIN Aspirin 81 mg 12/23/21 09:00 12/27/21 08:38 Aspirin 81 Mg Ec Tablet PO 81 mg DAILY ABIOLA Administration Bisacodyl 10 mg 12/25/21 15:10 12/27/21 08:40 Bisacodyl 10 Mg Supp AZ Not Given DAILY ABIOLA Buprenorphine/Naloxone 2 each 12/24/21 15:00 12/28/21 09:34 Buprenorphine-Naloxone 4-1 Mg Film SUBLINGUAL 2 each TID ABIOLA Administration Duloxetine HCl 60 mg 12/14/21 11:20 12/27/21 08:38 Duloxetine 60 Mg Capsule PO 60 mg DAILY ABIOLA Administration Enoxaparin Sodium 40 mg 12/26/21 08:45 12/28/21 09:35 Enoxaparin 40 Mg/0.4 Ml Syringe SUBCUT 40 mg Q24H ABIOLA Administration Fluconazole 600 mg 12/23/21 09:00 12/27/21 08:37 Fluconazole 100 Mg Tablet PO 600 mg DAILY ABIOLA Administration Vancomycin HCl 1,000 mg/ 250 mls @ 250 mls/hr 12/18/21 11:00 12/28/21 00:06 Sodium Chloride IV 250 mls/hr Q12H ABIOLA Administration Ceftriaxone Sodium 2,000 mg/ 50 mls @ 100 mls/hr 12/25/21 15:30 12/28/21 04:17 Sodium Chloride IV 100 mls/hr Q12H ABIOLA Administration Protocol Sodium Chloride 1,000 mls @ 30 mls/hr 12/28/21 11:30 12/28/21 11:29 Sodium Chloride 0.9% IV 12/29/21 11:29 30 mls/hr .Q24H ABIOLA Administration Lanolin 1 applic 12/18/21 03:23 12/18/21 03:40 Lanolin Oint 7 Gm TOPICAL 1 applic PRN PRN Administration DRYNESS Lidocaine 1 patch 12/15/21 21:00 12/28/21 09:35 Lidocaine 5% Patch TOPICAL 1 patch [id number] ABIOLA Administration Nicotine 1 patch 12/16/21 10:00 12/28/21 09:34 Nicotine 21 Mg Patch TRANSDERMA 1 patch DAILY ABIOLA Administration Polyethylene Glycol 17 gm 12/24/21 11:00 12/27/21 08:39 Polyethylene Glycol 3350 Pkt 17 Gm PO 17 gm DAILY ABIOLA Administration [facility] Anesthesia Medical History (Updated 12/26/21 @ 16:04 by Juan M Zhao MD) Anisocoria Drug use Hepatitis C Reports she is untreated Surgical History (Updated 12/19/21 @ 08:17 by Laura Barrientos MD) History of tricuspid valve replacement with bioprosthetic valve Social History Smoking and tobacco status: current every day smoker Second hand smoke exposure: No Smoking risk assessment/counseling performed?: Yes Alcohol intake: never Desire information about alcohol rehabilitation?: No Counseling given: No Desire information about substance/drug rehabilitation?: No Counseling given: No Adopted: No Caregiver/support person: No Lives independently: Yes Household members: family Housing: House Marital status: Single service: No Current occupational status: unemployed History of recent travel: No Current gender identity: Female Female Reproductive History Date of last menstrual period: 03/30/21 Data Anesthesia : 12/28/21 04:24 12/28/21 04:24 Short CBC 12/27/21 12/28/21 Range/Units 05:15 04:24 WBC 9.6 7.6 (4.0-10.0) 10^3/uL Hgb 7.7 L 8.1 L (11.5-15.3) g/dL Hct 25.2 L 27.4 L (37.0-47.0) % MCV 75.9 L 75.9 L (81-99) fl Plt Count 95 L 86 L (130-400) 10^3/cmm Neut % (Auto) 79.6 72.5 % Neut # (Auto) 7.66 5.47 (1.8-7.7) 10^3/uL BMP 12/27/21 12/28/21 05:15 04:24 Sodium 132 L 135 L Potassium 4.2 4.1 Chloride 96 L 100 Carbon Dioxide 28 31 H BUN 10 11 Creatinine 0.6 0.6 Glucose 105 104 Calcium 8.3 L 8.5 Liver Function 12/27/21 12/28/21 Range/Units 05:15 04:24 Total Bilirubin 0.6 0.6 (0.15-1.2) mg/dL AST 12 15 (0-32) U/L ALT < 5 < 5 (0-33) U/L Alkaline Phosphatase 262 H 273 H (35-105) IU/L Albumin 2.7 L 2.7 L (3.5-5.2) g/dL Blood Bank 12/26/21 08:51 Blood Type B Positive Rho(D) Type Positive Antibody Screen Positive Coags 12/27/21 12/28/21 05:45 04:24 PT 16.70 H 17.60 H INR 1.32 H 1.41 H APTT 36.6 34.7 Fibrinogen 223 204 Fibrin Degrad Products Pos, >=40 H Pos, >=40 H D-Dimer 18.39 H 9.57 H Cardiac Studies: Echocardiogram 12/14/21 Echocardiogram Limited Views 12/24/21
--- NOTE | 2021-12-28 12:00 | USCV_ITS ---
Linh Ambrose Age: 36 Gender: F : 1985 Exam Date: 12/28/2021 12:23 Ordering Phys: Juan M Zhao MD Technologist: Chica Gatica [place]am [place] [facility] [place]: S/p Tricuspid valve replacement, Staph aureus sepsis, evaluate for endocarditis BP: 130 / 95 HR: 87 Rhythm: Sinus Technical Quality: Adequate MEASUREMENTS (Male / Female) Normal Values DOPPLER TR Peak Velocity 235.8 cm/s TR Peak Gradient 22.2 mmHg TR Mean Velocity 105.0 cm/s TR Mean Gradient 6.3 mmHg TR Velocity Time Integral 52.2 cm Medications The posterior pharynx was sprayed with Cetacaine spray. Patient given IV sedation by anesthesia service, for details please refer to the anesthesia report. Complications Intubation easy. Attempts x1. No blood on probe post procedure. Patient tolerated the procedure well. Proc. Components The patient was brought to the ANGUS examination room in a fasting state after obtaining an informed consent. The ANGUS probe was passed into the posterior pharynx , mid-esophagus, distal esophagus, and gastric fundus. FINDINGS Left Ventricle Normal left ventricular size, systolic function and wall thickness, with no regional wall motion abnormalities. Left ventricular ejection fraction is estimated at 65 %. Abnormal (paradoxical) septal motion consistent with postoperative status. Right Ventricle Mildly dilated right ventricle with moderately decreased right ventricular systolic function. Right ventricular systolic pressure 29 mmHg. Right Atrium Normal right atrial size. Left Atrium Normal left atrial size. LA Appendage Normal left atrial appendage. Normal flow velocities in the left atrial appendage. No thrombus visualized in the left atrial appendage. IA Septum s/p PFO repair. Trivial residual tiny PFO. Mitral Valve Structurally normal mitral valve. No mitral valve stenosis. Trace mitral valve regurgitation. Aortic Valve Structurally normal trileaflet aortic valve. No aortic valve stenosis. No aortic valve regurgitation. Tricuspid Valve Bioprosthetic tricuspid valve in place. Markedly thickened anterior and posterior leaflets measuring 10 mm with some echolucency. Globular 9x 9 mm echodense mobile mass attached to posterior leaflet and 6 mm filamentous mobile mass attached to anterior leaflet/subvalvular structure. Mean gradient of 12 mm Hg. Cannot rule out abscess.Trace tricuspid valve regurgitation. No cecelia-valvular regurgitation. Pulmonic Valve Structurally normal pulmonic valve. No pulmonary valve stenosis. Trace pulmonary valve regurgitation. Pericardium No pericardial effusion. Aorta Normal size aortic root and proximal ascending aorta. No aortic dilation, aneurysm or dissection. CONCLUSIONS 1. Normal left ventricular size, systolic function and wall thickness, with no regional wall motion abnormalities. Left ventricular ejection fraction is estimated at 65 %. 2. Mildly dilated right ventricle with moderately decreased right ventricular systolic function. 3. Bioprosthetic tricuspid valve in place. Markedly thickened anterior and posterior leaflets measuring 10 mm with some echolucency. Globular 9x 9 mm echodense mobile mass attached to posterior leaflet and 6 mm filamentous mobile mass attached to anterior leaflet/subvalvular structure. Mean gradient of 12 mm Hg. Cannot rule out abscess. 4. These findings are suggestive of bioprosthetic tricuspid valve endocarditis. Laura Barrientos MD (Electronically Signed) Final Date: 02 Jan 2022 09:09 S
--- NOTE | 2021-12-28 12:25 | P.PN_ITS ---
Subjective Subjective: She reports overall breathing slightly better, but she is finding that she needs to keep the nasal cannula on, cannot take it off otherwise becomes dyspneic. Comfortable with nasal cannula on. He is n.p.o. for ANGUS. Asks about ice chips, discussed with RN, needs to be n.p.o., will see if he can get some swabs to moisten her mouth. Vitals/I&O/Wt Last Vital Signs Temp 97.7 F 12/28/21 11:20 Pulse 73 12/28/21 11:20 Resp 18 12/28/21 11:20 BP 128/85 12/28/21 11:20 Pulse Ox 98 12/28/21 11:20 12/27/21 12/28/21 12/28/21 22:59 06:59 14:59 Intake Total 650 / 900 480 / 1380 Output Total 2000 / 1999 800 / 2800 Balance -1350 / -1100 -320 / -1420 Weight last 48 hrs Weight 58.967 kg Weight 56.6 kg Physical Exam Const: COMMON NORMALS: alert GENERAL APPEARANCE: cooperative ORIENTATION/CONSCIOUSNESS: Yes awake HENMT: COMMON NORMALS: normocephalic, EAC's normal, Normal external nose present and moist oral mucous membranes HEAD & SCALP: normocephalic NOSE: Normal external nose present EXTERNAL AUDITORY CANAL: EAC's normal Eye: OTHER: Min anisocoria, R>L Neck/C-Spine: COMMON NORMALS: no meningeal signs Chest: CHEST: Yes Symmetrical chest wall rise Resp: COMMON NORMALS: clear to auscultation bilaterally AUSCULTATION: clear to auscultation bilaterally Cardio: COMMON NORMALS: regular rate, regular rhythm and No murmurs present (Cardio) RATE: regular rate RHYTHM: regular rhythm GI: COMMON NORMALS: Normal to inspection, nondistended, normoactive bowel ahsan nds present, Soft to palpation and non-tender PALPATION: Yes Soft to palp ation Extremity: COMMON NORMALS: no pedal edema OTHER: No erythema or swelling of R forearm PICC Neuro: COMMON NORMALS: moves all extremities SENSORIUM/ORIENTATION: Yes alert MENINGEAL SIGNS: Yes no meningeal signs Psych: COMMON NORMALS: mental status grossly normal Skin: COMMON NORMALS: no wounds RASHES: no rashes Data : 12/28/21 04:24 12/28/21 04:24 A&P Assessment and plan (1) Coagulopathy: D-dimer with further improvement. Still positive fibrin degradation products. Continues to do well, advance to 40 mg twice daily Lovenox cautiously. Avoid full anticoagulation with concern for increased risk of bleeding. Responded well to RBC transfusion. So far hemoglobin staying around 8 Repeat haptoglobin, LDH not suggestive of hemolysis, although discussed with her could be persistent low-grade DIC. Ultimately possibility of thrombosis, or possibly due to infection. Negative venous duplex upper and lower extremities. Some embolization noted on CTA and possibly septic embolization. Tentative plan for tomorrow for ANGUS to assess for intracardiac thrombus. Status: Acute (2) Septic embolism: Continue vancomycin, restarted also ceftriaxone. Continue antifungal. Continue oxygen supplementation. PICC line placed 12/26 due to difficulties with access frequent loss of IV and need for blood draws. She is considering LTAC for continuation and completion of course. 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 Continue empiric antimicrobial coverage for possible endocarditis. Concern for endocarditis, septic embolism given opacities noted on chest x-ray She denies IVDU As per discussion with her ID specialist, sometimes even in absence of IVDU can see relapse of staphylococcal infection after valve replacement. Aspirin has been on hold due to low platelets, concern for septic embolic disease. Status: Acute (3) Septic shock: Shock resolved. BP better. Needed a small bolus on 12/25. Monitor blood pressures Discussed with her again possibility of DIC/dysregulation of coagulation with elevation of fibrinogen products, elevated D-dimer. Abnormal INR. Although LDH and haptoglobin are okay. She is again febrile. Continue resumed ceftriaxone for synergistic effect, and appears to have done well with that previously, with staph sensitive, although discussed he states to continue vancomycin given history of MRSA and as per recommendation of her ID specialist. Repeat blood cultures negative from 12/16 and 12/24. Septic resolved. Secondary to meningitis infective endocarditis, staph auris bacteremia Off pressor. MRI thoracic and lumbar spine obtained only noncontrast since declined to complete the entire study. Noncontrast studies with normal thoracic spine, unremarkable lumbar spine. Several benign hemangiomas in the visualized osseous structures. Her ID specialist in [place] is Dr. Emilie Dangelo Bicytopenia likely secondary to infection/sepsis. No mention of schistocytes. No blasts. Status: Acute (4) Sepsis: As above Status: Acute (5) Meningitis: Continue vancomycin. ceftriaxone. Continue monitoring. Status: Acute (6) Thrombocytopenia: Thrombocytopenia with improvement. Cannot exclude possible low-grade DIC. LDH and haptoglobin suggest against. Fibrinogen improved. Responded to RBC transfusion. Appears to be doing better with resumption of c eftriaxone. Treatment of underlying infection. Bicytopenia likely secondary to infection/sepsis. No mention of schistocytes. No blasts. Requesting platelet transfusion given she is reporting some new vaginal bleeding which she has not had for a while. Repeat CBC Status: Acute (7) Opacity of lung on imaging study: Concern for septic embolization, recurrence of endocarditis. Status: Acute (8) History of tricuspid valve replacement with bioprosthetic valve: At [facility], reports was done on July 31. Records in paper chart. Had tricuspid valve replaced with bioprosthetic valve, and PFO closure at the same time. TTE no obvious vegetation. 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 Antimicrobials as above. Will need protracted antibiotic course, which may be difficult given bioprosthetic valve in place, recurrence of endocarditis, history of IVDU. Was hospitalized for the entire 6 weeks at [facility] to receive IV antibiotics via PICC line. Status: Acute (10) Episodic confusion: 12/15 had an episode in the evening around 5 PM with confusion, decreased r esponsiveness, sinus tachycardia, noted to have some mottling, difficult to obtain oxygen saturation, but once obtained 97%. With anisocoria not seen in examination on presentation or at [facility]. Assessed by CT angiogram head and neck, unremarkable. RPR negative. Per discussion with her father anisocoria is since with one of the pupils less reactive. Not always apparent depending on ambient light. Confusional episode resolved. Tachycardia improved. Saturation remained steady on 2 L nasal cannula. Chest x-ray without acute abnormality. Troponin EKG series without suggestion of [place]. Not entirely clear because of the episode. Similar episode documented on 2 occasions at [facility] in August without identified cause. Noncontributory MRI brain. She is also on Suboxone. Continued dose 1 from 3 times daily. She has been having intermittent lethargy, so we have not increase the dose seen. It does appear that on outpatient side she has been receiving 8 mg doses. Consider increasing if lethargy improves. For now continue 4 mg, adding, however, 4 mg films 3 times daily as needed for pain or showing symptoms of withdrawal. Discussed with father. Status: Acute (11) Anisocoria: Assessed by CT angiogram head and neck, unremarkable. RPR negative. Per discussion with her father anisocoria is since with one of the pupils less reactive. Not always apparent depending on ambient light. Status: Acute (12) Acute hypokalemia: Replaced. Status: Acute (13) Intravenous infiltration: Resolved. Status: Acute Plan Hypomagnesemia: Replaced History of bilateral septic pulmonary emboli Anemia, follow-up hemoglobin, may need additional transfusion. No outward bleeding. Status post 1 unit PRBC, iron levels are on the lower end, Hemoccult stool Thrombocytopenia improving, monitor Obstipation: Reports has had a bowel movement 12/26 night. Cont bowel regimen. PA aneurysm: noted during hospitalization in Aug at [facility], had hemoptysis requiring temporary intubation. Vaginal bleeding: Spotting only. Also reports irregular menses. Discussed with her she to follow-up with gynecology after discharge. Smoking: Nicotine replacement Depression with failure to thrive. I requested case management evaluate the patient with possible outpatient referral for behavioral health/psychiatry History of septic pulmonary emboli Hyponatremia. Improved. Regular diet. Treat sepsis as above. History of infected endocarditis with tricuspid valve vegetation as well as questionable mitral valve vegetation. Patient status post bioprosthetic valve replacement?patient uncertain of as to which valve was replaced Depression Hepatitis C. hepatitis C RNA requested by infectious disease specialist, ordered. Receiving treatment in [place]. Will need follow-up with Dr Dangelo. HCVRNA 30 Microcytic anemia, chronic with history of iron deficiency. Iron deficiency anemia. Will monitor hemoglobin level intermittently. Negative repeat fecal occult blood. Hypophosphatemia. We will monitor phosphorus level intermittently. Received Neutra-Phos 2 150 Mill cans by mouth twice a day Hx methamphetamine abuse History of leaving AGAINST MEDICAL ADVICE Medical noncompliance as witnessed by patient previous leaving AGAINST MEDICAL ADVICE. The patient becomes regarding medical compliance Query history of asthma She is also on Suboxone. Continued dose 1 F ILM 3 times daily Attestations Medical Necessity Statement*: Continue admission for assessment and management of coagulopathy, possible intracardiac thrombus, endocarditis, staphylococcal bacteremia in the setting of bioprosthetic tricuspid valve, required continued IV antimicrobial therapy. 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
--- NOTE | 2021-12-28 13:32 | PC.NURSE ---
[address] adams of bp. 1317 dr adams at bedside
--- NOTE | 2021-12-28 13:34 | PC.NURSE ---
1320 iv fluids open. hob lowered. dr adams remains at bedside 1325 o2 mask placed at 8L 1330 father at bedside. patient responsive to verbal, follows commands, denies pain
--- NOTE | 2021-12-28 13:46 | PC.NURSE ---
more awake, oriented x3, follows commands, dad at bedside.
--- NOTE | 2021-12-28 13:52 | PC.NURSE ---
attempt to call report, nurse calderon unavailable at the moment.
--- NOTE | 2021-12-28 13:54 | PC.NURSE ---
1354 patient remains alert to voice, taking ice chips, oriented x3, respirations even and non labored.
--- NOTE | 2021-12-28 14:46 | PC.NURSE ---
Prior to transfer of pt to floor, BP was 80/61, followed by 94/73. Informed Dr. Wellington. Dr. Wellington stated she felt comfortable with pt being transferred back to floor and advised me to inform pt's floor nurse as well as hospitalist. Upon transfer to floor advised HUA Hart of BP's while pt was in GI Lab and of Dr. Wellington's instructions. Hailey voiced understanding, vitals upon transfer to floor are charted, BP within normal limits, see vitals documented. Informed Dr. Willett of all vitals and pt's mental status. Dr. Willett voiced understanding and appreciation.
[2021-12-28] MEDS: fluconazole 100 mg Tablet 600 MG PO (16:21)
--- NOTE | 2021-12-28 19:45 | PC.NURSE ---
Patient returned from procedure at 1430. Report of patients bp was pretty low. Blood pressure here in room is good as well as other vitals. Patient took some meds okay but has been pretty sleepy. Patient sounds good, no swelling, tummy still firm and states she feels fine.
[2021-12-28 21:55] LABS: Vancomycin Trough 32.4 ug/mL (10-15)
[2021-12-29] VITALS (8 sets, daily range): BP systolic 118–147; BP diastolic 66–93; PULSE 0–114; RESP 16–23; TEMP 36.7–37.8; O2SAT 90–98
[2021-12-29] MEDS: LORazepam 2 mg/mL INJ 1 mL 0.5 MG IVP (01:12)
[2021-12-29 02:02] LABS: Basophils # 0.1 10^3/uL (0.0-0.1); Basophils % 0.5 %; Eosinophils % 0.2 %; Hemoglobin 8.6 g/dL (11.5-15.3); Lymphocytes # 1.2 10^3/uL (0.8-4.8); Lymphocytes % 11.3 %; Mean Corpuscular HGB Conc 30.7 g/dL (30.0-36.0); Mean Corpuscular Hemoglobin 22.6 pg (28.0-34.0); Mean Corpuscular Volume 73.7 fl (81-99); Mean Platelet Volume 11.1 fL (7.4-10.4); Monocytes # 0.9 10^3/uL (0.2-0.9); Monocytes % 8.2 %; Neutrophils # 8.46 10^3/uL (1.8-7.7); Neutrophils % 79.3 %; Nucleated Red Blood Cells % 0.2 %; Platelet Count 116 10^3/cmm (130-400); Red Cell Distribution Width 22.9 % (12.1-15.1); White Blood Count 10.7 10^3/uL (4.0-10.0)
[2021-12-29 02:21] LABS: INR 1.29 (0.8-1.2)
[2021-12-29 02:25] LABS: Alanine Aminotransferase 6 U/L (0-33); Albumin Level 2.7 g/dL (3.5-5.2); Alkaline Phosphatase 277 IU/L (35-105); Aspartate Amino Transferase 16 U/L (0-32); Blood Urea Nitrogen 13 mg/dL (6-20); Calcium 8.3 mg/dL (8.5-10.5); Carbon Dioxide 25 mmol/L (22-29); Chloride 97 mmol/L (98-107); Creatinine Clr Calc Pharmacy 79.5906; Globulin 4.1 g/dL (1.3-4.6); Glomerular Filtration Rate 71.3 mL/min (90-130); Glucose 117 mg/dL (65-115); Magnesium 1.8 mg/dL (1.7-2.3); Osmolality Calculated 275 mOsm/kg (285-295); Phosphorus 4.8 mg/dL (2.5-4.5); Sodium 132 mmol/L (136-145); Total Bilirubin 0.7 mg/dL (0.15-1.2); Total Protein 6.8 g/dL (6.6-8.7)
[2021-12-29 02:28] LABS: Fibrinogen 241 mg/dL (174-498)
[2021-12-29] MEDS: cefTRIAXone 2,000 MG in sodium chloride 0.9% (plus) 50 ML 100 MG IV ×2 (02:31→18:24)
[2021-12-29 02:32] LABS: D Dimer 11.74 ug/mIFEU (0-0.59)
--- NOTE | 2021-12-29 03:00 | PC.PHAR ---
Vancomycin trough on 12/28/21 at 2100 is 32.4. Hold vancomycin and repeat trough on 12/29/21 at 2100.
[2021-12-29] MEDS: duloxetine 60 mg Capsule PO (09:05)
[2021-12-29] MEDS: fluconazole 100 mg Tablet 600 MG PO (09:05)
[2021-12-29] MEDS: enoxaparin 40 mg/0.4 mL Syringe SUBCUT ×2 (09:06→20:58)
[2021-12-29] MEDS: lidocaine 5% Patch 1 PATCH TOPICAL (09:07)
[2021-12-29] MEDS: buprenorphine-naloxone 4-1 mg Film 2 EACH SUBLINGUAL ×3 (09:07→20:58)
[2021-12-29] MEDS: nicotine 21 mg Patch 1 PATCH TRANSDERMA (09:10)
--- NOTE | 2021-12-29 11:00 | PC.NURSE ---
Received call from [facility] to gather information for patient transfer. Patient will transfer to the care of Dr. Min, Transfer Center ph # is [phone] option 2.
--- NOTE | 2021-12-29 16:01 | PM.TDS ---
Transfer Summary Providers Date of Admission: 12/13/21 22:09 Date of Discharge/Transfer: 12/29/21 Attending Provider at Admission: Ashlee Patten, Attending Provider at Transfer: Juan M Zhao Transfer Plans: Anticipated date of transfer: 12/29/21. Diagnoses at Discharge Other Information Additional DC diagnoses/information: Tricuspid vegetation, possible pleural abscess Endocarditis and presence of nonnative valve Coagulopathy Septic embolization Septic shock resolved Sepsis Staph aureus bacteremia Meningitis: Diagnosed initially on presentation, likely due to endocarditis with disseminated infection, CSF culture without growth Bilateral pulmonary emboli, suspected septic embolization Episodic confusion Anisocoria: Assessed by CT angiogram head and neck, unremarkable.? RPR negative. Per discussion with her father anisocoria is since with one of the pupils less reactive. Not always apparent depending on ambient light. Acute hypokalemia: Replaced.? Follow-up and check magnesium level. ? Intravenous infiltration: Resolved.? Hypomagnesemia: Replaced Anemia, follow-up hemoglobin negative so far. Negative Hemoccult. No outward bleeding. 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 No hemoptysis. Vaginal bleeding: Spotting only.? Also reports irregular menses.? Discussed with her she to follow-up with gynecology after discharge. Smoking: Nicotine replacement Depression with failure to thrive.? Consider outpatient referral for behavioral health/psychiatry Hyponatremia.? Mild. Resolving.? Regular diet. Treat sepsis as above. History of infected endocarditis with tricuspid valve vegetation as well as questionable mitral valve vegetation.? Patient status post bioprosthetic valve replacement and PFO closure in July Hepatitis C. hepatitis C RNA PCR obtained, 1.48 IU/mL, 30 IU log 10 Hypophosphatemia.? We will monitor phosphorus level intermittently.? Received replacement. Remote Hx methamphetamine abuse Query history of asthma, not in exacerbation She is also on Suboxone.? Continued home dose 1 film 3 times daily Reason for Visit Reason for Visit pysch Hospital Course Hospital Course Pleasant 36-year-old lady with history of endocarditis with MRSA bacteremia and fungal bacteremia, associated septic embolization, pulmonary artery aneurysm, requiring tricuspid valve replacement which was done in July at [facility] along with PFO closure. At the time also with sternal osteomyelitis. With prior history of IVDU, denies any drug use ever since discharge from [facility], also with history of HCV undergoing treatment with Dr. Dangelo at [facility]. During hospitalization at [facility] also had several unexplained, self-limited episodes decreased responsiveness. She was admitted after coming to hospital through ER complaint of 5 days of weakness, on presentation with septic shock sepsis, acute encephalopathy, meningeal signs, pulmonary embolic disease, with suspected recurrence of endocarditis, on presentation with fraction with findings of meningitis on lumbar puncture as well, although without growth on CSF cultures, without obvious abscess on noncontrast CT the head consistent (normal brain, paranasal sinus mucosal thickening). Blood cultures growing Staph aureus resistant to ampicillin, erythromycin, penicillin, intermediate sensitivity to tetracycline. Blood cultures positive from 12/13 and again repeat cultures on 12/13. Subsequent repeat cultures on 12/16, 12/24 without growth. Has been treated initially with ceftriaxone + vancomycin and amphotericin B. Per discussion with her ID specialist risk of infection recurrence even possibly without IV drug use recurrence, recommendation to continue MRSA coverage given past history of MRSA infection. Antifungal subsequently de-escalated to caspofungin, and then back to p.o. fluconazole without fungal growth on blood cultures. On 12/14 TTE with normal EF, 75%, no R WMA, bioprosthetic valve atrial catheterization with thickened leaflets. No pericardial effusion. On 12/15 had an episode of worsened confusion/decreased responsiveness, tachycardia, at that time also difficult to obtain saturation, had mottling. At that time found to have DIC. At the same time noted to have anisocoria not being in documentation previously, CTA head and neck obtained, as well as a number of other studies, but the father then clarified that anisocoria is since , not always apparent. CTA was unremarkable. Symptoms improving the same evening. MRI thoracic and lumbar spine requested due to pain, worsening condition, she declined to complete the entire study, but with some scheduling did finish the noncontrast images which were unremarkable. MRI brain 12/18 unremarkable, but noncontrast study. No acute infarct or hemorrhage. Hospitalization has been complicated by thrombocytopenia initially, platelets down as low as 13,000 on 12/15, subsequently with gradual improvement, stabilizing around 80-100,000. Received platelet transfusion initially due to also some vaginal spotting for which will need gynecology follow-up once out of acute illness. Initially recurrence of anemia, hemoglobin down as low as 6.8, required 2 units RBC transfusion. Coagulopathy with D-dimer elevation, positive fibrin elevation products, fibrinogen remained over 200 except on 12/26 when transiently dipped to 170. D-dimer severely elevated, initially with improvement, subsequently again with worsening on 12/26. At that time was de-escalated off of ceftriaxone, only on vancomycin. Ceftriaxone was restarted, subsequently with improvement in fibrinogen, D-dimer. Possible low-grade DIC, although haptoglobin, LDH not suggestive. Peripheral smear from beginning of hospitalization with leukocytosis with left shift, thrombocytopenia, microcytic hypochromic anemia, no schistocytes. Duplex of lower and upper extremities negative for DVT. CTA chest on 12/22 with cardiomegaly, pulmonary vascular congestion, small bilateral pleural effusions, nonspecific bilateral opacities, atelectasis, edema and/or pneumonia. Pulmonary interstitial edema. Bilateral occlusive lower lobe pulmonary emboli similar in appearance to 2020, additional pulmonary emboli felt to be present in the left upper lobe segmental arteries. RV/LV ratio abnormal elevated suggestive of right heart strain measuring 1.2. Reflux of injected contrast material into hepatic veins suggest decreased cardiac output. Enlarged mediastinal nodes with largest at the AP window having a short axis dimension of 2.1 cm. Intra-abdominal ascites present. Hepatomegaly partly visualized. With improvement in platelets, coagulopathy, persistently elevated D-dimer, fibrin degradation products, possible DIC, pulmonary embolization thought to be septic, but could not exclude low-grade PE, was started on low-dose prophylactic heparin initially, transition to 40 mg every 24 hours Lovenox which she so far has tolerated, with advancement cautiously to 40 mg every 12 hours Lovenox, avoiding full dose anticoagulation due to concern of elevated risk of bleeding, anemia. She had weaned off pressors gradually. Continue with soft blood pressures. Blood pressures transiently worse after dose of Lasix. More recently maintaining better blood pressures, 1-teens to 130s systolic. Mental status had improved, although on and off getting intermittently confused. Continued on Suboxone initially lower dose, 1 from 4 mg 3 times daily, once blood pressures and mental status improved, resumed usual dose of 8 mg. She continues to spike intermittent fevers. Continues to require nasal cannula oxygen 3 L with intermittent dyspnea. COVID-19 PCR panel was negative on 12/24. PICC line had to be obtained on 12/26 due to recurrent loss of IV access, difficult access, need for intravenous antibiotic therapy as well as repeat lab work. TTE on 12/24 with normal LV systolic function, bioprosthetic tricuspid valve, leaflets significantly thickened, possibility of vegetation cannot be ruled out. ANGUS performed on 12/28, as discussed with performing chemical processing supervisor with noted large tricuspid valve vegetation (full report still pending, but reported possibly as large as 2 cm), and difficult to visualize possible perivalvular abscess, although not well seen. As per recommendation transfer sought to higher-level facility for additional assessment, including her cardiothoracic surgeon at [facility], infectious disease, given lack of further improvement, recurrent fevers, coagulopathy and persistently elevated inflammatory markers. She is currently accepted for additional assessment and further care at [facility] as discussed with Dr. Min. He does make note of his previous discussion with her that in case of recurrence of endocarditis due to IVDU, surgery would not be performed again which is relayed to her father, as she is again more confused, who is agreeable to still proceed. We had discussed with Dr. Min as well, UDS positive for opioid on presentation, although takes Suboxone, but she firmly denied any relapse, and none was witnessed to the best of father's knowledge. With regards to hepatitis C quantitative RNA PCR obtained, 1.48 IU/mL, 30 IU log 10. Once urgent matters addressed, please refer for follow-up with gynecology for vaginal bleeding/spotting. Physical Exam Const: COMMON NORMALS: alert GENERAL APPEARANCE: cooperative ORIENTATION/CONSCIOUSNESS: Yes awake and Yes confused HENMT: COMMON NORMALS: normocephalic, EAC's normal, Normal external nose present and moist oral mucous membranes HEAD & SCALP: normocephalic NOSE: Normal external nose present EXTERNAL AUDITORY CANAL: EAC's normal Eye: OTHER: Min anisocoria, R>L Neck/C-Spine: COMMON NORMALS: no meningeal signs Chest: CHEST: Yes Symmetrical chest wall rise Resp: COMMON NORMALS: clear to auscultation bilaterally AUSCULTATION: clear to auscultation bilaterally Cardio: COMMON NORMALS: regular rate, regular rhythm and No murmurs present (Cardio) RATE: regular rate RHYTHM: regular rhythm GI: COMMON NORMALS: Normal to inspection, nondistended, normoactive bowel sounds present, Soft to palpation and non-tender PALPATION: Yes Soft to palpation Extremity: COMMON NORMALS: no pedal edema OTHER: No erythema or swelling of R forearm PICC Neuro: COMMON NORMALS: moves all extremities SENSORIUM/ORIENTATION: Yes alert MENINGEAL SIGNS: Yes no meningeal signs Skin: COMMON NORMALS: no wounds RASHES: no rashes TS Data Studies Completed and Pending Pending at discharge Category Date Time Status ABO/Rh Type Routine Lab 12/14/21 11:20 Results Complete Blood Count w/Auto AM LABS Lab 12/30/21 04:00 Ordered Complete Blood Count w/Auto AM LABS Lab 12/31/21 04:00 Ordered Complete Blood Count w/Auto AM LABS Lab 01/01/22 04:00 Ordered Complete Crossmatch Routine Lab 12/14/21 11:20 Results Comprehensive Metabolic Panel AM LABS Lab 12/30/21 04:00 Ordered Comprehensive Metabolic Panel AM LABS Lab 12/31/21 04:00 Ordered Comprehensive Metabolic Panel AM LABS Lab 01/01/22 04:00 Ordered DIC Profile AM LABS Lab 12/30/21 04:00 Ordered Fecal Occult Blood [Immunochemical Fecal OCB] Routine Lab 12/14/21 00:34 Uncollected Miscellaneous Test Stat Lab 12/14/21 09:07 Received Occult Blood Stool [Immunochemical Fecal OCB] Stat Lab 12/22/21 13:25 Uncollected Platelets Leuko-Reduced Routine Lab 12/14/21 11:20 Results Sputum Culture and Gram Stain Stat Lab 12/24/21 07:57 Uncollected Vancomycin Trough Timed Lab 12/29/21 21:00 Ordered US echo ANGUS [CV. echo transesophageal [id number]] Routine Ultrasound 12/28/21 12:00 Taken Labs from last 24 hours 12/29/21 12/29/21 12/29/21 01:33 01:33 01:33 WBC 10.7 H RBC 3.80 L Hgb 8.6 L Hct 28.0 L MCV 73.7 L MCH 22.6 L MCHC 30.7 RDW 22.9 H Plt Count 116 L D MPV 11.1 H Neut % (Auto) 79.3 Lymph % (Auto) 11.3 Lanier % (Auto) 8.2 Eos % (Auto) 0.2 Baso % (Auto) 0.5 Neut # (Auto) 8.46 H Lymph # (Auto) 1.2 Lan[place] # (Auto) 0.9 Eos # (Auto) 0.0 Baso # (Auto) 0.1 Nucleated RBC % (auto) 0.2 Nucleated RBCs # 0.0 PT 16.40 H INR 1.29 H APTT 34.0 Fibrinogen 241 Fibrin Degrad Products Pos, >=40 H D-Dimer 11.74 H Sodium 132 L Potassium 5.0 Chloride 97 L Carbon Dioxide 25 Anion Gap 15.0 BUN 13 Creatinine 0.9 GFR Calculation 71.3 L Glucose 117 H Calculated Osmolality 275 L Calcium 8.3 L Phosphorus 4.8 H Magnesium 1.8 Total Bilirubin 0.7 AST 16 ALT 6 Alkaline Phosphatase 277 H Total Protein 6.8 Albumin 2.7 L Globulin 4.1 Vancomycin Trough 12/28/21 21:11 WBC RBC Hgb Hct MCV MCH MCHC RDW Plt Count MPV Neut % (Auto) Lymph % (Auto) [place] % (Auto) Eos % (Auto) Baso % (Auto) Neut # (Auto) Lymph # (Auto) [place] # (Auto) Eos # (Auto) Baso # (Auto) Nucleated RBC % (auto) Nucleated RBCs # PT INR APTT Fibrinogen Fibrin Degrad Products D-Dimer Sodium Potassium Chloride Carbon Dioxide Anion Gap BUN Creatinine GFR Calculation Glucose Calculated Osmolality Calcium Phosphorus Magnesium Total Bilirubin AST ALT Alkaline Phosphatase Total Protein Albumin Globulin Vancomycin Trough 32.4 H* Completed Studies During Hospitalization Category Date Time Status CT angio chest PE protcl [id number] Routine Cat Scan 12/22/21 09:[address] head wo con* [id number] Urgent Cat Scan 12/13/21 19:22 Completed CTA head neck [CT angio headneck* [id number]] Stat Cat Scan 12/15/21 17:33 Completed CXRP [XR chest 1V portable [id number]] Routine Exams 12/15/21 17:18 Completed XR KUB [id number] Stat Exams 12/14/21 04:57 Completed XR chest 1V portable [id number] Routine Exams 12/25/21 07:00 Completed XR chest 1V portable [id number] Stat Exams 12/14/21 04:57 Completed XR chest 1V portable [id number] Stat Exams 12/26/21 09:55 Completed XR chest 1V portable [id number] Urgent Exams 12/13/21 19:22 Completed MR head wo con* [id number] Routine MRI 12/18/21 11:40 Completed MR lumbar spine wo con* [id number] Routine MRI 12/16/21 10:09 Completed MR thoracic spin wo con* [id number] Routine MRI 12/16/21 10:09 [place] [id number] Routine Ultrasound 12/14/21 13:22 [place] [id number] Routine Ultrasound 12/14/21 13:22 Completed CV. echo complete* [id number] Routine Ultrasound 12/14/21 19:26 Completed CV. echo lmt wo/w con w color Routine Ultrasound 12/24/21 07:57 Completed US venous duplex lower extremity bilat [CV venous Ultrasound 12/22/21 09:20 [place] [id number]] Routine Laboratory Last Values WBC 10.7 10^3/uL (4.0-10.0) H 12/29/21 01:33 RBC 3.80 10^6/uL (4.1-5.3) L 12/29/21 01:33 Hgb 8.6 g/dL (11.5-15.3) L 12/29/21 01:33 Hct 28.0 % (37.0-47.0) L 12/29/21 01:33 MCV 73.7 fl (81-99) L 12/29/21 01:33 MCH 22.6 pg (28.0-34.0) L 12/29/21 01:33 MCHC 30.7 g/dL (30.0-36.0) 12/29/21 01:33 RDW 22.9 % (12.1-15.1) H 12/29/21 01:33 Plt Count 116 10^3/cmm (130-400) L D 12/29/21 01:33 MPV 11.1 fL (7.4-10.4) H 12/29/21 01:33 Neut % (Auto) 79.3 % 12/29/21 01:33 Lymph % (Auto) 11.3 % 12/29/21 01:33 [place] % (Auto) 8.2 % 12/29/21 01:33 Eos % (Auto) 0.2 % 12/29/21 01:33 Baso % (Auto) 0.5 % 12/29/21 01:33 Neut # (Auto) 8.46 10^3/uL (1.8-7.7) H 12/29/21 01:33 Lymph # (Auto) 1.2 10^3/uL (0.8-4.8) 12/29/21 01:33 Lanier # (Auto) 0.9 10^3/uL (0.2-0.9) 12/29/21 01:33 Eos # (Auto) 0.0 10^3/uL (0.0-0.8) 12/29/21 01:33 Baso # (Auto) 0.1 10^3/uL (0.0-0.1) 12/29/21 01:33 Nucleated RBC % (auto) 0.2 % 12/29/21 01:33 Total Counted 100 (0-100) 12/15/21 08:16 Atypical Lymphs % 0.0 % (0-5) 12/15/21 08:16 Absolute Neutrophils 15.6 10^3/cmm (1.4-6.5) H 12/15/21 08:16 Segmented Neutrophils 92 % 12/15/21 08:16 Abs Segm Neuts (Man) 15.3 10/cmm (1.6-7.1) H 12/15/21 08:16 Band Neutrophils 2.0 % 12/15/21 08:16 Abs Band Neuts (Man) 0.3 10^3/cmm (0.0-1.2) 12/15/21 08:16 Absolute Lymphocytes 0.5 10^3/cmm (1.2-3.4) L 12/15/21 08:16 Lymphocytes (Manual) 3 % 12/15/21 08:16 Monocytes (Manual) 1.0 % 12/15/21 08:16 Absolute Monocytes 0.2 10^3/cmm (0.1-0.6) 12/15/21 08:16 Eosinophils (Manual) 0 % 12/15/21 08:16 Absolute Eosinophils 0.0 10^3/cmm (0.0-0.7) 12/15/21 08:16 Basophils (Manual) 0.0 % 12/15/21 08:16 Absolute Basophils 0.0 10^3/cmm (0.0-0.2) 12/15/21 08:16 Metamyelocytes 3.0 % 12/15/21 08:16 Nucleated RBCs # 0.0 /100WBC 12/29/21 01:33 Platelet Estimate Decreased (Normal) L 12/15/21 08:16 Polychromasia Trace 12/27/21 05:15 Hypochromasia 2+ H 12/27/21 05:15 Poikilocytosis 1+ H 12/27/21 05:15 Anisocytosis 1+ H 12/27/21 05:15 Ovalocytes Trace 12/27/21 05:15 Schistocytes Trace 12/27/21 05:15 ESR 4 mm/hr (0-15) 12/18/21 05:45 Haptoglobin 113.0 mg/L (30-200) 12/26/21 05:51 PT 16.40 SECONDS (12.1-14.9) H 12/29/21 01:33 INR 1.29 (0.8-1.2) H 12/29/21 01:33 APTT 34.0 SECONDS (23.9-36.7) 12/29/21 01:33 Fibrinogen 241 mg/dL (174-498) 12/29/21 01:33 Fibrin Degrad Products Pos, >=40 ug/mL (NEG) H 12/29/21 01:33 D-Dimer 11.74 ug/mIFEU (0-0.59) H 12/29/21 01:33 Specimen Type Arterial 12/13/21 19:39 Sample Site Radial, left 12/13/21 19:39 ABG pH 7.50 (7.35-7.45) H 12/13/21 19:39 ABG pCO2 33.0 mmHg (35-45) L 12/13/21 19:39 ABG pO2 50.0 mmHg (80.0-100.0) L 12/13/21 19:39 ABG HCO3 25.6 mmol/L (22-26) 12/13/21 19:39 ABG Base Excess 2.6 mmol/L (-2.0-2.0) H 12/13/21 19:39 Jimmy Test Pos 12/13/21 19:39 Hematocrit 32.1 % (37-47) L 12/13/21 19:39 O2 Delivery Device Room air 12/13/21 19:39 Gis Application Developer ID Buttr 12/13/21 19:39 Sodium 132 mmol/L (136-145) L 12/29/21 01:33 Potassium 5.0 mmol/L (3.5-5.1) 12/29/21 01:33 Chloride 97 mmol/L (98-107) L 12/29/21 01:33 Carbon Dioxide 25 mmol/L (22-29) 12/29/21 01:33 Anion Gap 15.0 (5-19) 12/29/21 01:33 BUN 13 mg/dL (6-20) 12/29/21 01:33 Creatinine 0.9 mg/dL (0.5-0.9) 12/29/21 01:33 GFR Calculation 71.3 mL/min (90-130) L 12/29/21 01:33 Glucose 117 mg/dL (65-115) H 12/29/21 01:33 Calculated Osmolality 275 mOsm/kg (285-295) L 12/29/21 01:33 Lactic Acid 4.6 mmol/L (0.5-2.2) H* 12/13/21 19:57 Lactic Acid (Sepsis) 2.7 mmol/L (0.5-2.2) H 12/13/21 21:34 Lactate 0.8 mmol/L (0.5-2.2) 12/27/21 05:15 Calcium 8.3 mg/dL (8.5-10.5) L 12/29/21 01:33 Phosphorus 4.8 mg/dL (2.5-4.5) H 12/29/21 01:33 Magnesium 1.8 mg/dL (1.7-2.3) 12/29/21 01:33 Iron 17 ug/dL (37-145) L 12/21/21 04:49 TIBC 184 mcg/dl 12/21/21 04:49 % Saturation 9.2 % (20-50) L 12/21/21 04:49 Unsat Iron Binding 167 ug/dL (112-347) 12/21/21 04:49 Ferritin 115 ng/mL (15-150) 12/21/21 04:49 Total Bilirubin 0.7 mg/dL (0.15-1.2) 12/29/21 01:33 AST 16 U/L (0-32) 12/29/21 01:33 ALT 6 U/L (0-33) 12/29/21 01:33 Alkaline Phosphatase 277 IU/L (35-105) H 12/29/21 01:33 Lactate Dehydrogenase 287 U/L (135-214) H 12/26/21 05:51 Creatine Kinase 11 U/L (26-192) L 12/21/21 04:49 Troponin T Baseline 12 ng/L (0-10) H 12/15/21 17:55 Troponin T 120 Minute 11.60 ng/L (0-10) H 12/15/21 20:28 Delta Troponin T -0.40 ABS# (0-10) L 12/15/21 20:28 Troponin T Hi Sens 6Hr 9.43 ng/L (0-10) 12/16/21 00:10 Troponin T Hi Sens 6Hr Delta Not Reportable 12/16/21 00:10 C-Reactive Protein 99.4 mg/L (0.0-4.9) H 12/25/21 05:57 NT-Pro-B Natriuret Pep 4689 pg/mL (0-125) H 12/25/21 05:57 Total Protein 6.8 g/dL (6.6-8.7) 12/29/21 01:33 Albumin 2.7 g/dL (3.5-5.2) L 12/29/21 01:33 Globulin 4.1 g/dL (1.3-4.6) 12/29/21 01:33 Vitamin B12 1037 pg/mL (232-1245) 12/21/21 04:49 Folate 12.7 ng/mL (4.8-37.3) 12/21/21 04:49 Procalcitonin 2.61 ng/mL (0-0.5) H 12/25/21 05:57 HCG, Qual Negative (Negative) 12/13/21 19:57 Urine Color Straw (Yellow) 12/24/21 15:27 Urine Appearance Clear (CLEAR) 12/24/21 15:27 Urine pH 8 (5-7) H 12/24/21 15:27 Ur Specific [place] 1.010 (1.005-1.030) 12/24/21 15:27 Urine Protein Neg (Negative) 12/24/21 15:27 Urine Glucose (UA) Norm (Normal) 12/24/21 15:27 Urine Ketones Negative (Negative) 12/24/21 15:27 Urine Blood Neg (Negative) 12/24/21 15:27 Urine Nitrate Negative (Negative) 12/24/21 15:27 Urine Bilirubin Neg (Negative) 12/24/21 15:27 Prot Sulfosalicylic Acd Negative (Negative) 12/24/21 15:27 Urine Urobilinogen Norm mg/dL (Negative) 12/24/21 15:27 Ur Leukocyte Esterase Negative (Negative) 12/24/21 15:27 Urine RBC 0-4 /hpf (0-2) H 12/13/21 20:05 Urine WBC 0-4 /hpf (0-5) H 12/13/21 20:05 Ur Squamous Epith Cells 0-4 /hpf (0-5) H 12/13/21 20:05 Amorphous Sediment Not Reportable 12/13/21 20:05 Urine Bacteria 2+ /hpf (NONE) H 12/13/21 20:05 Fine Granular Casts 3 /lpf 12/13/21 20:05 Urine Mucus 1+ /hpf 12/13/21 20:05 CSF Appearance Clear (CLEAR) 12/13/21 22:00 CSF Color Colorless (COLORLESS) 12/13/21 22:00 CSF WBC 192 /uL (0-5) H 12/13/21 22:00 CSF RBC 0 10^3/uL (0-0) 12/13/21 22:00 CSF Mononuclear # Auto 0.015 10^3/uL (50-90) L 12/13/21 22:00 CSF Mononuclear WBCs % 8 % (50-90) L 12/13/21 22:00 CSF Polynuclear WBCs # 0.177 10^3/uL (0-10) 12/13/21 22:00 CSF Polynuclear WBCs % 92 % (0-10) H 12/13/21 22:00 CSF Diff Comment Yes 12/13/21 22:00 Vancomycin Trough 32.4 ug/mL (10-15) H* 12/28/21 21:11 Urine Opiates Screen Positive ng/mL (Negative) H 12/13/21 20:05 Ur Barbiturates Screen Negative ng/mL (Negative) 12/13/21 20:05 Ur Phencyclidine Scrn Negative ng/mL (Negative) 12/13/21 20:05 Ur Amphetamines Screen Negative ng/mL (Negative) 12/13/21 20:05 U Benzodiazepines Scrn Negative ng/mL (Negative) 12/13/21 20:05 Urine Cocaine Screen Negative ng/mL (Negative) 12/13/21 20:05 U Marijuana (THC) Screen Negative ng/mL (Negative) 12/13/21 20:05 Ethyl Alcohol < 10 mg/dL (0-10) 12/13/21 19:57 RPR Nonreactive (Nonreactive) 12/16/21 00:10 Coronavirus 229E (PCR) Not detected (NOT DETECT) 12/24/21 20:10 HCV RNA (PCR) IUs/ml 1.48 Log IU/mL (NOT DETECTED) H 12/15/21 08:16 HCV RNA (PCR) IU log10 30 IU/mL (NOT DETECTED) H 12/15/21 08:16 HIV 1&2 Ab & HIV 1 Ag Non-reactive (Non-Reactiv) 12/18/21 16:33 HIV 1&2 Antibody Non-reactive (Non-Reactiv) 12/18/21 16:33 Influenza Type A Ag Negative (Negative) 12/24/21 20:40 Influenza Type B Ag Negative (Negative) 12/24/21 20:40 SARS-CoV-2 (PCR) Not detected (NOT DETECT) 12/24/21 20:10 Blood Type B Positive 12/26/21 08:51 Rho(D) Type Positive 12/26/21 08:51 Antibody Screen Positive 12/26/21 08:51 Antibody Identification Anti-E 12/26/21 08:51 Antigen Identification E Antigen - NEGATIVE 12/26/21 08:51 MARIAN, IgG Interpret Negative 12/26/21 08:51 MARIAN, Poly Interpret Negative 12/26/21 08:51 MARIAN, Complement Interp Negative 12/26/21 08:51 Crossmatch See Detail 12/26/21 08:[address] 12/13/21 19:22 IMPRESSION: 1. Normal brain 2. Paranasal sinus mucosal thickening KUB X-Ray 12/14/21 04:57 IMPRESSION: Nonobstructive bowel gas pattern. Head/Neck CTA 12/15/21 17:33 IMPRESSION: 1. No large vessel stenosis or occlusion. 2. Unremarkable CTA head. IMPRESSION: No carotid artery stenosis or occlusion. REFERENCES: NASCET CRITERIA. The degree of internal carotid artery stenosis is based on NASCET criteria. Normal is no stenosis. Mild is less than 50% stenosis. Moderate is 50-69% stenosis. Severe is 70% to 99% stenosis. Total occlusion is no detectable patent lumen. Lumbar Spine MRI 12/16/21 10:09 IMPRESSION: Unremarkable lumbar spine. There are several benign hemangiomas in the visualized osseous structures the larger of which measures 9 mm in the L3 vertebral body. Thoracic Spine MRI 12/16/21 10:09 IMPRESSION: Normal thoracic spine. There are small bilateral pleural effusions. Head MRI 12/18/21 11:40 IMPRESSION: 1. Unremarkable noncontrast MRI brain. 2. No acute infarct or hemorrhage. Chest CTA 12/22/21 09:18 IMPRESSION: 1. Cardiomegaly with pulmonary vascular congestion. 2. Small bilateral pleural effusions are present. 3. Nonspecific bilateral opacities, atelectasis, edema and/or pneumonia. 4. Pulmonary interstitial edema. 5. Bilateral occlusive lower lobe pulmonary emboli similar in appearance to the prior exam from 03/30/2021. Additional pulmonary emboli felt to be present in left upper lobe segmental arteries. 6. The RV/LV ratio is abnormally elevated suggestive of right heart strain, measuring 1.2. Reflux of injected contrast material into hepatic veins suggests decreased cardiac output. 7. Enlarged mediastinal nodes with the largest at the AP window having a short axis diameter of 2.1 cm. 8. Intra-abdominal ascites is present. 9. Hepatomegaly partially visualized. ADDENDUM: 12/22/21 1443 1. There remains bilateral occlusive lower lobe pulmonary emboli, but appears less expansile on the right compared to previous examination suggesting some interval improvement. Small focal areas of partially occlusive thrombi are also present in the left upper lobe. 2. Overall, improvement in the patulous consolidations/pneumonia seen within both lungs on prior study. There remains a grouping of small focal opacities in the peripheral right upper lobe which are nonspecific and may reflect sequela of early septic emboli. 3. The bilateral moderate volume pleural effusions are new from most recent comparison. Chest X-Ray 12/26/21 09:55 IMPRESSION: 1. Right-sided PICC line in satisfactory position ending in the lower one third of the SVC. No other significant change since previous exam on the same day. Recent Clincial Data Last Vital Signs Temp 98.2 F 12/29/21 15:51 Pulse 76 12/29/21 15:51 Resp 16 12/29/21 15:51 BP 118/72 12/29/21 15:51 Pulse Ox 97 12/29/21 15:51 Vital Signs Temp Pulse Resp BP Pulse Ox 12/29/21 15:51 98.2 F 76 16 118/72 97 12/29/21 11:08 98.2 F 92 18 147/71 92 12/29/21 08:31 100.1 F H 114 H 20 H 132/70 90 12/29/21 05:27 0 L Intake & Output/Weight 12/27/21 12/28/21 12/29/21 12/30/21 06:59 06:59 06:59 06:59 Intake Total 1180 / 1180 1430 / 1430 2470 / 2470 Output Total 2800 / 2800 800 / 800 Balance 1180 / 1180 -1370 / -1370 1670 / 1670 Weight 56.6 kg 58.967 kg 57.878 kg Vitals Last Vital Signs Temp 98.2 F 12/29/21 15:51 Pulse 76 12/29/21 15:51 Resp 16 12/29/21 15:51 BP 118/72 12/29/21 15:51 Pulse Ox 97 12/29/21 15:51 TS Medications Medications Acetaminophen (Acetaminophen 325 Mg Tablet) 650 mg PO Q6H PRN PRN Reason: MILD PAIN Last Admin: 12/27/21 13:54 Dose: 650 mg Documented by: Aspirin (Aspirin 81 Mg Ec Tablet) 81 mg PO DAILY [facility] Last Admin: 12/27/21 08:38 Dose: 81 mg Documented by: Bisacodyl (Bisacodyl 10 Mg Supp) 10 mg SD DAILY PRN PRN Reason: CONSTIPATION Buprenorphine/Naloxone (Buprenorphine-Naloxone 4-1 Mg Film) 2 each SUBLINGUAL TID [facility] Last Admin: 12/29/21 09:07 Dose: 2 each Documented by: Duloxetine HCl (Duloxetine 60 Mg Capsule) 60 mg PO DAILY [facility] Last Admin: 12/29/21 09:05 Dose: 60 mg Documented by: Enoxaparin Sodium (Enoxaparin 40 Mg/0.4 Ml Syringe) 40 mg SUBCUT Q12H [facility] Fentanyl (Fentanyl 50 Mcg/Ml Inj 2ml) 50 mcg IVP Q10M PRN PRN Reason: Preop Pain Fluconazole (Fluconazole 100 Mg Tablet) 600 mg PO DAILY [facility] Last Admin: 12/29/21 09:05 Dose: 600 mg Documented by: Ceftriaxone Sodium 2,000 mg/ (Sodium Chloride) 50 mls @ 100 mls/hr IV Q12H [facility]; Protocol Last Infusion: 12/29/21 03:04 Dose: Infused Documented by: Vancomycin HCl 1,000 mg/ (Sodium Chloride) 250 mls @ 250 mls/hr IV Q12H [facility] Last Infusion: 12/28/21 20:46 Dose: Infused Documented by: Lanolin (Lanolin Oint 7 Gm) 1 applic TOPICAL PRN PRN PRN Reason: DRYNESS Last Admin: 12/18/21 03:40 Dose: 1 applic Documented by: Lidocaine (Lidocaine 5% Patch) 1 patch TOPICAL [id number] [facility] Last Admin: 12/29/21 09:07 Dose: 1 patch Documented by: Lorazepam (Lorazepam 2 Mg/Ml Inj 1 Ml) 0.5 mg IVP Q15M PRN PRN Reason: ANXIETY Last Admin: 12/29/21 01:12 Dose: 0.5 mg Documented by: Midazolam HCl (Midazolam 1 Mg/Ml Inj 2 Ml) 2 mg IVP Q5M PRN PRN Reason: Preop Anxiety Nicotine (Nicotine 21 Mg Patch) 1 patch TRANSDERMA DAILY [facility] Last Admin: 12/29/21 09:10 Dose: 1 patch Documented by: Nicotine Polacrilex (Nicotine 4 Mg Lozenge) 4 mg MUCOUS MEM Q4H PRN PRN Reason: NICOTINE CRAVINGS Ondansetron HCl (Ondansetron 2 Mg/Ml Sdv 2 Ml) 4 mg IVP Q6H PRN PRN Reason: NAUSEA AND VOMITING Ondansetron HCl (Ondansetron 2 Mg/Ml Sdv 2 Ml) 4 mg IVP Q5M PRN PRN Reason: NAUSEA AND VOMITING Ondansetron HCl (Ondansetron 2 Mg/Ml Sdv 2 Ml) 4 mg IVP Q15M PRN PRN Reason: Nausea/Vomiting PACU PHASE II Polyethylene Glycol (Polyethylene Glycol 3350 Pkt 17 Gm) 17 gm PO DAILY [facility] Last Admin: 12/29/21 09:10 Dose: Not Given Documented by: Discontinued Medications Acetaminophen (Acetaminophen 500 Mg Tablet) 1,000 mg PO ONCE ONE Stop: 12/13/21 19:26 Last Admin: 12/13/21 19:37 Dose: 1,000 mg Documented by: Benzocaine (Cetylpyridinium Lozenge) 1 each MUCOUS MEM ONCE ONE Stop: 12/28/21 11:25 Last Admin: 12/28/21 16:00 Dose: Not Given Documented by: Benzocaine/Butamben/Tetracaine HCl (Cetacaine [place] 5 Gm Can) Confirm Administered Dose 5 spray .ROUTE .STK-MED ONE Stop: 12/28/21 11:51 Bisacodyl (Bisacodyl 10 Mg Supp) 10 mg SD DAILY [facility] Last Admin: 12/27/21 08:40 Dose: Not Given Documented by: Buprenorphine/Naloxone (Buprenorphine-Naloxone 4-1 Mg Film) 1 each SUBLINGUAL ONCE ONE Stop: 12/13/21 22:21 Last Admin: 12/13/21 22:46 Dose: 1 each Documented by: Buprenorphine/Naloxone (Buprenorphine-Naloxone 4-1 Mg Film) 8 each SUBLINGUAL Q4H PRN PRN Reason: WITHDRAWAL Buprenorphine/Naloxone (Buprenorphine-Naloxone 4-1 Mg Film) 2 each SUBLINGUAL Q4H PRN PRN Reason: WITHDRAWAL Last Admin: 12/15/21 00:44 Dose: 2 each Documented by: Buprenorphine/Naloxone (Buprenorphine-Naloxone 4-1 Mg Film) 1 each SUBLINGUAL TID [facility] Last Admin: 12/20/21 08:48 Dose: 1 each Documented by: Buprenorphine/Naloxone (Buprenorphine-Naloxone 4-1 Mg Film) 0.5 each SUBLINGUAL ONCE ONE Stop: 12/16/21 06:20 Last Admin: 12/16/21 06:25 Dose: 0.5 each Documented by: Buprenorphine/Naloxone (Buprenorphine-Naloxone 4-1 Mg Film) 1 each SUBLINGUAL TID PRN PRN Reason: Breakthrough Pain or withdrawa Last Admin: 12/18/21 03:40 Dose: 1 each Documented by: Enoxaparin Sodium (Enoxaparin 40 Mg/0.4 Ml Syringe) 40 mg SUBCUT Q24H [facility] Last Admin: 12/29/21 09:06 Dose: 40 mg Documented by: Fluconazole (Fluconazole 100 Mg Tablet) 200 mg PO DAILY [facility] Last Admin: 12/22/21 08:25 Dose: 200 mg Documented by: Fluconazole (Fluconazole 100 Mg Tablet) 600 mg PO DAILY [facility] Last Admin: 12/27/21 08:37 Dose: 600 mg Documented by: Furosemide (Furosemide 10 Mg/Ml Sdv 2ml) 20 mg IVP ONCE ONE Stop: 12/22/21 14:16 Last Admin: 12/22/21 17:04 Dose: 20 mg Documented by: Furosemide (Furosemide 10 Mg/Ml Sdv 2ml) 20 mg IVP ONCE ONE Stop: 12/23/21 10:53 Last Admin: 12/23/21 11:40 Dose: 20 mg Documented by: Furosemide (Furosemide 10 Mg/Ml Sdv 4ml) 40 mg IVP ONCE ONE Stop: 12/24/21 08:00 Last Admin: 12/24/21 09:01 Dose: 40 mg Documented by: Furosemide (Furosemide 10 Mg/Ml Sdv 4ml) 20 mg IVP ONCE ONE Stop: 12/24/21 18:01 Last Admin: 12/24/21 17:26 Dose: 20 mg Documented by: Heparin Sodium (Porcine) (Heparin 5,000 Unit/Ml Inj 1 Ml) 5,000 unit SUBCUT Q8H [facility] Last Admin: 12/26/21 00:22 Dose: 5,000 unit Documented by: Heparin Sodium (Porcine) (Heparin 5,000 Unit/Ml Inj 1 Ml) 0 unit IV PRN PRN; Protocol PRN Reason: Heparin weight-base protocol Sodium Chloride (Sodium Chloride 0.9%) 1,000 mls @ 999 mls/hr IV .Q1H1M [facility] Stop: 12/13/21 21:30 Last Infusion: 12/13/21 22:25 Dose: Infused Documented by: Piperacillin Sod/Tazobactam (Sod 3.375 gm/ Sodium Chloride) 50 mls @ 100 mls/hr IV ONCE ONE; Protocol Stop: 12/13/21 19:51 Last Infusion: 12/13/21 21:41 Dose: Infused Documented by: Vancomycin HCl 1,000 mg/ (Sodium Chloride) 250 mls @ 250 mls/hr IV ONCE ONE; Protocol Stop: 12/13/21 20:21 Last Infusion: 12/13/21 22:22 Dose: Infused Documented by: Sodium Chloride (Sodium Chloride 0.9%) 500 mls @ 999 mls/hr IV .Q31M ONE Stop: 12/13/21 21:18 Last Infusion: 12/13/21 22:23 Dose: Infused Documented by: Norepinephrine Bitartrate 4 mg (/ Dextrose) 254 mls @ 0 mls/hr IV .Q0M [facility]; Protocol Last Titration: 12/18/21 08:59 Dose: Infused Documented by: Sodium Chloride (Sodium Chloride 0.9%) 1,000 mls @ 125 mls/hr IV .Q8H [facility] Last Infusion: 12/14/21 05:00 Dose: 0 mls/hr Documented by: Ceftriaxone Sodium 2,000 mg/ (Sodium Chloride) 50 mls @ 100 mls/hr IV Q12H [facility]; Protocol Last Admin: 12/17/21 19:27 Dose: Not Given Documented by: Sodium Chloride (Sodium Chloride 0.9%) 1,000 mls @ 125 mls/hr IV .Q8H [facility] Last Admin: 12/15/21 15:45 Dose: Not Given Documented by: Vancomycin HCl 1,000 mg/ (Sodium Chloride) 250 mls @ 250 mls/hr IV Q24H [facility] Last Infusion: 12/14/21 22:05 Dose: Infused Documented by: Amphotericin B 225 mg/ (Dextrose) 156.25 mls @ 78.125 mls/hr IV Q24H [facility] Last Admin: 12/17/21 19:26 Dose: Not Given Documented by: Ceftriaxone Sodium 2,000 mg/ (Dextrose) 50 mls @ 100 mls/hr IV Q12H [facility]; Protocol Last Infusion: 12/16/21 03:03 Dose: Infused Documented by: Amphotericin B 225 mg/ (Dextrose) 156.25 mls @ 78.125 mls/hr IV Q24H [facility] Last Infusion: 12/16/21 11:00 Dose: Infused Documented by: Vancomycin/PEG/NADA/Lysine/Water (Vancocin) 1,500 mg in 300 mls @ 200 mls/hr IV Q12H [facility] Last Infusion: 12/17/21 00:35 Dose: Infused Documented by: Caspofungin 70 mg/ Sodium (Chloride) 250 mls @ 250 mls/hr IV ONCE ONE Stop: 12/16/21 16:29 Last Infusion: 12/16/21 17:26 Dose: Infused Documented by: Caspofungin 50 mg/ Sodium (Chloride) 250 mls @ 250 mls/hr IV Q24H [facility] Last Infusion: 12/18/21 18:38 Dose: Infused Documented by: Ceftriaxone Sodium 2,000 mg/ (Sodium Chloride) 50 mls @ 100 mls/hr IV Q12H [facility]; Protocol Last Infusion: 12/21/21 02:42 Dose: Infused Documented by: Sodium Chloride (Sodium Chloride 0.9% (100 Ml)) Confirm Administered Dose 100 mls @ as directed .ROUTE .STK-MED ONE Stop: 12/16/21 20:44 Last Infusion: 12/17/21 00:35 Dose: Infused Documented by: Vancomycin HCl 1,000 mg/ (Sodium Chloride) 250 mls @ 250 mls/hr IV Q12H [facility] Last Infusion: 12/28/21 20:45 Dose: Infused Documented by: Sodium Chloride (Sodium Chloride 0.9%) 1,000 mls @ 50 mls/hr IV .Q20H [facility] Last Infusion: 12/19/21 14:28 Dose: Infused Documented by: Sodium Chloride (Sodium Chloride 0.9% (100 Ml)) Confirm Administered Dose 100 mls @ as directed .ROUTE [facility] ONE Stop: 12/21/21 14:44 Last Infusion: 12/21/21 17:09 Dose: Infused Documented by: Heparin Sodium/Sodium Chloride (Heparin Drip) 25,000 unit in 500 mls @ 0 mls/hr IV .Q0M [facility]; Protocol Sodium Chloride (Sodium Chloride 0.9%) 500 mls @ 999 mls/hr IV .Q31M ONE Stop: 12/22/21 20:23 Last Infusion: 12/22/21 20:37 Dose: Infused Documented by: Sodium Chloride (Sodium Chloride 0.9%) 250 mls @ 250 mls/hr IV ONCE ONE Stop: 12/25/21 09:33 Last Infusion: 12/25/21 11:22 Dose: Infused Documented by: Magnesium Sulfate (Magnesium Sulfate Premix) 2 gm in 50 mls @ 50 mls/hr IV ONCE ONE Stop: 12/26/21 09:32 Last Infusion: 12/26/21 11:39 Dose: Infused Documented by: Sodium Chloride (Sodium Chloride 0.9% (100 Ml)) Confirm Administered Dose 100 mls @ as directed .ROUTE .STK-MED ONE Stop: 12/26/21 17:38 Last Admin: 12/26/21 17:55 Dose: 50 mls/hr Documented by: Sodium Chloride (Sodium Chloride 0.9%) 1,000 mls @ 30 mls/hr IV .Q24H [facility] Stop: 12/29/21 11:29 Last Infusion: 12/28/21 14:15 Dose: Infused Documented by: Iodixanol (Iodixanol 320 Mg/Ml 100ml Btl) 0 ml IV ONCE ONE Stop: 12/22/21 11:03 Last Admin: 12/22/21 11:02 Dose: 64 ml Documented by: Iohexol (Iohexol 350 Mg/Ml 100 Ml Btl) 0 ml IV ONCE ONE Stop: 12/15/21 18:10 Last Admin: 12/15/21 18:09 Dose: 75 ml Documented by: Lidocaine HCl (Lidocaine 2% Jelly 5 Ml) 1 applic TOPICAL PRN PRN PRN Reason: PAIN Stop: 12/28/21 11:03 Morphine Sulfate (Morphine 4 Mg/Ml Sdv 1 Ml) 4 mg IVP ONCE ONE Stop: 12/13/21 22:16 Last Admin: 12/13/21 22:26 Dose: Not Given Documented by: Ondansetron HCl (Ondansetron 2 Mg/Ml Sdv 2 Ml) 4 mg IVP ONCE ONE Stop: 12/13/21 22:28 Last Admin: 12/13/21 22:47 Dose: 4 mg Documented by: Pantoprazole Sodium (Pantoprazole 40 Mg Sdv) 40 mg IVP DAILY [facility] Last Admin: 12/20/21 08:48 Dose: 40 mg Documented by: Potassium Chloride (Potassium Chloride Er 20 Meq Tablet) 20 meq PO ONCE ONE Stop: 12/16/21 08:44 Last Admin: 12/16/21 09:16 Dose: 20 meq Documented by: Potassium Chloride (Potassium Chloride Er 20 Meq Tablet) 40 meq PO ONCE ONE Stop: 12/17/21 08:17 Last Admin: 12/17/21 08:27 Dose: 40 meq Documented by: Potassium Chloride (Potassium Chloride Er 20 Meq Tablet) 40 meq PO ONCE ONE Stop: 12/22/21 08:00 Last Admin: 12/22/21 08:25 Dose: 40 meq Documented by: Potassium Chloride (Potassium Chloride Er 20 Meq Tablet) 40 meq PO ONCE ONE Stop: 12/23/21 10:53 Last Admin: 12/23/21 11:40 Dose: 40 meq Documented by: Potassium Phosphate (Phosphorus 250 Mg Tablet) 250 mg PO BID [facility] Last Admin: 12/20/21 08:48 Dose: 250 mg Documented by: Propofol (Propofol 10 Mg/Ml Sdv 20 Ml) Confirm Administered Dose 200 mg .ROUTE .STK-MED ONE Stop: 12/28/21 12:15 Vancomycin HCl (Vancomycin 1,000 Mg Sdv) Confirm Administered Dose 1,000 mg .ROUTE .STK-MED ONE Stop: 12/23/21 10:38 Last Admin: 12/23/21 16:37 Dose: Not Given Documented by: Allergies No Known Allergies Allergy (Unverified 03/15/21 10:58) Home Medications albuterol sulfate 90 mcg/actuation aerosol inhaler (ProAir HFA) 1 puff INHALATION QID PRN #6.7 g 03/15/21 [Rx Confirmed 12/13/21] aspirin 81 mg chewable tablet 81 mg PO DAILY 12/13/21 [History Confirmed 12/13/21] buprenorphine 8 mg-naloxone 2 mg sublingual film (Suboxone) 1 film SUBLINGUAL TID 12/13/21 [History Confirmed 12/13/21] docusate sodium 100 mg capsule 100 mg PO BID PRN 12/13/21 [History Confirmed 12/13/21] duloxetine 60 mg capsule,delayed release 60 mg PO DAILY 12/13/21 [History Confirmed 12/13/21] fluconazole 200 mg tablet 600 mg PO DAILY 12/13/21 [History Confirmed 12/13/21] furosemide 40 mg tablet (Lasix) 40 mg PO DAILY 12/13/21 [History Confirmed 12/13/21] Discharge Plan Discharge Patient Disposition: Xfer Short-Term Hosp Condition: Fair Prescriptions: No Action albuterol sulfate [ProAir HFA] 90 mcg/actuation HFA aerosol inhaler 1 puff inhalation QID PRN (Reason: shortness of breath or wheezing) Qty: 6.7 0RF Lasix 40 mg Tablet 40 mg PO DAILY 0RF fluconazole 200 mg tablet 600 mg PO DAILY 0RF docusate sodium 100 mg capsule 100 mg PO BID PRN (Reason: Constipation) 0RF aspirin 81 mg tablet,chewable 81 mg PO DAILY 0RF duloxetine 60 mg capsule,delayed release(DR/EC) 60 mg PO DAILY 0RF Suboxone 8-2 mg film 1 film sublingual TID 0RF Referrals: [facility] [Outside] (Follow up [facility], walk in hours are Saturday-Saturday from 7:30AM-3:00PM, first come, first seen. Once you do this assessment you will be referred for appropriate services) Karma Gonsalves FNP-C [Nurse Practitioner] - Emilie Dangelo MD [Referring] - Patient Instructions: Opioid Safety Transfer Attestations Time Spent in Transfer Care: greater than 30 min Quality Metrics Clinical Quality Measures [ Venous Thromboembolism { Contraindication to Overlap Therapy: Medical contraindication; VTE Discharge Education: Education about treatment options/disease process;}. No reported AMI, CVA or VTE this stay] Coding Level of Care Code Acute Rn Sane for Roman Roach
--- NOTE | 2021-12-29 19:57 | PC.NURSE ---
Report called to Britta Storm RN at [facility] in [place].
--- NOTE | 2021-12-29 20:00 | PC.NURSE ---
RN attempted to contact Ernst Ambrose, father, to update on [facility] having a room and patient to be transferred this evening. Number on file was incorrect. Grandmother gave this RN the number [phone] and [phone] to try. First number incorrect and second number no answer.
--- NOTE | 2021-12-29 20:03 | PC.NURSE ---
RN updated Tierney, grandmother, aware of patient being transferred to [facility] room 7327.
[2021-12-29] MEDS: haloperidol inj 5 mg/mL INJ 1 mL 2 MG IM (22:51)
--- NOTE | 2021-12-29 22:54 | PC.NURSE ---
Pt belongs left at nurse's station with pt label per pt dad, Ernst. Pt exiting unit at this time via EMS. Call placed to Ernst to make aware and Eliazar Martin.
== END 2021-12-29 22:56 | disposition short-term general hospital (02) | DRG 871 ==
LOC: ER 22:03 → ICU 22:32 → MEDSURG 12-17 19:25
PROVIDERS: Family Medicine; Internal Medicine Cardiovascular Disease; Admitting Provider Internal Medicine; Emergency Provider Emergency Medicine; Visit Provider Internal Medicine
PROC: (CPT 93312; principal; 2021-12-28 12:00)
DX: A41.9 Sepsis, unspecified organism (principal); R65.21 Severe sepsis with septic shock; G03.9 Meningitis, unspecified; D65 Disseminated intravascular coagulation [defibrination syndrome]; T82.6XXA Infection and inflammatory reaction due to cardiac valve prosthesis, initial encounter; I76 Septic arterial embolism; E87.1 Hypo-osmolality and hyponatremia; G93.40 Encephalopathy, unspecified; Z16.11 Resistance to penicillins; F15.11 Other stimulant abuse, in remission; F32.A Depression, unspecified; Y71.8 Miscellaneous cardiovascular devices associated with adverse incidents, not elsewhere classified; Z95.3 Presence of xenogenic heart valve; B19.20 Unspecified viral hepatitis C without hepatic coma; F17.200 Nicotine dependence, unspecified, uncomplicated; Z79.51 Long term (current) use of inhaled steroids; Z79.82 Long term (current) use of aspirin; I95.9 Hypotension, unspecified; D50.9 Iron deficiency anemia, unspecified; I07.1 Rheumatic tricuspid insufficiency; Z86.14 Personal history of Methicillin resistant Staphylococcus aureus infection; J45.909 Unspecified asthma, uncomplicated; K59.00 Constipation, unspecified; E83.42 Hypomagnesemia; N93.9 Abnormal uterine and vaginal bleeding, unspecified; H57.02 Anisocoria; E87.6 Hypokalemia; M54.9 Dorsalgia, unspecified; R00.0 Tachycardia, unspecified; Z91.19 Patient's noncompliance with other medical treatment and regimen; Z86.711 Personal history of pulmonary embolism; B95.62 Methicillin resistant Staphylococcus aureus infection as the cause of diseases classified elsewhere
CPT/HCPCS: 36415; 36430; 36569; 36592; 36600; 62270; 70450; 70496; 70498; 70551; 71045; 71275; 72146; 72148; 74018; 80053; 80202; 80306; 80307; 80503; 81001; 81003; 82274; 82550; 82607; 82728; 82746; 82803; 83010; 83540; 83550; 83605; 83615; 83735; 83880; 84100; 84145; 84295; 84484; 84703; 85007; 85025; 85027; 85362; 85378; 85384; 85610; 85651; 85730; 86140; 86592; 86850; 86870; 86880; 86900; 86902; 86920; 87040; 87070; 87075; 87077; 87086; 87150; 87186; 87205; 87522; 87635; 87804; 87806; 89050; 92523; 92610; 93005; 93306; 93312; 93320; 93325; 93970; 96365; 96367; 96372; 97110; 97116; 97161; 97530; 99285; C8924; C9113; J0289; J0573; J0637; J0696; J1630; J1644; J1650; J1940; J2060; J2405; J2543; J2704; J3370; J3475; J7030; J7040; J7050; P9016; P9035; Q9967